=== PATIENT | male | born 1955 | race Caucasian/White ===

== ENCOUNTER 2023-09-22 09:11 | Inpatient (IN) | payer MEDICARE, SELFPAY ==
[2023-09-22] VITALS (9 sets, daily range): BP systolic 131–155; BP diastolic 52–64; PULSE 60–65; RESP 16–20; TEMP 35.6–36.7; O2SAT 95–99; BMI 36.0
--- NOTE | ~2023-09-22 | CT_ITS ---
EXAMINATION: CT foot LT wo con DATE: 09/23/2023 09:32 INDICATION: Diabetic foot ulcer, possible osteomyelitis TECHNIQUE: Computed tomography (CT) of the left foot was performed without intravenous contrast. The dose-length product (DLP) was 518.26 mGy-cm. Automated exposure control and iterative reconstruction technique were employed. COMPARISON: Foot radiographs from yesterday FINDINGS: There is a plantar soft tissue ulceration of the foot near the second and third metatarsoph alangeal joints. No underlying osteomyelitis is identified. There is chronic appearing deformity of t he phalanges of the fifth toe. There is mild polyarticular osteoarthritis. Posterior and plantar enth esophytes are noted. There is calcified atherosclerosis. IMPRESSION: 1. Plantar soft tissue ulceration of the foot near the second and third metatarsophalangeal joints wi thout evidence of underlying osteomyelitis. Reviewed, dictated and finalized at location F. K OFF BEARER IMPRESSION: 1. Plantar soft tissue ulceration of the foot near the second and third metatar sophalangeal joints without evidence of underlying osteomyelitis.
--- NOTE | ~2023-09-22 | XR_ITS ---
XR foot LT min 3V 09/22/2023 10:30 Indication: Diabetic foot ulcer Procedure: 4 views left foot Comparison: No prior studies for comparison. Findings: There are erosive changes of the fifth toe involving the proximal and distal phalanges. Ost eomyelitis cannot be excluded. There is arterial calcification. There are small degenerative calcanea l enthesophytes. 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 Impression: 1: Abnormal appearance with erosive changes involving the fifth toe at the interphalangeal joint, edilma picious for osteomyelitis. Consider correlation with MRI. Reviewed, dictated and finalized at location B. OR IT ASSISTANT Impression: 1: Abnormal appearance with erosive changes involving the fifth toe at the inte rphalangeal joint, suspicious for osteomyelitis. Consider correlation with MRI.
--- NOTE | 2023-09-22 10:01 | ECG_ITS ---
Measurements Intervals [place] Rate: 61 P: 199 SC: 225 QRS: -68 QRSD: 189 T: 109 QT: 502 QTc: 506 Interpretive Statements ELECTRONIC ATRIAL PACEMAKER ELECTRONIC VENTRICULAR PACEMAKER ABNORMAL RHYTHM ECG NO PREVIOUS ECG AVAILABLE FOR COMPARISON Electronically Signed On 09-22-2023 10:48:22 [employer]NAGER GAME by Ascencion Giron M.D.
--- NOTE | 2023-09-22 10:10 | ED.GENADULT ---
HPI - General Adult General Chief complaint: Wound/Laceration Stated complaint: foot infection Time Seen by Provider: 09/22/23 09:41 History of Present Illness HPI narrative: 68-year-old male present to the emergency department for evaluation of a worsening diabetic foot ulcer. Patient has history of high cholesterol, hypertension, type 2 diabetes. Patient does have prior history of foot ulcers. Patient has been having follow-up with Podiatry and they recommended he present to the ED for evaluation. patient states that the current also has been worsening over the course of the last 3 weeks. Patients infant lead teacher is Mikael Shrestha Related Data Home Medications Medication Instructions Recorded Confirmed empagliflozin 25 mg tablet 25 mg PO DAILY 09/22/23 09/22/23 (Jardiance) escitalopram oxalate 10 mg tablet 10 mg PO DAILY 09/22/23 09/22/23 fenofibrate 160 mg tablet 160 mg PO DAILY 09/22/23 09/22/23 fluticasone 500 mcg-salmeterol 50 1 inh inhalation BID 09/22/23 09/22/23 mcg/dose blistr powdr for inhalation (Advair Diskus) furosemide 40 mg tablet 40 mg PO DAILY 09/22/23 09/22/23 glimepiride 2 mg tablet 4 mg PO DAILY 09/22/23 09/22/23 insulin aspart U-100 100 unit/mL 20 unit subcut TIDWM 09/22/23 09/22/23 subcutaneous solution (Novolog U-100 Insulin aspart) insulin glargine 100 unit/mL (3 105 unit subcut HS 09/22/23 09/22/23 mL) subcutaneous pen (Basaglar KwikPen U-100 Insulin) metformin 1,000 mg tablet 1,000 mg PO BIDWM 09/22/23 09/22/23 metoprolol tartrate 100 mg tablet 100 mg PO BID 09/22/23 09/22/23 potassium chloride 10 mEq 10 meq PO BIDWM 09/22/23 09/22/23 tablet,extended release rivaroxaban 20 mg tablet (Xarelto) 20 mg PO DAILY 09/22/23 09/22/23 rosuvastatin 20 mg tablet 20 mg PO HS 09/22/23 09/22/23 sulfamethoxazole 800 1 tablet PO Q12H 09/22/23 09/22/23 mg-trimethoprim 160 mg tablet Allergies Allergy/AdvReac Type Severity Reaction Status Date / Time No Known Allergies Allergy Verified 09/22/23 09:25 Review of Systems Review of Systems: All systems reviewed & are unremarkable except as noted in HPI and below PMFSH Social History Social History Smoking packs per day: 2 Smoking cigarettes per day: 40.0 Years smoked: 60 Smoking pack-years: 120.00 Smoking status: Current every day smoker Tobacco type: cigarettes Alcohol intake: never Substance use: never Lack of Transportation: No Lack of Food: Sometimes True Current Housing: I Have Housing Concerned About Future Housing: No Difficulty Paying Gas/Electric Bills: No Difficulty Paying for Meds: YES Currently Unemployed: No Education: High School Diploma/GED Difficulty w/ Childcare or Family Care: No Spiritual care concerns: No Exam Narrative: APPEARANCE: Well appearing, no pain, no distress, well-nourished. HEAD: normocephalic, atraumatic. EYES: PERRLA/EOMI, conjunctivae clear. NOSE: Normal no drainage EARS:TMS clear with good light reflex. THROAT: Pharynx clear, no exudate. NECK: Supple. No adenopathy, no masses. RESPIRATORY: Airway patent, respirations nonlabored. Clear to auscultation bilaterally, no rales, rhonchi, wheezing. CARDIOVASCULAR: Regular rate and rhythm without murmurs rubs or gallops. ABDOMINAL: Soft, nontender, nondistended, normal bowel sounds MUSCULOSKELETAL: Moves all extremities. Strength/ROM intact, No edema, No calf tenderness. NEURO: Alert. Cranial nerves II through XII intact. Grossly intact SKIN: diabetic ulcer to the plantar surface of the left foot Course Course Emergency Course: 68-year-old male presenting to the ED for evaluation of a worsening diabetic foot ulcer. X-ray was concerning for osteomyelitis. Patient has a leukocytosis of 16.9. Patient was started on antibiotics in the ED and blood cultures are pending. Orthopedics was consulted. Patient's infant lead teacher was consulted but he does not have credentials at this hospital. Vital Signs Vital
--- NOTE | 2023-09-22 10:30 | PC.NURSE ---
BLE william, purplish in color. Dry scaly skin noted to BLE. pulses are palpated
[2023-09-22 10:39] LABS: Basophils Absolute Auto 0.1 K/mm3 (0.0-0.1); Basophils Percent Auto 0.5 % (0.2-1.2); Eosinophils Absolute Auto 0.2 K/mm3 (0-0.3); Eosinophils Percent Auto 1.2 % (0-4.4); Hematocrit 34.8 % (42.0-52.0); Immature Granulocyte Absolute 0.26 K/mm3 (0.00-0.031); Immature Granulocyte Percent A 1.5 % (0-0.5); Lymphocytes Absolute Auto 1.59 K/mm3 (0.9-3.2); Lymphocytes Percent Auto 9.4 % (18.3-44.2); Mean Corpuscular HGB Conc 31.6 g/dl (32-36); Mean Corpuscular Hemoglobin 27.2 pg (26-34); Mean Corpuscular Volume 85.9 fl (80-100); Mean Platelet Volume 9.7 fl (7.4-10.4); Monocytes Percent Auto 5.9 % (2.6-8.5); Neutrophils Absolute Auto 13.8 K/mm3 (1.3-6.7); Neutrophils Percent Auto 81.5 % (45.5-73.1); Platelet Count Result 504 k/mm3 (150-375); Red Blood Count 4.05 M/mm3 (4.6-6.20); Red Cell Distribution Width 14.3 % (11.5-14.5); White Blood Count 16.9 K/mm3 (4.5-10.0)
[2023-09-22 10:51] LABS: Alanine Aminotransferase 117 U/L (6-50); Albumin Level 3.7 g/dL (3.5-5.1); Alkaline Phosphatase 92 U/L (38-126); Anion Gap 13 mmol/L (8-16); Aspartate Amino Transferase 80 U/L (17-59); Bilirubin,Total 0.5 mg/dL (0.2-1.3); Blood Urea Nitrogen 37 mg/dL (9-20); CRP 7.2 mg/dL (<1.0); Calcium 8.8 mg/dL (8.4-10.2); Carbon Dioxide 19 mmol/L (22-30); Chloride 102 mmol/L (98-107); Estimated CRCL calculation 57 ml/min; Estimated Glomerular Filt Rate 46; Glucose 291 mg/dL (65-110); Potassium 4.4 mmol/L (3.4-5.0); Sodium 134 mmol/L (137-145)
[2023-09-22] MEDS: metroNIDAZOLE 500 MG/ISO 100ML 500 MG/100 ML BAG 100 MG IVPB ×3 (10:51→21:41)
[2023-09-22] MEDS: CEFEPIME 2 GM/NS 50 ML 2 GM/50 ML BAG IVPB ×2 (10:53→20:40)
[2023-09-22] MEDS: HYDROmorphone HCL INJ (*CRX) 1 MG/ML SYR 0.5 MG IV PUSH (10:57)
[2023-09-22 11:14] LABS: Erythrocyte Sedimentation Rate 118 mm/hr (0-20)
[2023-09-22] MEDS: VANCOMYCIN 1,250 MG/NS 250 ML 1,250 MG/250 ML BAG 166.67 MG IVPB ×2 (13:17→14:49)
--- NOTE | 2023-09-22 14:55 | ADMGEN ---
This patient, Charly Presley, was admitted to Virtual Bed 3rd Floor-1. Patient/family oriented to hospital policies and general routines including ID bracelet, bed and alarms, visiting hours, pain management, procedures, bathroom and other care routines, personal items, smoking policy, room service/diet, and visiting hours. Information on how to activate the Rapid Response Team has been discussed. Patient/Family are encouraged to report perceived risks to care and to ask questions if they do not understand what they are told or what they should do.
[2023-09-22] MEDS: NICOTINE (*PBKC) 21 MG PATCH 1 PATCH TRANSDERM (15:57)
[2023-09-22 16:32] LABS: Glucose Point of Care 225 mg/dl (65-105)
--- NOTE | 2023-09-22 20:25 | PM.IMHP ---
H&P: HPI History of Present Illness Date/Time: 09/22/23 20:25 Chief Complaint: Left foot ulcer Narrative: This is a 68-year-old male with past medical history significant for insulin-dependent diabetes mellitus, obesity, obstructive sleep apnea on CPAP at nighttime. Patient presents to the emergency room due to left foot ulcer with malodorous drainage. Patient denies any generalized malaise, chills, rigors, nausea, vomiting, diarrhea his appetite has been good. Patient has been admitted for further evaluation management and treatment. XR foot LT min 3V 09/22/2023 10:30 Indication: Diabetic foot ulcer Procedure: 4 views left foot Comparison: No prior studies for comparison. Findings: There are erosive changes of the fifth toe involving the proximal and distal phalanges. Osteomyelitis cannot be excluded. There is arterial calcification. There are small degenerative calcaneal enthesophytes. 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 Impression: 1: Abnormal appearance with erosive changes involving the fifth toe at the interphalangeal joint, suspicious for osteomyelitis. Consider correlation with MRI. Review of Systems Review of Systems: Left foot ulcer malodorous discharge Constitutional: Constitutional: Denies chills, Denies fatigue, Denies fever(s), Denies malaise and Denies night sweats Eyes: Eyes: Denies change in vision ENT: Denies dysphagia and Denies odynophagia Cardiovascular: Cardiovascular: Denies chest pain, Denies radiating jaw, neck or arm pain and Denies palpitations Respiratory: Respiratory: Denies cough and Denies dyspnea Gastrointestinal: Gastrointestinal: Denies abdominal pain, Denies dyspepsia, Denies heartburn, Denies diarrhea, Denies nausea and Denies vomiting Genitourinary: Genitourinary: Denies dysuria Musculoskeletal: Musculoskeletal: Reports other (Left foot ulcer) Integumentary/Breasts: Skin/Breast: Reports skin ulcer Neurologic: Denies focal weakness and Denies Sensory deficit (Neuro) Psychiatric: Psychiatric: Reports no additional psychiatric complaints and Reports as per HPI Endocrine: Endocrine: Denies cold intolerance, Denies fatigue, Denies flushing, Denies heat intolerance, Denies polyphagia, Denies polydipsia and Denies palpitations Hematologic/Lymphatic: Hematologic/Lymphatic: Reports no additional hematologic/lymphatic complaints and Reports as per HPI Allergic/Immunologic: Allergic/Immunologic: Reports no additional allergic/immunologic complaints and Reports as per [facility] Past Medical History Medical History Atrial fibrillation CAD (coronary artery disease) COPD (chronic obstructive pulmonary disease) Pacemaker Pulmonary emboli Tobacco abuse Surgical History Surgical History Hx of CABG Social History Social History Smoking packs per day: 2 Smoking cigarettes per day: 40.0 Years smoked: 60 Smoking pack-years: 120.00 Smoking status: Current every day smoker Tobacco type: cigarettes Alcohol intake: never Substance use: never Lack of Transportation: No Lack of Food: Sometimes True Current Housing: I Have Housing Concerned About Future Housing: No Difficulty Paying Gas/Electric Bills: No Difficulty Paying for Meds: YES Currently Unemployed: No Education: High School Diploma/GED Difficulty w/ Childcare or Family Care: No Spiritual care concerns: No Meds Home Medications and Allergies Home Medications Medication Instructions Recorded Confirmed Type empagliflozin 25 mg tablet 25 mg PO DAILY 09/22/23 09/22/23 History (Jardiance) escitalopram oxalate 10 mg tablet 10 mg PO DAILY 09/22/23 09/22/23 History fenofibrate 160 mg tablet 160 mg PO DAILY 09/22/23 09/22/23 History fluticasone 500 mcg-salmeterol 50 1 inh inhalation BID
[2023-09-22 22:35] LABS: Glucose Point of Care 343 mg/dl (65-105)
[2023-09-22] MEDS: INSULIN ASPART (*BKC) 100 UNITS/ML SUB-Q (22:53)
[2023-09-23 00:05] VITALS: BP 147/61; PULSE 65; RESP 22; TEMP 36.3; O2SAT 97
[2023-09-23] MEDS: metroNIDAZOLE 500 MG/ISO 100ML 500 MG/100 ML BAG 100 MG IVPB ×3 (05:31→20:12)
[2023-09-23 05:45] VITALS: BP 152/64; PULSE 74; RESP 20; TEMP 35.8; O2SAT 99
--- NOTE | 2023-09-23 07:10 | PM.CNOR ---
Assessment and Plan Assessment and plan (1) Diabetic foot ulcer: Qualifiers: Diabetic foot ulcer location: toe Diabetes mellitus type: type 2 Laterality: left Non-pressure ulcer stage: with necrosis of bone Qualified Code(s): E11.621 - Type 2 diabetes mellitus with foot ulcer; L97.524 - Non-pressure chronic ulcer of other part of left foot with necrosis of bone Code(s): E11.621 - Type 2 diabetes mellitus with foot ulcer; L97.509 - Non-pressure chronic ulcer of other part of unspecified foot with unspecified severity Status: Acute Assessment and Plan: Left diabetic foot ulcer for the past 3 weeks. Worse yesterday. X-ray read as possible osteo of the 5th toe however the ulcer is under the 2nd and 3rd toe metatarsophalangeal joint. Boggy appearance to the soft tissue with purulent drainage. Concern for deep abscess or osteo. Recommend CT scan of the left foot. Start dressing changes with Betadine. Started on IV antibiotics. Unable to palpate pulses. Bilateral lower extremity chronic venous stasis. May have vascular etiology as well. NABILA and TBIs ordered. Discussed operative and non operative treatment with the patient. We will review further testing and discuss with patient. May require debridement versus amputation. Patient questions answered. Condition complicated by uncontrolled diabetes, tobacco use with history of 2 packs per day and current use. Previous vascular conditions with open heart surgery and pacemaker. History of Present Illness HPI Consult date: 09/23/23 Requesting physician: Oswaldo Alvarado MD Chief complaint: Osteomyelitis Narrative: 68-year-old male uncontrolled diabetes, smokes 2 packs a day. Left diabetic foot ulcer for the past 3 weeks. Worse yesterday and recommended come to the emergency room. Admitted for further care had previous callus on the lateral aspect of the 5th toe treated conservatively. Review of Systems Constitutional: Constitutional: Denies fever(s) Eyes: Eyes: Denies blurry vision ENT: Reports Normal hearing present Cardiovascular: Cardiovascular: Denies chest pain and Denies dyspnea Respiratory: Respiratory: Denies dyspnea and Denies wheezing Gastrointestinal: Gastrointestinal: Denies abdominal pain Genitourinary: Genitourinary: Denies urinary urgency Musculoskeletal: Musculoskeletal: Reports as per HPI and Denies numbness Integumentary/Breasts: Skin/Breast: Denies changing lesions and Denies sores Neurologic: Reports Normal hearing present, Denies behavioral changes, Denies confusion, Denies numbness and Denies convulsions Psychiatric: Psychiatric: Denies behavioral changes, Denies confusion and Denies hallucinations Endocrine: Endocrine: Denies heat intolerance Hematologic/Lymphatic: Hematologic/Lymphatic: Denies easy bleeding Allergic/Immunologic: Allergic/Immunologic: Denies wheezing [facility] Social History Social History Smoking packs per day: 2 Smoking cigarettes per day: 40.0 Years smoked: 60 Smoking pack-years: 120.00 Smoking status: Current every day smoker Tobacco type: cigarettes Alcohol intake: never Substance use: never Lack of Transportation: No Lack of Food: Sometimes True Current Housing: I Have Housing Concerned About Future Housing: No Difficulty Paying Gas/Electric Bills: No Difficulty Paying for Meds: YES Currently Unemployed: No Education: High School Diploma/GED Difficulty w/ Childcare or Family Care: No Spiritual care concerns: No Meds Home Medications and Allergies Home Medications Medication Instructions Recorded Confirmed Type empagliflozin 25 mg tablet 25 mg PO DAILY 09/22/23 09/22/23 History (Jardiance) escitalopram oxalate 10 mg tablet 10 mg PO DAILY 09/22/23 09/22/23 History fenofibrate 160 mg tablet 160 mg PO DAILY 09/22/23 09/22/23 History fluticasone 500 mcg-salmeterol 50 1 inh inhalation BID
[2023-09-23 07:48] LABS: Estimated CRCL calculation 64 ml/min; Estimated Glomerular Filt Rate 55
[2023-09-23 07:50] LABS: Basophils Absolute Auto 0.1 K/mm3 (0.0-0.1); Basophils Percent Auto 0.7 % (0.2-1.2); Eosinophils Absolute Auto 0.2 K/mm3 (0-0.3); Eosinophils Percent Auto 1.4 % (0-4.4); Hematocrit 36.3 % (42.0-52.0); Hemoglobin 11.2 g/dL (14.0-18.0); Immature Granulocyte Absolute 0.21 K/mm3 (0.00-0.031); Immature Granulocyte Percent A 1.5 % (0-0.5); Lymphocytes Absolute Auto 1.47 K/mm3 (0.9-3.2); Lymphocytes Percent Auto 10.7 % (18.3-44.2); Mean Corpuscular HGB Conc 30.9 g/dl (32-36); Mean Corpuscular Hemoglobin 27.1 pg (26-34); Mean Corpuscular Volume 87.7 fl (80-100); Mean Platelet Volume 9.7 fl (7.4-10.4); Monocytes Percent Auto 7.2 % (2.6-8.5); Neutrophils Absolute Auto 10.8 K/mm3 (1.3-6.7); Neutrophils Percent Auto 78.5 % (45.5-73.1); Platelet Count Result 499 k/mm3 (150-375); Red Blood Count 4.14 M/mm3 (4.6-6.20); Red Cell Distribution Width 14.4 % (11.5-14.5); White Blood Count 13.7 K/mm3 (4.5-10.0)
[2023-09-23 07:51] LABS: Glucose Point of Care 297 mg/dl (65-105)
[2023-09-23] MEDS: INSULIN ASPART (*BKC) 100 UNITS/ML 20 UNITS SUB-Q ×3 (08:18→16:37)
[2023-09-23] MEDS: FENOFIBRATE 160 MG TABLET PO (08:19)
[2023-09-23] MEDS: METOPROLOL TARTRATE 50 MG TAB 100 MG PO ×2 (08:19→20:14)
[2023-09-23] MEDS: ESCITALOPRAM OXALATE 10 MG TABLET PO (08:19)
[2023-09-23] MEDS: CEFEPIME 2 GM/NS 50 ML 2 GM/50 ML BAG IVPB ×2 (08:19→20:10)
[2023-09-23] MEDS: NICOTINE (*PBKC) 21 MG PATCH 1 PATCH TRANSDERM (08:19)
[2023-09-23 08:41] LABS: Anion Gap 11 mmol/L (8-16); Blood Urea Nitrogen 33 mg/dL (9-20); Calcium 8.5 mg/dL (8.4-10.2); Carbon Dioxide 18 mmol/L (22-30); Chloride 103 mmol/L (98-107); Estimated CRCL calculation 64 ml/min; Estimated Glomerular Filt Rate 55; Glucose 295 mg/dL (65-110); Potassium 4.7 mmol/L (3.4-5.0); Sodium 132 mmol/L (137-145)
[2023-09-23 11:53] LABS: Glucose Point of Care 302 mg/dl (65-105)
[2023-09-23] MEDS: VANCOMYCIN 1,500 MG/NS 500 ML 1,500 MG/500 ML BAG 250 MG IVPB (12:40)
[2023-09-23] MEDS: FLUTICASONE/SALMETEROL 230-21 MCG INHALER 1 PUFF 2 PUFF INHALATION ×2 (12:46→20:35)
[2023-09-23 12:49] VITALS: O2SAT 93
[2023-09-23 14:00] VITALS: BP 123/57; PULSE 59; RESP 16; TEMP 36; O2SAT 100
[2023-09-23] MEDS: HYDROmorphone HCL INJ (*CRX) 1 MG/ML SYR 0.5 MG IV PUSH ×2 (14:32→15:34)
--- NOTE | 2023-09-23 14:44 | PM.IMPN ---
Progress Note: A&P Assessment and Plan (1) Osteomyelitis: Code(s): M86.9 - Osteomyelitis, unspecified Status: Acute Assessment and Plan: XR showed possible osteomyelitis and recommended a MRI or CT. CT ruled out osteomyelitis. Orthopedic surgery consult MRI could not be done due to pacemaker. IV antibiotics started Await cultures (2) Diabetic foot ulcer: Qualifiers: Diabetes mellitus type: type 2 Diabetic foot ulcer location: toe Laterality: left Non-pressure ulcer stage: with necrosis of bone Qualified Code(s): E11.621 - Type 2 diabetes mellitus with foot ulcer; L97.524 - Non-pressure chronic ulcer of other part of left foot with necrosis of bone Code(s): E11.621 - Type 2 diabetes mellitus with foot ulcer; L97.509 - Non-pressure chronic ulcer of other part of unspecified foot with unspecified severity Status: Acute Assessment and Plan: Wound care consulted. See above. (3) Obesity (BMI 30-39.9): Code(s): E66.9 - Obesity, unspecified Status: Acute Assessment and Plan: Lifestyle and diet modifications (4) KIRILL on CPAP: Code(s): G47.33 - Obstructive sleep apnea (adult) (pediatric) Status: Acute Assessment and Plan: Continue use of CPAP (5) Diabetes: Code(s): E11.9 - Type 2 diabetes mellitus without complications Status: Acute Assessment and Plan: Initiate hypoglycemia protocol. Continue home insulin regimen ACHS accu checks. High dose sliding scale. Subjective Date/time seen: 09/23/23 14:44 Interval history: Patient having some foot pain. He is aware that he may have to have an amputation. He said that his pain started about 3 weeks ago and he has been seeing a plaster molder and he was told to be seen in the ED for his phone. He states he takes his medication as prescribed and does not miss his doses. He does not tract his blood sugar. Exam Narrative: GENERAL: Comfortable, no acute distress HENMT: moist mucous membranes EYES: EOM intact b/l NECK: no lymphadenopathy RESPIRATORY: clear to auscultation CARDIO: RRR GI: soft, nontender, bowel sounds present SKIN: no rashes EXTREMITIES: stasis dermatitis b/l, right foot wound bandaged. Objective Data Vital Signs Vital Signs: Vital Signs - 24 hr 09/22/23 15:49 09/22/23 22:02 09/23/23 00:05 Temperature 97.4 F L Pulse Rate 60 65 Respiratory Rate 18 22 H Blood Pressure 147/61 H Pulse Oximetry 97 97 Oxygen Delivery Room Air CPAP 09/22/23 20:35 09/23/23 05:45 09/23/23 08:00 Temperature 96.5 F L Pulse Rate 74 Respiratory Rate 20 Blood Pressure 152/64 H Pulse Oximetry 99 Oxygen Delivery Room Air Room Air 09/23/23 12:49 09/23/23 14:00 Temperature 96.8 F L Pulse Rate 59 L Respiratory Rate 16 Blood Pressure 123/57 L Pulse Oximetry 93 100 Oxygen Delivery Room Air Intake/Output Intake/Output: Intake & Output 09/20/23 09/21/23 09/22/23 09/23/23 23:59 23:59 23:59 23:59 Intake Total 1344 1352 Balance 1344 1352 Meds/Results Medications: Active Medications Generic Name Dose Route Start Last Admin Trade Name Freq PRN Reason Stop Dose Admin Dextrose 12.5 gm 09/22/23 22:42 Dextrose 50% 25 Gm/50 Ml Syringe IV PUSH PRN PRN Hypoglycemia Protocol Escitalopram Oxalate 10 mg 09/23/23 09:00 09/23/23 08:19 Escitalopram Oxalate 10 Mg Tablet PO 10 mg DAILY DANIEL Administration Fenofibrate 160 mg 09/23/23 09:00 09/23/23 08:19 Fenofibrate 160 Mg Tablet PO 160 mg DAILY DANIEL Administration Glucagon 1 mg 09/22/23 22:42 Glucagon For Inj 1 Mg Vial IM PRN PRN Hypoglycemia Protocol Glucose 15 gm 09/22/23 22:42 Glucose Oral Gel 15 Gm Of Glucse In 37.5 Gm Tube PO PRN PRN Hypoglycemia Protocol Hydromorphone HCl 0.5 mg 09/22/23 11:25 09/23/23 14:32 Hydromorphon
[2023-09-23 16:35] LABS: Glucose Point of Care 190 mg/dl (65-105)
[2023-09-23 20:00] VITALS: PULSE 59; RESP 16; O2SAT 100
[2023-09-23] MEDS: ROSUVASTATIN 10 MG TABLET 20 MG PO (20:14)
[2023-09-23 20:40] VITALS: BP 152/62; PULSE 60; RESP 18; TEMP 35.8; O2SAT 99
[2023-09-23 21:04] LABS: Glucose Point of Care 207 mg/dl (65-105)
[2023-09-23] MEDS: INSULIN ASPART (*BKC) 100 UNITS/ML SUB-Q (21:25)
[2023-09-23] MEDS: INSULIN GLARGINE (*BKC) 100 UNITS/ML 105 UNITS SUB-Q (21:25)
[2023-09-23] MEDS: HYDROmorphone HCL INJ (*CRX) 1 MG/ML SYR IV PUSH (21:59)
--- NOTE | 2023-09-23 23:58 | PM.IMHP ---
H&P: HPI History of Present Illness Date/Time: 09/23/23 23:58 Chief Complaint: Left foot ulcer Narrative: 68 yo dm II, left foot ulcer with purulent drainage PMFSH Social History Social History Smoking packs per day: 2 Smoking cigarettes per day: 40.0 Years smoked: 60 Smoking pack-years: 120.00 Smoking status: Current every day smoker Tobacco type: cigarettes Alcohol intake: never Substance use: never Lack of Transportation: No Lack of Food: Sometimes True Current Housing: I Have Housing Concerned About Future Housing: No Difficulty Paying Gas/Electric Bills: No Difficulty Paying for Meds: YES Currently Unemployed: No Education: High School Diploma/GED Difficulty w/ Childcare or Family Care: No Spiritual care concerns: No Meds Home Medications and Allergies Home Medications Medication Instructions Recorded Confirmed Type empagliflozin 25 mg tablet 25 mg PO DAILY 09/22/23 09/22/23 History (Jardiance) escitalopram oxalate 10 mg tablet 10 mg PO DAILY 09/22/23 09/22/23 History fenofibrate 160 mg tablet 160 mg PO DAILY 09/22/23 09/22/23 History fluticasone 500 mcg-salmeterol 50 1 inh inhalation BID 09/22/23 09/22/23 History mcg/dose blistr powdr for inhalation (Advair Diskus) furosemide 40 mg tablet 40 mg PO DAILY 09/22/23 09/22/23 History glimepiride 2 mg tablet 4 mg PO DAILY 09/22/23 09/22/23 History insulin aspart U-100 100 unit/mL 20 unit subcut TIDWM 09/22/23 09/22/23 History subcutaneous solution (Novolog U-100 Insulin aspart) insulin glargine 100 unit/mL (3 105 unit subcut HS 09/22/23 09/22/23 History mL) subcutaneous pen (Basaglar KwikPen U-100 Insulin) metformin 1,000 mg tablet 1,000 mg PO BIDWM 09/22/23 09/22/23 History metoprolol tartrate 100 mg tablet 100 mg PO BID 09/22/23 09/22/23 History potassium chloride 10 mEq 10 meq PO BIDWM 09/22/23 09/22/23 History tablet,extended release rivaroxaban 20 mg tablet (Xarelto) 20 mg PO DAILY 09/22/23 09/22/23 History rosuvastatin 20 mg tablet 20 mg PO HS 09/22/23 09/22/23 History sulfamethoxazole 800 1 tablet PO Q12H 09/22/23 09/22/23 History mg-trimethoprim 160 mg tablet Allergies Allergy/AdvReac Type Severity Reaction Status Date / Time No Known Allergies Allergy Verified 09/22/23 09:25 Vital Signs Vital Signs - 24 hr 09/23/23 00:05 09/23/23 05:45 09/23/23 08:00 Temperature 97.4 F L 96.5 F L Pulse Rate 65 74 Respiratory Rate 22 H 20 Blood Pressure 147/61 H 152/64 H Pulse Oximetry 97 99 Oxygen Delivery Room Air 09/23/23 12:49 09/23/23 14:00 09/23/23 20:00 Temperature 96.8 F L Pulse Rate 59 L 59 L Respiratory Rate 16 16 Blood Pressure 123/57 L Pulse Oximetry 93 100 100 Oxygen Delivery Room Air Room Air 09/23/23 20:40 Temperature 96.4 F L Pulse Rate 60 Respiratory Rate 18 Blood Pressure 152/62 H Pulse Oximetry 99 Oxygen Delivery Exam Const: General: healthy appearing; No in distress or confusion Orientation/consciousness: oriented to person, oriented to place, oriented to time and No confusion HENMT: Head: normal to inspection, normocephalic and atraumatic Eyes: Conjunctivae: conjunctivae normal Sclera: sclerae normal Neck: Neck: supple and nontender Resp: Effort & Inspection: normal respiratory effort and no audible wheezes Cardio: Rhythm: regular rhythm Skin: General skin exam: no rashes or lesions noted Neuro: General: oriented to person, oriented to place, oriented to time and No confusion Extrem: Right upper extremity: normal to inspection Left upper extremity: normal to inspection Right lower extremity: ankle Details: normal to inspection, abnormal ROM Details: with range as follows (ankle dorsiflexion -10 degrees, plantar flexion 40?, inversion 15?, eversion 15?) and other ( good stability all directions); no tenderness, no swelling and no ecchymosis and foot Details: abn
[2023-09-24] VITALS (15 sets, daily range): BP systolic 112–151; BP diastolic 53–72; PULSE 58–64; RESP 14–23; TEMP 35.7–36.7; O2SAT 95–100
[2023-09-24] MEDS: metroNIDAZOLE 500 MG/ISO 100ML 500 MG/100 ML BAG 100 MG IVPB ×3 (05:42→21:46)
--- NOTE | 2023-09-24 06:59 | WPDHPUPDATE1 ---
History and Physical Update Update Date/Time: 09/24/23 06:59 History and Physical has been reviewed, including an updated exam of the patient. There are NO changes in the patient's condition. Risks, benefits, and alternatives have been discussed and questions answered. Patient agrees to proceed with procedure.
[2023-09-24 07:03] LABS: Basophils Absolute Auto 0.1 K/mm3 (0.0-0.1); Basophils Percent Auto 0.6 % (0.2-1.2); Eosinophils Absolute Auto 0.2 K/mm3 (0-0.3); Eosinophils Percent Auto 1.7 % (0-4.4); Hematocrit 36.2 % (42.0-52.0); Hemoglobin 11.3 g/dL (14.0-18.0); Immature Granulocyte Absolute 0.17 K/mm3 (0.00-0.031); Immature Granulocyte Percent A 1.2 % (0-0.5); Lymphocytes Absolute Auto 1.82 K/mm3 (0.9-3.2); Lymphocytes Percent Auto 12.7 % (18.3-44.2); Mean Corpuscular HGB Conc 31.2 g/dl (32-36); Mean Corpuscular Hemoglobin 27.2 pg (26-34); Mean Corpuscular Volume 87.2 fl (80-100); Mean Platelet Volume 9.4 fl (7.4-10.4); Monocytes Absolute Auto 1.1 K/mm3 (0.1-0.6); Monocytes Percent Auto 7.7 % (2.6-8.5); Neutrophils Absolute Auto 10.9 K/mm3 (1.3-6.7); Neutrophils Percent Auto 76.1 % (45.5-73.1); Platelet Count Result 506 k/mm3 (150-375); Red Blood Count 4.15 M/mm3 (4.6-6.20); Red Cell Distribution Width 14.3 % (11.5-14.5); White Blood Count 14.3 K/mm3 (4.5-10.0)
[2023-09-24 07:13] LABS: Alanine Aminotransferase 98 U/L (6-50); Albumin Level 3.7 g/dL (3.5-5.1); Alkaline Phosphatase 87 U/L (38-126); Anion Gap 9 mmol/L (8-16); Aspartate Amino Transferase 59 U/L (17-59); Bilirubin,Total 0.5 mg/dL (0.2-1.3); Blood Urea Nitrogen 24 mg/dL (9-20); Calcium 8.5 mg/dL (8.4-10.2); Carbon Dioxide 20 mmol/L (22-30); Chloride 104 mmol/L (98-107); Estimated CRCL calculation 75 ml/min; Estimated Glomerular Filt Rate > 60; Glucose 170 mg/dL (65-110); Potassium 4.8 mmol/L (3.4-5.0); Sodium 133 mmol/L (137-145)
[2023-09-24 07:59] LABS: Glucose Point of Care 151 mg/dl (65-105)
--- NOTE | 2023-09-24 07:59 | WPDANESEPP ---
Anes - Eval Pre Procedure Procedure: Operation Date: 09/24/23 08:00 Proposed Procedures p I&D Debride Lower Extremity Foot(Left) - Prasanth Pizarro MD Date/Time: 09/24/23 07:59 Surgeon: Juarez Preop Diagnosis: Left foot ulcer Pre Op Diagnosis: Osteomyelitis Patient Data Age: 68 Gender: M Height: 1.85 m Weight: 119.4 kg Last Vital Signs Temp 96.2 F L 09/24/23 05:35 Pulse 60 09/24/23 05:35 Resp 20 09/24/23 05:35 BP 149/70 H 09/24/23 05:35 Pulse Ox 100 09/24/23 05:35 O2 Del Method Room Air 09/23/23 20:00 Allergies Allergy/AdvReac Type Severity Reaction Status Date / Time No Known Allergies Allergy Verified 09/22/23 09:25 Home Medications Medication Instructions Recorded Confirmed Type empagliflozin 25 mg tablet 25 mg PO DAILY 09/22/23 09/22/23 History (Jardiance) escitalopram oxalate 10 mg tablet 10 mg PO DAILY 09/22/23 09/22/23 History fenofibrate 160 mg tablet 160 mg PO DAILY 09/22/23 09/22/23 History fluticasone 500 mcg-salmeterol 50 1 inh inhalation BID 09/22/23 09/22/23 History mcg/dose blistr powdr for inhalation (Advair Diskus) furosemide 40 mg tablet 40 mg PO DAILY 09/22/23 09/22/23 History glimepiride 2 mg tablet 4 mg PO DAILY 09/22/23 09/22/23 History insulin aspart U-100 100 unit/mL 20 unit subcut TIDWM 09/22/23 09/22/23 History subcutaneous solution (Novolog U-100 Insulin aspart) insulin glargine 100 unit/mL (3 105 unit subcut HS 09/22/23 09/22/23 History mL) subcutaneous pen (Basaglar KwikPen U-100 Insulin) metformin 1,000 mg tablet 1,000 mg PO BIDWM 09/22/23 09/22/23 History metoprolol tartrate 100 mg tablet 100 mg PO BID 09/22/23 09/22/23 History potassium chloride 10 mEq 10 meq PO BIDWM 09/22/23 09/22/23 History tablet,extended release rivaroxaban 20 mg tablet (Xarelto) 20 mg PO DAILY 09/22/23 09/22/23 History rosuvastatin 20 mg tablet 20 mg PO HS 09/22/23 09/22/23 History sulfamethoxazole 800 1 tablet PO Q12H 09/22/23 09/22/23 History mg-trimethoprim 160 mg tablet Laboratory Tests 09/23/23 09/23/23 09/23/23 07:08 07:10 11:32 WBC RBC Hgb Hct MCV MCH MCHC RDW Plt Count MPV Immature Gran % (Auto) Neut % (Auto) Lymph % (Auto) [place] % (Auto) Eos % (Auto) Baso % (Auto) Lymph # (Auto) [place] # (Auto) Eos # (Auto) Baso # (Auto) Abs Immat Gran (auto) Absolute Neuts (auto) Absolute Nucleated RBC Nucleated RBC % Sodium 132 L mmol/L (137-145) Potassium 4.7 mmol/L (3.4-5.0) Chloride 103 mmol/L (98-107) Carbon Dioxide 18 L mmol/L (22-30) Anion Gap 11 mmol/L (8-16) BUN 33 H mg/dL (9-20) Creatinine 1.30 mg/dL (0.7-1.3) Estim Creat Clear Calc 64 ml/min Estimated GFR 55 L (59 - ) Glucose 295 H mg/dL (65-110) POC Capillary Glucose 302 H mg/dl (65-105) Hemoglobin A1c 10.0 H % (<5.7) Calcium 8.5 mg/dL (8.4-10.2) Total Bilirubin AST ALT Alkaline Phosphatase Total Protein Albumin 09/23/23 09/23/23 09/24/23 16:28 20:43 06:24 WBC 14.3 H K/mm3 (4.5-10.0) RBC 4.15 L M/mm3 (4.6-6.20) Hgb 11.3 L g/dL (14.0-18.0) Hct 36.2 L % (42.0-52.0) MCV 87.2 fl (80-100) MCH 27.2 pg (26-34) MCHC 31.2 L g/dl (32-36) RDW 14.3 % (11.5-14.5) Plt Count 506 H k/mm3 (150-375) MPV 9.4 fl (7.4-10.4) Immature Gran % (Auto) 1.2 H % (0-0.5) Neut % (Auto) 76.1 H % (45.5-73.1) Lymph % (Auto) 12.7 L %
--- NOTE | 2023-09-24 08:16 | P.PNAN_ITS ---
Anes - Eval Final PreProcedure Day of Procedure 09/24/23 08:16 Patient weight: obese Heart: regular rate and rhythm Lungs: clear to auscultation Airway: Mallampati scale class II and special considerations poor dentition Neurological: alert and oriented Last oral intake: >/= 8 hours ASA classification: III Emergent: no Anesthetic plan: proceed Anesthesia type and monitoring: general LMA and standard monitoring Results Review: All pre-operative results and documents have been reviewed as part of the pre- operative evaluation. Informed Consent: The patient's anesthetic plan and its attendant risks and benefits were discussed with the patient/family/POA. Questions were solicited and answers provided to the satisfaction of the patient/family/POA.
[2023-09-24] MEDS: METOPROLOL TARTRATE 50 MG TAB 100 MG PO ×2 (08:30→20:39)
[2023-09-24] MEDS: CEFEPIME 2 GM/NS 50 ML 2 GM/50 ML BAG IVPB ×2 (08:35→20:38)
[2023-09-24] MEDS: ceFAZolin SODIUM 1 GM VIAL (08:52)
[2023-09-24] MEDS: LACTATED RINGERS 1,000 ML 30 ML IV CONT (08:59)
--- NOTE | 2023-09-24 09:09 | P.OP_ITS ---
Procedure Note - Detailed Date of Procedure 09/24/23 Pre-op Diagnosis Osteomyelitis Post-op Diagnosis Same Procedure Performed excisional debridement of left foot ulcer down to muscle layer, 5 x 3 cm Surgeon Prasanth Pizarro MD [employer] 1[employer] volunteer services assistant Anesthesia General Indications 68-year-old with diabetes and neuropathy who was admitted with left foot ulcer with infection. Worsening with oral antibiotic treatment. Presents for operative debridement. Findings Left plantar forefoot ulcer beneath the 2nd and 3rd toes 5 x 3 cm with 2 cm depth. Did not extend to bone or joint. Decreased bleeding noted. Description of Procedure Patient identified in the preoperative holding. Informed consent given. Operative extremity marked. Patient received intravenous antibiotics. Patient brought to the operating room where underwent general anesthetic by anesthesia team. Positioned supine on operating room table. Time-out performed confirming the patient, site of the surgery and the plan. Left foot prepped draped usual sterile surgical fashion using a Betadine prep solution. Esmarch bandage used to exsanguinate the foot and wrapped at the ankle as a tourniquet. 15 blade k nife used to debride the left foot. Skin, subcutaneous tissue, muscle sharply debrided and passed off with the knife and rongeur. All devitalized tissue excised and removed. No exposed bone or joint or tendon material noted. Tourniquet released and mild bleeding noted around the periphery of the wound. Wound measured at 5 x 3 cm with 2 cm depth. Wound irrigated with saline with vancomycin antibiotic. Wound packed with Betadine gauze. Sterile dressing applied. The patient was then woken from anesthesia, extubated and taken to the recovery room in stable condition. All sponge, needle, i nstrument counts were correct at the end of the case. Estimated Blood Loss 5 Tourniquet Time 20 Drains No Packing Yes ( Betadine-soaked gauze) Pathology None sent Complications None Condition Stable Disposition PACU [facility] Billing Surgery - Charge Forward: Surgery Billing ([id number])
[2023-09-24 09:18] LABS: Glucose Point of Care 177 mg/dl (65-105)
[2023-09-24] MEDS: fentaNYL CITRATE INJ (*CRX) 100 MCG/2 ML VIAL 25 MCG IV PUSH (09:58)
[2023-09-24] MEDS: FLUTICASONE/SALMETEROL 230-21 MCG INHALER 1 PUFF 2 PUFF INHALATION ×2 (10:35→19:37)
[2023-09-24] MEDS: ESCITALOPRAM OXALATE 10 MG TABLET PO (11:13)
[2023-09-24] MEDS: FENOFIBRATE 160 MG TABLET PO (11:13)
[2023-09-24] MEDS: POTASSIUM CHLORIDE 10 MEQ ER TABLET PO ×2 (11:15→16:31)
[2023-09-24] MEDS: HYDROcodone/acetaminophen (*CRX) 5-325 MG TABLET 1 TAB PO ×3 (11:15→21:46)
[2023-09-24 11:18] LABS: Glucose Point of Care 156 mg/dl (65-105)
[2023-09-24] MEDS: FUROSEMIDE 40 MG TABLET PO (12:53)
[2023-09-24 12:54] LABS: Vancomycin Trough 8.3 ug/mL (10.0-20.0)
--- NOTE | 2023-09-24 14:13 | PM.IMPN ---
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 CT ruled out osteomyelitis. Orthopedic surgery consult MRI could not be done due to pacemaker. IV antibiotics started Wound culture with gram-positive cocci Blood culture no growth to date (2) Obesity (BMI 30-39.9): Code(s): E66.9 - Obesity, unspecified Status: Acute Assessment and Plan: Lifestyle and diet modifications (3) KIRILL on CPAP: Code(s): G47.33 - Obstructive sleep apnea (adult) (pediatric) Status: Acute Assessment and Plan: Continue use of CPAP (4) Diabetes: Code(s): E11.9 - Type 2 diabetes mellitus without complications Status: Acute Assessment and Plan: Initiate hypoglycemia protocol. Continue home insulin regimen ACHS accu checks. High dose sliding scale. Subjective Date/time seen: 09/24/23 14:13 Interval history: Patient postop day 0 from right diabetic wound debridement. Patient has some pain postoperatively but overall is managing well. PT and OT ordered for the patient. Exam Narrative: GENERAL: Comfortable, no acute distress HENMT: moist mucous membranes EYES: EOM intact b/l NECK: no lymphadenopathy RESPIRATORY: small amount of scattered wheezes CARDIO: RRR GI: soft, nontender, bowel sounds present SKIN: no rashes EXTREMITIES: stasis dermatitis b/l, right foot wound bandaged. Objective Data Vital Signs Vital Signs: Vital Signs - 24 hr 09/23/23 20:00 09/23/23 20:40 09/24/23 05:35 Temperature 96.4 F L 96.2 F L Pulse Rate 59 L 60 60 Respiratory Rate 16 18 20 Blood Pressure 152/62 H 149/70 H Pulse Oximetry 100 99 100 Oxygen Delivery Room Air Oxygen Flow Rate 09/24/23 08:59 09/24/23 09:15 09/24/23 09:30 Temperature 98.0 F Pulse Rate 60 60 60 Respiratory Rate 23 H 16 18 Blood Pressure 112/53 L 121/59 L 138/61 Pulse Oximetry 99 100 96 Oxygen Delivery Simple Face Mask Simple Face Mask Room Air Oxygen Flow Rate 8 8 09/24/23 09:45 09/24/23 10:00 09/24/23 10:35 Temperature Pulse Rate 60 60 Respiratory Rate 14 18 Blood Pressure 149/61 H 146/62 H Pulse Oximetry 96 95 95 Oxygen Delivery Room Air Room Air Room Air Oxygen Flow Rate 09/24/23 10:12 09/24/23 10:27 09/24/23 10:57 Temperature 96.4 F L 96.8 F L 97.0 F L Pulse Rate 64 58 L 59 L Respiratory Rate 20 20 20 Blood Pressure 149/65 H 146/71 H 146/72 H Pulse Oximetry 97 98 100 Oxygen Delivery Oxygen Flow Rate 09/24/23 11:57 09/24/23 13:05 09/24/23 13:09 Temperature 97.3 F L Pulse Rate 59 L Respiratory Rate 20 Blood Pressure 133/64 Pulse Oximetry 100 Oxygen Delivery Room Air Room Air Oxygen Flow Rate Intake/Output Intake/Output: Intake & Output 09/21/23 09/22/23 09/23/23 09/24/23 23:59 23:59 23:59 23:59 Intake Total 1344 2324 1180 Balance 1344 2324 1180 Meds/Results Medications: Active Medications Generic Name Dose Route Start Last Admin Trade Name Freq PRN Reason Stop Dose Admin Acetaminophen 650 mg 09/23/23 15:28 Acetaminophen 325 Mg Tablet PO Q6H PRN Mild Pain (1-3) or Fever Hydrocodone Bitart/Acetaminophen 1 tab 09/23/23 15:28 09/24/23 11:15 Hydrocodone/Acetaminophen (*Crx) 5-325 Mg Tablet PO 1 tab Q6H PRN Administration Pain Rated 4-6 Dextrose 12.5 gm
[2023-09-24] MEDS: VANCOMYCIN 1,500 MG/NS 500 ML 1,500 MG/500 ML BAG 250 MG IVPB (14:18)
[2023-09-24] MEDS: INSULIN ASPART (*BKC) 100 UNITS/ML 20 UNITS SUB-Q (16:28)
[2023-09-24] MEDS: SENNA/DOCUSATE SODIUM TABLET 2 TAB PO (16:30)
[2023-09-24 16:35] LABS: Glucose Point of Care 296 mg/dl (65-105)
[2023-09-24 20:21] LABS: Glucose Point of Care 135 mg/dl (65-105)
[2023-09-24] MEDS: ROSUVASTATIN 10 MG TABLET 20 MG PO (20:39)
[2023-09-24] MEDS: INSULIN GLARGINE (*BKC) 100 UNITS/ML 105 UNITS SUB-Q (20:43)
[2023-09-25] VITALS (13 sets, daily range): BP systolic 123–183; BP diastolic 42–78; PULSE 59–72; RESP 16–20; TEMP 35.7–36.3; O2SAT 96–100
[2023-09-25] MEDS: GLUCOSE ORAL GEL 15 GM OF GLUCSE IN 37.5 GM TUBE PO (00:43)
[2023-09-25] MEDS: VANCOMYCIN 1,500 MG/NS 500 ML 1,500 MG/500 ML BAG 250 MG IVPB ×2 (01:06→13:45)
[2023-09-25 01:34] LABS: Glucose Point of Care 53 mg/dl (65-105)
[2023-09-25 01:34] LABS: Glucose Point of Care 130 mg/dl (65-105)
[2023-09-25 01:34] LABS: Glucose Point of Care 65 mg/dl (65-105)
[2023-09-25 01:34] LABS: Glucose Point of Care 85 mg/dl (65-105)
[2023-09-25 04:31] LABS: Glucose Point of Care 209 mg/dl (65-105)
[2023-09-25 05:02] LABS: Glucose Point of Care 158 mg/dl (65-105)
[2023-09-25] MEDS: metroNIDAZOLE 500 MG/ISO 100ML 500 MG/100 ML BAG 100 MG IVPB ×2 (05:20→12:33)
[2023-09-25 06:54] LABS: Basophils Absolute Auto 0.1 K/mm3 (0.0-0.1); Basophils Percent Auto 0.5 % (0.2-1.2); Eosinophils Absolute Auto 0.1 K/mm3 (0-0.3); Eosinophils Percent Auto 0.9 % (0-4.4); Hematocrit 37.4 % (42.0-52.0); Hemoglobin 11.5 g/dL (14.0-18.0); Immature Granulocyte Absolute 0.12 K/mm3 (0.00-0.031); Immature Granulocyte Percent A 0.8 % (0-0.5); Lymphocytes Absolute Auto 1.38 K/mm3 (0.9-3.2); Lymphocytes Percent Auto 9.7 % (18.3-44.2); Mean Corpuscular HGB Conc 30.7 g/dl (32-36); Mean Corpuscular Hemoglobin 26.9 pg (26-34); Mean Corpuscular Volume 87.6 fl (80-100); Mean Platelet Volume 9.3 fl (7.4-10.4); Monocytes Absolute Auto 0.9 K/mm3 (0.1-0.6); Monocytes Percent Auto 6.3 % (2.6-8.5); Neutrophils Absolute Auto 11.7 K/mm3 (1.3-6.7); Neutrophils Percent Auto 81.8 % (45.5-73.1); Platelet Count Result 515 k/mm3 (150-375); Red Blood Count 4.27 M/mm3 (4.6-6.20); Red Cell Distribution Width 14.4 % (11.5-14.5); White Blood Count 14.2 K/mm3 (4.5-10.0)
[2023-09-25 07:04] LABS: Anion Gap 5 mmol/L (8-16); Blood Urea Nitrogen 20 mg/dL (9-20); Calcium 8.5 mg/dL (8.4-10.2); Carbon Dioxide 26 mmol/L (22-30); Chloride 105 mmol/L (98-107); Estimated CRCL calculation 75 ml/min; Estimated Glomerular Filt Rate > 60; Glucose 149 mg/dL (65-110); Potassium 4.7 mmol/L (3.4-5.0); Sodium 136 mmol/L (137-145)
[2023-09-25 07:59] LABS: Glucose Point of Care 144 mg/dl (65-105)
--- NOTE | 2023-09-25 09:00 | PCOTNOTE ---
Patient has wound care and MD present at arrival to see Patient. RN had just gave Patient IV pain medication and Patient unable to get out of bed due to safety at this point. Per MD, Patient needs a Cam Boot ordered prior to seeing him. Therapist will be back at a later time when more able.
[2023-09-25] MEDS: FLUTICASONE/SALMETEROL 230-21 MCG INHALER 1 PUFF 2 PUFF INHALATION ×2 (09:02→21:01)
[2023-09-25] MEDS: HYDROmorphone HCL INJ (*CRX) 1 MG/ML SYR IV PUSH (09:09)
[2023-09-25] MEDS: CEFEPIME 2 GM/NS 50 ML 2 GM/50 ML BAG IVPB (09:12)
[2023-09-25] MEDS: polyethylene glycoL 3350 17 GM POWD.PACK PO (09:16)
[2023-09-25] MEDS: POTASSIUM CHLORIDE 10 MEQ ER TABLET PO ×2 (09:16→17:06)
[2023-09-25] MEDS: METOPROLOL TARTRATE 50 MG TAB 100 MG PO ×2 (09:16→20:24)
[2023-09-25] MEDS: ESCITALOPRAM OXALATE 10 MG TABLET PO (09:16)
[2023-09-25] MEDS: FUROSEMIDE 40 MG TABLET PO (09:16)
[2023-09-25] MEDS: FENOFIBRATE 160 MG TABLET PO (09:16)
[2023-09-25] MEDS: SENNA/DOCUSATE SODIUM TABLET 2 TAB PO (09:16)
[2023-09-25 11:53] LABS: Glucose Point of Care 215 mg/dl (65-105)
[2023-09-25] MEDS: INSULIN ASPART (*BKC) 100 UNITS/ML 20 UNITS SUB-Q (12:33)
[2023-09-25] MEDS: HYDROcodone/acetaminophen (*CRX) 5-325 MG TABLET 1 TAB PO (12:34)
--- NOTE | 2023-09-25 13:30 | PM.PNORT ---
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 Dressing change with wound nurse. Plan for silver gel and daily gauze dressing changes. Operative treatment and findings reviewed with the patient. Fracture boot for protected weight-bearing to keep weight off of forefoot. PT/OT. IV antibiotics. Culture showing Staph aureus. Sensitivities pending. Uncontrolled diabetes. Recommend follow-up with primary physician. Vascular disease. Follow-up with heart/vascular Dr.. Subjective Subjective Date/Time Seen: 09/25/23 13:30 Post Op day: 1 Principal diagnosis: Left foot ulcer Interval history: patient awake and alert. In bed. Some pain left foot. Tolerating diet. Exam Const: General: healthy appearing; No in distress or confusion Orientation/consciousness: patient oriented x3 and No confusion HENMT: Head: normal to inspection, normocephalic and atraumatic Eyes: Conjunctivae: conjunctivae normal Sclera: sclerae normal Resp: Effort & Inspection: normal respiratory effort and no audible wheezes Neuro: General: patient oriented x3 and No confusion Extrem: Other: Left foot dressing removed with wound care nurse. Plantar ulcer clean and dry. No active drainage. Minimal bleeding. Toes 2nd toe dusky from the base the toe extending to the tip. 3rd toe less dusky. Other toes have good capillary refill. Negative Homans sign. Objective Data Vital Signs Vital Signs: Vital Signs - 24 hr 09/24/23 15:57 09/24/23 19:38 09/24/23 20:39 Temperature 97.1 F L Pulse Rate 60 61 Respiratory Rate 20 16 Blood Pressure 151/70 H Pulse Oximetry 99 Oxygen Delivery 09/24/23 20:00 09/24/23 20:35 09/25/23 00:34 Temperature 96.7 F L 96.6 F L Pulse Rate 61 60 Respiratory Rate 18 20 Blood Pressure 144/67 H 183/78 H Pulse Oximetry 100 96 Oxygen Delivery Room Air 09/25/23 00:53 09/25/23 01:08 09/25/23 01:33 Temperature Pulse Rate Respiratory Rate Blood Pressure 164/68 H 123/48 L 130/64 Pulse Oximetry Oxygen Delivery 09/25/23 03:57 09/25/23 08:00 09/25/23 09:05 Temperature 96.6 F L 96.2 F L Pulse Rate 59 L 66 Respiratory Rate 18 20 Blood Pressure 130/52 L 137/69 Pulse Oximetry 100 100 98 Oxygen Delivery Room Air 09/25/23 09:16 09/25/23 12:00 Temperature 96.7 F L Pulse Rate 72 59 L Respiratory Rate 20 Blood Pressure 150/71 H Pulse Oximetry 100 Oxygen Delivery Intake/Output Intake/Output: Intake & Output 09/22/23 09/23/23 09/24/23 09/25/23 23:59 23:59 23:59 23:59 Intake Total 1344 2324 2170 2670 Output Total 200 1075 Balance 1344 2324 1970 1595 Meds/Results Medications: Active Medications Generic Name Dose Route Start Last Admin Trade Name Freq PRN Reason Stop Dose Admin Acetaminophen 650 mg 09/23/23 15:28 Acetaminophen 325 Mg Tablet PO Q6H PRN Mild Pain (1-3) or Fever Hydrocodone Bitart/Acetaminophen 1 tab 09/23/23 15:28 09/25/23 12:34 Hydrocodone/Acetaminophen (*Crx) 5-325 Mg Tablet PO 1 tab Q6H PRN Administration Pain Rated 4-6 Dextrose 12.5 gm 09/22/23 22:42 Dextrose 50% 25 Gm/50 Ml Syringe IV PUSH PRN PRN Hypoglycemia Protocol Escitalopram Oxalate 10 mg 09/23/23 09:00 09/25/23 09:16 Escitalopram Oxalate 10 Mg Tablet PO 10 mg DAILY DANIEL Administration Fenofibrate 160 mg
--- NOTE | 2023-09-25 13:35 | PCOTNOTE ---
Attempted to see this session. Patient had recently just finished up with PT and states his pain is on the rise, he is feeling very overwhelmed with the additional attention of everyone. RN states, has been anxious all day. Patient refused to perform any activity at this time.
--- NOTE | 2023-09-25 13:57 | PM.IMPN ---
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 CT ruled out osteomyelitis. Orthopedic surgery consult MRI could not be done due to pacemaker. IV antibiotics started Wound culture positive for Staph aureus Blood culture no growth to date (2) Obesity (BMI 30-39.9): Code(s): E66.9 - Obesity, unspecified Status: Acute Assessment and Plan: Lifestyle and diet modifications (3) KIRILL on CPAP: Code(s): G47.33 - Obstructive sleep apnea (adult) (pediatric) Status: Acute Assessment and Plan: Continue use of CPAP (4) Diabetes: Code(s): E11.9 - Type 2 diabetes mellitus without complications Status: Acute Assessment and Plan: Initiate hypoglycemia protocol. Continue home insulin regimen ACHS accu checks. High dose sliding scale. Subjective Date/time seen: 09/25/23 13:57 Interval history: Patient doing well today. Patient is open to possible rehab to aid in his wound care treatment as well as possible IV antibiotics. Wound culture positive for Staph aureus. Patient postop day 1 diabetic foot ulcer debridement. Patient's foot is wrapped at the time of my visit. PT and OT working with patient today. Discussed with care coordination due to patient's insurance not sure if patient will be able to get into rehab facility but may be able to set up home health. Exam Narrative: GENERAL: Comfortable, no acute distress HENMT: moist mucous membranes EYES: EOM intact b/l NECK: no lymphadenopathy RESPIRATORY: small amount of scattered wheezes CARDIO: RRR GI: soft, nontender, bowel sounds present SKIN: no rashes EXTREMITIES: stasis dermatitis b/l, right foot wound bandaged. Objective Data Vital Signs Vital Signs: Vital Signs - 24 hr 09/24/23 15:57 09/24/23 19:38 09/24/23 20:39 Temperature 97.1 F L Pulse Rate 60 61 Respiratory Rate 20 16 Blood Pressure 151/70 H Pulse Oximetry 99 Oxygen Delivery 09/24/23 20:00 09/24/23 20:35 09/25/23 00:34 Temperature 96.7 F L 96.6 F L Pulse Rate 61 60 Respiratory Rate 18 20 Blood Pressure 144/67 H 183/78 H Pulse Oximetry 100 96 Oxygen Delivery Room Air 09/25/23 00:53 09/25/23 01:08 09/25/23 01:33 Temperature Pulse Rate Respiratory Rate Blood Pressure 164/68 H 123/48 L 130/64 Pulse Oximetry Oxygen Delivery 09/25/23 03:57 09/25/23 08:00 09/25/23 09:05 Temperature 96.6 F L 96.2 F L Pulse Rate 59 L 66 Respiratory Rate 18 20 Blood Pressure 130/52 L 137/69 Pulse Oximetry 100 100 98 Oxygen Delivery Room Air 09/25/23 09:16 09/25/23 12:00 Temperature 96.7 F L Pulse Rate 72 59 L Respiratory Rate 20 Blood Pressure 150/71 H Pulse Oximetry 100 Oxygen Delivery Intake/Output Intake/Output: Intake & Output 09/22/23 09/23/23 09/24/23 09/25/23 23:59 23:59 23:59 23:59 Intake Total 1344 2324 2170 2770 Output Total 200 1075 Balance 1344 2324 1970 1695 Meds/Results Medications: Active Medications Generic Name Dose Route Start Last Admin Trade Name Freq PRN Reason Stop Dose Admin Acetaminophen 650 mg 09/23/23 15:28 Acetaminophen 325 Mg Tablet PO Q6H PRN Mild Pain (1-3) or Fever Hydrocodone Bitart/Acetaminophen 1 tab 09/23/23 15:28 09/25/23 12:34 Hydrocodone/Acetaminophen (*Crx) 5-325
--- NOTE | 2023-09-25 15:49 | WPDANESPN ---
Anes - Prog Note Post-Op Date/Time: 09/25/23 15:49 Cardiovascular status: normal Respiratory status: normal Airway patency: baseline Mental status: baseline Post-Op hydration status: normal Vital Signs: Last Vital Signs Temp 35.7 C L 09/25/23 14:00 Pulse 60 09/25/23 14:00 Resp 20 09/25/23 14:00 BP 135/52 L 09/25/23 14:00 Pulse Ox 100 09/25/23 14:00 O2 Del Method Room Air 09/25/23 09:05 O2 Flow Rate 8 09/24/23 09:15 Pain Score (VAS): 11/25 I/O: Intake & Output 09/24/23 09/25/23 09/25/23 23:59 07:59 15:59 Intake Total 890 1908 862 Output Total 200 1075 Balance 690 833 862 Laboratory Tests 09/25/23 06:34 09/25/23 06:34 09/24/23 09/24/23 09/25/23 16:23 20:03 00:37 WBC RBC Hgb Hct MCV MCH MCHC RDW Plt Count MPV Immature Gran % (Auto) Neut % (Auto) Lymph % (Auto) [place] % (Auto) Eos % (Auto) Baso % (Auto) Lymph # (Auto) [place] # (Auto) Eos # (Auto) Baso # (Auto) Abs Immat Gran (auto) Absolute Neuts (auto) Absolute Nucleated RBC Nucleated RBC % Sodium Potassium Chloride Carbon Dioxide Anion Gap BUN Creatinine Estim Creat Clear Calc Estimated GFR Glucose POC Capillary Glucose 296 H 135 H 53 L* Calcium 09/25/23 09/25/23 09/25/23 00:54 01:10 01:28 WBC RBC Hgb Hct MCV MCH MCHC RDW Plt Count MPV Immature Gran % (Auto) Neut % (Auto) Lymph % (Auto) [place] % (Auto) Eos % (Auto) Baso % (Auto) Lymph # (Auto) [place] # (Auto) Eos # (Auto) Baso # (Auto) Abs Immat Gran (auto) Absolute Neuts (auto) Absolute Nucleated RBC Nucleated RBC % Sodium Potassium Chloride Carbon Dioxide Anion Gap BUN Creatinine Estim Creat Clear Calc Estimated GFR Glucose POC Capillary Glucose 65 85 130 H Calcium 12/11/23 12/11/23 12/11/23 02:24 04:58 06:34 WBC 14.2 H RBC 4.27 L Hgb 11.5 L Hct 37.4 L MCV 87.6 MCH 26.9 MCHC 30.7 L RDW 14.4 Plt Count 515 H MPV 9.3 Immature Gran % (Auto) 0.8 H Neut % (Auto) 81.8 H Lymph % (Auto) 9.7 L [place] % (Auto) 6.3 Eos % (Auto) 0.9 Baso % (Auto) 0.5 Lymph # (Auto) 1.38 [place] # (Auto) 0.9 H Eos # (Auto) 0.1 Baso # (Auto) 0.1 Abs Immat Gran (auto) 0.12 H Absolute Neuts (auto) 11.7 H Absolute Nucleated RBC 0.0 Nucleated RBC % 0.0 Sodium 136 L Potassium 4.7 Chloride 105 Carbon Dioxide 26 Anion Gap 5 L BUN 20 Creatinine 1.10 Estim Creat Clear Calc 75 Estimated GFR > 60 Glucose 149 H POC Capillary Glucose 209 H 158 H Calcium 8.5 09/25/23 09/25/23 07:44 11:29 WBC RBC Hgb Hct MCV MCH MCHC RDW Plt Count MPV Immature Gran % (Auto) Neut % (Auto) Lymph % (Auto) [place] % (Auto) Eos % (Auto) Baso % (Auto) Lymph # (Auto) [place] # (Auto) Eos # (Auto) Baso # (Auto) Abs Immat Gran (auto) Absolute Neuts (auto) Absolute Nucleated RBC Nucleated RBC % Sodium Potassium Chloride Carbon Dioxide Anion Gap BUN Creatinine Estim Creat Clear Calc Estimated GFR Glucose POC Capillary Glucose 144 H 215 H Calcium Microbiology 09/23/23 08:03 Foot Left Wound Culture - Preliminary Staphylococcus aureus Post-procedural complaints: none Patient Feedback: Patient satisfied with anesthetic care.
[2023-09-25 16:55] LABS: Glucose Point of Care 196 mg/dl (65-105)
[2023-09-25] MEDS: INSULIN ASPART (*BKC) 100 UNITS/ML 10 UNITS SUB-Q (17:06)
[2023-09-25] MEDS: RIVAROXABAN 20 MG TABLET PO (17:06)
[2023-09-25] MEDS: AMOXICILLIN/CLAVULANATE K 875-125 MG TAB 1 TABLET PO (20:24)
[2023-09-25] MEDS: ROSUVASTATIN 10 MG TABLET 20 MG PO (20:24)
[2023-09-25 20:43] LABS: Glucose Point of Care 207 mg/dl (65-105)
[2023-09-26 01:33] LABS: Vancomycin Trough 15.3 ug/mL (10.0-20.0)
[2023-09-26] MEDS: VANCOMYCIN 1,500 MG/NS 500 ML 1,500 MG/500 ML BAG 250 MG IVPB (02:02)
[2023-09-26] MEDS: HYDROcodone/acetaminophen (*CRX) 5-325 MG TABLET 1 TAB PO ×2 (02:33→10:15)
[2023-09-26 05:30] VITALS: BP 150/60; PULSE 61; RESP 20; TEMP 35.8; O2SAT 97
[2023-09-26 07:40] LABS: Glucose Point of Care 234 mg/dl (65-105)
[2023-09-26] MEDS: FLUTICASONE/SALMETEROL 230-21 MCG INHALER 1 PUFF 2 PUFF INHALATION (08:11)
[2023-09-26 08:13] VITALS: O2SAT 96
[2023-09-26 08:58] LABS: Hematocrit 37.4 % (42.0-52.0); Hemoglobin 11.5 g/dL (14.0-18.0); Mean Corpuscular HGB Conc 30.7 g/dl (32-36); Mean Corpuscular Hemoglobin 26.7 pg (26-34); Mean Platelet Volume 9.1 fl (7.4-10.4); Platelet Count Result 498 k/mm3 (150-375); Red Cell Distribution Width 14.4 % (11.5-14.5); White Blood Count 13.3 K/mm3 (4.5-10.0)
[2023-09-26 09:12] LABS: Anion Gap 5 mmol/L (8-16); Blood Urea Nitrogen 17 mg/dL (9-20); Calcium 8.3 mg/dL (8.4-10.2); Carbon Dioxide 26 mmol/L (22-30); Chloride 103 mmol/L (98-107); Estimated CRCL calculation 82 ml/min; Estimated Glomerular Filt Rate > 60; Glucose 288 mg/dL (65-110); Potassium 4.7 mmol/L (3.4-5.0); Sodium 134 mmol/L (137-145)
[2023-09-26 10:14] VITALS: PULSE 64
[2023-09-26] MEDS: METOPROLOL TARTRATE 50 MG TAB 100 MG PO (10:14)
[2023-09-26] MEDS: AMOXICILLIN/CLAVULANATE K 875-125 MG TAB 1 TABLET PO (10:14)
[2023-09-26] MEDS: FENOFIBRATE 160 MG TABLET PO (10:15)
[2023-09-26] MEDS: ESCITALOPRAM OXALATE 10 MG TABLET PO (10:15)
[2023-09-26] MEDS: FUROSEMIDE 40 MG TABLET PO (10:15)
[2023-09-26] MEDS: INSULIN ASPART (*BKC) 100 UNITS/ML SUB-Q ×2 (10:16→12:35)
[2023-09-26] MEDS: INSULIN ASPART (*BKC) 100 UNITS/ML 10 UNITS SUB-Q ×2 (10:16→12:35)
[2023-09-26 11:10] LABS: Glucose Point of Care 351 mg/dl (65-105)
--- NOTE | 2023-09-26 11:42 | PCPTNOTE ---
Patient refused PT stating he is having pain in L foot and rates pain as 5 out of 10.
[2023-09-26] MEDS: DOXYCYCLINE HYCLATE 100 MG TABLET PO (12:41)
[2023-09-26 14:00] VITALS: BP 127/50; PULSE 60; RESP 16; TEMP 35.9; O2SAT 99
--- NOTE | 2023-09-26 15:17 | PM.DS ---
DS: Admitting Diagnosis Discharge Date 09/26/23 Admitting Diagnosis Diabetic foot wound DS: Discharge Diagnosis Discharge Diagnosis (1) Diabetic foot ulcer: Qualifiers: Diabetes mellitus type: type 2 Diabetic foot ulcer location: toe Laterality: left Non-pressure ulcer stage: with necrosis of bone Qualified Code(s): E11.621 - Type 2 diabetes mellitus with foot ulcer; L97.524 - Non-pressure chronic ulcer of other part of left foot with necrosis of bone Code(s): E11.621 - Type 2 diabetes mellitus with foot ulcer; L97.509 - Non-pressure chronic ulcer of other part of unspecified foot with unspecified severity Status: Acute (2) Obesity (BMI 30-39.9): Code(s): E66.9 - Obesity, unspecified Status: Acute (3) KIRILL on CPAP: Code(s): G47.33 - Obstructive sleep apnea (adult) (pediatric) Status: Acute (4) Diabetes: Code(s): E11.9 - Type 2 diabetes mellitus without complications Status: Acute DS: Summary Hospital Course Hospital Course: This is a 68-year-old male with past medical history of insulin-dependent diabetes, obesity, KIRILL on CPAP, tobacco dependence 2 packs per day for 60 years, PVD that presents to the ED on 09/22/2023 due to malodorous drainage from a left foot. Left foot x-ray revealed abnormal appearance of erosive changes involving the 5th toe at interphalangeal joint suspicious for osteomyelitis. Orthopedics consulted. CT of the left foot performed due to patient unable to get MRI due to pacemaker. CT negative for osteomyelitis. Patient was started on IV antibiotics of vancomycin, cefepime and Flagyl. Orthopedics operate on the patient on 09/24/2023 and patient underwent debridement of the left foot. Wound culture performed and came back positive for MRSA. Patient was transitioned to p.o. Augmentin and doxycycline. Home health was set up for the patient and he will follow with Orthopedics in the wound clinic. His labs and vital signs are stable and he is medically clear for discharge at this time. Time Spent with Patient Time attestation: Total time spent providing and/or coordinating discharge services: Exam Narrative: GENERAL: Comfortable, no acute distress HENMT: moist mucous membranes EYES: EOM intact b/l NECK: no lymphadenopathy RESPIRATORY: small amount of scattered wheezes CARDIO: RRR GI: soft, nontender, bowel sounds present SKIN: no rashes EXTREMITIES: stasis dermatitis b/l, right foot wound bandaged. DS: Data Data Completed and Pending Labs on day of discharge: Labs from last 24 hours 09/26/23 09/26/23 09/26/23 11:06 08:48 07:37 WBC 13.3 H RBC 4.30 L Hgb 11.5 L Hct 37.4 L MCV 87.0 MCH 26.7 MCHC 30.7 L RDW 14.4 Plt Count 498 H MPV 9.1 Sodium 134 L Potassium 4.7 Chloride 103 Carbon Dioxide 26 Anion Gap 5 L BUN 17 Creatinine 1.00 Estim Creat Clear Calc 82 Estimated GFR > 60 Glucose 288 H POC Capillary Glucose 351 H 234 H Calcium 8.3 L Vancomycin Trough 09/26/23 09/25/23 09/25/23 00:31 19:59 16:30 WBC RBC Hgb Hct MCV MCH MCHC RDW Plt Count MPV Sodium Potassium Chloride Carbon Dioxide Anion Gap BUN Creatinine Estim Creat Clear Calc Estimated GFR Glucose POC Capillary Glucose 207 H 196 H Calcium Vancomycin Trough 15.3 Preliminary micro results at discharge 09/22/23 10:31 Blood Culture - Preliminary Blood 09/22/23 10:31 Blood Culture - Preliminary Blood Discharge Plan Discharge Attending physician on discharge: Wicho Khanna Consulting providers: Prasanth Pizarro Discharging Clinician: Renetta Penn Patient Disposition: Home Health Service Activity: other - see discharge instructions Diet: diabetic Wound Care Instructions: follow printed instructions Discharge Instructions: Antibiotics: Augmentin twice daily
[2023-09-26 16:39] LABS: Glucose Point of Care 189 mg/dl (65-105)
== END 2023-09-26 17:15 | disposition home health service (06) | DRG 623 ==
LOC: ANHED 10:01 → ANH3MEDSUR 11:43
PROVIDERS: Orthopaedic Surgery; Admitting Provider Internal Medicine; Emergency Provider Emergency Medicine; PCP Internal Medicine Cardiovascular Disease; Visit Provider Internal Medicine Critical Care Medicine
DX: E11.621 Type 2 diabetes mellitus with foot ulcer (principal); I48.20 Chronic atrial fibrillation, unspecified; L97.525 Non-pressure chronic ulcer of other part of left foot with muscle involvement without evidence of necrosis; I10 Essential (primary) hypertension; I25.10 Atherosclerotic heart disease of native coronary artery without angina pectoris; I87.8 Other specified disorders of veins; E78.00 Pure hypercholesterolemia, unspecified; E66.9 Obesity, unspecified; J44.9 Chronic obstructive pulmonary disease, unspecified; B95.62 Methicillin resistant Staphylococcus aureus infection as the cause of diseases classified elsewhere; F17.210 Nicotine dependence, cigarettes, uncomplicated; G47.33 Obstructive sleep apnea (adult) (pediatric); Z79.4 Long term (current) use of insulin; Z79.84 Long term (current) use of oral hypoglycemic drugs; Z95.0 Presence of cardiac pacemaker; Z86.711 Personal history of pulmonary embolism; Z95.1 Presence of aortocoronary bypass graft; Z79.01 Long term (current) use of anticoagulants
CPT/HCPCS: 36415; 73630; 73700; 80048; 80053; 80202; 82565; 82948; 83036; 85025; 85027; 85652; 86140; 87040; 87070; 87147; 87181; 87186; 87205; 93005; 94002; 94640; 96365; 96366; 96367; 96375; 97116; 97161; 97165; 97530; 97535; 99285; A9270; G0378; J0690; J0692; J1170; J1815; J1836; J2250; J2405; J2704; J3010; J3370; J7120; L2116

== ENCOUNTER 2023-11-08 22:38 | Inpatient (IN) | payer MEDICARE, SELFPAY ==
[2023-11-08] VITALS (8 sets, daily range): BP systolic 148–155; BP diastolic 49–58; PULSE 76–82; RESP 17–20; TEMP 36.7; O2SAT 96
--- NOTE | ~2023-11-08 | XR_ITS ---
EXAMINATION: XR chest PICC line Exam Date/Time: 11/14/2023 14:45 CONVERSION MAN HISTORY: picc line placement Comparison: None. RESULT: Lines, tubes, and devices: Left chest pacer with intact leads. Intact median sternotomy wires. Right upper extremity PICC terminating in the distal SVC. Lungs and pleura: Streaky and subsegmental left basilar opacities. Left costophrenic angle blunting. Cardiomediastinal silhouette: Stable. Other: No acute osseous or upper abdominal finding. IMPRESSION: Right upper extremity PICC, in good position. Subsegmental left basilar atelectasis or pneumonia. Sma ll left pleural effusion. Reviewed, dictated and finalized at location K. ERSION MAN IMPRESSION: Right upper extremity PICC, in good position. Subsegmental left basilar atelect asis or pneumonia. Small left pleural effusion.
--- NOTE | ~2023-11-08 | CT_ITS ---
CT scan of the left foot CLINICAL HISTORY: Ulcer TECHNIQUE: Following intravenous administration of 100 cc of Omnipaque 350 contrast material, axial i maging was performed. Sagittal and coronal reformatted images were obstructed. Dose reduction techniq ue was used on this scan by utilizing automated exposure control and iterative reconstruction techniq ue. The dose-length product (DLP) was 507.82 mGy-cm. COMPARISON: 09/23/2023 Findings: There is destructive change involving the proximal portions of the second and third proxima l phalanges. There is also additional focal destructive/erosive change involving the second, third, a nd fourth metatarsal heads. These findings are all consistent with osteomyelitis. There is additional apparent subacute fracture versus osteitis at the distal aspect of the second proximal phalanx, with dorsal subluxation of the second proximal phalangeal head of the second PIP joint. There are several tiny bubbles of soft tissue gas at the region of the proximal aspect of the third proximal phalanx. Remaining osseous structures and joint spaces otherwise appear intact, aside from mild degenerative c hange at the tarsometatarsal joints. There is diffuse subcutaneous soft tissue thickening and edema, possible ulcer at the plantar aspect of the forefoot at the second interspace region. There is an zion arent small fluid collection in the plantar aspect of the midfoot, measuring 2.6 cm in length (series 201 image 63, series 200 image 120 for example). IMPRESSION: Destructive/erosive change compatible with osteomyelitis, involving the second through fourth metatar evie heads, and the second and third proximal phalanges. Please see details above. Additional fracture versus osteolysis of the distal aspect of the second proximal phalanx with dorsal subluxation at the second DIP joint. Extensive soft tissue edema/thickening with 2.6 cm fluid collection at the plantar aspect of the midf oot. Small abscess is a consideration. Reviewed, dictated and finalized at location M. [employer] IMPRESSION: Destructive/erosive change compatible with osteomyelitis, involving the second through fourth metatarsal heads, and the second and third proximal phalanges. P lease see details above. Additional fracture versus osteolysis of the distal aspect of the second proxim al phalanx with dorsal subluxation at the second DIP joint. Extensive soft tissue edema/thickening with 2.6 cm fluid collection at the plan tar aspect of the midfoot. Small abscess is a consideration.
--- NOTE | ~2023-11-08 | XR_ITS ---
Left foot Technique: AP, oblique, and lateral views were obtained. Clinical History: Wound COMPARISON: 09/22/2023 Findings: There is destructive change and/or fracturing of the proximal portions of the second and th ird proximal phalanges. There are stable chronic osseous changes involving the fifth digit as compare d to prior exam. There is mild diffuse soft tissue swelling of the forefoot. Impression: Probable destructive change at the proximal aspect of the second and third proximal phalanges, suspic ious for osteomyelitis. There is associated possible pathologic fracture of the proximal aspect of th e third proximal phalanx. Reviewed, dictated and finalized at location . [employer] Impression: Probable destructive change at the proximal aspect of the second and third prox imal phalanges, suspicious for osteomyelitis. There is associated possible path ologic fracture of the proximal aspect of the third proximal phalanx.
[2023-11-09] VITALS (31 sets, daily range): BP systolic 116–158; BP diastolic 45–92; PULSE 81–101; RESP 14–20; TEMP 36.3–37.4; O2SAT 91–100
[2023-11-09] MEDS: SODIUM CHLORIDE 0.9% IV 1,000 ML 999 ML IV CONT (00:52)
[2023-11-09] MEDS: MORPHINE SULFATE (*CRX) 4 MG/ML INJ IV PUSH (00:53)
[2023-11-09] MEDS: CEFEPIME 2 GM/NS 50 ML 2 GM/50 ML BAG IVPB ×2 (00:53→12:43)
[2023-11-09 01:09] LABS: Basophils Absolute Auto 0.1 K/mm3 (0.0-0.1); Basophils Percent Auto 0.5 % (0.2-1.2); Eosinophils Absolute Auto 0.1 K/mm3 (0-0.3); Eosinophils Percent Auto 0.3 % (0-4.4); Hematocrit 30.7 % (42.0-52.0); Hemoglobin 9.4 g/dL (14.0-18.0); Immature Granulocyte Absolute 0.14 K/mm3 (0.00-0.031); Immature Granulocyte Percent A 0.8 % (0-0.5); Lymphocytes Absolute Auto 1.25 K/mm3 (0.9-3.2); Lymphocytes Percent Auto 6.9 % (18.3-44.2); Mean Corpuscular HGB Conc 30.6 g/dl (32-36); Mean Corpuscular Hemoglobin 25.7 pg (26-34); Mean Corpuscular Volume 83.9 fl (80-100); Mean Platelet Volume 9.9 fl (7.4-10.4); Monocytes Absolute Auto 1.5 K/mm3 (0.1-0.6); Neutrophils Absolute Auto 15.1 K/mm3 (1.3-6.7); Neutrophils Percent Auto 83.5 % (45.5-73.1); Platelet Count Result 500 k/mm3 (150-375); Red Blood Count 3.66 M/mm3 (4.6-6.20); Red Cell Distribution Width 15.2 % (11.5-14.5); White Blood Count 18.1 K/mm3 (4.5-10.0)
[2023-11-09 01:20] LABS: Alanine Aminotransferase 127 U/L (6-50); Albumin Level 3.3 g/dL (3.5-5.1); Alkaline Phosphatase 113 U/L (38-126); Anion Gap 7 mmol/L (8-16); Aspartate Amino Transferase 107 U/L (17-59); Bilirubin,Total 0.5 mg/dL (0.2-1.3); Blood Urea Nitrogen 30 mg/dL (9-20); Calcium 8.9 mg/dL (8.4-10.2); Carbon Dioxide 27 mmol/L (22-30); Chloride 97 mmol/L (98-107); Estimated CRCL calculation 70 ml/min; Estimated Glomerular Filt Rate 60; Glucose 158 mg/dL (65-110); Potassium 4.5 mmol/L (3.4-5.0); Sodium 131 mmol/L (137-145)
[2023-11-09 01:30] LABS: INR 1.2; Prothrombin Time 15.5 Seconds (11.1-14.7)
[2023-11-09 01:31] LABS: Partial Thromboplastin Time 39.2 SECONDS (22.3-36.8)
[2023-11-09] MEDS: metroNIDAZOLE 500 MG/ISO 100ML 500 MG/100 ML BAG 100 MG IVPB ×3 (01:33→16:12)
[2023-11-09 01:36] LABS: CRP 21.4 mg/dL (<1.0)
[2023-11-09 01:38] LABS: Procalcitonin 0.2 ng/mL
[2023-11-09 02:11] LABS: Erythrocyte Sedimentation Rate > 140 mm/hr (0-20)
[2023-11-09] MEDS: HYDROmorphone HCL INJ (*CRX) 1 MG/ML SYR IV PUSH (02:37)
[2023-11-09] MEDS: VANCOMYCIN 1,250 MG/NS 250 ML 1,250 MG/250 ML BAG 166.67 MG IVPB ×2 (02:39→04:11)
[2023-11-09 02:51] LABS: Appearance Urine Clear (Clear); Bacteria Urine None Seen /hpf; Bilirubin Urine Negative (Negative); Blood Urine Trace (Negative); Color Urine Yellow (Yellow); Glucose Urine UA 3+ mg/dL (Negative); Ketones Urine Negative (Negative); Leukocyte Esterase Ur Negative LEU/UL (Negative); Nitrate Urine Negative (Negative); Non Pathogenic Casts 0-2; Protein Urine 1+ mg/dL (Negative); RBC Urine 0-2 /hpf (0-2); Specific Grav Ur 1.032 (1.001-1.035); Squamous Epithelial Cell Urine None seen /hpf (Few); WBC Urine 0-5 /hpf
[2023-11-09 03:11] LABS: Add Urine Microscopic? YES
--- NOTE | 2023-11-09 03:16 | PM.IMHP ---
H&P: HPI History of Present Illness Date/Time: 11/09/23 03:16 Chief Complaint: Left foot pain Narrative: A 68-year-old male with history of diabetes mellitus and peripheral vascular disease who presents to the ED for evaluation of left foot pain and worsening left foot wound. She sees wound care, stated wound had been debrided in this hospital and he does dressing as recommended however wound is not getting better. He also stated that he recently had left lower extremity vascular stents. Complaints of about 7 to 8/10 pain on the left foot, worse with movement, associated redness and foul-smelling discharge. She was evaluated in the ER and found to have osteomyelitis involving left 2nd toe, also found to have elevated inflammatory markers as well as white count of 18,000. He was started on vancomycin cefepime and Flagyl and I was consulted for admission of this patient to medical floor for further management. During my consultation, still complains of pain despite getting dilaudid, he wants more pain control. Denied fever, chills, or pain in any other part of hte body Review of Systems Review of Systems: All systems reviewed & are unremarkable except as noted in HPI and below PMFSH Past Medical History Medical History Atrial fibrillation CAD (coronary artery disease) COPD (chronic obstructive pulmonary disease) Pacemaker Pulmonary emboli Tobacco abuse Surgical History Surgical History Hx of CABG Social History Social History Smoking packs per day: 2 Smoking cigarettes per day: 40.0 Years smoked: 60 Smoking pack-years: 120.00 Smoking status: Current every day smoker Tobacco type: cigarettes Alcohol intake: never Substance use: never Do You Feel Safe in your Home?: Yes Lack of Transportation: No Lack of Food: Sometimes True Current Housing: I Have Housing Concerned About Future Housing: No Difficulty Paying Gas/Electric Bills: No Difficulty Paying for Meds: YES Currently Unemployed: No Education: High School Diploma/GED Difficulty w/ Childcare or Family Care: No Spiritual care concerns: No Meds Home Medications and Allergies Home Medications Medication Instructions Recorded Confirmed Type empagliflozin 25 mg tablet 25 mg PO DAILY 09/22/23 10/03/23 History (Jardiance) escitalopram oxalate 10 mg tablet 10 mg PO DAILY 09/22/23 10/03/23 History fenofibrate 160 mg tablet 160 mg PO DAILY 09/22/23 10/03/23 History fluticasone 500 mcg-salmeterol 50 1 inh inhalation BID 09/22/23 10/03/23 History mcg/dose blistr powdr for inhalation (Advair Diskus) furosemide 40 mg tablet 40 mg PO DAILY 09/22/23 10/03/23 History glimepiride 2 mg tablet 4 mg PO DAILY 09/22/23 10/03/23 History insulin aspart U-100 100 unit/mL 20 unit subcut TIDWM 09/22/23 10/03/23 History subcutaneous solution (Novolog U-100 Insulin aspart) insulin glargine 100 unit/mL (3 105 unit subcut HS 09/22/23 10/03/23 History mL) subcutaneous pen (Basaglar KwikPen U-100 Insulin) metformin 1,000 mg tablet 1,000 mg PO BIDWM 09/22/23 10/03/23 History metoprolol tartrate 100 mg tablet 100 mg PO BID 09/22/23 10/03/23 History potassium chloride 10 mEq 10 meq PO BIDWM 09/22/23 10/03/23 History tablet,extended release rivaroxaban 20 mg tablet (Xarelto) 20 mg PO DAILY 09/22/23 10/03/23 History rosuvastatin 20 mg tablet 20 mg PO HS 09/22/23 10/03/23 History Allergies Allergy/AdvReac Type Severity Reaction Status Date / Time No Known Allergies Allergy Verified 10/03/23 13:07 Vital Signs Vital Signs - 24 hr 11/08/23 22:39 11/08/23 22:45 11/08/23 22:46 Temperature 98.1 F Pulse Rate 81 81 82 Respiratory Rate 20 18 Blood Pressure 153/56 H 155/58 H Pulse Oximetry 96 Oxygen Delivery Room Air 11/08/23 2
--- NOTE | 2023-11-09 03:17 | ED.GENADULT ---
HPI - General Adult General Chief complaint: Extremity Problem,Nontraumatic Stated complaint: LEFT FOOT PAIN FROM WOUND Time Seen by Provider: 11/09/23 00:24 History of Present Illness HPI narrative: patient is 68-year-old gentleman who presents emergency department with chief complaint of left foot wound. Patient reports that he has history of a wound to the left foot that is been debrided by Orthopedics at our facility the patient also reports that he has history of vascular disease and has had a stenting done as an outpatient. The patient reports that he has been seen in the Wound Care Clinic and reports that he has been doing dressing changes but does notice that he has had increasing pain in his left foot and has noticed that the foot has become red and there has been no malodorous drainage from the wound. Related Data Home Medications Medication Instructions Recorded Confirmed empagliflozin 25 mg tablet 25 mg PO DAILY 09/22/23 10/03/23 (Jardiance) escitalopram oxalate 10 mg tablet 10 mg PO DAILY 09/22/23 10/03/23 fenofibrate 160 mg tablet 160 mg PO DAILY 09/22/23 10/03/23 fluticasone 500 mcg-salmeterol 50 1 inh inhalation BID 09/22/23 10/03/23 mcg/dose blistr powdr for inhalation (Advair Diskus) furosemide 40 mg tablet 40 mg PO DAILY 09/22/23 10/03/23 glimepiride 2 mg tablet 4 mg PO DAILY 09/22/23 10/03/23 insulin aspart U-100 100 unit/mL 20 unit subcut TIDWM 09/22/23 10/03/23 subcutaneous solution (Novolog U-100 Insulin aspart) insulin glargine 100 unit/mL (3 105 unit subcut HS 09/22/23 10/03/23 mL) subcutaneous pen (Basaglar KwikPen U-100 Insulin) metformin 1,000 mg tablet 1,000 mg PO BIDWM 09/22/23 10/03/23 metoprolol tartrate 100 mg tablet 100 mg PO BID 09/22/23 10/03/23 potassium chloride 10 mEq 10 meq PO BIDWM 09/22/23 10/03/23 tablet,extended release rivaroxaban 20 mg tablet (Xarelto) 20 mg PO DAILY 09/22/23 10/03/23 rosuvastatin 20 mg tablet 20 mg PO HS 09/22/23 10/03/23 Allergies Allergy/AdvReac Type Severity Reaction Status Date / Time No Known Allergies Allergy Verified 10/03/23 13:07 Review of Systems Review of Systems: A 10 system review of systems was completed on the patient and is negative except for what is stated in the HPI. Nursing and ancillary documentation was reviewed. [facility] Past Medical History Medical History Atrial fibrillation CAD (coronary artery disease) COPD (chronic obstructive pulmonary disease) Pacemaker Pulmonary emboli Tobacco abuse Surgical History Surgical History Hx of CABG Social History Social History Smoking packs per day: 2 Smoking cigarettes per day: 40.0 Years smoked: 60 Smoking pack-years: 120.00 Smoking status: Current every day smoker Tobacco type: cigarettes Alcohol intake: never Substance use: never Do You Feel Safe in your Home?: Yes Lack of Transportation: No Lack of Food: Sometimes True Current Housing: I Have Housing Concerned About Future Housing: No Difficulty Paying Gas/Electric Bills: No Difficulty Paying for Meds: YES Currently Unemployed: No Education: High School Diploma/GED Difficulty w/ Childcare or Family Care: No Spiritual care concerns: No Exam Narrative: GENERAL: Well-appearing, well-nourished, and in no acute distress. HEAD: Normocephalic, atraumatic. EYES: PERRLA and EOMI. ENT: Nares clear, no rhinorrhea or epistaxis. Mucous membranes moist. NECK: Supple. CHEST: Clear to auscultation. No respiratory distress. HEART: Regular rate and rhythm. No murmur heard. Normal peripheral pulses. ABDOMEN: Soft, nontender, nondistended, normal active bowel sounds. EXTREMITIES: Normal range of motion. No edema. there is a large ulceration from the the 2nd to 4th metatarsal area with m
[2023-11-09 04:29] LABS: Lactic Acid Reflex 0.8 mmol/L (0.7-2.0)
--- NOTE | 2023-11-09 04:47 | ADMGEN ---
This patient, Charly Presley Jr., was admitted to [facility] Surg Room 326-01. Patient/family oriented to hospital policies and general routines including ID bracelet, bed and alarms, visiting hours, pain management, procedures, bathroom and other care routines, personal items, smoking policy, room service/diet, and visiting hours. Information on how to activate the Rapid Response Team has been discussed. Patient/Family are encouraged to report perceived risks to care and to ask questions if they do not understand what they are told or what they should do.
[2023-11-09] MEDS: MORPHINE SULFATE (*CRX) 2 MG/ML INJ IV PUSH ×3 (04:55→22:56)
[2023-11-09 06:30] LABS: Basophils Absolute Auto 0.1 K/mm3 (0.0-0.1); Basophils Percent Auto 0.5 % (0.2-1.2); Eosinophils Absolute Auto 0.1 K/mm3 (0-0.3); Eosinophils Percent Auto 0.9 % (0-4.4); Hematocrit 29.3 % (42.0-52.0); Hemoglobin 9.2 g/dL (14.0-18.0); Immature Granulocyte Absolute 0.14 K/mm3 (0.00-0.031); Immature Granulocyte Percent A 0.9 % (0-0.5); Lymphocytes Absolute Auto 1.31 K/mm3 (0.9-3.2); Lymphocytes Percent Auto 8.8 % (18.3-44.2); Mean Corpuscular HGB Conc 31.4 g/dl (32-36); Mean Corpuscular Hemoglobin 25.7 pg (26-34); Mean Corpuscular Volume 81.8 fl (80-100); Mean Platelet Volume 9.2 fl (7.4-10.4); Monocytes Absolute Auto 1.5 K/mm3 (0.1-0.6); Neutrophils Absolute Auto 11.8 K/mm3 (1.3-6.7); Neutrophils Percent Auto 78.9 % (45.5-73.1); Platelet Count Result 432 k/mm3 (150-375); Red Blood Count 3.58 M/mm3 (4.6-6.20); Red Cell Distribution Width 15.2 % (11.5-14.5)
[2023-11-09 06:39] LABS: Anion Gap 9 mmol/L (8-16); Blood Urea Nitrogen 24 mg/dL (9-20); Calcium 8.3 mg/dL (8.4-10.2); Carbon Dioxide 23 mmol/L (22-30); Chloride 100 mmol/L (98-107); Estimated CRCL calculation 83 ml/min; Estimated Glomerular Filt Rate > 60; Glucose 68 mg/dL (65-110); Sodium 132 mmol/L (137-145)
[2023-11-09 06:51] LABS: Glucose Point of Care 64 mg/dl (65-105)
[2023-11-09] MEDS: DEXTROSE 50% 25 GM/50 ML SYRINGE IV PUSH (07:04)
[2023-11-09] MEDS: HYDROmorphone HCL INJ (*CRX) 1 MG/ML SYR 0.5 MG IV PUSH (07:45)
[2023-11-09 07:50] LABS: Glucose Point of Care 103 mg/dl (65-105)
--- NOTE | 2023-11-09 10:35 | PM.CNOR ---
Assessment and Plan Assessment and plan (1) Chronic ulcer of left foot with necrosis of muscle: Code(s): L97.523 - Non-pressure chronic ulcer of other part of left foot with necrosis of muscle <PRASANTH Love - Last Filed: 11/09/23 13:22> Status: Acute <PRASANTH Love - Last Filed: 11/09/23 13:22> Assessment and Plan: History, exam and radiographs reviewed with the patient. CT scan reviewed. Discussed poor likelihood of healing with antibiotics and wound care alone. Condition, nature, etiology and course of natural history discussed. Conservative and operative treatment options reviewed as well as the risks and benefits of both. Recommended left foot debridement with 2nd ray amputation versus possible left TMA by Dr. Pizarro. Risks of surgery including but not limited to neurovascular damage, wound complications, blood clot, pulmonary embolus, stroke, myocardial infarction, anesthetic risks up to and including were reviewed. Continued pain and possible dysfunction were explained. No guarantees were offered. The patient understands and wishes to proceed. Plan: Left Foot Debridement with 2nd Ray Amputation vs. Left TMA. NPO. Pain control. Bed rest. Obtain consent. <PRASANTH Love - Last Filed: 11/09/23 13:22> (2) Osteomyelitis of second toe of left foot: Code(s): M86.9 - Osteomyelitis, unspecified <PRASANTH Love - Last Filed: 11/09/23 13:22> Status: Acute <PRASANTH Love - Last Filed: 11/09/23 13:22> Assessment and Plan: Updated history, physical exam and radiographs reviewed with the patient. Interval changes reviewed. Last seen in wound clinic 3 weeks ago. In the interim had a stent placed for peripheral arterial disease left leg. Return to the emergency room last night with increasing pain, swelling left foot. CT scan shows osteomyelitis of the metatarsal heads. Discussed the condition, nature, etiology and course of natural history with the patient. Treatment options including surgical and nonoperative treatment were reviewed. Risks and benefits of each as well as alternatives reviewed. The patient's questions were answered. Osteomyelitis left foot with worsening of the diabetic foot ulcer and nonhealing. No appreciable improvement in arterial blood flow despite stent placement. Recommend 2nd toe amputation to remove necrotic tissue and further debridement. Discussed possible need for transmetatarsal amputation. Discussed potential for nonhealing, worsening of the need for a leg amputation. Patient questions answered. He would like to proceed. Discussed nonoperative and operative treatment options with the patient. Risks and benefits of each as well as alternatives were reviewed. All of the patient's questions were answered. The risks of surgery reviewed including but not limited to: Neurovascular damage, wound complication, infection, blood clot, pulmonary embolus, stroke, myocardial infarction, and anesthetic risks up to and including . Continued pain and possible dysfunction were explained. Specific risks of the procedure including later recurrence of deformity. No guarantees were offered. If hardware used, discussed risk of failure/ breakage and possible need for removal. If complications occur, the patient understands the need for further treatment, possible further surgery. Patient verbalizes understanding and wishes to proceed. PLAN: Left foot debridement with 2nd ray amputation, possible transmetatarsal amputation. <Prasanth Pizarro MD - Last Filed: 11/09/23 13:25> (3) Cellulitis of foot, left: Code(s): L03.116 - Cellulitis of left lower limb <PRASANTH Love - Last Filed: 11/09/23 13:22> Status: Acute <PRASANTH Love - Last Filed: 11/09/23 13:22> (4) Diabetic foot ulcer: Qualifiers: Diabetes mellitus type: type 2 Diabetic foot ulcer location: toe Lateral
[2023-11-09 11:04] LABS: Hemoglobin A1C 9.5 % (<5.7)
[2023-11-09 12:00] LABS: Glucose Point of Care 78 mg/dl (65-105)
--- NOTE | 2023-11-09 12:10 | PC.NURSE ---
To OR via bed.
--- NOTE | 2023-11-09 12:56 | WPDANESEPPF ---
Anes - Initial Pre Proc Eval Procedure: Operation Date: 11/09/23 13:30 Proposed Procedures p Left Diabetic Foot Ulcer Debridement with Second Ray Amputation, Possible Transmetatarsal Amputation(Left) - Prasanth Pizarro MD Date/Time: 11/09/23 12:56 Surgeon: GEETHA Jeffrey Pre Op Diagnosis: Diabetic Foot Ulcer Left Foot, Left Foot Celluliti Patient Data Age: 68 Gender: M Height: 1.85 m Weight: 122 kg Last Vital Signs Temp 37.4 C 11/09/23 12:36 Pulse 85 11/09/23 12:36 Resp 16 11/09/23 12:36 BP 131/50 L 11/09/23 12:36 Pulse Ox 96 11/09/23 12:36 O2 Del Method Room Air 11/09/23 12:36 Allergies Allergy/AdvReac Type Severity Reaction Status Date / Time No Known Allergies Allergy Verified 10/03/23 13:07 Home Medications Medication Instructions Recorded Confirmed Type empagliflozin 25 mg tablet 25 mg PO DAILY 09/22/23 11/09/23 History (Jardiance) escitalopram oxalate 10 mg tablet 10 mg PO DAILY 09/22/23 11/09/23 History fenofibrate 160 mg tablet 160 mg PO DAILY 09/22/23 11/09/23 History fluticasone 500 mcg-salmeterol 50 1 inh inhalation BID 09/22/23 11/09/23 History mcg/dose blistr powdr for inhalation (Advair Diskus) furosemide 40 mg tablet 40 mg PO DAILY 09/22/23 11/09/23 History glimepiride 2 mg tablet 4 mg PO DAILY 09/22/23 11/09/23 History insulin aspart U-100 100 unit/mL 20 unit subcut TIDWM 09/22/23 11/09/23 History subcutaneous solution (Novolog U-100 Insulin aspart) insulin glargine 100 unit/mL (3 105 unit subcut HS 09/22/23 11/09/23 History mL) subcutaneous pen (Basaglar KwikPen U-100 Insulin) metformin 1,000 mg tablet 1,000 mg PO BIDWM 09/22/23 11/09/23 History metoprolol tartrate 100 mg tablet 100 mg PO BID 09/22/23 11/09/23 History potassium chloride 10 mEq 10 meq PO BIDWM 09/22/23 11/09/23 History tablet,extended release rivaroxaban 20 mg tablet (Xarelto) 20 mg PO DAILY 09/22/23 11/09/23 History rosuvastatin 20 mg tablet 20 mg PO HS 09/22/23 11/09/23 History Laboratory Tests 11/09/23 11/09/23 11/09/23 01:01 02:25 06:16 WBC 18.1 H K/mm3 (4.5-10.0) RBC 3.66 L M/mm3 (4.6-6.20) Hgb 9.4 L g/dL (14.0-18.0) Hct 30.7 L % (42.0-52.0) MCV 83.9 fl (80-100) MCH 25.7 L pg (26-34) MCHC 30.6 L g/dl (32-36) RDW 15.2 H % (11.5-14.5) Plt Count 500 H k/mm3 (150-375) MPV 9.9 fl (7.4-10.4) Immature Gran % (Auto) 0.8 H % (0-0.5) Neut % (Auto) 83.5 H % (45.5-73.1) Lymph % (Auto) 6.9 L % (18.3-44.2) Leake % (Auto) 8.0 % (2.6-8.5) Eos % (Auto) 0.3 % (0-4.4) Baso % (Auto) 0.5 % (0.2-1.2) Lymph # (Auto) 1.25 K/mm3 (0.9-3.2) Leake # (Auto) 1.5 H K/mm3 (0.1-0.6) Eos # (Auto) 0.1 K/mm3 (0-0.3) Baso # (Auto) 0.1 K/mm3 (0.0-0.1) Abs Immat Gran (auto) 0.14 H K/mm3 (0.00-0.031) Absolute Neuts (auto) 15.1 H K/mm3 (1.3-6.7) Absolute Nucleated RBC 0.0 K/mm3 (0.0-0.012) Nucleated RBC % 0.0 % (0.0-0.2) ESR > 140 H mm/hr (0-20) PT 15.5 H Seconds (11.1-14.7) INR 1.2 APTT 39.2 H SECONDS (22.3-36.8) Sodium 131 L mmol/L (137-145) Potassium 4.5 mmol/L (3.4-5.0) Chloride 97 L mmol/L (98-107) Carbon Dioxide 27 mmol/L (22-30) Anion Gap 7 L mmol/L (8-16) BUN 30 H D mg/dL (9-20) Creatinine 1.20 mg/dL (0.7-1.3) Estim Creat Clear Calc 70 ml/min Estimated GFR 60 (59 - ) Glucose 158 H mg/dL (65-110) POC Capillary Glucose Hemoglobin A1c 9.5 H % (<5.7) Lactic Acid 0.8 mmol/L (0.7-2.0) Calcium 8.9 mg/dL (8.4-10.2) Magnesium 2.0 mg/dL (1.6-2.3) Total Bilirubin 0.5 mg/dL
[2023-11-09 13:05] LABS: Glucose Point of Care 81 mg/dl (65-105)
--- NOTE | 2023-11-09 13:17 | WPDHPUPDATE1 ---
History and Physical Update Update Date/Time: 11/09/23 13:17 History and Physical has been reviewed, including an updated exam of the patient. There are NO changes in the patient's condition. Risks, benefits, and alternatives have been discussed and questions answered. Patient agrees to proceed with procedure.
[2023-11-09] MEDS: VANCOMYCIN 1,500 MG/NS 500 ML 1,500 MG/500 ML BAG 250 MG IVPB (13:38)
[2023-11-09] MEDS: BUPivacaine HCL 0.5% 10 ML AMP 20 ML INFILTRATE (14:12)
--- NOTE | 2023-11-09 14:17 | SUR.OPER ---
Cultures sent with ALECIA Cope and received in microbiology by Oleg.
[2023-11-09] MEDS: VANCOMYCIN HCL 1,000 MG VIAL 1000 MG XX (14:18)
[2023-11-09 15:11] LABS: Glucose Point of Care 91 mg/dl (65-105)
[2023-11-09] MEDS: fentaNYL CITRATE INJ (*CRX) 100 MCG/2 ML VIAL 25 MCG IV PUSH ×4 (15:16→15:43)
--- NOTE | 2023-11-09 15:19 | P.PNIM_ITS ---
Progress Note: A&P Assessment and Plan (1) Cellulitis of foot, left: Code(s): L03.116 - Cellulitis of left lower limb Status: Acute Assessment and Plan: * Secondary to combination of PVD and DM, not well controlled * Continue Vancomycin, Cefepime and Flagyl * Orthopedic consult placed and they are co-managing * Monitor labs and VS. * Not currently meeting Sepsis criteria. * BC x2 are pending, but pt has hx of MRSA historically. (2) Osteomyelitis of second toe of left foot: Code(s): M86.9 - Osteomyelitis, unspecified Status: Acute Assessment and Plan: * See plan for #1. * OR this afternoon with Dr. Pizarro. * Wound cultures pending. (3) Chronic ulcer of left foot with necrosis of muscle: Code(s): L97.523 - Non-pressure chronic ulcer of other part of left foot with necrosis of muscle Status: Chronic Assessment and Plan: * See #1 and #2 (4) Diabetes: Qualifiers: Diabetes mellitus type: type 2 Diabetes mellitus terminal clerk insulin use: with terminal clerk use Diabetes mellitus complication status: with circulatory complication Diabetes mellitus complication detail: with peripheral angiopathy with gangrene Qualified Code(s): E11.52 - Type 2 diabetes mellitus with diabetic peripheral angiopathy with gangrene; Z79.4 - USP (current) use of insulin Code(s): E11.9 - Type 2 diabetes mellitus without complications Status: Chronic Assessment and Plan: * With terminal clerk use of insulin * With vascular complications resulting in Gangrene and chronic infection of Osteomyelitis of Left toe/foot * Tight glucose control will be needed post surgery to ensure recovery. * Hgb A1C 9.5 * Change mealtime insulin of 20 units to SSI high dose, adjust as necessary * Hold oral hypoglycemics * Continue Long acting insulin at 105 units/HS. * Consider adding back mealtime insulin once pt is eating again. * Post OR, change regimen from Q6 Glucose testing for NPO to AC and HS * Continue hypoglycemic protocol. * Diabetic/Heart Healthy diet when able to eat. (5) Dyslipidemia: Code(s): E78.5 - Hyperlipidemia, unspecified Status: Chronic Assessment and Plan: * Continue Statin therapy of Rosuvastatin 20 mg po HS * Continue Fenofibrate 160 mg daily. * Continue heart healthy diet post OR. (6) Hypertension: Qualifiers: Hypertension type: unspecified Qualified Code(s): I10 - Essential (primary) hypertension Code(s): I10 - Essential (primary) hypertension Status: Chronic Assessment and Plan: * Continue home medications of Metoprolol 100 mg BID, and Lasix 40 mg daily. * Continue to monitor VS. (7) Peripheral vascular disease: Code(s): I73.9 - Peripheral vascular disease, unspecified Status: Chronic Assessment and Plan: * Continue Xarelto. * With current complication of gangrene of left toe. Time Spent With Patient Time with patient: 15 - 25 minutes Subjective Date/time seen: 11/09/23 1000 Interval history: This pt was examined at the bedside today in interval assessment after being admitted to the hospital for Osteomyelitis of the left second toe with surrounding cellulitis. Orthopedics has been following and managing him and has opted to take him to the OR today for definitive treatment. He has been receiving Vancomycin, Flagyl and Cefepime for abx coverage and his pain has been treated thus far. Dr. Pizarro to perform TMA vs. ray amputation today. Pt is on Xarelto, and Orthopedics was made aware that it had not yet been held. The pt has no new complai
--- NOTE | 2023-11-09 15:19 | PM.IMPN ---
Progress Note: A&P Assessment and Plan (1) Cellulitis of foot, left: Code(s): L03.116 - Cellulitis of left lower limb Status: Acute Assessment and Plan: Secondary to combination of PVD and DM, not well controlled Continue Vancomycin, Cefepime and Flagyl Orthopedic consult placed and they are co-managing Monitor labs and VS. Not currently meeting Sepsis criteria. BC x2 are pending, but pt has hx of MRSA historically. (2) Osteomyelitis of second toe of left foot: Code(s): M86.9 - Osteomyelitis, unspecified Status: Acute Assessment and Plan: See plan for #1. OR this afternoon with Dr. Pizarro. Wound cultures pending. (3) Chronic ulcer of left foot with necrosis of muscle: Code(s): L97.523 - Non-pressure chronic ulcer of other part of left foot with necrosis of muscle Status: Chronic Assessment and Plan: See #1 and #2 (4) Diabetes: Qualifiers: Diabetes mellitus type: type 2 Diabetes mellitus mcfp insulin use: with president and chief executive officer use Diabetes mellitus complication status: with circulatory complication Diabetes mellitus complication detail: with peripheral angiopathy with gangrene Qualified Code(s): E11.52 - Type 2 diabetes mellitus with diabetic peripheral angiopathy with gangrene; Z79.4 - assisted (current) use of insulin Code(s): E11.9 - Type 2 diabetes mellitus without complications Status: Chronic Assessment and Plan: With president and chief executive officer use of insulin With vascular complications resulting in Gangrene and chronic infection of Osteomyelitis of Left toe/foot Tight glucose control will be needed post surgery to ensure recovery. Hgb A1C 9.5 Change mealtime insulin of 20 units to SSI high dose, adjust as necessary Hold oral hypoglycemics Continue Long acting insulin at 105 units/HS. Consider adding back mealtime insulin once pt is eating again. Post OR, change regimen from Q6 Glucose testing for NPO to AC and HS Continue hypoglycemic protocol. Diabetic/Heart Healthy diet when able to eat. (5) Dyslipidemia: Code(s): E78.5 - Hyperlipidemia, unspecified Status: Chronic Assessment and Plan: Continue Statin therapy of Rosuvastatin 20 mg po HS Continue Fenofibrate 160 mg daily. Continue heart healthy diet post OR. (6) Hypertension: Qualifiers: Hypertension type: unspecified Qualified Code(s): I10 - Essential (primary) hypertension Code(s): I10 - Essential (primary) hypertension Status: Chronic Assessment and Plan: Continue home medications of Metoprolol 100 mg BID, and Lasix 40 mg daily. Continue to monitor VS. (7) Peripheral vascular disease: Code(s): I73.9 - Peripheral vascular disease, unspecified Status: Chronic Assessment and Plan: Continue Xarelto. With current complication of gangrene of left toe. Time Spent With Patient Time with patient: 15 - 25 minutes Subjective Date/time seen: 11/09/23 1000 Interval history: This pt was examined at the bedside today in interval assessment after being admitted to the hospital for Osteomyelitis of the left second toe with surrounding cellulitis. Orthopedics has been following and managing him and has opted to take him to the OR today for definitive treatment. He has been receiving Vancomycin, Flagyl and Cefepime for abx coverage and his pain has been treated thus far. Dr. Pizarro to perform TMA vs. ray amputation today. Pt is on Xarelto, and Orthopedics was made aware that it had not yet been held. The pt has no new complaints today and he has no new symptoms. He had just received a dose of Dilaudid at the time of my assessment and appeared to be comfortable. Review of Systems Review of Systems: All systems reviewed & are unremarkable except as noted in HPI and below Exam Narrative: General: Alert and oriented x4, appears comfortable at this time lying supine in bed. HEENT: Normocephalic at
--- NOTE | 2023-11-09 15:29 | P.OP_ITS ---
Procedure Note - Detailed Date of Procedure 11/09/23 Pre-op Diagnosis Diabetic Foot Ulcer Left Foot, Left Foot Celluliti Post-op Diagnosis Same Procedure Performed Left transmetatarsal amputation Surgeon Prasanth Pizarro MD Freight Flow Sales Leader 1st management assistant Anesthesia General Indications 68-year-old gentleman with peripheral neuropathy and arterial disease, diabetes. Chronic diabetic foot ulcer left plantar forefoot. Now with infection and osteomyelitis. Presents for operative treatment. Findings Osteomyelitis of the 2nd, 3rd, 4th metatarsal heads. Septic arthritis 2nd metatarsophalangeal joint. Septic tenosynovitis of the plantar flexor tendons extending into the midfoot. Description of Procedure Patient identified in the preoperative holding. Informed consent given. Operative extremity marked. Patient received intravenous antibiotics And transexemix acid. Patient brought to the operating room where underwent general anesthetic by anesthesia team. Positioned supine on operating room table. Time-out performed confirming the patient, site of the surgery and the plan. left foot prepped and draped in usual sterile surgical fashion using Betadine prep solution. There was an ulcer in the middle of the plantar forefoot which revealed full-thickness necrosis with exposed bone of the proximal phalanx of the 2nd and 3rd toes. No ability to heal the wound and no soft tissue coverage of the bone, amputation of the toes indicated. foot and ankle exsanguinated and calf tourniquet inflated to 250 mmHg. Fifteen blade knife used to make fishmouth shaped incision at the base of the hallux extending across the base of the toes to the lateral aspect in the lateral 5th metatarsal.. Hemostasis controlled with electrocautery. On the dorsum dissection was carried down to the metatarsal level and retractors were placed. Each metatarsal was successively transected with sagittal saw starting with the 1st and proceeding to the 5th metatarsal. The metatarsal heads joint and toes were then brought out of the wound and sharply dissected from the plantar skin. Into the skin was then shaped with a 15 blade knife. Involvement of the plantar 2nd 3rd and 4th flexor tendons with purulent drainage tracking and the midfoot was noted. This was fully opened. The tendons were all sharply excised. The purulent material was cultured. No other abscess or pockets of infection were encountered. Thorough irrigation done. Tourniquet released and any bleeding points were coagulated. Vancomycin powder placed into the wound. Wound closed with 2 0 Vicryl interrupted suture for the deep tissue And 2 0 Prolene interrupted sutures for the skin. Sterile dressings applied. Patient awoke from anesthesia, extubated and taken to the recovery room in stable condition. All sponge needle and instrument counts correct at the end the case. Estimated Blood Loss 30 Tourniquet Time Total Tourniquet Time: 40 Urine Output 340 Drains No Packing No Pathology Yes ( deep abscess culture from the left forefoot) Complications None Condition Stable Disposition PACU [facility] Billing Surgery - Charge Forward: Surgery Billing ([id number])
[2023-11-09] MEDS: LACTATED RINGERS 1,000 ML 30 ML IV CONT (15:50)
[2023-11-09] MEDS: SODIUM CHLORIDE 0.9% IV 1,000 ML 75 ML IV CONT (16:14)
[2023-11-09] MEDS: MORPHINE SULFATE (*CRX) 4 MG/ML INJ 3 MG IV PUSH (16:20)
[2023-11-09 16:35] LABS: Glucose Point of Care 114 mg/dl (65-105)
[2023-11-09] MEDS: HYDROcodone/acetaminophen (*CRX) 5-325 MG TABLET 1 TAB PO ×2 (17:38→21:33)
[2023-11-09] MEDS: FLUTICASONE/SALMETEROL 230-21 MCG INHALER 1 PUFF 2 PUFF INHALATION (19:57)
[2023-11-09] MEDS: ROSUVASTATIN 10 MG TABLET 20 MG PO (21:31)
[2023-11-09] MEDS: METOPROLOL TARTRATE 50 MG TAB 100 MG PO (21:32)
[2023-11-09] MEDS: POTASSIUM CHLORIDE 10 MEQ ER TABLET PO (21:32)
[2023-11-09 21:58] LABS: Glucose Point of Care 254 mg/dl (65-105)
[2023-11-09] MEDS: INSULIN GLARGINE (*BKC) 100 UNITS/ML 52 UNITS SUB-Q (22:56)
[2023-11-10] VITALS (8 sets, daily range): BP systolic 116–148; BP diastolic 46–55; PULSE 59–82; RESP 16–17; TEMP 36.4–36.8; O2SAT 85–97
[2023-11-10] MEDS: CEFEPIME 2 GM/NS 50 ML 2 GM/50 ML BAG IVPB ×3 (01:05→23:59)
[2023-11-10] MEDS: metroNIDAZOLE 500 MG/ISO 100ML 500 MG/100 ML BAG 100 MG IVPB ×3 (02:30→16:46)
[2023-11-10] MEDS: HYDROmorphone HCL INJ (*CRX) 1 MG/ML SYR 0.5 MG IV PUSH ×5 (02:36→22:02)
[2023-11-10] MEDS: HYDROcodone/acetaminophen (*CRX) 5-325 MG TABLET 1 TAB PO ×2 (02:36→12:14)
[2023-11-10] MEDS: VANCOMYCIN 1,500 MG/NS 500 ML 1,500 MG/500 ML BAG 250 MG IVPB ×2 (02:55→14:25)
[2023-11-10 06:16] LABS: Basophils Absolute Auto 0.1 K/mm3 (0.0-0.1); Basophils Percent Auto 0.4 % (0.2-1.2); Eosinophils Absolute Auto 0.1 K/mm3 (0-0.3); Eosinophils Percent Auto 0.3 % (0-4.4); Hematocrit 26.5 % (42.0-52.0); Hemoglobin 8.2 g/dL (14.0-18.0); Immature Granulocyte Absolute 0.26 K/mm3 (0.00-0.031); Immature Granulocyte Percent A 1.4 % (0-0.5); Lymphocytes Absolute Auto 1.07 K/mm3 (0.9-3.2); Lymphocytes Percent Auto 5.9 % (18.3-44.2); Mean Corpuscular HGB Conc 30.9 g/dl (32-36); Mean Corpuscular Hemoglobin 25.9 pg (26-34); Mean Corpuscular Volume 83.9 fl (80-100); Mean Platelet Volume 9.1 fl (7.4-10.4); Monocytes Absolute Auto 1.9 K/mm3 (0.1-0.6); Monocytes Percent Auto 10.4 % (2.6-8.5); Neutrophils Absolute Auto 14.9 K/mm3 (1.3-6.7); Neutrophils Percent Auto 81.6 % (45.5-73.1); Platelet Count Result 409 k/mm3 (150-375); Red Blood Count 3.16 M/mm3 (4.6-6.20); Red Cell Distribution Width 15.2 % (11.5-14.5); White Blood Count 18.3 K/mm3 (4.5-10.0)
[2023-11-10 06:37] LABS: Anion Gap 7 mmol/L (8-16); Blood Urea Nitrogen 18 mg/dL (9-20); Carbon Dioxide 23 mmol/L (22-30); Chloride 105 mmol/L (98-107); Estimated CRCL calculation 76 ml/min; Estimated Glomerular Filt Rate > 60; Glucose 167 mg/dL (65-110); Potassium 4.2 mmol/L (3.4-5.0); Sodium 135 mmol/L (137-145)
[2023-11-10 07:43] LABS: Glucose Point of Care 139 mg/dl (65-105)
[2023-11-10] MEDS: FUROSEMIDE 40 MG TABLET PO (08:34)
[2023-11-10] MEDS: EMPAGLIFLOZIN 25 MG TABLET PO (08:35)
[2023-11-10] MEDS: METOPROLOL TARTRATE 50 MG TAB 100 MG PO ×2 (08:35→21:54)
[2023-11-10] MEDS: ESCITALOPRAM OXALATE 10 MG TABLET PO (08:35)
[2023-11-10] MEDS: POTASSIUM CHLORIDE 10 MEQ ER TABLET PO ×2 (08:36→16:45)
[2023-11-10] MEDS: FENOFIBRATE 160 MG TABLET PO (08:42)
[2023-11-10] MEDS: FLUTICASONE/SALMETEROL 230-21 MCG INHALER 1 PUFF 2 PUFF INHALATION ×2 (08:49→20:10)
--- NOTE | 2023-11-10 09:01 | PM.PNORT ---
Progress Note: A&P Assessment and Plan (1) Chronic ulcer of left foot with necrosis of muscle: Code(s): L97.523 - Non-pressure chronic ulcer of other part of left foot with necrosis of muscle Status: Chronic Assessment and Plan: POD #1: Left TMA NWB LLE. Fracture boot ordered. Elevate LLE on pillows. Ice as needed. Pain control. IV antibiotics. Blood and wound cultures pending. Keep splint c/d/i. Dispo: Patient requests SNF at discharge. Will likely require intermediate manager IV antibiotics. (2) Osteomyelitis of second toe of left foot: Code(s): M86.9 - Osteomyelitis, unspecified Status: Acute (3) Peripheral vascular disease: Code(s): I73.9 - Peripheral vascular disease, unspecified Status: Chronic (4) Hypertension: Qualifiers: Hypertension type: unspecified Qualified Code(s): I10 - Essential (primary) hypertension Code(s): I10 - Essential (primary) hypertension Status: Chronic (5) Dyslipidemia: Code(s): E78.5 - Hyperlipidemia, unspecified Status: Chronic (6) Cellulitis of foot, left: Code(s): L03.116 - Cellulitis of left lower limb Status: Acute (7) Diabetes: Qualifiers: Diabetes mellitus type: type 2 Diabetes mellitus intermediate manager insulin use: with detention use Diabetes mellitus complication status: with circulatory complication Diabetes mellitus complication detail: with peripheral angiopathy with gangrene Qualified Code(s): E11.52 - Type 2 diabetes mellitus with diabetic peripheral angiopathy with gangrene; Z79.4 - ocean transportation intermediary (current) use of insulin Code(s): E11.9 - Type 2 diabetes mellitus without complications Status: Chronic Time Spent With Patient Time: Reviewed history, exam, radiographs and current labs with attending MD and covering surgeon, Dr. Harrison, who agrees with current plan as indicated above. No further recommendations from Dr. Harrison at this time. Subjective Subjective Date/Time Seen: 11/10/23 09:01 Post Op day: 1 Interval history: POD#1: Left transmetatarsal amputation Patient doing well overall. Mild pain LLE. Pain medication helping to alleviate pain. No new concerns. Review of Systems Review of Systems: All systems reviewed & are unremarkable except as noted in HPI and below Exam Const: General: comfortable and no acute distress Resp: Effort & Inspection: normal respiratory effort Cardio: Rate: regular rate Rhythm: regular rhythm GI: GI Palp: Yes Soft to palpation and No Tenderness to palpation present (GI) Skin: Other: Dressing left foot c/d/i. Knee soft. No effusion. No pain. Unable to fully assess incision due to splint in place. Extrem: Left lower extremity: knee Details: normal to inspection and normal ROM; no tenderness and no swelling and lower leg (Splint intact LLE ) Objective Data Vital Signs Vital Signs: Vital Signs - 24 hr 11/09/23 10:33 11/09/23 09:30 11/09/23 12:36 Temperature 37.4 C Pulse Rate 85 Respiratory Rate 16 Blood Pressure 131/50 L Pulse Oximetry 95 96 Oxygen Delivery Room Air Room Air Room Air Oxygen Flow Rate Fraction of Inspired Oxygen 11/09/23 14:58 11/09/23 15:20 11/09/23 15:35 Temperature 36.9 C Pulse Rate 81 84 84 Respiratory Rate 20 20 20 Blood Pressure 130/69 147/63 H 154/64 H Pulse Oximetry 97 97 94 Oxygen Delivery Simple Face Mask Simple Face Mask Nasal Cannula Oxygen Flow Rate 6 6 3 Fraction of Inspired Oxygen 11/09/23 15:50 11/09/23 16:06 11/09/23 17:36 Temperature 36.4 C L 36.3 C L Pulse Rate 86 86 87 Respiratory Rate 20 20 20 Blood Pressure 150/60 H 158/59 H 153/56 H Pulse Oximetry 96 98 100 Oxygen Delivery Nasal Cannula Oxygen Flow Rate 3 Fraction of Inspired Oxygen 11/09/23 20:00 11/09/23 20:00 11/09/23 21:59 Temperature 36.6 C Pulse Rate 90 90 81 Respiratory Rate 20 20 20 Blood Pressure 116/45 L Pulse Oximetry 91 100 Oxygen Delive
--- NOTE | 2023-11-10 10:41 | PCPTNOTE ---
Attempted PT evaluation, pt adamantly refused stating I am tired. I want to sleep! Pt proceeded to refuse despite encouragement to participate. RN aware.
--- NOTE | 2023-11-10 10:47 | P.PNIM_ITS ---
Progress Note: A&P Assessment and Plan (1) Cellulitis of foot, left: Code(s): L03.116 - Cellulitis of left lower limb Status: Acute Assessment and Plan: * Secondary to combination of PVD and DM, not well controlled * Continue Vancomycin, Cefepime and Flagyl * Orthopedic consult placed and they are co-managing * Monitor labs and VS. * Not currently meeting Sepsis criteria. * BC x2 are pending, but pt has hx of MRSA historically. * 11/10/23: Orthopedics co-managing. Recommending continuation of the abx of Vanc, Cefepime and Flagyl pending BCx and Wound cx. Dressing change orders per Ortho. (2) Osteomyelitis of second toe of left foot: Code(s): M86.9 - Osteomyelitis, unspecified Status: Acute Assessment and Plan: * See plan for #1. * OR this afternoon with Dr. Pizarro. * Wound cultures pending. * 11/10/23: Continue IV abx pending Blood Cxs and Wound Cx. S/P Left TMA yesterday. Continue pain meds as ordered. Orthopedics to determine restart date of Xarelto and also of dressing changes. PT eval ordered for today. (3) Chronic ulcer of left foot with necrosis of muscle: Code(s): L97.523 - Non-pressure chronic ulcer of other part of left foot with necrosis of muscle Status: Chronic Assessment and Plan: * See #1 and #2 (4) Diabetes: Qualifiers: Diabetes mellitus type: type 2 Diabetes mellitus assistant head cashier insulin use: with assistant head cashier use Diabetes mellitus complication status: with circulatory complication Diabetes mellitus complication detail: with peripheral angiopathy with gangrene Qualified Code(s): E11.52 - Type 2 diabetes mellitus with diabetic peripheral angiopathy with gangrene; Z79.4 - ward nurse (current) use of insulin Code(s): E11.9 - Type 2 diabetes mellitus without complications Status: Chronic Assessment and Plan: * With assistant head cashier use of insulin * With vascular complications resulting in Gangrene and chronic infection of Osteomyelitis of Left toe/foot * Tight glucose control will be needed post surgery to ensure recovery. * Hgb A1C 9.5 * Change mealtime insulin of 20 units to SSI high dose, adjust as necessary * Hold oral hypoglycemics * Continue Long acting insulin at 105 units/HS. * Consider adding back mealtime insulin once pt is eating again. * Post OR, change regimen from Q6 Glucose testing for NPO to AC and HS * Continue hypoglycemic protocol. * Diabetic/Heart Healthy diet when able to eat. * 11/10/23: Continue Diabetic/Heart healthy diet as ordered. Continue Lantus 105 units HS, Continue High dose correction with meals, and based on elevated fasting glucose this AM of 167, add moderate dose corrective at HS. Suspect that pt's insulin dosages will need to be adjusted as the pain and inflammation from infection and surgery are under better control. Continue Hypoglycemic protocol and also glucose checks AC and HS and prn. (5) Dyslipidemia: Code(s): E78.5 - Hyperlipidemia, unspecified Status: Chronic Assessment and Plan: * Continue Statin therapy of Rosuvastatin 20 mg po HS * Continue Fenofibrate 160 mg daily. * Continue heart healthy diet post OR. (6) Hypertension: Qualifiers: Hypertension type: unspecified Qualified Code(s): I10 - Essential (primary) hypertension Code(s): I10 - Essential (primary) hypertension Status: Chronic Assessment and Plan: * Continue home medications of Metoprolol 100 mg BID, and Lasix 40 mg daily. * Continue to monitor VS. * 11/10/23: Continue BP meds and continue to monitor BP. Currently stable. (7) Peripheral vascular disease:
--- NOTE | 2023-11-10 10:47 | PM.IMPN ---
Progress Note: A&P Assessment and Plan (1) Cellulitis of foot, left: Code(s): L03.116 - Cellulitis of left lower limb Status: Acute Assessment and Plan: Secondary to combination of PVD and DM, not well controlled Continue Vancomycin, Cefepime and Flagyl Orthopedic consult placed and they are co-managing Monitor labs and VS. Not currently meeting Sepsis criteria. BC x2 are pending, but pt has hx of MRSA historically. 11/10/23: Orthopedics co-managing. Recommending continuation of the abx of Vanc, Cefepime and Flagyl pending BCx and Wound cx. Dressing change orders per Ortho. (2) Osteomyelitis of second toe of left foot: Code(s): M86.9 - Osteomyelitis, unspecified Status: Acute Assessment and Plan: See plan for #1. OR this afternoon with Dr. Pizarro. Wound cultures pending. 11/10/23: Continue IV abx pending Blood Cxs and Wound Cx. S/P Left TMA yesterday. Continue pain meds as ordered. Orthopedics to determine restart date of Xarelto and also of dressing changes. PT eval ordered for today. (3) Chronic ulcer of left foot with necrosis of muscle: Code(s): L97.523 - Non-pressure chronic ulcer of other part of left foot with necrosis of muscle Status: Chronic Assessment and Plan: See #1 and #2 (4) Diabetes: Qualifiers: Diabetes mellitus type: type 2 Diabetes mellitus terminal gauger insulin use: with terminal gauger use Diabetes mellitus complication status: with circulatory complication Diabetes mellitus complication detail: with peripheral angiopathy with gangrene Qualified Code(s): E11.52 - Type 2 diabetes mellitus with diabetic peripheral angiopathy with gangrene; Z79.4 - penitentiary (current) use of insulin Code(s): E11.9 - Type 2 diabetes mellitus without complications Status: Chronic Assessment and Plan: With terminal gauger use of insulin With vascular complications resulting in Gangrene and chronic infection of Osteomyelitis of Left toe/foot Tight glucose control will be needed post surgery to ensure recovery. Hgb A1C 9.5 Change mealtime insulin of 20 units to SSI high dose, adjust as necessary Hold oral hypoglycemics Continue Long acting insulin at 105 units/HS. Consider adding back mealtime insulin once pt is eating again. Post OR, change regimen from Q6 Glucose testing for NPO to AC and HS Continue hypoglycemic protocol. Diabetic/Heart Healthy diet when able to eat. 11/10/23: Continue Diabetic/Heart healthy diet as ordered. Continue Lantus 105 units HS, Continue High dose correction with meals, and based on elevated fasting glucose this AM of 167, add moderate dose corrective at HS. Suspect that pt's insulin dosages will need to be adjusted as the pain and inflammation from infection and surgery are under better control. Continue Hypoglycemic protocol and also glucose checks AC and HS and prn. (5) Dyslipidemia: Code(s): E78.5 - Hyperlipidemia, unspecified Status: Chronic Assessment and Plan: Continue Statin therapy of Rosuvastatin 20 mg po HS Continue Fenofibrate 160 mg daily. Continue heart healthy diet post OR. (6) Hypertension: Qualifiers: Hypertension type: unspecified Qualified Code(s): I10 - Essential (primary) hypertension Code(s): I10 - Essential (primary) hypertension Status: Chronic Assessment and Plan: Continue home medications of Metoprolol 100 mg BID, and Lasix 40 mg daily. Continue to monitor VS. 11/10/23: Continue BP meds and continue to monitor BP. Currently stable. (7) Peripheral vascular disease: Code(s): I73.9 - Peripheral vascular disease, unspecified Status: Chronic Assessment and Plan: Continue Xarelto. With current complication of gangrene of left toe. 11/10/23: Appreciate Orthopedics decision on when to restart Xarelto after surgery. I spoke w/MICHAEL Bolden who will call and verify with Orthopedics. Time Spent With Patient Time with patient
[2023-11-10 11:40] LABS: Glucose Point of Care 201 mg/dl (65-105)
[2023-11-10] MEDS: INSULIN ASPART (*BKC) 100 UNITS/ML SUB-Q ×2 (12:17→21:55)
[2023-11-10 13:45] LABS: Vancomycin Trough 15.5 ug/mL (10.0-20.0)
[2023-11-10 16:21] LABS: Glucose Point of Care 184 mg/dl (65-105)
[2023-11-10] MEDS: RIVAROXABAN 20 MG TABLET PO (16:45)
[2023-11-10 21:31] LABS: Glucose Point of Care 206 mg/dl (65-105)
[2023-11-10] MEDS: ROSUVASTATIN 10 MG TABLET 20 MG PO (21:53)
[2023-11-11] VITALS (11 sets, daily range): BP systolic 130–152; BP diastolic 46–78; PULSE 60–78; RESP 18–20; TEMP 36.4–36.9; O2SAT 92–97
[2023-11-11] MEDS: metroNIDAZOLE 500 MG/ISO 100ML 500 MG/100 ML BAG 100 MG IVPB ×3 (00:46→17:05)
[2023-11-11] MEDS: VANCOMYCIN 1,500 MG/NS 500 ML 1,500 MG/500 ML BAG 250 MG IVPB ×2 (02:16→13:11)
[2023-11-11] MEDS: HYDROmorphone HCL INJ (*CRX) 1 MG/ML SYR 0.5 MG IV PUSH ×2 (02:22→06:27)
[2023-11-11 06:20] LABS: Hematocrit 26.9 % (42.0-52.0); Mean Corpuscular HGB Conc 29.7 g/dl (32-36); Mean Corpuscular Hemoglobin 25.2 pg (26-34); Mean Corpuscular Volume 84.6 fl (80-100); Mean Platelet Volume 9.7 fl (7.4-10.4); Platelet Count Result 432 k/mm3 (150-375); Red Blood Count 3.18 M/mm3 (4.6-6.20); Red Cell Distribution Width 15.6 % (11.5-14.5); White Blood Count 18.9 K/mm3 (4.5-10.0)
[2023-11-11 06:33] LABS: Alanine Aminotransferase 105 U/L (6-50); Albumin Level 2.9 g/dL (3.5-5.1); Alkaline Phosphatase 161 U/L (38-126); Anion Gap 11 mmol/L (8-16); Aspartate Amino Transferase 78 U/L (17-59); Bilirubin,Total 0.6 mg/dL (0.2-1.3); Blood Urea Nitrogen 21 mg/dL (9-20); Calcium 7.8 mg/dL (8.4-10.2); Carbon Dioxide 19 mmol/L (22-30); Chloride 102 mmol/L (98-107); Estimated CRCL calculation 76 ml/min; Estimated Glomerular Filt Rate > 60; Glucose 131 mg/dL (65-110); Potassium 4.2 mmol/L (3.4-5.0); Sodium 132 mmol/L (137-145)
[2023-11-11 07:50] LABS: Glucose Point of Care 158 mg/dl (65-105)
[2023-11-11] MEDS: MORPHINE SULFATE (*CRX) 2 MG/ML INJ IV PUSH ×2 (08:09→16:57)
[2023-11-11] MEDS: FENOFIBRATE 160 MG TABLET PO (08:31)
[2023-11-11] MEDS: METOPROLOL TARTRATE 50 MG TAB 100 MG PO ×2 (08:31→20:18)
[2023-11-11] MEDS: EMPAGLIFLOZIN 25 MG TABLET PO (08:32)
[2023-11-11] MEDS: ESCITALOPRAM OXALATE 10 MG TABLET PO (08:32)
[2023-11-11] MEDS: POTASSIUM CHLORIDE 10 MEQ ER TABLET PO ×2 (08:32→17:05)
[2023-11-11] MEDS: FUROSEMIDE 40 MG TABLET PO (08:32)
[2023-11-11] MEDS: SENNA/DOCUSATE SODIUM TABLET 2 TAB PO (08:32)
[2023-11-11] MEDS: ACETAMINOPHEN 325 MG TABLET 650 MG PO (08:32)
[2023-11-11] MEDS: FLUTICASONE/SALMETEROL 230-21 MCG INHALER 1 PUFF 2 PUFF INHALATION ×2 (08:48→20:39)
--- NOTE | 2023-11-11 08:51 | PM.PNORT ---
Progress Note: A&P Assessment and Plan (1) Chronic ulcer of left foot with necrosis of muscle: Code(s): L97.523 - Non-pressure chronic ulcer of other part of left foot with necrosis of muscle Status: Chronic Assessment and Plan: POD #2: Left TMA NWB LLE. Fracture boot ordered. Elevate LLE on pillows. Ice as needed. At this time splint and sterile dressing in place. Will leave in place until dressing change on Monday. Pain control. IV antibiotics. Blood and wound cultures pending. Wound culture shows Gram-positive cocci. History of previous MRSA. Keep splint c/d/i. Dispo: Patient requests SNF at discharge. Will likely require skilled nursing IV antibiotics. (2) Osteomyelitis of second toe of left foot: Code(s): M86.9 - Osteomyelitis, unspecified Status: Acute (3) Peripheral vascular disease: Code(s): I73.9 - Peripheral vascular disease, unspecified Status: Chronic (4) Hypertension: Qualifiers: Hypertension type: unspecified Qualified Code(s): I10 - Essential (primary) hypertension Code(s): I10 - Essential (primary) hypertension Status: Chronic (5) Dyslipidemia: Code(s): E78.5 - Hyperlipidemia, unspecified Status: Chronic (6) Cellulitis of foot, left: Code(s): L03.116 - Cellulitis of left lower limb Status: Acute (7) Diabetes: Qualifiers: Diabetes mellitus type: type 2 Diabetes mellitus skilled nursing insulin use: with women's ministry director use Diabetes mellitus complication status: with circulatory complication Diabetes mellitus complication detail: with peripheral angiopathy with gangrene Qualified Code(s): E11.52 - Type 2 diabetes mellitus with diabetic peripheral angiopathy with gangrene; Z79.4 - casing machine operator (current) use of insulin Code(s): E11.9 - Type 2 diabetes mellitus without complications Status: Chronic Subjective Subjective Date/Time Seen: 11/11/23 08:51 Post Op day: 2 Principal diagnosis: left foot osteomyelitis/diabetic foot ulcer Interval history: patient awake and alert. Complains of some pain left foot. No other problems overnight. Exam Const: General: comfortable and no acute distress Resp: Effort & Inspection: normal respiratory effort Cardio: Rate: regular rate Rhythm: regular rhythm GI: GI Palp: Yes Soft to palpation and No Tenderness to palpation present (GI) Skin: Other: Dressing left foot c/d/i. Knee soft. No effusion. No pain. Unable to fully assess incision due to splint in place. Extrem: Left lower extremity: knee Details: normal to inspection and normal ROM; no tenderness and no swelling and lower leg (Splint intact LLE ) Objective Data Vital Signs Vital Signs: Vital Signs - 24 hr 11/10/23 12:00 11/10/23 16:00 11/10/23 20:17 Temperature 97.8 F 97.6 F Pulse Rate 59 L 60 71 Respiratory Rate 16 17 Blood Pressure 116/46 L 123/53 L Pulse Oximetry 94 90 85 L Oxygen Delivery Room Air 11/10/23 21:41 11/10/23 21:54 11/11/23 00:00 Temperature 97.6 F 98.4 F Pulse Rate 65 72 62 Respiratory Rate 16 20 Blood Pressure 138/55 L 133/46 L Pulse Oximetry 97 97 Oxygen Delivery 11/11/23 06:04 11/11/23 08:31 Temperature 97.6 F Pulse Rate 60 62 Respiratory Rate 18 Blood Pressure 134/56 L Pulse Oximetry 95 Oxygen Delivery Intake/Output Intake/Output: Intake & Output 11/08/23 11/09/23 11/10/23 11/11/23 23:59 23:59 23:59 23:59 Intake Total 2630 3444 100 Output Total 1730 4475 800 Balance 900 -2191 700 Meds/Results Medications: Active Medications Generic Name Dose Route Start Last Admin Trade Name Freq PRN Reason Stop Dose Admin Acetaminophen 650 mg 11/09/23 03:23 11/11/23 08:32 Acetaminophen 325 Mg Tablet PO 650 mg Q4H PRN Administration Mild Pain (1-3) or Fever Hydrocodone Bitart/Acetaminophen 1 tab 11/09/23 03:28 11/10/23 12:14 Hydrocodone/Acetaminophen (*Crx) 5-325 Mg Tablet PO 1 tab
--- NOTE | 2023-11-11 09:11 | PCPTNOTE ---
901, patient refuses to get up, hospitalist in room, heard, and understands patient refuses.
[2023-11-11] MEDS: CEFEPIME 2 GM/NS 50 ML 2 GM/50 ML BAG IVPB (11:33)
[2023-11-11] MEDS: HYDROcodone/acetaminophen (*CRX) 5-325 MG TABLET 1 TAB PO ×2 (11:34→18:44)
[2023-11-11 11:52] LABS: Glucose Point of Care 168 mg/dl (65-105)
--- NOTE | 2023-11-11 13:56 | P.PNIM_ITS ---
Progress Note: A&P Assessment and Plan (1) Cellulitis of foot, left: Code(s): L03.116 - Cellulitis of left lower limb Status: Acute Assessment and Plan: * Secondary to combination of PVD and DM, not well controlled * Continue Vancomycin, Cefepime and Flagyl * Orthopedic consult placed and they are co-managing * Monitor labs and VS. * Not currently meeting Sepsis criteria. * BC x2 are pending, but pt has hx of MRSA historically. * 11/10/23: Orthopedics co-managing. Recommending continuation of the abx of Vanc, Cefepime and Flagyl pending BCx and Wound cx. Dressing change orders per Ortho. * 11/11/23: POD # [address] Pizarro * Orthopedics to keep dressing in place until Monday. NWB LLE, elevate LLE. Continue IV abx. Blood culture and wound cultures pending. Wound cultures show gram positive cocci. Patient has hx of MRSA. (2) Osteomyelitis of second toe of left foot: Code(s): M86.9 - Osteomyelitis, unspecified Status: Acute Assessment and Plan: * See plan for #1. * OR this afternoon with Dr. Pizarro. * Wound cultures pending. * 11/10/23: Continue IV abx pending Blood Cxs and Wound Cx. S/P Left TMA yesterday. Continue pain meds as ordered. Orthopedics to determine restart date of Xarelto and also of dressing changes. PT eval ordered for today. * 11/11/23: POD # [address] Pizarro * Orthopedics to keep dressing in place until Monday. NWB LLE, elevate LLE. Continue IV abx. Blood culture and wound cultures pending. Wound cultures show gram positive cocci. Patient has hx of MRSA * Patient refused PT (3) Chronic ulcer of left foot with necrosis of muscle: Code(s): L97.523 - Non-pressure chronic ulcer of other part of left foot with necrosis of muscle Status: Chronic Assessment and Plan: * See #1 and #2 (4) Diabetes: Qualifiers: Diabetes mellitus type: type 2 Diabetes mellitus skilled nursing insulin use: with skilled nursing use Diabetes mellitus complication status: with circulatory complication Diabetes mellitus complication detail: with peripheral angiopathy with gangrene Qualified Code(s): E11.52 - Type 2 diabetes mellitus with diabetic peripheral angiopathy with gangrene; Z79.4 - exterminator termite (current) use of insulin Code(s): E11.9 - Type 2 diabetes mellitus without complications Status: Chronic Assessment and Plan: * With skilled nursing use of insulin * With vascular complications resulting in Gangrene and chronic infection of Osteomyelitis of Left toe/foot * Tight glucose control will be needed post surgery to ensure recovery. * Hgb A1C 9.5 * Change mealtime insulin of 20 units to SSI high dose, adjust as necessary * Hold oral hypoglycemics * Continue Long acting insulin at 105 units/HS. * Consider adding back mealtime insulin once pt is eating again. * Post OR, change regimen from Q6 Glucose testing for NPO to AC and HS * Continue hypoglycemic protocol. * Diabetic/Heart Healthy diet when able to eat. * 11/10/23: Continue Diabetic/Heart healthy diet as ordered. Continue Lantus 105 units HS, Continue High dose correction with meals, and based on elevated fas ting glucose this AM of 167, add moderate dose corrective at HS. Suspect that pt's insulin dosages will need to be adjusted as the pain and inflammation from infection and surgery are under better control. Continue Hypoglycemic protocol and also glucose checks AC and HS and prn. * 11/08/23: Continue diabetic diet/ Heart Healthy diet as ordered * Continue current glucose control regimen. Blood glucose remains elevated fasting glucose this AM of 131. Continue Hypoglycemic protocol and also glucose checks AC and HS and prn.
--- NOTE | 2023-11-11 13:56 | PM.IMPN ---
Progress Note: A&P Assessment and Plan (1) Cellulitis of foot, left: Code(s): L03.116 - Cellulitis of left lower limb Status: Acute Assessment and Plan: Secondary to combination of PVD and DM, not well controlled Continue Vancomycin, Cefepime and Flagyl Orthopedic consult placed and they are co-managing Monitor labs and VS. Not currently meeting Sepsis criteria. BC x2 are pending, but pt has hx of MRSA historically. 11/10/23: Orthopedics co-managing. Recommending continuation of the abx of Vanc, Cefepime and Flagyl pending BCx and Wound cx. Dressing change orders per Ortho. 11/11/23: POD # [address] Pizarro Orthopedics to keep dressing in place until Monday. NWB LLE, elevate LLE. Continue IV abx. Blood culture and wound cultures pending. Wound cultures show gram positive cocci. Patient has hx of MRSA. (2) Osteomyelitis of second toe of left foot: Code(s): M86.9 - Osteomyelitis, unspecified Status: Acute Assessment and Plan: See plan for #1. OR this afternoon with Dr. Pizarro. Wound cultures pending. 11/10/23: Continue IV abx pending Blood Cxs and Wound Cx. S/P Left TMA yesterday. Continue pain meds as ordered. Orthopedics to determine restart date of Xarelto and also of dressing changes. PT eval ordered for today. 11/11/23: POD # [address] Pizarro Orthopedics to keep dressing in place until Monday. NWB LLE, elevate LLE. Continue IV abx. Blood culture and wound cultures pending. Wound cultures show gram positive cocci. Patient has hx of MRSA Patient refused PT (3) Chronic ulcer of left foot with necrosis of muscle: Code(s): L97.523 - Non-pressure chronic ulcer of other part of left foot with necrosis of muscle Status: Chronic Assessment and Plan: See #1 and #2 (4) Diabetes: Qualifiers: Diabetes mellitus type: type 2 Diabetes mellitus jail insulin use: with jail use Diabetes mellitus complication status: with circulatory complication Diabetes mellitus complication detail: with peripheral angiopathy with gangrene Qualified Code(s): E11.52 - Type 2 diabetes mellitus with diabetic peripheral angiopathy with gangrene; Z79.4 - [facility] (current) use of insulin Code(s): E11.9 - Type 2 diabetes mellitus without complications Status: Chronic Assessment and Plan: With jail use of insulin With vascular complications resulting in Gangrene and chronic infection of Osteomyelitis of Left toe/foot Tight glucose control will be needed post surgery to ensure recovery. Hgb A1C 9.5 Change mealtime insulin of 20 units to SSI high dose, adjust as necessary Hold oral hypoglycemics Continue Long acting insulin at 105 units/HS. Consider adding back mealtime insulin once pt is eating again. Post OR, change regimen from Q6 Glucose testing for NPO to AC and HS Continue hypoglycemic protocol. Diabetic/Heart Healthy diet when able to eat. 11/10/23: Continue Diabetic/Heart healthy diet as ordered. Continue Lantus 105 units HS, Continue High dose correction with meals, and based on elevated fasting glucose this AM of 167, add moderate dose corrective at HS. Suspect that pt's insulin dosages will need to be adjusted as the pain and inflammation from infection and surgery are under better control. Continue Hypoglycemic protocol and also glucose checks AC and HS and prn. 11/08/23: Continue diabetic diet/ Heart Healthy diet as ordered Continue current glucose control regimen. Blood glucose remains elevated fasting glucose this AM of 131. Continue Hypoglycemic protocol and also glucose checks AC and HS and prn. (5) Dyslipidemia: Code(s): E78.5 - Hyperlipidemia, unspecified Status: Chronic Assessment and Plan: Continue Statin therapy of Rosuvastatin 20 mg po HS Continue Fenofibrate 160 mg daily. Continue heart healthy diet post OR. (6) Hypertension: Qualifiers: Hypertension type: unspecified Qualified Code(s):
[2023-11-11] MEDS: RIVAROXABAN 20 MG TABLET PO (17:05)
[2023-11-11 18:00] LABS: Glucose Point of Care 154 mg/dl (65-105)
[2023-11-11] MEDS: ROSUVASTATIN 10 MG TABLET 20 MG PO (20:19)
[2023-11-11 21:36] LABS: Glucose Point of Care 183 mg/dl (65-105)
[2023-11-11] MEDS: MORPHINE SULFATE (*CRX) 4 MG/ML INJ 3 MG IV PUSH (21:56)
[2023-11-12] VITALS (8 sets, daily range): BP systolic 131–148; BP diastolic 48–64; PULSE 60–68; RESP 16–20; TEMP 36.2–36.8; O2SAT 90–96
[2023-11-12] MEDS: CEFEPIME 2 GM/NS 50 ML 2 GM/50 ML BAG IVPB ×3 (00:28→23:54)
[2023-11-12] MEDS: metroNIDAZOLE 500 MG/ISO 100ML 500 MG/100 ML BAG 100 MG IVPB ×3 (00:59→17:28)
[2023-11-12] MEDS: HYDROcodone/acetaminophen (*CRX) 5-325 MG TABLET 1 TAB PO ×4 (01:20→20:12)
[2023-11-12] MEDS: VANCOMYCIN 1,500 MG/NS 500 ML 1,500 MG/500 ML BAG 250 MG IVPB ×2 (02:02→15:28)
[2023-11-12 06:59] LABS: Hematocrit 28.8 % (42.0-52.0); Hemoglobin 8.8 g/dL (14.0-18.0); Mean Corpuscular HGB Conc 30.6 g/dl (32-36); Mean Corpuscular Hemoglobin 25.5 pg (26-34); Mean Corpuscular Volume 83.5 fl (80-100); Mean Platelet Volume 9.6 fl (7.4-10.4); Platelet Count Result 477 k/mm3 (150-375); Red Blood Count 3.45 M/mm3 (4.6-6.20); Red Cell Distribution Width 15.6 % (11.5-14.5); White Blood Count 16.9 K/mm3 (4.5-10.0)
[2023-11-12 07:07] LABS: Alanine Aminotransferase 84 U/L (6-50); Albumin Level 3.1 g/dL (3.5-5.1); Alkaline Phosphatase 161 U/L (38-126); Anion Gap 13 mmol/L (8-16); Aspartate Amino Transferase 56 U/L (17-59); Bilirubin,Total 0.5 mg/dL (0.2-1.3); Blood Urea Nitrogen 23 mg/dL (9-20); Calcium 7.9 mg/dL (8.4-10.2); Carbon Dioxide 19 mmol/L (22-30); Chloride 101 mmol/L (98-107); Estimated CRCL calculation 83 ml/min; Estimated Glomerular Filt Rate > 60; Glucose 149 mg/dL (65-110); Potassium 4.4 mmol/L (3.4-5.0); Sodium 133 mmol/L (137-145)
--- NOTE | 2023-11-12 07:37 | PM.PNORT ---
Progress Note: A&P Assessment and Plan (1) Chronic ulcer of left foot with necrosis of muscle: Code(s): L97.523 - Non-pressure chronic ulcer of other part of left foot with necrosis of muscle Status: Chronic Assessment and Plan: POD #3: Left TMA NWB LLE. Fracture boot ordered. Elevate LLE on pillows. Ice as needed. At this time splint and sterile dressing in place. Will leave in place until dressing change tomorrow. Pain control. IV antibiotics. Blood and wound cultures pending. Wound culture shows Gram-positive cocci. History of previous MRSA. Keep splint c/d/i. Dispo: Patient requests SNF at discharge. Will likely require shelter IV antibiotics. (2) Osteomyelitis of second toe of left foot: Code(s): M86.9 - Osteomyelitis, unspecified Status: Acute (3) Peripheral vascular disease: Code(s): I73.9 - Peripheral vascular disease, unspecified Status: Chronic (4) Hypertension: Qualifiers: Hypertension type: unspecified Qualified Code(s): I10 - Essential (primary) hypertension Code(s): I10 - Essential (primary) hypertension Status: Chronic (5) Dyslipidemia: Code(s): E78.5 - Hyperlipidemia, unspecified Status: Chronic (6) Cellulitis of foot, left: Code(s): L03.116 - Cellulitis of left lower limb Status: Acute (7) Diabetes: Qualifiers: Diabetes mellitus type: type 2 Diabetes mellitus termite treater helper insulin use: with termite treater helper use Diabetes mellitus complication status: with circulatory complication Diabetes mellitus complication detail: with peripheral angiopathy with gangrene Qualified Code(s): E11.52 - Type 2 diabetes mellitus with diabetic peripheral angiopathy with gangrene; Z79.4 - jail (current) use of insulin Code(s): E11.9 - Type 2 diabetes mellitus without complications Status: Chronic Subjective Subjective Date/Time Seen: 11/12/23 07:37 Post Op day: 3 Principal diagnosis: left foot osteomyelitis/diabetic foot ulcer Interval history: Resting comfortably. No new complaints. No problems overnight. Exam Const: General: comfortable and no acute distress Resp: Effort & Inspection: normal respiratory effort Cardio: Rate: regular rate Rhythm: regular rhythm GI: GI Palp: Yes Soft to palpation and No Tenderness to palpation present (GI) Skin: Other: Dressing left foot c/d/i. No drainage visible. Knee soft. No effusion. No pain. splint in place. Extrem: Left lower extremity: knee Details: normal to inspection and normal ROM; no tenderness and no swelling and lower leg (Splint intact LLE ) Objective Data Vital Signs Vital Signs: Vital Signs - 24 hr 11/11/23 08:31 11/11/23 08:51 11/11/23 08:00 Temperature 98.2 F Pulse Rate 62 68 Respiratory Rate 20 Blood Pressure 152/72 H Pulse Oximetry 92 96 Oxygen Delivery Nasal Cannula Oxygen Flow Rate 3 11/11/23 08:25 11/11/23 12:00 11/11/23 16:00 Temperature 98.2 F 98.3 F Pulse Rate 60 64 Respiratory Rate 18 18 Blood Pressure 142/59 H 130/78 Pulse Oximetry 94 95 95 Oxygen Delivery Nasal Cannula Oxygen Flow Rate 3 11/11/23 20:18 11/11/23 20:40 11/11/23 21:40 Temperature 98.2 F Pulse Rate 78 60 Respiratory Rate 20 Blood Pressure 133/63 Pulse Oximetry 95 94 Oxygen Delivery Room Air Oxygen Flow Rate 11/11/23 20:15 11/12/23 00:00 11/12/23 06:32 Temperature 97.1 F L 98.2 F Pulse Rate 60 60 Respiratory Rate 18 20 Blood Pressure 137/60 142/58 H Pulse Oximetry 92 96 Oxygen Delivery Room Air Oxygen Flow Rate Intake/Output Intake/Output: Intake & Output 11/09/23 11/10/23 11/11/23 11/12/23 23:59 23:59 23:59 23:59 Intake Total 2630 0544 2120 650 Output Total 2356 1922 7289 350 Balance 900 -1031 -385 300 Meds/Results Medications: Active Medications Generic Name Dose Route Start Last Admin Trade Name Freq PRN Reason Stop Dose Admin Acetam
[2023-11-12 08:20] LABS: Glucose Point of Care 170 mg/dl (65-105)
[2023-11-12] MEDS: EMPAGLIFLOZIN 25 MG TABLET PO (09:00)
[2023-11-12] MEDS: POTASSIUM CHLORIDE 10 MEQ ER TABLET PO ×2 (09:00→17:28)
[2023-11-12] MEDS: FENOFIBRATE 160 MG TABLET PO (09:00)
[2023-11-12] MEDS: FUROSEMIDE 40 MG TABLET PO (09:00)
[2023-11-12] MEDS: ESCITALOPRAM OXALATE 10 MG TABLET PO (09:00)
[2023-11-12] MEDS: METOPROLOL TARTRATE 50 MG TAB 100 MG PO ×2 (09:02→20:11)
[2023-11-12] MEDS: FLUTICASONE/SALMETEROL 230-21 MCG INHALER 1 PUFF 2 PUFF INHALATION ×2 (10:23→19:23)
--- NOTE | 2023-11-12 10:58 | P.PNIM_ITS ---
Progress Note: A&P Assessment and Plan (1) Cellulitis of foot, left: Code(s): L03.116 - Cellulitis of left lower limb Status: Acute Assessment and Plan: * Secondary to combination of PVD and DM, not well controlled * Continue Vancomycin, Cefepime and Flagyl * Orthopedic consult placed and they are co-managing * Monitor labs and VS. * Not currently meeting Sepsis criteria. * BC x2 are pending, but pt has hx of MRSA historically. * 11/10/23: Orthopedics co-managing. Recommending continuation of the abx of Vanc, Cefepime and Flagyl pending BCx and Wound cx. Dressing change orders per Ortho. * 11/11/23: POD # [address] Pizarro * Orthopedics to keep dressing in place until Monday. NWB LLE, elevate LLE. Continue IV abx. Blood culture and wound cultures pending. Wound cultures show gram positive cocci. Patient has hx of MRSA. * 11/12/23: POD #3 TMA- [place] * LLE elevated, Splint C/D/I- dressing change tomorrow * Pain adequtely contolled at this time. * Blood and wound cultures pending, wound culture with gram positive cocci. Continue IV abx (2) Osteomyelitis of second toe of left foot: Code(s): M86.9 - Osteomyelitis, unspecified Status: Acute Assessment and Plan: * See plan for #1. * OR this afternoon with Dr. Pizarro. * Wound cultures pending. * 11/10/23: Continue IV abx pending Blood Cxs and Wound Cx. S/P Left TMA yesterday. Continue pain meds as ordered. Orthopedics to determine restart date of Xarelto and also of dressing changes. PT eval ordered for today. * 11/11/23: POD # [address] Pizarro * Orthopedics to keep dressing in place until Monday. NWB LLE, elevate LLE. Continue IV abx. Blood culture and wound cultures pending. Wound cultures show gram positive cocci. Patient has hx of MRSA * Patient refused PT * 11/12/23: POD#3 TMA. Pain adequately controlled. Wound cultures pending- gram positive cocci. Hx of MRSA. Patient more agreeable to OOB activity- NWB per Ortho. Xarelto restarted per Ortho 11/10. * Wants rehab at [place], will most likely need terminal make up operator IV abx at [place] (3) Chronic ulcer of left foot with necrosis of muscle: Code(s): L97.523 - Non-pressure chronic ulcer of other part of left foot with necrosis of muscle Status: Chronic Assessment and Plan: * See #1 and #2 (4) Diabetes: Qualifiers: Diabetes mellitus type: type 2 Diabetes mellitus terminal make up operator insulin use: with custodial use Diabetes mellitus complication status: with circulatory complication Diabetes mellitus complication detail: with peripheral angiopathy with gangrene Qualified Code(s): E11.52 - Type 2 diabetes mellitus with diabetic peripheral angiopathy with gangrene; Z79.4 - [facility]PC (current) use of insulin Code(s): E11.9 - Type 2 diabetes mellitus without complications Status: Chronic Assessment and Plan: * With custodial use of insulin * With vascular complications resulting in Gangrene and chronic infection of Osteomyelitis of Left toe/foot * Tight glucose control will be needed post surgery to ensure recovery. * Hgb A1C 9.5 * Change mealtime insulin of 20 units to SSI high dose, adjust as necessary * Hold oral hypoglycemics * Continue Long acting insulin at 105 units/HS. * Consider adding back mealtime insulin once pt is eating again. * Post OR, change regimen from Q6 Glucose testing for NPO to AC and HS * Continue hypoglycemic protocol. * Diabetic/Heart Healthy diet when able to eat. * 11/10/23: Continue Diabetic/Heart healthy diet as ordered. Continue Lantus 105 units HS, Continue High dose correction with meals, and based on elevated fasting glucose this AM of 167, add
--- NOTE | 2023-11-12 10:58 | PM.IMPN ---
Progress Note: A&P Assessment and Plan (1) Cellulitis of foot, left: Code(s): L03.116 - Cellulitis of left lower limb Status: Acute Assessment and Plan: Secondary to combination of PVD and DM, not well controlled Continue Vancomycin, Cefepime and Flagyl Orthopedic consult placed and they are co-managing Monitor labs and VS. Not currently meeting Sepsis criteria. BC x2 are pending, but pt has hx of MRSA historically. 11/10/23: Orthopedics co-managing. Recommending continuation of the abx of Vanc, Cefepime and Flagyl pending BCx and Wound cx. Dressing change orders per Ortho. 11/11/23: POD # [address] Pizarro Orthopedics to keep dressing in place until Monday. NWB LLE, elevate LLE. Continue IV abx. Blood culture and wound cultures pending. Wound cultures show gram positive cocci. Patient has hx of MRSA. 11/12/23: POD #3 TMA- [place] LLE elevated, Splint C/D/I- dressing change tomorrow Pain adequtely contolled at this time. Blood and wound cultures pending, wound culture with gram positive cocci. Continue IV abx (2) Osteomyelitis of second toe of left foot: Code(s): M86.9 - Osteomyelitis, unspecified Status: Acute Assessment and Plan: See plan for #1. OR this afternoon with Dr. Pizarro. Wound cultures pending. 11/10/23: Continue IV abx pending Blood Cxs and Wound Cx. S/P Left TMA yesterday. Continue pain meds as ordered. Orthopedics to determine restart date of Xarelto and also of dressing changes. PT eval ordered for today. 11/11/23: POD # [address] Pizarro Orthopedics to keep dressing in place until Monday. NWB LLE, elevate LLE. Continue IV abx. Blood culture and wound cultures pending. Wound cultures show gram positive cocci. Patient has hx of MRSA Patient refused PT 11/12/23: POD#3 TMA. Pain adequately controlled. Wound cultures pending- gram positive cocci. Hx of MRSA. Patient more agreeable to OOB activity- NWB per Ortho. Xarelto restarted per Ortho 11/10. Wants rehab at [place], will most likely need shelter IV abx at [place] (3) Chronic ulcer of left foot with necrosis of muscle: Code(s): L97.523 - Non-pressure chronic ulcer of other part of left foot with necrosis of muscle Status: Chronic Assessment and Plan: See #1 and #2 (4) Diabetes: Qualifiers: Diabetes mellitus type: type 2 Diabetes mellitus shelter insulin use: with shelter use Diabetes mellitus complication status: with circulatory complication Diabetes mellitus complication detail: with peripheral angiopathy with gangrene Qualified Code(s): E11.52 - Type 2 diabetes mellitus with diabetic peripheral angiopathy with gangrene; Z79.4 - residential (current) use of insulin Code(s): E11.9 - Type 2 diabetes mellitus without complications Status: Chronic Assessment and Plan: With shelter use of insulin With vascular complications resulting in Gangrene and chronic infection of Osteomyelitis of Left toe/foot Tight glucose control will be needed post surgery to ensure recovery. Hgb A1C 9.5 Change mealtime insulin of 20 units to SSI high dose, adjust as necessary Hold oral hypoglycemics Continue Long acting insulin at 105 units/HS. Consider adding back mealtime insulin once pt is eating again. Post OR, change regimen from Q6 Glucose testing for NPO to AC and HS Continue hypoglycemic protocol. Diabetic/Heart Healthy diet when able to eat. 11/10/23: Continue Diabetic/Heart healthy diet as ordered. Continue Lantus 105 units HS, Continue High dose correction with meals, and based on elevated fasting glucose this AM of 167, add moderate dose corrective at HS. Suspect that pt's insulin dosages will need to be adjusted as the pain and inflammation from infection and surgery are under better control. Continue Hypoglycemic protocol and also glucose checks AC and HS and prn. 11/11/23: Continue diabetic diet/ Heart Healthy diet as ordered Continue current glucose control regimen. Blood glu
[2023-11-12 11:30] LABS: Glucose Point of Care 220 mg/dl (65-105)
[2023-11-12] MEDS: INSULIN ASPART (*BKC) 100 UNITS/ML SUB-Q ×2 (11:36→17:30)
[2023-11-12] MEDS: HYDROmorphone HCL INJ (*CRX) 1 MG/ML SYR 0.5 MG IV PUSH ×3 (11:41→23:53)
--- NOTE | 2023-11-12 14:33 | PC.NURSE ---
Patient refusing to get chest CTA to rule out PE and stated I don't have a blood clot. I have had one before and know how it feels. RN explained to patient the importance of ruling out a PE given the oxygen needs he has been requiring. Patient still refuses. Hospitalist aware.
[2023-11-12 16:41] LABS: Glucose Point of Care 251 mg/dl (65-105)
[2023-11-12] MEDS: RIVAROXABAN 20 MG TABLET PO (17:28)
[2023-11-12] MEDS: ROSUVASTATIN 10 MG TABLET 20 MG PO (20:11)
[2023-11-12 20:25] LABS: Glucose Point of Care 205 mg/dl (65-105)
[2023-11-13] VITALS (7 sets, daily range): BP systolic 132–149; BP diastolic 51–62; PULSE 59–62; RESP 17–18; TEMP 35.8–36.3; O2SAT 95–96
[2023-11-13] MEDS: metroNIDAZOLE 500 MG/ISO 100ML 500 MG/100 ML BAG 100 MG IVPB ×3 (01:05→17:16)
[2023-11-13] MEDS: VANCOMYCIN 1,500 MG/NS 500 ML 1,500 MG/500 ML BAG 250 MG IVPB ×2 (02:11→15:21)
[2023-11-13] MEDS: HYDROcodone/acetaminophen (*CRX) 5-325 MG TABLET 1 TAB PO ×3 (04:06→23:57)
[2023-11-13] MEDS: HYDROmorphone HCL INJ (*CRX) 1 MG/ML SYR 0.5 MG IV PUSH ×4 (05:25→20:27)
[2023-11-13 06:29] LABS: Hematocrit 29.6 % (42.0-52.0); Hemoglobin 8.8 g/dL (14.0-18.0); Mean Corpuscular HGB Conc 29.7 g/dl (32-36); Mean Corpuscular Hemoglobin 25.1 pg (26-34); Mean Corpuscular Volume 84.3 fl (80-100); Mean Platelet Volume 9.6 fl (7.4-10.4); Platelet Count Result 494 k/mm3 (150-375); Red Blood Count 3.51 M/mm3 (4.6-6.20); Red Cell Distribution Width 15.8 % (11.5-14.5); White Blood Count 13.1 K/mm3 (4.5-10.0)
[2023-11-13 06:39] LABS: Alanine Aminotransferase 69 U/L (6-50); Albumin Level 2.8 g/dL (3.5-5.1); Alkaline Phosphatase 152 U/L (38-126); Anion Gap 11 mmol/L (8-16); Aspartate Amino Transferase 66 U/L (17-59); Bilirubin,Total 0.5 mg/dL (0.2-1.3); Blood Urea Nitrogen 24 mg/dL (9-20); Calcium 7.6 mg/dL (8.4-10.2); Carbon Dioxide 19 mmol/L (22-30); Chloride 102 mmol/L (98-107); Estimated CRCL calculation 92 ml/min; Estimated Glomerular Filt Rate > 60; Glucose 158 mg/dL (65-110); Potassium 3.9 mmol/L (3.4-5.0); Sodium 132 mmol/L (137-145)
[2023-11-13 07:22] LABS: Glucose Point of Care 165 mg/dl (65-105)
[2023-11-13] MEDS: FLUTICASONE/SALMETEROL 230-21 MCG INHALER 1 PUFF 2 PUFF INHALATION ×2 (08:25→19:43)
[2023-11-13] MEDS: ESCITALOPRAM OXALATE 10 MG TABLET PO (09:02)
[2023-11-13] MEDS: METOPROLOL TARTRATE 50 MG TAB 100 MG PO ×2 (09:02→20:26)
[2023-11-13] MEDS: FENOFIBRATE 160 MG TABLET PO (09:02)
[2023-11-13] MEDS: EMPAGLIFLOZIN 25 MG TABLET PO (09:02)
[2023-11-13] MEDS: FUROSEMIDE 40 MG TABLET PO (09:02)
[2023-11-13] MEDS: POTASSIUM CHLORIDE 10 MEQ ER TABLET PO ×2 (09:02→16:49)
--- NOTE | 2023-11-13 11:17 | P.PNIM_ITS ---
Progress Note: A&P Assessment and Plan (1) Cellulitis of foot, left: Code(s): L03.116 - Cellulitis of left lower limb Status: Acute Assessment and Plan: * Secondary to combination of PVD and DM, not well controlled * Continue Vancomycin, Cefepime and Flagyl * Orthopedic consult placed and they are co-managing * Monitor labs and VS. * Not currently meeting Sepsis criteria. * BC x2 are pending, but pt has hx of MRSA historically. * 11/10/23: Orthopedics co-managing. Recommending continuation of the abx of Vanc, Cefepime and Flagyl pending BCx and Wound cx. Dressing change orders per Ortho. * 11/11/23: POD # [address] Pizarro * Orthopedics to keep dressing in place until Monday. NWB LLE, elevate LLE. Continue IV abx. Blood culture and wound cultures pending. Wound cultures show gram positive cocci. Patient has hx of MRSA. * 11/12/23: POD #3 TMA- [place] * LLE elevated, Splint C/D/I- dressing change tomorrow * Pain adequtely contolled at this time. * Blood and wound cultures pending, wound culture with gram positive cocci. Continue IV abx * 11/13/23 POD #4 TMA- [place] * Ortho to do dressing change today * Blood and wound cultures still pending * Pain controlled * Continue IV abx (2) Osteomyelitis of second toe of left foot: Code(s): M86.9 - Osteomyelitis, unspecified Status: Acute Assessment and Plan: * See plan for #1. * OR this afternoon with Dr. Pizarro. * Wound cultures pending. * 11/10/23: Continue IV abx pending Blood Cxs and Wound Cx. S/P Left TMA ye . Continue pain meds as ordered. Orthopedics to determine restart date of Xarelto and also of dressing changes. PT eval ordered for today. * 11/11/23: POD # [address] Pizarro * Orthopedics to keep dressing in place until Monday. NWB LLE, elevate LLE. Continue IV abx. Blood culture and wound cultures pending. Wound cultures show gram positive cocci. Patient has hx of MRSA * Patient refused PT * 11/12/23: POD#3 TMA. Pain adequately controlled. Wound cultures pending- gram positive cocci. Hx of MRSA. Patient more agreeable to OOB activity- NWB per Ortho. Xarelto restarted per Ortho 11/10. * Wants rehab at [place], will most likely need long-term IV abx at [place] * 11/13/23 POD #4 TMA- [place] * Blood and wound cultures still pending, Pain controlled, Continue IV abx * Ortho to do dressing change today (3) Chronic ulcer of left foot with necrosis of muscle: Code(s): L97.523 - Non-pressure chronic ulcer of other part of left foot with necrosis of muscle Status: Chronic Assessment and Plan: * See #1 and #2 (4) Diabetes: Qualifiers: Diabetes mellitus type: type 2 Diabetes mellitus long-term insulin use: with long-term use Diabetes mellitus complication status: with circulatory complication Diabetes mellitus complication detail: with peripheral angiopathy with gangrene Qualified Code(s): E11.52 - Type 2 diabetes mellitus with diabetic peripheral angiopathy with gangrene; Z79.4 - retirement (current) use of insulin Code(s): E11.9 - Type 2 diabetes mellitus without complications Status: Chronic Assessment and Plan: * With long-term use of insulin * With vascular complications resulting in Gangrene and chronic infection of Osteomyelitis of Left toe/foot * Tight glucose control will be needed post surgery to ensure recovery. * Hgb A1C 9.5 * Change mealtime insulin of 20 units to SSI high dose, adjust as necessary * Hold oral hypoglycemics * Continue Long acting insulin at 105 units/HS. * Consider adding back mealtime insulin once pt is eating again. * Post OR, change regimen from Q6 Glucose testi
--- NOTE | 2023-11-13 11:17 | PM.IMPN ---
Progress Note: A&P Assessment and Plan (1) Cellulitis of foot, left: Code(s): L03.116 - Cellulitis of left lower limb Status: Acute Assessment and Plan: Secondary to combination of PVD and DM, not well controlled Continue Vancomycin, Cefepime and Flagyl Orthopedic consult placed and they are co-managing Monitor labs and VS. Not currently meeting Sepsis criteria. BC x2 are pending, but pt has hx of MRSA historically. 11/10/23: Orthopedics co-managing. Recommending continuation of the abx of Vanc, Cefepime and Flagyl pending BCx and Wound cx. Dressing change orders per Ortho. 11/11/23: POD # [address] Pizarro Orthopedics to keep dressing in place until Monday. NWB LLE, elevate LLE. Continue IV abx. Blood culture and wound cultures pending. Wound cultures show gram positive cocci. Patient has hx of MRSA. 11/12/23: POD #3 TMA- [place] LLE elevated, Splint C/D/I- dressing change tomorrow Pain adequtely contolled at this time. Blood and wound cultures pending, wound culture with gram positive cocci. Continue IV abx 11/13/23 POD #4 TMA- [place] Ortho to do dressing change today Blood and wound cultures still pending Pain controlled Continue IV abx (2) Osteomyelitis of second toe of left foot: Code(s): M86.9 - Osteomyelitis, unspecified Status: Acute Assessment and Plan: See plan for #1. OR this afternoon with Dr. Pizarro. Wound cultures pending. 11/10/23: Continue IV abx pending Blood Cxs and Wound Cx. S/P Left TMA yesterday. Continue pain meds as ordered. Orthopedics to determine restart date of Xarelto and also of dressing changes. PT eval ordered for today. 11/11/23: POD # [address] Pizarro Orthopedics to keep dressing in place until Monday. NWB LLE, elevate LLE. Continue IV abx. Blood culture and wound cultures pending. Wound cultures show gram positive cocci. Patient has hx of MRSA Patient refused PT 11/12/23: POD#3 TMA. Pain adequately controlled. Wound cultures pending- gram positive cocci. Hx of MRSA. Patient more agreeable to OOB activity- NWB per Ortho. Xarelto restarted per Ortho 11/10. Wants rehab at [place], will most likely need intermediate manager IV abx at [place] 11/13/23 POD #4 TMA- [place] Blood and wound cultures still pending, Pain controlled, Continue IV abx Ortho to do dressing change today (3) Chronic ulcer of left foot with necrosis of muscle: Code(s): L97.523 - Non-pressure chronic ulcer of other part of left foot with necrosis of muscle Status: Chronic Assessment and Plan: See #1 and #2 (4) Diabetes: Qualifiers: Diabetes mellitus type: type 2 Diabetes mellitus detention insulin use: with intermediate manager use Diabetes mellitus complication status: with circulatory complication Diabetes mellitus complication detail: with peripheral angiopathy with gangrene Qualified Code(s): E11.52 - Type 2 diabetes mellitus with diabetic peripheral angiopathy with gangrene; Z79.4 - intermediate manager (current) use of insulin Code(s): E11.9 - Type 2 diabetes mellitus without complications Status: Chronic Assessment and Plan: With intermediate manager use of insulin With vascular complications resulting in Gangrene and chronic infection of Osteomyelitis of Left toe/foot Tight glucose control will be needed post surgery to ensure recovery. Hgb A1C 9.5 Change mealtime insulin of 20 units to SSI high dose, adjust as necessary Hold oral hypoglycemics Continue Long acting insulin at 105 units/HS. Consider adding back mealtime insulin once pt is eating again. Post OR, change regimen from Q6 Glucose testing for NPO to AC and HS Continue hypoglycemic protocol. Diabetic/Heart Healthy diet when able to eat. 11/10/23: Continue Diabetic/Heart healthy diet as ordered. Continue Lantus 105 units HS, Continue High dose correction with meals, and based on elevated fasting glucose this AM of 167, add moderate dose corrective at HS. Suspect that pt's insulin dosages will need to be
[2023-11-13 11:20] LABS: Glucose Point of Care 259 mg/dl (65-105)
[2023-11-13] MEDS: INSULIN ASPART (*BKC) 100 UNITS/ML SUB-Q ×2 (11:20→20:29)
[2023-11-13] MEDS: CEFEPIME 2 GM/NS 50 ML 2 GM/50 ML BAG IVPB ×2 (11:55→23:58)
--- NOTE | 2023-11-13 12:02 | PM.PNORT ---
Progress Note: A&P Assessment and Plan (1) Chronic ulcer of left foot with necrosis of muscle: Code(s): L97.523 - Non-pressure chronic ulcer of other part of left foot with necrosis of muscle Status: Chronic Assessment and Plan: POD #4: Left TMA Elevate LLE on pillows. Ice as needed. Dressing changed today. Incision well approximated. Surrounding tissue with uncertain viability at this time. No necrosis but dusky appearance noted. New dressing applied. Adaptic over incision and covered dry. Will continue to monitor. Discussed importance of smoking cessation as well to allow for optimal healing. Begin daily dressing changes. Awaiting fracture boot from [facility] to room for protection. NWB LLE. Pain control. IV antibiotics. Blood cultures pending. Wound culture shows MRSA. Keep splint c/d/i. Dispo: Patient requests SNF at discharge. Will require termite technician IV antibiotics. (2) Osteomyelitis of second toe of left foot: Code(s): M86.9 - Osteomyelitis, unspecified Status: Acute (3) Peripheral vascular disease: Code(s): I73.9 - Peripheral vascular disease, unspecified Status: Chronic (4) Hypertension: Qualifiers: Hypertension type: unspecified Qualified Code(s): I10 - Essential (primary) hypertension Code(s): I10 - Essential (primary) hypertension Status: Chronic (5) Dyslipidemia: Code(s): E78.5 - Hyperlipidemia, unspecified Status: Chronic (6) Cellulitis of foot, left: Code(s): L03.116 - Cellulitis of left lower limb Status: Acute (7) Diabetes: Qualifiers: Diabetes mellitus type: type 2 Diabetes mellitus termite technician insulin use: with fdc use Diabetes mellitus complication status: with circulatory complication Diabetes mellitus complication detail: with peripheral angiopathy with gangrene Qualified Code(s): E11.52 - Type 2 diabetes mellitus with diabetic peripheral angiopathy with gangrene; Z79.4 - parts counterman (current) use of insulin Code(s): E11.9 - Type 2 diabetes mellitus without complications Status: Chronic Subjective Subjective Date/Time Seen: 11/13/23 12:02 Post Op day: 4 Principal diagnosis: left foot osteomyelitis/diabetic foot ulcer Interval history: Resting comfortably. No new complaints. No problems overnight. Review of Systems Review of Systems: All systems reviewed & are unremarkable except as noted in HPI and below Exam Const: General: comfortable and no acute distress Resp: Effort & Inspection: normal respiratory effort Cardio: Rate: regular rate Rhythm: regular rhythm GI: GI Palp: Yes Soft to palpation and No Tenderness to palpation present (GI) Skin: Other: Dressing left foot c/d/i. No drainage visible. Knee soft. No effusion. No pain. splint in place. Extrem: Left lower extremity: knee Details: normal to inspection and normal ROM; no tenderness and no swelling and lower leg (Splint intact LLE ) Other: Dressing removed. Incision well approximated. Bathtub look to surrounding tissue. Viability uncertain at this time. Somewhat dusky appearance. New dressing applied. Objective Data Vital Signs Vital Signs: Vital Signs - 24 hr 11/12/23 14:00 11/12/23 14:32 11/12/23 20:11 Temperature 36.5 C Pulse Rate 60 68 Respiratory Rate 18 Blood Pressure 131/48 L Pulse Oximetry 95 Oxygen Delivery Room Air Fraction of Inspired Oxygen 11/12/23 20:27 11/13/23 05:29 11/13/23 08:25 Temperature 36.4 C L 36.3 C L Pulse Rate 60 60 Respiratory Rate 16 18 Blood Pressure 142/64 H 139/59 L Pulse Oximetry 95 96 95 Oxygen Delivery Room Air Fraction of Inspired Oxygen 21 11/13/23 09:02 11/13/23 09:02 Temperature Pulse Rate 60 Respiratory Rate 18 Blood Pressure Pulse Oximetry 95 Oxygen Delivery Room Air Fraction of Inspired Oxygen Intake/Output Intake/Output: Intake & Output 11/10/23 11/11/23 11/12/23
--- NOTE | 2023-11-13 12:16 | P.PNINF_ITS ---
Pharmacy ID Consult - Stewardship Interventions Type of Interventions: Discharge Recommendation Pharmacy ID Note: Subjective Pharmacy was consulted by Briana Lopez regarding infectious diseases for Charly Presley Jr.. Charly Presley Jr. is a 68 year old M with concerns regarding os teomyelitis of infected toe on left foot s/p amputation.. Background The patient is currently receiving Cefepime/Metronidazole/Vancomycin IV (Day 5). The patient's PMH includes a chronic diabetic foot ulcer now showing potential osteomyelitis. Additionally, patient underwent left transmetatarsal amputation on 11/09/2023. GPC shown on left foot culture from 11/09 and 09/23/2023 has a wound culture from affected foot with MRSA - sensitive to vancomycin, doxycycline, and Sulfamethoxazole/Trimethoprim. Microbiology 11/09/23 14:09 Foot Left Anaerobic Culture - Preliminary 11/09/23 14:09 Foot Left Aerobic Culture - Preliminary 11/09/23 01:01 Blood Blood Culture - Preliminary 11/09/23 01:01 Blood Blood Culture - Preliminary 09/23/23 08:03 Foot Left Wound Culture - Final Methicillin Resis Staph Aureus Laboratory Tests 11/09/23 11/09/23 11/09/23 01:01 01:01 02:25 WBC Lactic Acid 0.8 C-Reactive Protein 21.4 H Procalcitonin 0.2 11/10/23 11/11/23 11/12/23 06:02 05:59 06:30 WBC 18.3 H 18.9 H 16.9 H Lactic Acid C-Reactive Protein Procalcitonin 11/13/23 06:11 WBC 13.1 H Lactic Acid C-Reactive Protein Procalcitonin Assessment/Recommendation/Discussion Spoke briefly with consulting provider. Per conversation, appears that no residual infected bone remains in patient, however infected soft tissue remains. Ideally pathogen directed therapy for 10-14 days from source control is recommended. Would currently recommend de-escalation at this time if appropriate from Cefepime/Vancomycin/metronidazole to doxycycline PO 100 mg BID and amoxicillin/clavulanic acid PO 875 mg q12h to complete a 14 day course from source control. Please reach out if additional recommendations are needed or if new information comes to light. Will follow. Thank you for the interesting consult. Judd Dia, PharmD Infectious Disease/Antimicrobial Stewardship Pharmacist 01/29/24; 1216 WBC 13.1 K/mm3 (4.5-10.0) H 11/13/23 06:11 Creatinine 0.90 mg/dL (0.7-1.3) 11/13/23 06:11 Estim Creat Clear Calc 92 ml/min 11/13/23 06:11
[2023-11-13 13:25] LABS: Vancomycin Trough 17.5 ug/mL (10.0-20.0)
[2023-11-13 16:29] LABS: Glucose Point of Care 200 mg/dl (65-105)
[2023-11-13] MEDS: RIVAROXABAN 20 MG TABLET PO (16:49)
[2023-11-13 20:12] LABS: Glucose Point of Care 233 mg/dl (65-105)
[2023-11-13] MEDS: ROSUVASTATIN 10 MG TABLET 20 MG PO (20:27)
[2023-11-14] VITALS (7 sets, daily range): BP systolic 136–156; BP diastolic 58–65; PULSE 60–64; RESP 17–20; TEMP 36–36.9; O2SAT 96–98
[2023-11-14] MEDS: metroNIDAZOLE 500 MG/ISO 100ML 500 MG/100 ML BAG 100 MG IVPB ×3 (01:03→16:38)
[2023-11-14] MEDS: HYDROmorphone HCL INJ (*CRX) 1 MG/ML SYR 0.5 MG IV PUSH ×2 (02:10→11:44)
[2023-11-14] MEDS: VANCOMYCIN 1,500 MG/NS 500 ML 1,500 MG/500 ML BAG 250 MG IVPB ×2 (02:13→13:57)
[2023-11-14 06:43] LABS: Hematocrit 30.5 % (42.0-52.0); Hemoglobin 9.3 g/dL (14.0-18.0); Mean Corpuscular HGB Conc 30.5 g/dl (32-36); Mean Corpuscular Hemoglobin 25.1 pg (26-34); Mean Corpuscular Volume 82.2 fl (80-100); Mean Platelet Volume 9.7 fl (7.4-10.4); Platelet Count Result 530 k/mm3 (150-375); Red Blood Count 3.71 M/mm3 (4.6-6.20); Red Cell Distribution Width 15.7 % (11.5-14.5); White Blood Count 12.4 K/mm3 (4.5-10.0)
[2023-11-14 06:55] LABS: Alanine Aminotransferase 55 U/L (6-50); Albumin Level 2.8 g/dL (3.5-5.1); Alkaline Phosphatase 143 U/L (38-126); Anion Gap 8 mmol/L (8-16); Aspartate Amino Transferase 42 U/L (17-59); Bilirubin,Total 0.5 mg/dL (0.2-1.3); Blood Urea Nitrogen 20 mg/dL (9-20); Carbon Dioxide 23 mmol/L (22-30); Chloride 100 mmol/L (98-107); Estimated CRCL calculation 92 ml/min; Estimated Glomerular Filt Rate > 60; Glucose 159 mg/dL (65-110); Potassium 3.6 mmol/L (3.4-5.0); Sodium 131 mmol/L (137-145)
[2023-11-14 07:34] LABS: Glucose Point of Care 173 mg/dl (65-105)
[2023-11-14] MEDS: POTASSIUM CHLORIDE 10 MEQ ER TABLET PO ×2 (08:18→16:38)
[2023-11-14] MEDS: HYDROcodone/acetaminophen (*CRX) 5-325 MG TABLET 1 TAB PO ×4 (08:19→22:13)
[2023-11-14] MEDS: ESCITALOPRAM OXALATE 10 MG TABLET PO (08:19)
[2023-11-14] MEDS: EMPAGLIFLOZIN 25 MG TABLET PO (08:19)
[2023-11-14] MEDS: METOPROLOL TARTRATE 50 MG TAB 100 MG PO ×2 (08:19→20:00)
[2023-11-14] MEDS: FUROSEMIDE 40 MG TABLET PO (08:20)
[2023-11-14] MEDS: FENOFIBRATE 160 MG TABLET PO (08:20)
[2023-11-14] MEDS: FLUTICASONE/SALMETEROL 230-21 MCG INHALER 1 PUFF 2 PUFF INHALATION ×2 (08:50→21:59)
--- NOTE | 2023-11-14 08:53 | PHA.ABX.ID ---
Pharmacy ID Consult - Stewardship Interventions Type of Interventions: Other Pharmacy ID Note: BRIEF UPDATE: previous note pasted below Culture result update is below Microbiology 11/09/23 14:09 Foot Left Anaerobic Culture - Preliminary 11/09/23 14:09 Foot Left Aerobic Culture - Final Streptococcus dysgalactiae Provider plan noted: Patient has failed several rounds of oral antibiotics previously for foot wound. He had evidence of an abscess on CT and intraoperatively which was tracking to the midfoot. Therefore, patient would benefit from 3 weeks of IV antibiotics and then transition at 3 weeks of oral antibiotics. Blood cultures pending currently. PICC line to be placed pending blood culture results. We will likely plan for vancomycin Q 24 hours and Flagyl oral. Will Sign off at this time - informed consulting provider Thank you for the interesting consult. Judd Dia, PharmD Infectious Disease/Antimicrobial Stewardship Pharmacist 11/14/23; 0853 WBC 12.4 K/mm3 (4.5-10.0) H 11/14/23 05:54 Creatinine 0.90 mg/dL (0.7-1.3) 11/14/23 05:54 Estim Creat Clear Calc 92 ml/min 11/14/23 05:54 Pharmacy ID Consult - Stewardship Interventions Type of Interventions: Discharge Recommendation Pharmacy ID Note: Subjective Pharmacy was consulted by Briana Lopez regarding infectious diseases for Charly Presley Jr.. Charly Presley Jr. is a 68 year old M with concerns regarding osteomyelitis of infected toe on left foot s/p amputation.. Background The patient is currently receiving Cefepime/Metronidazole/Vancomycin IV (Day 5). The patient's PMH includes a chronic diabetic foot ulcer now showing potential osteomyelitis. Additionally, patient underwent left transmetatarsal amputation on 11/09/2023. GPC shown on left foot culture from 11/09 and 09/23/2023 has a wound culture from affected foot with MRSA - sensitive to vancomycin, doxycycline, and Sulfamethoxazole/Trimethoprim. Microbiology 11/09/23 14:09 Foot Left Anaerobic Culture - Preliminary 11/09/23 14:09 Foot Left Aerobic Culture - Preliminary 11/09/23 01:01 Blood Blood Culture - Preliminary 11/09/23 01:01 Blood Blood Culture - Preliminary 09/23/23 08:03 Foot Left Wound Culture - Final Methicillin Resis Staph Aureus Laboratory Tests 11/09/23 11/09/23 11/09/23 01:01 01:01 02:25 WBC Lactic Acid 0.8 C-Reactive Protein 21.4 H Procalcitonin 0.2 11/10/23 11/11/23 11/12/23 06:02 05:59 06:30 WBC 18.3 H 18.9 H 16.9 H Lactic Acid C-Reactive Protein Procalcitonin 11/13/23 06:11 WBC 13.1 H Lactic Acid C-Reactive Protein Procalcitonin Assessment/Recommendation/Discussion Spoke briefly with consulting provider. Per conversation, appears that no residual infected bone remains in patient, however infected soft tissue remains. Ideally pathogen directed therapy for 10-14 days from source control is recommended. Would currently recommend de-escalation at this time if appropriate from Cefepime/Vancomycin/metronidazole to doxycycline PO 100 mg BID and amoxicillin/clavulanic acid PO 875 mg q12h to complete a 14 day course from source control. Please reach out if additional recommendations are needed or if new information comes to light. Will follow. Thank you for the interesting consult. Judd Dia, PharmD Infectious Disease/Antimicrobial Stewardship Pharmacist 11/13/23; [id number]
--- NOTE | 2023-11-14 09:26 | PM.PNORT ---
Progress Note: A&P Assessment and Plan (1) Chronic ulcer of left foot with necrosis of muscle: Code(s): L97.523 - Non-pressure chronic ulcer of other part of left foot with necrosis of muscle Status: Chronic Assessment and Plan: POD #5: Left TMA Elevate LLE on pillows. Ice as needed. Dressing changed today. Incision well approximated. Surrounding tissue with uncertain viability at this time. No necrosis but dusky appearance noted. New dressing applied. Adaptic over incision and covered dry. Will continue to monitor. Discussed importance of smoking cessation as well to allow for optimal healing. Begin daily dressing changes. Awaiting fracture boot from [facility] to room for protection. NWB LLE. Pain control. IV antibiotics. PICC line pending. Plan for IV antibitoics with Vancomycin x3 weeks and then transition to orals given previous failure to improve with oral antibiotics MRSA and extensive soft tissue abscess with tracking to the midfoot. Blood cultures pending. Wound culture reveals streptococcus dysgalactiae. Dispo: Patient requests SNF at discharge. Will require terminal make up operator IV antibiotics. (2) Osteomyelitis of second toe of left foot: Code(s): M86.9 - Osteomyelitis, unspecified Status: Acute (3) Peripheral vascular disease: Code(s): I73.9 - Peripheral vascular disease, unspecified Status: Chronic (4) Hypertension: Qualifiers: Hypertension type: unspecified Qualified Code(s): I10 - Essential (primary) hypertension Code(s): I10 - Essential (primary) hypertension Status: Chronic (5) Dyslipidemia: Code(s): E78.5 - Hyperlipidemia, unspecified Status: Chronic (6) Cellulitis of foot, left: Code(s): L03.116 - Cellulitis of left lower limb Status: Acute (7) Diabetes: Qualifiers: Diabetes mellitus type: type 2 Diabetes mellitus terminal make up operator insulin use: with penitentiary use Diabetes mellitus complication status: with circulatory complication Diabetes mellitus complication detail: with peripheral angiopathy with gangrene Qualified Code(s): E11.52 - Type 2 diabetes mellitus with diabetic peripheral angiopathy with gangrene; Z79.4 - alf (current) use of insulin Code(s): E11.9 - Type 2 diabetes mellitus without complications Status: Chronic Subjective Subjective Date/Time Seen: 11/14/23 09:26 Post Op day: 5 Principal diagnosis: left foot osteomyelitis/diabetic foot ulcer Interval history: Patient continues to complain of 7-8/10 pain LLE. Otherwise, no complaints. Review of Systems Review of Systems: All systems reviewed & are unremarkable except as noted in HPI and below Exam Const: General: comfortable and no acute distress Resp: Effort & Inspection: normal respiratory effort Cardio: Rate: regular rate Rhythm: regular rhythm GI: GI Palp: Yes Soft to palpation and No Tenderness to palpation present (GI) Skin: Other: Dressing left foot c/d/i. No drainage visible. Knee soft. No effusion. No pain. splint in place. Extrem: Left lower extremity: knee Details: normal to inspection and normal ROM; no tenderness and no swelling and lower leg (Splint intact LLE ) Other: Dressing removed. Incision remains well approximated. Bathtub look to surrounding tissue with some improvement. Viability still uncertain at this time. Dusky appearance. Mild to moderate serosanguineous drainage. No malodor. New dressing applied. Objective Data Vital Signs Vital Signs: Vital Signs - 24 hr 11/13/23 14:00 11/13/23 20:14 11/13/23 20:26 Temperature 35.8 C L 36.1 C L Pulse Rate 59 L 60 62 Respiratory Rate 18 17 Blood Pressure 132/51 L 149/62 H Pulse Oximetry 96 96 Oxygen Delivery Fraction of Inspired Oxygen 11/13/23 20:00 11/14/23 05:17 11/14/23 08:19 Temperature 36.6 C Pulse Rate 62 60 60 Respiratory Rate 17 17 Blood Pressure 136/65 Pulse Oximetry 96 98 Oxygen Deliv
[2023-11-14 11:30] LABS: Glucose Point of Care 259 mg/dl (65-105)
[2023-11-14] MEDS: CEFEPIME 2 GM/NS 50 ML 2 GM/50 ML BAG IVPB (11:44)
[2023-11-14] MEDS: INSULIN ASPART (*BKC) 100 UNITS/ML SUB-Q ×3 (11:50→21:48)
[2023-11-14] MEDS: LIDOCAINE HCL 1% PF INJ 5 ML VIAL INFILTRATE (14:10)
--- NOTE | 2023-11-14 15:59 | P.PNIM_ITS ---
Progress Note: A&P Assessment and Plan (1) Cellulitis of foot, left: Code(s): L03.116 - Cellulitis of left lower limb Status: Acute Assessment and Plan: * Secondary to combination of PVD and DM, not well controlled * Continue Vancomycin, Cefepime and Flagyl * Orthopedic consult placed and they are co-managing * Monitor labs and VS. * Not currently meeting Sepsis criteria. * BC x2 are pending, but pt has hx of MRSA historically. * 11/10/23: Orthopedics co-managing. Recommending continuation of the abx of Vanc, Cefepime and Flagyl pending BCx and Wound cx. Dressing change orders per Ortho. * 11/11/23: POD # [address] Pizarro * Orthopedics to keep dressing in place until Monday. NWB LLE, elevate LLE. Continue IV abx. Blood culture and wound cultures pending. Wound cultures show gram positive cocci. Patient has hx of MRSA. * 11/12/23: POD #3 TMA- [place] * LLE elevated, Splint C/D/I- dressing change tomorrow * Pain adequtely contolled at this time. * Blood and wound cultures pending, wound culture with gram positive cocci. Continue IV abx * 11/13/23 POD #4 TMA- [place] * Ortho to do dressing change today * Blood and wound cultures still pending * Pain controlled * Continue IV abx * 11/14/23: IV antibiotics. PICC line pending. Plan for IV antibitoics with Vancomycin x3 weeks and then transition to orals given previous failure to improve with oral antibiotics MRSA and extensive soft tissue abscess with tracking to the midfoot.Blood cultures pending.? Wound culture reveals streptococcus dysgalactiae. (2) Osteomyelitis of second toe of left foot: Code(s): M86.9 - Osteomyelitis, unspecified Status: Acute Assessment and Plan: * See plan for #1. * OR this afternoon with Dr. Pizarro. * Wound cultures pending. * 11/10/23: Continue IV abx pending Blood Cxs and Wound Cx. S/P Left TMA yesterday. Continue pain meds as ordered. Orthopedics to determine restart date of Xarelto and also of dressing changes. PT eval ordered for today. * 11/11/23: POD # [address] Pizarro * Orthopedics to keep dressing in place until Monday. NWB LLE, elevate LLE. Continue IV abx. Blood culture and wound cultures pending. Wound cultures show gram positive cocci. Patient has hx of MRSA * Patient refused PT * 11/12/23: POD#3 TMA. Pain adequately controlled. Wound cultures pending- gram positive cocci. Hx of MRSA. Patient more agreeable to OOB activity- NWB per Ortho. Xarelto restarted per Ortho 11/10. * Wants rehab at [place], will most likely need joint terminal attack controller IV abx at [place] * 11/13/23 POD #4 TMA- [place] * Blood and wound cultures still pending, Pain controlled, Continue IV abx * Ortho to do dressing change today * 11/14/23: IV antibiotics. PICC line pending. Plan for IV antibitoics with Vanco mycin x3 weeks and then transition to orals given previous failure to improve with oral antibiotics MRSA and extensive soft tissue abscess with tracking to the midfoot. Blood cultures pending.? Wound culture reveals streptococcus dysgalactiae. * Daily dressing changes per ortho (3) Chronic ulcer of left foot with necrosis of muscle: Code(s): L97.523 - Non-pressure chronic ulcer of other part of left foot with necrosis of muscle Status: Chronic Assessment and Plan: * See #1 and #2 (4) Diabetes: Qualifiers: Diabetes mellitus type: type 2 Diabetes mellitus joint terminal attack controller insulin use: with joint terminal attack controller use Diabetes mellitus complication status: with circulatory complication Diabetes mellitus complication detail: with peripheral angiopathy with gangrene Qualified Code(s): E11.52 - Type 2 diabetes mellitus with diabetic peripheral angiopa
--- NOTE | 2023-11-14 15:59 | PM.IMPN ---
Progress Note: A&P Assessment and Plan (1) Cellulitis of foot, left: Code(s): L03.116 - Cellulitis of left lower limb Status: Acute Assessment and Plan: Secondary to combination of PVD and DM, not well controlled Continue Vancomycin, Cefepime and Flagyl Orthopedic consult placed and they are co-managing Monitor labs and VS. Not currently meeting Sepsis criteria. BC x2 are pending, but pt has hx of MRSA historically. 11/10/23: Orthopedics co-managing. Recommending continuation of the abx of Vanc, Cefepime and Flagyl pending BCx and Wound cx. Dressing change orders per Ortho. 11/11/23: POD # [address] Pizarro Orthopedics to keep dressing in place until Monday. NWB LLE, elevate LLE. Continue IV abx. Blood culture and wound cultures pending. Wound cultures show gram positive cocci. Patient has hx of MRSA. 11/12/23: POD #3 TMA- [place] LLE elevated, Splint C/D/I- dressing change tomorrow Pain adequtely contolled at this time. Blood and wound cultures pending, wound culture with gram positive cocci. Continue IV abx 11/13/23 POD #4 TMA- [place] Ortho to do dressing change today Blood and wound cultures still pending Pain controlled Continue IV abx 11/14/23: IV antibiotics. PICC line pending. Plan for IV antibitoics with Vancomycin x3 weeks and then transition to orals given previous failure to improve with oral antibiotics MRSA and extensive soft tissue abscess with tracking to the midfoot.Blood cultures pending.? Wound culture reveals streptococcus dysgalactiae. (2) Osteomyelitis of second toe of left foot: Code(s): M86.9 - Osteomyelitis, unspecified Status: Acute Assessment and Plan: See plan for #1. OR this afternoon with Dr. Pizarro. Wound cultures pending. 11/10/23: Continue IV abx pending Blood Cxs and Wound Cx. S/P Left TMA yesterday. Continue pain meds as ordered. Orthopedics to determine restart date of Xarelto and also of dressing changes. PT eval ordered for today. 11/11/23: POD # [address] Pizarro Orthopedics to keep dressing in place until Monday. NWB LLE, elevate LLE. Continue IV abx. Blood culture and wound cultures pending. Wound cultures show gram positive cocci. Patient has hx of MRSA Patient refused PT 11/12/23: POD#3 TMA. Pain adequately controlled. Wound cultures pending- gram positive cocci. Hx of MRSA. Patient more agreeable to OOB activity- NWB per Ortho. Xarelto restarted per Ortho 11/10. Wants rehab at [place], will most likely need long filler cigar roller machine IV abx at [place] 11/13/23 POD #4 TMA- [place] Blood and wound cultures still pending, Pain controlled, Continue IV abx Ortho to do dressing change today 11/14/23: IV antibiotics. PICC line pending. Plan for IV antibitoics with Vancomycin x3 weeks and then transition to orals given previous failure to improve with oral antibiotics MRSA and extensive soft tissue abscess with tracking to the midfoot. Blood cultures pending.? Wound culture reveals streptococcus dysgalactiae. Daily dressing changes per ortho (3) Chronic ulcer of left foot with necrosis of muscle: Code(s): L97.523 - Non-pressure chronic ulcer of other part of left foot with necrosis of muscle Status: Chronic Assessment and Plan: See #1 and #2 (4) Diabetes: Qualifiers: Diabetes mellitus type: type 2 Diabetes mellitus retirement insulin use: with long filler cigar roller machine use Diabetes mellitus complication status: with circulatory complication Diabetes mellitus complication detail: with peripheral angiopathy with gangrene Qualified Code(s): E11.52 - Type 2 diabetes mellitus with diabetic peripheral angiopathy with gangrene; Z79.4 - FDC (current) use of insulin Code(s): E11.9 - Type 2 diabetes mellitus without complications Status: Chronic Assessment and Plan: With long filler cigar roller machine use of insulin With vascular complications resulting in Gangrene and chronic infection of Osteomyelitis of Left toe/foot Tight glucose control will be needed post
[2023-11-14 16:16] LABS: Glucose Point of Care 226 mg/dl (65-105)
[2023-11-14] MEDS: RIVAROXABAN 20 MG TABLET PO (16:38)
[2023-11-14] MEDS: ROSUVASTATIN 10 MG TABLET 20 MG PO (19:59)
[2023-11-14] MEDS: MORPHINE SULFATE (*CRX) 2 MG/ML INJ IV PUSH (20:06)
[2023-11-14] MEDS: CENTRAL LINE FLUSH 10 ML IV PUSH (20:09)
[2023-11-14 21:42] LABS: Glucose Point of Care 244 mg/dl (65-105)
[2023-11-15] MEDS: metroNIDAZOLE 500 MG/ISO 100ML 500 MG/100 ML BAG 100 MG IVPB ×2 (00:11→09:34)
[2023-11-15] MEDS: CEFEPIME 2 GM/NS 50 ML 2 GM/50 ML BAG IVPB ×2 (00:11→12:31)
[2023-11-15] MEDS: VANCOMYCIN 1,500 MG/NS 500 ML 1,500 MG/500 ML BAG 250 MG IVPB ×2 (01:40→14:42)
[2023-11-15] MEDS: MORPHINE SULFATE (*CRX) 2 MG/ML INJ IV PUSH ×3 (01:47→16:52)
[2023-11-15 04:10] VITALS: BP 155/66; PULSE 61; RESP 18; TEMP 36.9; O2SAT 97
[2023-11-15 05:48] LABS: Hematocrit 29.4 % (42.0-52.0); Hemoglobin 8.7 g/dL (14.0-18.0); Mean Corpuscular HGB Conc 29.6 g/dl (32-36); Mean Corpuscular Hemoglobin 24.8 pg (26-34); Mean Corpuscular Volume 83.8 fl (80-100); Mean Platelet Volume 9.6 fl (7.4-10.4); Platelet Count Result 501 k/mm3 (150-375); Red Blood Count 3.51 M/mm3 (4.6-6.20); Red Cell Distribution Width 15.9 % (11.5-14.5); White Blood Count 12.5 K/mm3 (4.5-10.0)
[2023-11-15] MEDS: CENTRAL LINE FLUSH 10 ML IV PUSH ×2 (06:00→14:33)
[2023-11-15 06:03] LABS: Alanine Aminotransferase 46 U/L (6-50); Albumin Level 2.8 g/dL (3.5-5.1); Alkaline Phosphatase 130 U/L (38-126); Anion Gap 12 mmol/L (8-16); Aspartate Amino Transferase 45 U/L (17-59); Bilirubin,Total 0.4 mg/dL (0.2-1.3); Blood Urea Nitrogen 18 mg/dL (9-20); Calcium 7.8 mg/dL (8.4-10.2); Carbon Dioxide 20 mmol/L (22-30); Chloride 101 mmol/L (98-107); Estimated CRCL calculation 102 ml/min; Estimated Glomerular Filt Rate > 60; Glucose 158 mg/dL (65-110); Potassium 3.6 mmol/L (3.4-5.0); Sodium 133 mmol/L (137-145)
--- NOTE | 2023-11-15 07:15 | PM.PNORT ---
Progress Note: A&P Assessment and Plan (1) Chronic ulcer of left foot with necrosis of muscle: Code(s): L97.523 - Non-pressure chronic ulcer of other part of left foot with necrosis of muscle Status: Chronic Assessment and Plan: POD #6: Left TMA Elevate LLE on pillows. Dressing changed today. Incision well approximated. Drainage appears to be improving. Continue with daily dry gauze dressing change. Pain control. IV antibiotics. PICC line Inserted yesterday. Plan for IV antibitoics with Vancomycin x3 weeks and then transition to orals given previous failure to improve with oral antibiotics MRSA and extensive soft tissue abscess with tracking to the midfoot. Blood cultures negative. Wound culture reveals streptococcus dysgalactiae. Dispo: ready for SNF. IV antibiotics X 3 weeks. Daily dressing changes Fx boot for protected weight bearing (2) Osteomyelitis of second toe of left foot: Code(s): M86.9 - Osteomyelitis, unspecified Status: Acute (3) Peripheral vascular disease: Code(s): I73.9 - Peripheral vascular disease, unspecified Status: Chronic (4) Hypertension: Qualifiers: Hypertension type: unspecified Qualified Code(s): I10 - Essential (primary) hypertension Code(s): I10 - Essential (primary) hypertension Status: Chronic (5) Dyslipidemia: Code(s): E78.5 - Hyperlipidemia, unspecified Status: Chronic (6) Cellulitis of foot, left: Code(s): L03.116 - Cellulitis of left lower limb Status: Acute (7) Diabetes: Qualifiers: Diabetes mellitus type: type 2 Diabetes mellitus fci insulin use: with rodent exterminator use Diabetes mellitus complication status: with circulatory complication Diabetes mellitus complication detail: with peripheral angiopathy with gangrene Qualified Code(s): E11.52 - Type 2 diabetes mellitus with diabetic peripheral angiopathy with gangrene; Z79.4 - truck terminal manager (current) use of insulin Code(s): E11.9 - Type 2 diabetes mellitus without complications Status: Chronic Subjective Subjective Date/Time Seen: 11/15/23 07:15 Post Op day: 6 Principal diagnosis: left foot osteomyelitis/diabetic foot ulcer Interval history: Patient continues to complain of pain LLE, improved today. voiding and bowel movement. Exam Const: General: comfortable and no acute distress Resp: Effort & Inspection: normal respiratory effort Cardio: Rate: regular rate Rhythm: regular rhythm GI: GI Palp: Yes Soft to palpation and No Tenderness to palpation present (GI) Extrem: Left lower extremity: knee Details: normal to inspection and normal ROM; no tenderness and no swelling and lower leg (Splint intact LLE ) Other: Dressing changed. Incision remains well approximated. Bathtub look to surrounding tissue with some improvement. Viability still uncertain at this time. Dusky appearance. loose skin at the distal aspect of the incision. Removed without difficulty. Serous drainage noted on the dressing but no active drainage visible. No bleeding or purulent drainage. Sterile dressing applied. Objective Data Vital Signs Vital Signs: Vital Signs - 24 hr 11/14/23 08:19 11/14/23 08:20 11/14/23 14:00 Temperature 96.8 F L Pulse Rate 60 64 Respiratory Rate 18 18 Blood Pressure 156/58 H Pulse Oximetry 98 98 Oxygen Delivery Room Air Fraction of Inspired Oxygen 11/14/23 22:01 11/14/23 19:50 11/14/23 20:00 Temperature 98.5 F Pulse Rate 60 60 Respiratory Rate 20 20 Blood Pressure 139/63 Pulse Oximetry 96 98 96 Oxygen Delivery Room Air Room Air Fraction of Inspired Oxygen 21 21 11/15/23 04:10 Temperature 98.4 F Pulse Rate 61 Respiratory Rate 18 Blood Pressure 155/66 H Pulse Oximetry 97 Oxygen Delivery Fraction of Inspired Oxygen Intake/Output Intake/Output: Intake & Output 11/12/23 11/13/23 11/14/23 11/15/23 23:59 23:59 23:59 23:59 Intake Total
[2023-11-15 07:41] LABS: Glucose Point of Care 161 mg/dl (65-105)
[2023-11-15 09:06] VITALS: O2SAT 99
[2023-11-15] MEDS: FLUTICASONE/SALMETEROL 230-21 MCG INHALER 1 PUFF 2 PUFF INHALATION (09:06)
[2023-11-15 09:32] VITALS: PULSE 60
[2023-11-15] MEDS: METOPROLOL TARTRATE 50 MG TAB 100 MG PO (09:32)
[2023-11-15] MEDS: FUROSEMIDE 40 MG TABLET PO (09:32)
[2023-11-15] MEDS: FENOFIBRATE 160 MG TABLET PO (09:34)
[2023-11-15] MEDS: POTASSIUM CHLORIDE 10 MEQ ER TABLET PO ×2 (09:34→16:48)
[2023-11-15] MEDS: ESCITALOPRAM OXALATE 10 MG TABLET PO (09:34)
[2023-11-15] MEDS: EMPAGLIFLOZIN 25 MG TABLET PO (09:34)
[2023-11-15 11:17] LABS: Glucose Point of Care 309 mg/dl (65-105)
--- NOTE | 2023-11-15 11:51 | PM.IMPN ---
Subjective Date/time seen: 11/15/23 11:51 Objective Data Vital Signs Vital Signs: Vital Signs - 24 hr 11/14/23 14:00 11/14/23 22:01 11/14/23 19:50 Temperature 96.8 F L 98.5 F Pulse Rate 64 60 Respiratory Rate 18 20 Blood Pressure 156/58 H 139/63 Pulse Oximetry 98 96 98 Oxygen Delivery Room Air Fraction of Inspired Oxygen 21 11/14/23 20:00 11/15/23 04:10 11/15/23 09:06 Temperature 98.4 F Pulse Rate 60 61 Respiratory Rate 20 18 Blood Pressure 155/66 H Pulse Oximetry 96 97 99 Oxygen Delivery Room Air Room Air Fraction of Inspired Oxygen 11/15/23 09:32 Temperature Pulse Rate 60 Respiratory Rate Blood Pressure Pulse Oximetry Oxygen Delivery Fraction of Inspired Oxygen Intake/Output Intake/Output: Intake & Output 11/12/23 11/13/23 11/14/23 11/15/23 23:59 23:59 23:59 23:59 Intake Total 3274 2624 2720 940 Output Total 2875 3700 1475 2770 Balance 399 -1076 1245 -1830 Meds/Results Medications: Active Medications Generic Name Dose Route Start Last Admin Trade Name Freq PRN Reason Stop Dose Admin Acetaminophen 650 mg 11/09/23 03:23 11/11/23 08:32 Acetaminophen 325 Mg Tablet PO 650 mg Q4H PRN Administration Mild Pain (1-3) or Fever Hydrocodone Bitart/Acetaminophen 1 tab 11/09/23 03:28 11/14/23 22:13 Hydrocodone/Acetaminophen (*Crx) 5-325 Mg Tablet PO 1 tab Q4H PRN Administration Moderate Pain (4-6) Albuterol 2 puff 11/11/23 14:46 Albuterol Sulfate (*Sp) Aerosol 1 Puff INHALATION Q6HRT PRN Shortness Of Breath Dextrose 12.5 gm 11/09/23 06:51 11/09/23 07:04 Dextrose 50% 25 Gm/50 Ml Syringe IV PUSH 12.5 gm PRN PRN Administration Hypoglycemia Protocol Empagliflozin 25 mg 11/09/23 10:35 11/15/23 09:34 Empagliflozin 25 Mg Tablet PO 25 mg DAILY DANIEL Administration Escitalopram Oxalate 10 mg 11/09/23 10:35 11/15/23 09:34 Escitalopram Oxalate 10 Mg Tablet PO 10 mg DAILY DANIEL Administration Fenofibrate 160 mg 11/09/23 10:35 11/15/23 09:34 Fenofibrate 160 Mg Tablet PO 160 mg DAILY DANIEL Administration Fentanyl Citrate 25 mcg 11/09/23 15:12 11/09/23 15:43 Fentanyl Citrate Inj (*Crx) 100 Mcg/2 Ml Vial IV PUSH 25 mcg PRN PRN Administration Pain Furosemide 40 mg 11/09/23 10:35 11/15/23 09:32 Furosemide 40 Mg Tablet PO 40 mg DAILY DANIEL Administration Glucagon 1 mg 11/09/23 06:51 Glucagon For Inj 1 Mg Vial IM PRN PRN Hypoglycemia Protocol Glucose 15 gm 11/09/23 06:51 Glucose Oral Gel 15 Gm Of Glucse In 37.5 Gm Tube PO PRN PRN Hypoglycemia Protocol Cefepime HCl 2 gm in 50 mls @ 100 mls/hr 11/09/23 12:00 11/15/23 00:40 Maxipime 2 Gm/Ns 50 Ml IVPB Infused Q12H DANIEL Infusion Metronidazole 500 mg in 100 mls @ 100 mls/hr 11/09/23 09:00 11/15/23 09:34 Flagyl 500 Mg/Iso Soln 100 Ml IVPB 100 mls/hr Q8H DANIEL Administration Dextrose 1,000 mls @ 100 mls/hr 11/09/23 06:51 Dextrose 5% 1,000 Ml IVPB PRN PRN Hypoglycemia Protocol Vancomycin HCl 1,500 mg in 500 mls @ 250 mls/hr 11/09/23 14:00 11/15/23 01:40 Vancomycin 1,500 Mg/Ns 500 Ml IVPB 250 mls/hr Q12H DANIEL Administration Insulin Aspart 4 - 8 units 11/09/23 21:00 11/15/23 08:01 Insulin Aspart (*Bkc) 100 Units/Ml SUB-Q Not Given [facility] DANIEL Protocol Insulin Aspart 1 - 3 units 11/10/23 21:00 11/14/23 22:08 Insulin Aspart (*Bkc) 100 Units/Ml SUB-Q Not Given [facility] Protocol Insulin Glargine 105 units 11/09/23 21:00 11/14/23 21:49 Insulin Glargine (*Bkc) 100 Units/Ml SUB-Q Not Given [facility] DANIEL Magnesium Hydroxide 30 ml 11/09/23 15:51 Magnesium Hydroxide Susp 30 Ml Udc PO BID PRN Constipation Metoprolol Tartrate 100 mg 11/09/23 10:35 11/15/23 09:32 Metoprolol Tartrate 50 Mg Tab PO 100 mg Q12HR DANIEL Administration Morphine Sulfate 2 mg 11/09/23 03:28 11/15/23
[2023-11-15] MEDS: INSULIN ASPART (*BKC) 100 UNITS/ML SUB-Q ×2 (12:33→16:45)
--- NOTE | 2023-11-15 12:58 | PM.DS ---
DS: Admitting Diagnosis Discharge Date 11/15/2023 Admitting Diagnosis Cellulitis left foot DS: Discharge Diagnosis Discharge Diagnosis (1) Chronic ulcer of left foot with necrosis of muscle: Code(s): L97.523 - Non-pressure chronic ulcer of other part of left foot with necrosis of muscle Status: Chronic (2) Peripheral vascular disease: Code(s): I73.9 - Peripheral vascular disease, unspecified Status: Chronic (3) Cellulitis of foot, left: Code(s): L03.116 - Cellulitis of left lower limb Status: Acute (4) Osteomyelitis of second toe of left foot: Code(s): M86.9 - Osteomyelitis, unspecified Status: Acute (5) COPD (chronic obstructive pulmonary disease): Code(s): J44.9 - Chronic obstructive pulmonary disease, unspecified Status: Acute (6) CAD (coronary artery disease): Code(s): I25.10 - Atherosclerotic heart disease of [place] coronary artery without angina pectoris Status: Acute (7) Diabetes: Qualifiers: Diabetes mellitus complication detail: with peripheral angiopathy with gangrene Diabetes mellitus complication status: with circulatory complication Diabetes mellitus chcf insulin use: with chcf use Diabetes mellitus type: type 2 Qualified Code(s): E11.52 - Type 2 diabetes mellitus with diabetic peripheral angiopathy with gangrene; Z79.4 - assisted (current) use of insulin Code(s): E11.9 - Type 2 diabetes mellitus without complications Status: Chronic DS: Summary Hospital Course Reason for hospitalization: Left foot pain Hospital Course: A 68-year-old male with history of diabetes mellitus and peripheral vascular disease who presents to the ED for evaluation of left foot pain and worsening left foot wound.? She sees wound care, stated wound had been debrided in this hospital and he does dressing as recommended however wound is not getting better.? He also stated that he recently had left lower extremity vascular stents.? Complaints of about 7 to 8/10 pain on the left foot, worse with movement, associated redness and foul-smelling discharge.? She was evaluated in the ER and found to have osteomyelitis involving left 2nd toe, also found to have elevated inflammatory markers as well as white count of 18,000. He was started on vancomycin cefepime and Flagyl and I was consulted for admission of this patient to medical floor for further management.? During my consultation, still complains of pain despite getting Dilaudid, he wants more pain control.? Denied fever, chills, or pain in any other part of the body. Interval Hx: 11/10/23: Orthopedics co-managing. Recommending continuation of the abx of Vanc, Cefepime and Flagyl pending BCx and Wound cx. Dressing change orders per Ortho. 11/10/23: Continue IV abx pending Blood Cxs and Wound Cx. S/P Left TMA yesterday. Continue pain meds as ordered. 11/10/23: Continue Diabetic/Heart healthy diet as ordered. Continue Lantus 105 units HS, Continue High dose correction with meals, and based on elevated fasting glucose this AM of 167, add moderate dose corrective at HS. Suspect that pt's insulin dosages will need to be adjusted as the pain and inflammation from infection and surgery are under better control. Continue Hypoglycemic protocol and also glucose checks AC and HS and prn. Orthopedics to determine restart date of Xarelto and also of dressing changes. PT eval ordered for today. 11/10/23: Appreciate Orthopedics decision on when to restart Xarelto after surgery. I spoke w/RN Kimi who will call and verify with Orthopedics 11/11/23: POD # [address] Pizarro [facility] to keep dressing in place until Monday. NWB LLE, elevate LLE. Continue IV abx. Blood culture and wound cultures pending. Wound cultures show gram positive cocci. Patient has hx of MRSA. 11/11/23? 0905 Interval history: Charly Presley 68 year old male was examined at the bedside today in interval assessment as he is POD #2 of a
[2023-11-15 14:00] VITALS: BP 131/54; PULSE 60; RESP 22; TEMP 36.2; O2SAT 96
[2023-11-15 16:22] LABS: Glucose Point of Care 285 mg/dl (65-105)
[2023-11-15] MEDS: RIVAROXABAN 20 MG TABLET PO (16:48)
== END 2023-11-15 17:31 | disposition swing bed (61) | DRG 475 ==
LOC: ANHED 11-09 03:27 → ANH3MEDSUR 11-09 04:05
PROVIDERS: Nurse Practitioner Adult Health; Nurse Practitioner Family; Orthopaedic Surgery; Admitting Provider Student in an Organized Health Care Education/Training Program; Emergency Provider Emergency Medicine; PCP Internal Medicine Cardiovascular Disease; Visit Provider Nurse Practitioner
PROC: 0Y6N0Z9 Detachment at Left Foot, Partial 1st Ray, Open Approach (ICD-10-PCS; CPT 28805; principal; 2023-11-09 13:30)
DX: M86.172 Other acute osteomyelitis, left ankle and foot (principal); E11.52 Type 2 diabetes mellitus with diabetic peripheral angiopathy with gangrene; L03.116 Cellulitis of left lower limb; L97.524 Non-pressure chronic ulcer of other part of left foot with necrosis of bone; B95.4 Other streptococcus as the cause of diseases classified elsewhere; E11.628 Type 2 diabetes mellitus with other skin complications; E11.621 Type 2 diabetes mellitus with foot ulcer; E78.5 Hyperlipidemia, unspecified; F17.210 Nicotine dependence, cigarettes, uncomplicated; I10 Essential (primary) hypertension; I48.91 Unspecified atrial fibrillation; I25.10 Atherosclerotic heart disease of native coronary artery without angina pectoris; J44.9 Chronic obstructive pulmonary disease, unspecified; Z95.820 Peripheral vascular angioplasty status with implants and grafts; Z86.14 Personal history of Methicillin resistant Staphylococcus aureus infection; Z95.0 Presence of cardiac pacemaker; Z86.711 Personal history of pulmonary embolism; Z95.1 Presence of aortocoronary bypass graft; Z79.4 Long term (current) use of insulin; Z79.01 Long term (current) use of anticoagulants; Z79.84 Long term (current) use of oral hypoglycemic drugs
CPT/HCPCS: 36415; 36569; 73630; 73701; 80048; 80053; 80202; 81001; 82948; 83036; 83605; 83735; 84145; 85025; 85027; 85610; 85652; 85730; 86140; 87040; 87070; 87075; 87205; 88305; 88311; 94640; 96365; 96366; 96367; 96375; 97110; 97116; 97161; 97166; 97530; 97535; 99285; A9270; G0378; J0692; J1170; J1815; J1836; J2270; J2405; J2704; J3010; J3370; J7030; J7120; Q9967

== ENCOUNTER 2023-11-15 18:26 | Inpatient (IN) | payer MEDICARE, SELFPAY ==
--- NOTE | ~2023-11-15 | US_ITS ---
EXAMINATION: US soft tissue UE RT DATE: 12/04/2023 07:47 INDICATION: Soft tissue nodule at the right antecubital fossa TECHNIQUE: Multiple grayscale and Doppler ultrasound images of the region of concern at the right ant ecubital fossa were obtained. COMPARISON: Right elbow radiograph dated 12/03/2023 FINDINGS: 7.1 x 4.5 x 1.8 cm ovoid mass at the region of concern which is isoechoic to the subcutaneous fat. Th e mass appears intramuscular with a 2 mm thick peripheral rim of muscle between the mass in the subcu taneous tissue. On the prior lateral right elbow radiographs this can be seen is a bulge of central f at attenuation with similar smooth peripheral rim of soft tissue density along its superficial margin which would be consistent with an intramuscular lipoma. IMPRESSION: 1. 7.1 x 4.5 x 1.8 cm intramuscular mass at the proximal right forearm which is of fat attenuation on the prior radiograph consistent with a lipoma. Reviewed, dictated and finalized at location A. CH BUSINESS ADMINISTRATOR
--- NOTE | ~2023-11-15 | XR_ITS ---
EXAMINATION: XR chest 2V DATE: 11/18/2023 10:15 INDICATION: Chronic cough TECHNIQUE: PA and lateral views of the chest are obtained. COMPARISON: 11/14/2023 FINDINGS: The lungs are free of acute opacities. No pleural effusion or pneumothorax. The cardiomedia stinal silhouette is normal. There are bridging osteophytes at multiple levels in the spine, consiste nt with diffuse idiopathic skeletal hyperostosis (DISH). A right upper extremity PICC ends with its t ip at the superior cavoatrial junction. A dual-lead cardiac pacemaker of the left chest wall ends wit h leads in expected locations. Median sternotomy wires are consistent with prior cardiac surgery. IMPRESSION: 1. No acute cardiopulmonary abnormality. Reviewed, dictated and finalized at location F. ONAL SALES TRAINER
--- NOTE | ~2023-11-15 | XR_ITS ---
EXAMINATION: XR elbow RT min 3V DATE: 12/03/2023 05:23 INDICATION: Nodular swelling at the lateral right elbow. TECHNIQUE: Anteroposterior, two oblique and lateral views of the right elbow were obtained. COMPARISON: None. FINDINGS: Alignment is normal. No fracture. Mild osteoarthritis at the right elbow with no joint effusion. Dual -lumen peripherally inserted central venous catheter at the distal upper arm. Multiple small enthesop athic ossicles along the lateral epicondyle. Soft and tissue swelling with increased density at the a nterolateral aspect of the elbow and proximal forearm. IMPRESSION: 1. Nonspecific soft tissue swelling with increased density at the anterolateral aspect of the right e lbow and proximal forearm of indeterminate etiology which in the acute setting could be related to ed taty, hematoma or abscess. Could consider ultrasound or contrast-enhanced CT for further evaluation as clinically indicated. Reviewed, dictated and finalized at location A. TRONIC CONSOLE DISPLAY OPERATOR IMPRESSION: 1. Nonspecific soft tissue swelling with increased density at the anterolateral aspect of the right elbow and proximal forearm of indeterminate etiology which in the acute setting could be related to edema, hematoma or abscess. Could con border machine operator ultrasound or contrast-enhanced CT for further evaluation as clinically i ndicated.
[2023-11-15 20:00] VITALS: O2SAT 98
[2023-11-15 20:46] VITALS: BMI 33.2
[2023-11-15] MEDS: ROSUVASTATIN 10 MG TABLET 20 MG PO (22:19)
[2023-11-15] MEDS: HYDROcodone/acetaminophen (*CRX) 10-325 MG TABLET 1 TAB PO (22:20)
[2023-11-15 22:21] VITALS: PULSE 68
[2023-11-15] MEDS: METOPROLOL TARTRATE 50 MG TAB 100 MG PO (22:21)
[2023-11-15] MEDS: metroNIDAZOLE 500 MG/ISO 100ML 500 MG/100 ML BAG 100 MG IVPB (22:26)
[2023-11-15] MEDS: CEFEPIME 2 GM/NS 50 ML 2 GM/50 ML BAG IVPB (23:35)
[2023-11-16] VITALS: BP 125/65; PULSE 68; RESP 16; TEMP 36.8; O2SAT 98
[2023-11-16] MEDS: VANCOMYCIN 1,500 MG/NS 500 ML 1,500 MG/500 ML BAG 250 MG IVPB (02:56)
[2023-11-16] MEDS: metroNIDAZOLE 500 MG/ISO 100ML 500 MG/100 ML BAG 100 MG IVPB (05:43)
[2023-11-16] MEDS: SALMET XINAFT/FLUTIC PROPIN 500 MCG/50 MCG INH CAP 1 PUFF INHALATION ×2 (05:43→18:21)
[2023-11-16 08:00] VITALS: BP 130/52; PULSE 60; RESP 17; TEMP 35.9; O2SAT 99
[2023-11-16 08:10] LABS: Glucose Point of Care 227 mg/dl (65-105)
[2023-11-16] MEDS: INSULIN HUMAN LISPRO (*BKC) 1,000 UNITS/10 ML VIAL 20 UNITS SUB-Q ×2 (09:19→12:45)
[2023-11-16] MEDS: FENOFIBRATE NANOCRYSTALLIZED 145 MG TABLET PO (09:20)
[2023-11-16] MEDS: GLIMEPIRIDE 2 MG TABLET 4 MG PO (09:20)
[2023-11-16] MEDS: EMPAGLIFLOZIN 25 MG TABLET PO (09:20)
[2023-11-16] MEDS: metFORMIN HCL 500 MG TABLET 1000 MG PO ×2 (09:20→17:12)
[2023-11-16 09:21] VITALS: PULSE 60
[2023-11-16] MEDS: POTASSIUM CHLORIDE 10 MEQ ER TABLET PO ×2 (09:21→17:12)
[2023-11-16] MEDS: FUROSEMIDE 40 MG TABLET PO (09:21)
[2023-11-16] MEDS: METOPROLOL TARTRATE 50 MG TAB 100 MG PO ×2 (09:21→21:05)
[2023-11-16] MEDS: ESCITALOPRAM OXALATE 10 MG TABLET PO (09:21)
--- NOTE | 2023-11-16 11:03 | PM.IMHP ---
H&P: HPI History of Present Illness Date/Time: 11/16/23 11:03 [facility] Past Medical History Medical History (Updated 11/11/23 @ 14:42 by Kerri Arellano APRN) Atrial fibrillation CAD (coronary artery disease) COPD (chronic obstructive pulmonary disease) Dyslipidemia Hypertension Pacemaker Peripheral vascular disease Pulmonary emboli Tobacco abuse Surgical History Surgical History Hx of CABG Family History Family History Mother Cancer Father Cancer Social History Social History Smoking packs per day: 2 Smoking cigarettes per day: 40.0 Years smoked: 60 Smoking pack-years: 120.00 Smoking status: Current every day smoker Tobacco type: cigarettes Second hand tobacco smoke exposure: No Alcohol intake: never Substance use: never Substance use type: does not use Do You Feel Safe in your Home?: Yes Lack of Transportation: No Lack of Food: Never True Current Housing: I Have Housing Concerned About Future Housing: No Difficulty Paying Gas/Electric Bills: No Difficulty Paying for Meds: No Currently Unemployed: No Education: High School Diploma/GED Difficulty w/ Childcare or Family Care: No Spiritual care concerns: No Meds Home Medications and Allergies Home Medications Medication Instructions Recorded Confirmed Type empagliflozin 25 mg tablet 25 mg PO DAILY 09/22/23 11/15/23 History (Jardiance) escitalopram oxalate 10 mg tablet 10 mg PO DAILY 09/22/23 11/15/23 History fenofibrate 160 mg tablet 160 mg PO DAILY 09/22/23 11/15/23 History fluticasone 500 mcg-salmeterol 50 1 inh inhalation BID 09/22/23 11/15/23 History mcg/dose blistr powdr for inhalation (Advair Diskus) furosemide 40 mg tablet 40 mg PO DAILY 09/22/23 11/15/23 History glimepiride 2 mg tablet 4 mg PO DAILY 09/22/23 11/15/23 History insulin aspart U-100 100 unit/mL 20 unit subcut TIDWM 09/22/23 11/15/23 History subcutaneous solution (Novolog U-100 Insulin aspart) insulin glargine 100 unit/mL (3 105 unit subcut HS 09/22/23 11/15/23 History mL) subcutaneous pen (Basaglar KwikPen U-100 Insulin) metformin 1,000 mg tablet 1,000 mg PO BIDWM 09/22/23 11/15/23 History metoprolol tartrate 100 mg tablet 100 mg PO BID 09/22/23 11/15/23 History potassium chloride 10 mEq 10 meq PO BIDWM 09/22/23 11/15/23 History tablet,extended release rivaroxaban 20 mg tablet (Xarelto) 20 mg PO DAILY 09/22/23 11/15/23 History rosuvastatin 20 mg tablet 20 mg PO HS 09/22/23 11/15/23 History vancomycin 1.5 gram intravenous 1,500 mg IV Q12H 21 days #10 ea 11/14/23 11/15/23 Rx solution metronidazole 500 mg tablet 500 mg PO Q8H 14 days #42 tabs 11/15/23 11/15/23 Rx Allergies Allergy/AdvReac Type Severity Reaction Status Date / Time No Known Allergies Allergy Verified 10/03/23 13:07 Vital Signs Vital Signs - 24 hr 11/15/23 22:21 11/15/23 20:00 11/16/23 00:00 Temperature 36.8 C Pulse Rate 68 68 Respiratory Rate 16 Blood Pressure 125/65 Pulse Oximetry 98 98 Oxygen Delivery Room Air Room Air 11/16/23 09:21 Temperature Pulse Rate 60 Respiratory Rate Blood Pressure Pulse Oximetry Oxygen Delivery
[2023-11-16] MEDS: cefTRIAXone 2 GM/NS 100 ML 2 GM/100 ML BAG IVPB (11:21)
--- NOTE | 2023-11-16 11:40 | PM.IMHP ---
H&P: HPI History of Present Illness Date/Time: 11/16/23 11:40 <Nilsa Nelson RN - Last Filed: 11/16/23 14:46> Chief Complaint: 68 year old male with history of CAD, COPD, dyslipidemia, Hypertension, pacemaker, PVD, pulmonary embolism, and assistant terminal manager tobacco use. Patient presents with chief complaint of L foot infection that was treated at [facility]. Upon interviewing patient, patient states that he has had wound on left foot for about one month. Patient states that he had amputation of L 2nd and 3rd metatarsals performed by MD Bustamante due to osteomyelitis and septic joint. Patient state that prior to amputation he had stents placed in the LUE due to poor circulation and PVD. Prior to operation it was documented that the patient was receiving wound care at [facility] and it was reported that the wound as worsening with increase pain, purulent drainage, and foul smelling. XR for L foot on 11/09/23 showed destructive changes in 2nd and 3rd promixal phalanges suspicious of osteomyelitis. CT L foot 11/09/23 showed destructive and erosional changes with osteomyelitis in 2nd to 4th metataral heads with 2nd and 3rd proximinal phalanges with fracture vs osteolysis of distal aspect. Patient has prior surgical history of CABG. Patient is on Xarelto for anticoagulation therapy 20 mg PO daily. Patient has history of atrial fibrillation that is controlled with metoprolol 100 mg PO bid. Patient states pain is 4 /10 is morning and states pain regimen has been effective for controlling patient. Patient states he has SOB with ambulation short distances such as to the restroom and has COPD and is a life long smoker. States he sleeps with HOB elevated and denies difficulty with sleeping last night. Patient is up to chair and able to ambulate to the restroom with walker with SBA from nursing staff. Patient was educated on smoking cessation and importance for controlling glucose level to promote healing. Patient continues to receive care at [facility] for antibiotic therapy swing and increase strengthen and mobility. Patient states he did have some diarrhea this morning but denies any yesterday. Patient education to report multiple loose stools to staff due to antibiotic therapy that is being administered. patient education on food that help decrease diarrhea and help promote gut health, such as yogurt. Patient states he was been refusing long lasting insulin due to the fact he is afraid for his sugars dropping, morning glucose was 158. AM finger stick was 227. Patient is aware for current medication regimen. <Nilsa Nelson RN - Last Filed: 11/16/23 14:46> Patient admitted for post op care and management. Patient had surgical amputation of 2nd and 3rd phalanges on 11/09/23 performed by MD Nation. Patient to continue antibiotic therapy, physical and occupational therapy, and wound care for discharge. <Hema Zhang APRN - Last Filed: 11/16/23 15:09> Narrative: Patient present with post op amputation of 2nd and 3rd phalanges performed by MD Nation on 11/09/23. Patient admits to poor hyperglycemic control and being a life long smoker. Patient states that ulcer has been present of a month and has had stents placed in LLE to improve circulation several weeks prior to amputation. Patient states patient is 4/10 and current pain regimen has been effective at treating his pain. Patient states pain is only in L foot, denies radiating pain. Patient is able to ambulate to the restroom with walker, fracture boot, and SBA from nursing staff. Patient states pain increases with movement and decreases with rest and elevation. Patient stated he is depressed, inquired if patient feels like he needs medical intervention for depression at this time patient declined and voiced frustration with current situation but stated staff have been helpful. Patient continues to adapt to changes post-op. Patient anticipated for 3 weeks for swing bed stay for antibiotic therap
[2023-11-16 11:43] LABS: Glucose Point of Care 233 mg/dl (65-105)
[2023-11-16 13:19] LABS: Vancomycin Trough 21.6 ug/mL (10.0-15.0)
[2023-11-16] MEDS: ALTEPLASE 2 MG VIAL (CATHFLO) IV PUSH (14:28)
[2023-11-16] MEDS: SACCHAROMYCES BOULARDII 250 MG CAPSULE PO ×2 (14:31→17:12)
[2023-11-16] MEDS: metroNIDAZOLE 250 MG TABLET 500 MG PO ×2 (14:31→21:06)
[2023-11-16] MEDS: SALINE LOCK FLUSH 20 ML IV PUSH ×2 (14:32→17:14)
[2023-11-16] MEDS: HYDROcodone/acetaminophen (*CRX) 5-325 MG TABLET 1 TAB PO ×2 (14:52→21:06)
[2023-11-16 16:00] VITALS: BP 134/80; PULSE 88; RESP 17; TEMP 36.6; O2SAT 98
[2023-11-16 17:04] LABS: Glucose Point of Care 55 mg/dl (65-105)
[2023-11-16] MEDS: RIVAROXABAN 10 MG TABLET 20 MG PO (17:12)
[2023-11-16 20:00] VITALS: PULSE 70; RESP 16; O2SAT 98
[2023-11-16 20:06] LABS: Glucose Point of Care 193 mg/dl (65-105)
[2023-11-16 20:06] LABS: Glucose Point of Care 159 mg/dl (65-105)
[2023-11-16 21:05] VITALS: PULSE 70
[2023-11-16] MEDS: ROSUVASTATIN 10 MG TABLET 20 MG PO (21:05)
[2023-11-17] VITALS: BP 136/75; PULSE 68; RESP 16; TEMP 36.4; O2SAT 98
[2023-11-17] MEDS: VANCOMYCIN 1,250 MG/NS 250 ML 1,250 MG/250 ML BAG 166.67 MG IVPB (01:19)
[2023-11-17] MEDS: HYDROcodone/acetaminophen (*CRX) 5-325 MG TABLET 1 TAB PO ×5 (01:39→23:54)
[2023-11-17] MEDS: SALMET XINAFT/FLUTIC PROPIN 500 MCG/50 MCG INH CAP 1 PUFF INHALATION ×2 (06:12→18:18)
[2023-11-17] MEDS: metroNIDAZOLE 250 MG TABLET 500 MG PO ×3 (06:12→20:25)
[2023-11-17 08:00] VITALS: BP 138/58; PULSE 60; RESP 17; TEMP 36.4; O2SAT 99
[2023-11-17 08:06] LABS: Glucose Point of Care 172 mg/dl (65-105)
[2023-11-17] MEDS: INSULIN HUMAN LISPRO (*BKC) 1,000 UNITS/10 ML VIAL 20 UNITS SUB-Q ×2 (09:56→13:10)
[2023-11-17 09:57] VITALS: PULSE 60
[2023-11-17] MEDS: FUROSEMIDE 40 MG TABLET PO (09:57)
[2023-11-17] MEDS: SACCHAROMYCES BOULARDII 250 MG CAPSULE PO ×3 (09:57→16:55)
[2023-11-17] MEDS: ESCITALOPRAM OXALATE 10 MG TABLET PO (09:57)
[2023-11-17] MEDS: GLIMEPIRIDE 2 MG TABLET 4 MG PO (09:57)
[2023-11-17] MEDS: EMPAGLIFLOZIN 25 MG TABLET PO (09:57)
[2023-11-17] MEDS: FENOFIBRATE NANOCRYSTALLIZED 145 MG TABLET PO (09:57)
[2023-11-17] MEDS: metFORMIN HCL 500 MG TABLET 1000 MG PO ×2 (09:57→16:56)
[2023-11-17] MEDS: POTASSIUM CHLORIDE 10 MEQ ER TABLET PO ×2 (09:57→16:58)
[2023-11-17] MEDS: METOPROLOL TARTRATE 50 MG TAB 100 MG PO ×2 (09:57→20:25)
[2023-11-17] MEDS: cefTRIAXone 2 GM/NS 100 ML 2 GM/100 ML BAG IVPB (10:02)
[2023-11-17] MEDS: SALINE LOCK FLUSH 20 ML IV PUSH ×2 (10:04→14:29)
[2023-11-17 11:58] LABS: Glucose Point of Care 254 mg/dl (65-105)
[2023-11-17] MEDS: VANCOMYCIN 1,250 MG/NS 250 ML 1,250 MG/250 ML BAG 250 MG IVPB (14:27)
[2023-11-17 16:00] VITALS: BP 138/84; PULSE 84; RESP 17; TEMP 36.3; O2SAT 98
[2023-11-17] MEDS: RIVAROXABAN 10 MG TABLET 20 MG PO (16:55)
[2023-11-17 17:09] LABS: Glucose Point of Care 61 mg/dl (65-105)
[2023-11-17 18:16] LABS: Glucose Point of Care 131 mg/dl (65-105)
[2023-11-17 19:40] VITALS: PULSE 82; RESP 16; O2SAT 99
[2023-11-17 20:24] LABS: Glucose Point of Care 148 mg/dl (65-105)
[2023-11-17 20:25] VITALS: PULSE 84
[2023-11-17] MEDS: ROSUVASTATIN 10 MG TABLET 20 MG PO (20:25)
[2023-11-18] VITALS (7 sets, daily range): BP systolic 119–170; BP diastolic 52–60; PULSE 59–66; RESP 16–18; TEMP 36.5–36.6; O2SAT 96–99
[2023-11-18] MEDS: VANCOMYCIN 1,250 MG/NS 250 ML 1,250 MG/250 ML BAG 166.67 MG IVPB ×2 (01:45→14:21)
[2023-11-18] MEDS: metroNIDAZOLE 250 MG TABLET 500 MG PO ×3 (06:05→21:09)
[2023-11-18] MEDS: SALMET XINAFT/FLUTIC PROPIN 500 MCG/50 MCG INH CAP 1 PUFF INHALATION ×2 (06:06→18:23)
[2023-11-18 07:32] LABS: Glucose Point of Care 149 mg/dl (65-105)
[2023-11-18] MEDS: metFORMIN HCL 500 MG TABLET 1000 MG PO ×2 (08:14→16:28)
[2023-11-18] MEDS: INSULIN HUMAN LISPRO (*BKC) 1,000 UNITS/10 ML VIAL 20 UNITS SUB-Q ×3 (08:15→16:41)
[2023-11-18] MEDS: POTASSIUM CHLORIDE 10 MEQ ER TABLET PO ×2 (08:16→16:28)
[2023-11-18] MEDS: FENOFIBRATE NANOCRYSTALLIZED 145 MG TABLET PO (08:17)
[2023-11-18] MEDS: GLIMEPIRIDE 2 MG TABLET 4 MG PO (08:17)
[2023-11-18] MEDS: METOPROLOL TARTRATE 50 MG TAB 100 MG PO ×2 (08:17→21:07)
[2023-11-18] MEDS: SACCHAROMYCES BOULARDII 250 MG CAPSULE PO ×3 (08:17→16:27)
[2023-11-18] MEDS: EMPAGLIFLOZIN 25 MG TABLET PO (08:17)
[2023-11-18] MEDS: FUROSEMIDE 40 MG TABLET PO (08:17)
[2023-11-18] MEDS: ESCITALOPRAM OXALATE 10 MG TABLET PO (08:17)
[2023-11-18] MEDS: SALINE LOCK FLUSH 20 ML IV PUSH ×3 (08:18→16:50)
[2023-11-18] MEDS: cefTRIAXone 2 GM/NS 100 ML 2 GM/100 ML BAG IVPB (08:18)
[2023-11-18 11:25] LABS: Glucose Point of Care 221 mg/dl (65-105)
--- NOTE | 2023-11-18 14:26 | PC.NURSE ---
0800 linens changed to bed
[2023-11-18] MEDS: RIVAROXABAN 10 MG TABLET 20 MG PO (16:28)
[2023-11-18 16:39] LABS: Glucose Point of Care 164 mg/dl (65-105)
--- NOTE | 2023-11-18 17:56 | PM.EVENT ---
Event Note Event Note Event Note: Patient complaining of a cough and states that the cough is getting worse and he is afraid he is getting stuff in his lungs. I did complete a chest xray and no pneumonia seen at this time. Dressing change completed and there is some necrosis noted and area where sutures are intact I did not see anyting that would represent a infection at this time.
--- NOTE | 2023-11-18 18:45 | PC.NURSE ---
report to ramiro jung. all questions answered.
[2023-11-18 21:07] LABS: Glucose Point of Care 136 mg/dl (65-105)
[2023-11-18] MEDS: ROSUVASTATIN 10 MG TABLET 20 MG PO (21:07)
[2023-11-18] MEDS: HYDROcodone/acetaminophen (*CRX) 5-325 MG TABLET 1 TAB PO (21:08)
[2023-11-19] VITALS: BP 144/67; PULSE 66; RESP 16; TEMP 36.9; O2SAT 99
[2023-11-19] MEDS: VANCOMYCIN 1,250 MG/NS 250 ML 1,250 MG/250 ML BAG 166.67 MG IVPB ×2 (01:35→13:57)
--- NOTE | 2023-11-19 02:52 | PCRCNOTE ---
RT enter pt room for cpap check. Pt cpap is removed. Pt is in bed sleep on RA.
--- NOTE | 2023-11-19 05:44 | PC.NURSE ---
Patient was sitting in his recliner watching TV at the beginning of the shift. Patient drinks a great deal of iced tea. His urine output is WNL, at an average of 30.8 mL/hr. Patient wears his surgical boot when he is up, with a heel touch only for weight bearing. Patient's vitals were WNL, with the exception of BP (144/67(
--- NOTE | 2023-11-19 05:48 | PC.NURSE ---
Patient was sitting in his recliner watching TV at the beginning of the shift. Patient drinks a great deal of iced tea. His urine output is WNL. Patient wears his surgical boot when he is up, with a heel touch only for weight bearing. Patient has been encouraged to elevate his foot during the day when possible, as patient has c/o throbbing and a stabbing pain in his foot when he goes to bed. Patient's vitals were WNL, with the exception of BP (144/67). Patient's blood sugar ranged from 136 at HS to 221 at noon. Patient slept well. Patient removed his C-PAP as he stated it was uncomfortable, and wasn't working for him.
[2023-11-19] MEDS: metroNIDAZOLE 250 MG TABLET 500 MG PO ×3 (06:07→21:01)
[2023-11-19] MEDS: SALMET XINAFT/FLUTIC PROPIN 500 MCG/50 MCG INH CAP 1 PUFF INHALATION ×2 (06:08→17:39)
[2023-11-19 08:00] VITALS: BP 164/66; PULSE 60; RESP 16; TEMP 37.3; O2SAT 98
[2023-11-19 08:16] LABS: Glucose Point of Care 159 mg/dl (65-105)
[2023-11-19] MEDS: INSULIN HUMAN LISPRO (*BKC) 1,000 UNITS/10 ML VIAL 20 UNITS SUB-Q ×2 (08:20→11:51)
[2023-11-19] MEDS: SALINE LOCK FLUSH 20 ML IV PUSH ×3 (09:00→17:39)
[2023-11-19] MEDS: metFORMIN HCL 500 MG TABLET 1000 MG PO ×2 (09:12→17:39)
[2023-11-19 09:13] VITALS: PULSE 86
[2023-11-19] MEDS: FUROSEMIDE 40 MG TABLET PO (09:13)
[2023-11-19] MEDS: GLIMEPIRIDE 2 MG TABLET 4 MG PO (09:13)
[2023-11-19] MEDS: SACCHAROMYCES BOULARDII 250 MG CAPSULE PO ×3 (09:13→17:38)
[2023-11-19] MEDS: METOPROLOL TARTRATE 50 MG TAB 100 MG PO ×2 (09:13→21:01)
[2023-11-19] MEDS: POTASSIUM CHLORIDE 10 MEQ ER TABLET PO ×2 (09:13→17:38)
[2023-11-19] MEDS: EMPAGLIFLOZIN 25 MG TABLET PO (09:14)
[2023-11-19] MEDS: ESCITALOPRAM OXALATE 10 MG TABLET PO (09:14)
[2023-11-19] MEDS: FENOFIBRATE NANOCRYSTALLIZED 145 MG TABLET PO (09:14)
[2023-11-19] MEDS: cefTRIAXone 2 GM/NS 100 ML 2 GM/100 ML BAG IVPB (09:19)
[2023-11-19 11:36] LABS: Glucose Point of Care 251 mg/dl (65-105)
[2023-11-19 16:00] VITALS: BP 121/52; PULSE 60; RESP 16; TEMP 35.9; O2SAT 99
[2023-11-19 17:07] LABS: Glucose Point of Care 92 mg/dl (65-105)
[2023-11-19] MEDS: RIVAROXABAN 10 MG TABLET 20 MG PO (17:38)
[2023-11-19 20:00] VITALS: O2SAT 99
[2023-11-19 21:01] VITALS: PULSE 66
[2023-11-19] MEDS: ROSUVASTATIN 10 MG TABLET 20 MG PO (21:01)
[2023-11-19 21:09] LABS: Glucose Point of Care 172 mg/dl (65-105)
[2023-11-20] VITALS: BP 125/66; PULSE 66; RESP 16; TEMP 36.6; O2SAT 99
[2023-11-20] MEDS: HYDROcodone/acetaminophen (*CRX) 5-325 MG TABLET 1 TAB PO ×3 (00:18→18:44)
[2023-11-20] MEDS: VANCOMYCIN 1,250 MG/NS 250 ML 1,250 MG/250 ML BAG 166.67 MG IVPB ×2 (01:40→14:32)
--- NOTE | 2023-11-20 04:58 | PC.NURSE ---
Patient was already in bed at the beginning of the shift. He transfers wearing his boot, and using a gait belt, wheeled walker, and assist of one. Patient walked to the toilet 2 times during the night. Patient had difficulty falling asleep, and asked for pain medication about 0030. Patient slept well after getting the pain medication. Patient's vitals were WNL. He is asking for something to help him sleep for the next time. Patient had a medium sized, brown, formed BM at the beginning of the shift.
[2023-11-20 05:35] LABS: Estimated CRCL calculation 98 ml/min; Estimated Glomerular Filt Rate > 60
[2023-11-20] MEDS: metroNIDAZOLE 250 MG TABLET 500 MG PO ×3 (05:40→21:42)
[2023-11-20] MEDS: SALMET XINAFT/FLUTIC PROPIN 500 MCG/50 MCG INH CAP 1 PUFF INHALATION ×2 (06:06→17:50)
[2023-11-20 08:00] VITALS: BP 138/60; PULSE 60; RESP 18; TEMP 36; O2SAT 98
[2023-11-20 08:10] LABS: Glucose Point of Care 185 mg/dl (65-105)
[2023-11-20] MEDS: INSULIN HUMAN LISPRO (*BKC) 1,000 UNITS/10 ML VIAL 20 UNITS SUB-Q ×2 (08:12→12:09)
[2023-11-20 08:13] VITALS: PULSE 60
[2023-11-20] MEDS: FENOFIBRATE NANOCRYSTALLIZED 145 MG TABLET PO (08:13)
[2023-11-20] MEDS: METOPROLOL TARTRATE 50 MG TAB 100 MG PO ×2 (08:13→21:30)
[2023-11-20] MEDS: SACCHAROMYCES BOULARDII 250 MG CAPSULE PO ×3 (08:13→17:17)
[2023-11-20] MEDS: ESCITALOPRAM OXALATE 10 MG TABLET PO (08:14)
[2023-11-20] MEDS: POTASSIUM CHLORIDE 10 MEQ ER TABLET PO ×2 (08:14→17:18)
[2023-11-20] MEDS: metFORMIN HCL 500 MG TABLET 1000 MG PO ×2 (08:14→17:17)
[2023-11-20] MEDS: GLIMEPIRIDE 2 MG TABLET 4 MG PO (08:14)
[2023-11-20] MEDS: EMPAGLIFLOZIN 25 MG TABLET PO (08:14)
[2023-11-20] MEDS: FUROSEMIDE 40 MG TABLET PO (08:14)
[2023-11-20] MEDS: cefTRIAXone 2 GM/NS 100 ML 2 GM/100 ML BAG IVPB (08:16)
[2023-11-20] MEDS: SALINE LOCK FLUSH 20 ML IV PUSH ×3 (09:20→17:18)
[2023-11-20 12:06] LABS: Glucose Point of Care 136 mg/dl (65-105)
[2023-11-20 16:00] VITALS: BP 132/64; PULSE 60; RESP 18; TEMP 36; O2SAT 100
[2023-11-20 16:59] LABS: Glucose Point of Care 94 mg/dl (65-105)
[2023-11-20] MEDS: RIVAROXABAN 10 MG TABLET 20 MG PO (17:18)
[2023-11-20] MEDS: ROSUVASTATIN 10 MG TABLET 20 MG PO (21:29)
[2023-11-20 21:30] VITALS: PULSE 60
[2023-11-20 21:43] LABS: Glucose Point of Care 182 mg/dl (65-105)
[2023-11-21] VITALS: BP 147/70; PULSE 60; RESP 18; TEMP 36.3; O2SAT 96
[2023-11-21] MEDS: VANCOMYCIN 1,250 MG/NS 250 ML 1,250 MG/250 ML BAG 166.67 MG IVPB ×2 (02:08→14:03)
[2023-11-21] MEDS: HYDROcodone/acetaminophen (*CRX) 5-325 MG TABLET 1 TAB PO ×3 (03:10→21:44)
[2023-11-21] MEDS: metroNIDAZOLE 250 MG TABLET 500 MG PO ×3 (06:22→21:45)
[2023-11-21] MEDS: SALMET XINAFT/FLUTIC PROPIN 500 MCG/50 MCG INH CAP 1 PUFF INHALATION ×2 (06:23→18:25)
--- NOTE | 2023-11-21 07:21 | PC.NURSE ---
Al was sitting in the recliner with his feet elevated when the shift started. He is able to walk using the wheeled walker and his boot, with stand by assist. Patient needs to be reminded to walk on the heel, rather than the front of the foot. Otherwise, he does very well when he walks. Patient is attempting to leave the boot off his foot when he is in the recliner, and only putting it on when he is walking. Vitals are WNL, except for temperature (97.4), and systolic BP (147/70). Patient slept fairly well.
[2023-11-21 08:00] VITALS: BP 125/51; PULSE 67; RESP 17; TEMP 36.2; O2SAT 97
[2023-11-21 08:08] LABS: Glucose Point of Care 203 mg/dl (65-105)
[2023-11-21] MEDS: INSULIN HUMAN LISPRO (*BKC) 1,000 UNITS/10 ML VIAL 20 UNITS SUB-Q ×3 (09:00→17:43)
[2023-11-21 09:01] VITALS: PULSE 67
[2023-11-21] MEDS: SACCHAROMYCES BOULARDII 250 MG CAPSULE PO ×3 (09:01→17:44)
[2023-11-21] MEDS: FENOFIBRATE NANOCRYSTALLIZED 145 MG TABLET PO (09:01)
[2023-11-21] MEDS: POTASSIUM CHLORIDE 10 MEQ ER TABLET PO ×2 (09:01→17:44)
[2023-11-21] MEDS: FUROSEMIDE 40 MG TABLET PO (09:01)
[2023-11-21] MEDS: GLIMEPIRIDE 2 MG TABLET 4 MG PO (09:01)
[2023-11-21] MEDS: EMPAGLIFLOZIN 25 MG TABLET PO (09:01)
[2023-11-21] MEDS: METOPROLOL TARTRATE 50 MG TAB 100 MG PO ×2 (09:01→21:45)
[2023-11-21] MEDS: metFORMIN HCL 500 MG TABLET 1000 MG PO ×2 (09:01→17:44)
[2023-11-21] MEDS: ESCITALOPRAM OXALATE 10 MG TABLET PO (09:02)
[2023-11-21] MEDS: cefTRIAXone 2 GM/NS 100 ML 2 GM/100 ML BAG IVPB (09:02)
[2023-11-21] MEDS: SALINE LOCK FLUSH 20 ML IV PUSH ×2 (09:05→14:00)
--- NOTE | 2023-11-21 09:37 | PC.NURSE ---
Notified Michael ABBASI that pictures were uploaded for review. Michael will call the discharging provider to have them review the new photos.
--- NOTE | 2023-11-21 11:03 | PM.IMPN ---
Progress Note: A&P Assessment and Plan (1) Osteomyelitis of second toe of left foot: Code(s): M86.9 - Osteomyelitis, unspecified Status: Acute Assessment and Plan: Status post-op L foot partial amputation by MD Nation 11/09/23 IV vancomycin and rocephin for 3 weeks 3 weeks of oral anitibiotics Augmentin, doxycycline, and Flagyl 2/: antibiotics continue. Wound care appointment was changed by Orthopedics office, reached out to midlevel at orthopedic office to review wound photos and encourage that we keep prior scheduled appointment. (2) Cellulitis of foot, left: Code(s): L03.116 - Cellulitis of left lower limb Status: Acute Assessment and Plan: Status post-op L foot partial amputation by MD Nation 11/09/23 IV vancomycin and rocephin for 3 weeks 3 weeks of oral anitibiotics Augmentin, doxycycline, and Flagyl (3) Diabetes: Qualifiers: Diabetes mellitus type: type 2 Diabetes mellitus continuous churn buttermaker insulin use: with longterm use Diabetes mellitus complication status: with circulatory complication Diabetes mellitus complication detail: with peripheral angiopathy with gangrene Qualified Code(s): E11.52 - Type 2 diabetes mellitus with diabetic peripheral angiopathy with gangrene; Z79.4 - terminal manager (current) use of insulin Code(s): E11.9 - Type 2 diabetes mellitus without complications Status: Chronic Assessment and Plan: Monitor blood glucose levels administer insulin as directed educate improves of dietary control continue glimepiride 4mg Po daily, Jardiance 25 mg PO daily and metformin 1000mg PO bid last Hemoglobin A1C 9.1 2: Patient is essentially dictating a sliding scale based on premeal glucose and anticipated intake of meal tray with decent results. (4) COPD (chronic obstructive pulmonary disease): Code(s): J44.9 - Chronic obstructive pulmonary disease, unspecified Status: Acute Assessment and Plan: education on smoking cessation offered nicotine patch which patient declined (5) KIRILL on CPAP: Code(s): G47.33 - Obstructive sleep apnea (adult) (pediatric) Status: Acute Assessment and Plan: has not use home unit due to missing supplies at home AutoPap order during hospitalization 2/6: New supplies have been ordered for home machine. Patient complying well with CPAP use. (6) Peripheral vascular disease: Code(s): I73.9 - Peripheral vascular disease, unspecified Status: Chronic Assessment and Plan: continue anticoagulation therapy xaraleto 20 mg PO daily Known arterial stent LLE 11/21: Wound at risk due to PVD, contacted orthopedic office to reevaluate photos and to try to keep original 11/24 wound reeval appointment that office called to change yesterday to 12/05 (7) Hypertension: Qualifiers: Hypertension type: unspecified Qualified Code(s): I10 - Essential (primary) hypertension Code(s): I10 - Essential (primary) hypertension Status: Chronic Assessment and Plan: blood pressure reviewed on 11/21, stable continue current management (8) Situational depression: Code(s): F43.21 - Adjustment disorder with depressed mood Status: Acute Assessment and Plan: Patient stated he was depressed and that he is frustrated with current situation. Patient denies needs to increase lexpro 10 mg PO daily or change medication regimen. Allowed patient to vent frustration, states he is frustrated at his situation and not the staff. Patient states staff has been helpful with care. Time Spent With Patient Time with patient: 25 - 35 minutes Subjective Date/time seen: 11/21/23 11:03 Interval history: Dressing changed and new photos of foot were uploaded to the chart. Wound care appointment was canceled and moved to December 05. We have reached out to Orthopedics with concern regarding earlier evaluation preferred due to poor vascular flow at baseline. Awaiting ret
[2023-11-21] MEDS: INSULIN HUMAN LISPRO (*BKC) 1,000 UNITS/10 ML VIAL SUB-Q (12:24)
[2023-11-21 13:24] LABS: Vancomycin Trough 18.5 ug/mL (10.0-15.0)
[2023-11-21 16:00] VITALS: BP 138/64; PULSE 70; RESP 18; TEMP 36.1; O2SAT 98
[2023-11-21 16:57] LABS: Glucose Point of Care 219 mg/dl (65-105)
[2023-11-21 16:57] LABS: Glucose Point of Care 107 mg/dl (65-105)
[2023-11-21] MEDS: RIVAROXABAN 10 MG TABLET 20 MG PO (17:44)
[2023-11-21] MEDS: ROSUVASTATIN 10 MG TABLET 20 MG PO (21:44)
[2023-11-21] MEDS: traZODone HCL 50 MG TABLET PO (21:45)
[2023-11-21 21:56] LABS: Glucose Point of Care 124 mg/dl (65-105)
[2023-11-22] VITALS: BP 131/67; PULSE 60; RESP 20; TEMP 36.2; O2SAT 97
[2023-11-22] MEDS: VANCOMYCIN 1,250 MG/NS 250 ML 1,250 MG/250 ML BAG 166.67 MG IVPB ×2 (02:56→14:10)
[2023-11-22 05:29] LABS: Estimated CRCL calculation 96 ml/min; Estimated Glomerular Filt Rate > 60
[2023-11-22] MEDS: SALMET XINAFT/FLUTIC PROPIN 500 MCG/50 MCG INH CAP 1 PUFF INHALATION ×2 (06:55→17:27)
[2023-11-22] MEDS: metroNIDAZOLE 250 MG TABLET 500 MG PO ×3 (06:55→21:29)
[2023-11-22 07:43] LABS: Glucose Point of Care 173 mg/dl (65-105)
[2023-11-22 08:00] VITALS: BP 140/70; PULSE 66; RESP 14; TEMP 36.8; O2SAT 98
[2023-11-22] MEDS: SACCHAROMYCES BOULARDII 250 MG CAPSULE PO ×3 (08:55→17:28)
[2023-11-22] MEDS: metFORMIN HCL 500 MG TABLET 1000 MG PO ×2 (08:55→17:29)
[2023-11-22 08:56] VITALS: PULSE 78
[2023-11-22] MEDS: FENOFIBRATE NANOCRYSTALLIZED 145 MG TABLET PO (08:56)
[2023-11-22] MEDS: GLIMEPIRIDE 2 MG TABLET 4 MG PO (08:56)
[2023-11-22] MEDS: METOPROLOL TARTRATE 50 MG TAB 100 MG PO ×2 (08:56→20:43)
[2023-11-22] MEDS: EMPAGLIFLOZIN 25 MG TABLET PO (08:57)
[2023-11-22] MEDS: ESCITALOPRAM OXALATE 10 MG TABLET PO (08:57)
[2023-11-22] MEDS: FUROSEMIDE 40 MG TABLET PO (08:57)
[2023-11-22] MEDS: POTASSIUM CHLORIDE 10 MEQ ER TABLET PO ×2 (08:57→17:30)
[2023-11-22] MEDS: metFORMIN HCL 500 MG TABLET (09:10)
[2023-11-22] MEDS: INSULIN HUMAN LISPRO (*BKC) 1,000 UNITS/10 ML VIAL 20 UNITS SUB-Q ×2 (09:17→12:08)
[2023-11-22] MEDS: cefTRIAXone 2 GM/NS 100 ML 2 GM/100 ML BAG IVPB (09:18)
[2023-11-22 12:07] LABS: Glucose Point of Care 360 mg/dl (65-105)
[2023-11-22] MEDS: INSULIN HUMAN LISPRO (*BKC) 1,000 UNITS/10 ML VIAL SUB-Q (12:08)
[2023-11-22] MEDS: SALINE LOCK FLUSH 10 ML IV PUSH ×3 (12:10→20:53)
[2023-11-22] MEDS: SALINE LOCK FLUSH 20 ML IV PUSH ×2 (12:11→20:44)
[2023-11-22 16:00] VITALS: BP 115/54; PULSE 60; RESP 18; TEMP 35.8; O2SAT 99
[2023-11-22 17:05] LABS: Glucose Point of Care 65 mg/dl (65-105)
[2023-11-22] MEDS: RIVAROXABAN 10 MG TABLET 20 MG PO (17:28)
[2023-11-22 20:43] VITALS: PULSE 60
[2023-11-22] MEDS: traZODone HCL 50 MG TABLET PO (20:43)
[2023-11-22] MEDS: ROSUVASTATIN 10 MG TABLET 20 MG PO (20:44)
[2023-11-22 20:53] LABS: Glucose Point of Care 197 mg/dl (65-105)
[2023-11-22] MEDS: HYDROcodone/acetaminophen (*CRX) 5-325 MG TABLET 1 TAB PO (21:28)
--- NOTE | 2023-11-22 21:34 | PC.NURSE ---
PICC site has dark red blood around insertion site, dressing changed per protocol, site continues a slow oozing, lumens taped down near ends to help with stabilization, fresh cloth sleeve applied, charge nurse notified, both lumens flush without difficulty but no blood return from either lumen, caps changed, call light in reach
[2023-11-22 23:57] VITALS: BP 115/54; PULSE 62; RESP 17; TEMP 36.9; O2SAT 96
[2023-11-23] MEDS: VANCOMYCIN 1,250 MG/NS 250 ML 1,250 MG/250 ML BAG 166.67 MG IVPB ×2 (01:31→14:50)
[2023-11-23] MEDS: SALMET XINAFT/FLUTIC PROPIN 500 MCG/50 MCG INH CAP 1 PUFF INHALATION ×2 (06:05→18:13)
[2023-11-23] MEDS: metroNIDAZOLE 250 MG TABLET 500 MG PO ×3 (06:06→21:17)
[2023-11-23 08:00] VITALS: BP 147/66; PULSE 60; RESP 18; TEMP 36.8; O2SAT 96
[2023-11-23 08:00] LABS: Glucose Point of Care 175 mg/dl (65-105)
[2023-11-23] MEDS: INSULIN HUMAN LISPRO (*BKC) 1,000 UNITS/10 ML VIAL 20 UNITS SUB-Q ×2 (08:05→12:01)
[2023-11-23] MEDS: SALINE LOCK FLUSH 20 ML IV PUSH ×4 (08:07→17:11)
[2023-11-23] MEDS: SACCHAROMYCES BOULARDII 250 MG CAPSULE PO ×3 (08:59→17:11)
[2023-11-23] MEDS: metFORMIN HCL 500 MG TABLET 1000 MG PO ×2 (08:59→17:12)
[2023-11-23 09:00] VITALS: PULSE 60
[2023-11-23] MEDS: METOPROLOL TARTRATE 50 MG TAB 100 MG PO ×2 (09:00→21:18)
[2023-11-23] MEDS: FUROSEMIDE 40 MG TABLET PO (09:00)
[2023-11-23] MEDS: POTASSIUM CHLORIDE 10 MEQ ER TABLET PO ×2 (09:00→17:12)
[2023-11-23] MEDS: EMPAGLIFLOZIN 25 MG TABLET PO (09:00)
[2023-11-23] MEDS: FENOFIBRATE NANOCRYSTALLIZED 145 MG TABLET PO (09:00)
[2023-11-23] MEDS: GLIMEPIRIDE 2 MG TABLET 4 MG PO (09:00)
[2023-11-23] MEDS: ESCITALOPRAM OXALATE 10 MG TABLET PO (09:01)
[2023-11-23] MEDS: cefTRIAXone 2 GM/NS 100 ML 2 GM/100 ML BAG IVPB (09:01)
[2023-11-23] MEDS: HYDROcodone/acetaminophen (*CRX) 5-325 MG TABLET 1 TAB PO ×2 (09:27→20:22)
[2023-11-23 12:01] LABS: Glucose Point of Care 264 mg/dl (65-105)
[2023-11-23] MEDS: INSULIN HUMAN LISPRO (*BKC) 1,000 UNITS/10 ML VIAL SUB-Q (12:02)
[2023-11-23 16:00] VITALS: BP 142/60; PULSE 60; RESP 16; TEMP 36.3; O2SAT 100
[2023-11-23 17:00] LABS: Glucose Point of Care 130 mg/dl (65-105)
[2023-11-23] MEDS: RIVAROXABAN 10 MG TABLET 20 MG PO (17:11)
[2023-11-23 20:00] VITALS: PULSE 60; RESP 16; O2SAT 100
[2023-11-23 21:08] LABS: Glucose Point of Care 234 mg/dl (65-105)
[2023-11-23] MEDS: traZODone HCL 50 MG TABLET PO (21:17)
[2023-11-23 21:18] VITALS: PULSE 60
[2023-11-23] MEDS: ROSUVASTATIN 10 MG TABLET 20 MG PO (21:18)
[2023-11-24] VITALS: BP 136/57; PULSE 60; RESP 17; TEMP 36.1; O2SAT 98
[2023-11-24] MEDS: VANCOMYCIN 1,250 MG/NS 250 ML 1,250 MG/250 ML BAG 166.67 MG IVPB ×2 (01:37→13:52)
--- NOTE | 2023-11-24 04:50 | PC.NURSE ---
Patient was sitting in his recliner, visiting with his son when the shift started. Patient c/o pain of 7/10 in foot prior to dressing change. Patient's wound had a moderate amount of serosanguineous drainage, with some necrotic areas of tissue remaining. Suture line looks good, with no swelling, redness, or purulent drainage. Dressings were changed, for the second time today. Patient is currently using the urinal, unless he needs to have a BM, in order to stay off his foot as much as possible. Patient wears a fracture boot when he is up and walking. Patient sometimes needs to be reminded to walk on his heel on the L foot. Patient transfers with a gait belt, WW, and stand by assist of 1. Patient had a large BM in the rock breaker hours. Otherwise, he slept well.
[2023-11-24 05:49] LABS: Estimated CRCL calculation 88 ml/min; Estimated Glomerular Filt Rate > 60
[2023-11-24] MEDS: metroNIDAZOLE 250 MG TABLET 500 MG PO ×3 (06:06→21:46)
[2023-11-24] MEDS: SALMET XINAFT/FLUTIC PROPIN 500 MCG/50 MCG INH CAP 1 PUFF INHALATION ×2 (06:08→17:45)
[2023-11-24 07:25] LABS: Glucose Point of Care 213 mg/dl (65-105)
[2023-11-24 07:53] LABS: Glucose Point of Care 234 mg/dl (65-105)
[2023-11-24 08:00] VITALS: BP 120/50; PULSE 64; PULSE 65; RESP 18; TEMP 36.4; O2SAT 96; O2SAT 98
[2023-11-24] MEDS: metFORMIN HCL 500 MG TABLET 1000 MG PO ×2 (08:08→17:05)
[2023-11-24] MEDS: POTASSIUM CHLORIDE 10 MEQ ER TABLET PO ×2 (08:09→17:05)
[2023-11-24] MEDS: INSULIN HUMAN LISPRO (*BKC) 1,000 UNITS/10 ML VIAL 20 UNITS SUB-Q ×2 (08:10→12:21)
[2023-11-24] MEDS: SALINE LOCK FLUSH 20 ML IV PUSH ×3 (09:04→17:04)
[2023-11-24] MEDS: cefTRIAXone 2 GM/NS 100 ML 2 GM/100 ML BAG IVPB (09:07)
[2023-11-24 09:08] VITALS: PULSE 84
[2023-11-24] MEDS: EMPAGLIFLOZIN 25 MG TABLET PO (09:08)
[2023-11-24] MEDS: FENOFIBRATE NANOCRYSTALLIZED 145 MG TABLET PO (09:08)
[2023-11-24] MEDS: FUROSEMIDE 40 MG TABLET PO (09:08)
[2023-11-24] MEDS: METOPROLOL TARTRATE 50 MG TAB 100 MG PO ×2 (09:08→21:46)
[2023-11-24] MEDS: GLIMEPIRIDE 2 MG TABLET 4 MG PO (09:09)
[2023-11-24] MEDS: ESCITALOPRAM OXALATE 10 MG TABLET PO (09:09)
[2023-11-24] MEDS: SACCHAROMYCES BOULARDII 250 MG CAPSULE PO ×3 (09:10→17:04)
[2023-11-24 11:45] LABS: Glucose Point of Care 239 mg/dl (65-105)
--- NOTE | 2023-11-24 12:50 | PC.NURSE ---
Blood drawn from PICC Line for labs, line gives good return and flushes easily. Clave changed after draw.
[2023-11-24 16:00] VITALS: BP 128/56; PULSE 60; RESP 18; TEMP 36; O2SAT 98
[2023-11-24] MEDS: RIVAROXABAN 10 MG TABLET 20 MG PO (17:05)
[2023-11-24 17:08] LABS: Glucose Point of Care 76 mg/dl (65-105)
[2023-11-24] MEDS: traZODone HCL 50 MG TABLET PO (21:46)
[2023-11-24] MEDS: ROSUVASTATIN 10 MG TABLET 20 MG PO (21:46)
[2023-11-24] MEDS: HYDROcodone/acetaminophen (*CRX) 5-325 MG TABLET 1 TAB PO (21:47)
[2023-11-24 21:58] LABS: Glucose Point of Care 174 mg/dl (65-105)
[2023-11-25] VITALS: BP 144/59; PULSE 60; RESP 17; TEMP 36.2; O2SAT 96
[2023-11-25] MEDS: VANCOMYCIN 1,250 MG/NS 250 ML 1,250 MG/250 ML BAG 166.67 MG IVPB ×2 (02:52→13:47)
[2023-11-25] MEDS: SALMET XINAFT/FLUTIC PROPIN 500 MCG/50 MCG INH CAP 1 PUFF INHALATION ×2 (06:48→18:00)
[2023-11-25] MEDS: metroNIDAZOLE 250 MG TABLET 500 MG PO ×3 (06:48→21:55)
[2023-11-25 07:56] LABS: Glucose Point of Care 228 mg/dl (65-105)
[2023-11-25 08:00] VITALS: BP 149/59; PULSE 60; RESP 17; TEMP 35.9; O2SAT 98
[2023-11-25] MEDS: EMPAGLIFLOZIN 25 MG TABLET PO (09:17)
[2023-11-25] MEDS: ESCITALOPRAM OXALATE 10 MG TABLET PO (09:17)
[2023-11-25] MEDS: POTASSIUM CHLORIDE 10 MEQ ER TABLET PO ×2 (09:17→17:56)
[2023-11-25] MEDS: FUROSEMIDE 40 MG TABLET PO (09:17)
[2023-11-25] MEDS: metFORMIN HCL 500 MG TABLET 1000 MG PO ×2 (09:17→17:56)
[2023-11-25] MEDS: GLIMEPIRIDE 2 MG TABLET 4 MG PO (09:17)
[2023-11-25 09:18] VITALS: PULSE 60
[2023-11-25] MEDS: SALINE LOCK FLUSH 20 ML IV PUSH ×3 (09:18→17:59)
[2023-11-25] MEDS: SACCHAROMYCES BOULARDII 250 MG CAPSULE PO ×3 (09:18→17:55)
[2023-11-25] MEDS: METOPROLOL TARTRATE 50 MG TAB 100 MG PO ×2 (09:18→21:56)
[2023-11-25] MEDS: FENOFIBRATE NANOCRYSTALLIZED 145 MG TABLET PO (09:18)
[2023-11-25] MEDS: cefTRIAXone 2 GM/NS 100 ML 2 GM/100 ML BAG IVPB (09:19)
[2023-11-25] MEDS: INSULIN HUMAN LISPRO (*BKC) 1,000 UNITS/10 ML VIAL 20 UNITS SUB-Q ×3 (09:20→17:55)
[2023-11-25 11:44] LABS: Glucose Point of Care 338 mg/dl (65-105)
[2023-11-25] MEDS: INSULIN HUMAN LISPRO (*BKC) 1,000 UNITS/10 ML VIAL SUB-Q (13:04)
[2023-11-25 16:00] VITALS: BP 108/48; PULSE 60; RESP 17; TEMP 35.5; O2SAT 99
[2023-11-25 16:39] LABS: Glucose Point of Care 162 mg/dl (65-105)
[2023-11-25] MEDS: RIVAROXABAN 10 MG TABLET 20 MG PO (17:56)
[2023-11-25] MEDS: traZODone HCL 50 MG TABLET PO (21:55)
[2023-11-25] MEDS: ROSUVASTATIN 10 MG TABLET 20 MG PO (21:55)
[2023-11-25] MEDS: HYDROcodone/acetaminophen (*CRX) 5-325 MG TABLET 1 TAB PO (21:56)
[2023-11-25 22:07] LABS: Glucose Point of Care 99 mg/dl (65-105)
[2023-11-26] VITALS: BP 102/47; PULSE 60; RESP 16; TEMP 36.3; O2SAT 96
[2023-11-26] MEDS: VANCOMYCIN 1,250 MG/NS 250 ML 1,250 MG/250 ML BAG 166.67 MG IVPB (02:55)
[2023-11-26 06:01] LABS: Estimated Glomerular Filt Rate > 60
[2023-11-26] MEDS: metroNIDAZOLE 250 MG TABLET 500 MG PO ×3 (06:31→21:51)
[2023-11-26] MEDS: SALMET XINAFT/FLUTIC PROPIN 500 MCG/50 MCG INH CAP 1 PUFF INHALATION ×2 (06:31→18:18)
[2023-11-26 08:00] VITALS: BP 122/50; PULSE 60; RESP 18; TEMP 35.8; O2SAT 98
[2023-11-26 08:08] LABS: Glucose Point of Care 184 mg/dl (65-105)
[2023-11-26 08:48] LABS: Estimated CRCL calculation 81 ml/min
[2023-11-26] MEDS: GLIMEPIRIDE 2 MG TABLET 4 MG PO (09:40)
[2023-11-26] MEDS: SACCHAROMYCES BOULARDII 250 MG CAPSULE PO ×3 (09:40→16:49)
[2023-11-26] MEDS: FENOFIBRATE NANOCRYSTALLIZED 145 MG TABLET PO (09:40)
[2023-11-26] MEDS: metFORMIN HCL 500 MG TABLET 1000 MG PO ×2 (09:40→16:49)
[2023-11-26] MEDS: FUROSEMIDE 40 MG TABLET PO (09:40)
[2023-11-26 09:41] VITALS: PULSE 60
[2023-11-26] MEDS: METOPROLOL TARTRATE 50 MG TAB 100 MG PO ×2 (09:41→21:51)
[2023-11-26] MEDS: POTASSIUM CHLORIDE 10 MEQ ER TABLET PO ×2 (09:41→16:49)
[2023-11-26] MEDS: EMPAGLIFLOZIN 25 MG TABLET PO (09:41)
[2023-11-26] MEDS: ESCITALOPRAM OXALATE 10 MG TABLET PO (09:41)
[2023-11-26] MEDS: cefTRIAXone 2 GM/NS 100 ML 2 GM/100 ML BAG IVPB (09:41)
[2023-11-26] MEDS: INSULIN HUMAN LISPRO (*BKC) 1,000 UNITS/10 ML VIAL 20 UNITS SUB-Q ×3 (09:50→22:03)
[2023-11-26] MEDS: SALINE LOCK FLUSH 20 ML IV PUSH ×3 (10:00→17:41)
[2023-11-26 11:58] LABS: Glucose Point of Care 307 mg/dl (65-105)
[2023-11-26] MEDS: INSULIN HUMAN LISPRO (*BKC) 1,000 UNITS/10 ML VIAL SUB-Q (13:00)
[2023-11-26 13:50] LABS: Vancomycin Trough 21.7 ug/mL (10.0-15.0)
[2023-11-26 16:00] VITALS: BP 110/50; PULSE 64; RESP 17; TEMP 36.6; O2SAT 98
[2023-11-26] MEDS: RIVAROXABAN 10 MG TABLET 20 MG PO (16:49)
[2023-11-26 17:09] LABS: Glucose Point of Care 94 mg/dl (65-105)
[2023-11-26] MEDS: VANCOMYCIN 1,000 MG/NS 250 ML 1,000 MG/250 ML BAG 250 MG IVPB (19:49)
[2023-11-26] MEDS: ROSUVASTATIN 10 MG TABLET 20 MG PO (21:51)
[2023-11-26] MEDS: traZODone HCL 50 MG TABLET PO (21:51)
[2023-11-26 22:00] LABS: Glucose Point of Care 151 mg/dl (65-105)
[2023-11-27] VITALS (7 sets, daily range): BP systolic 104–127; BP diastolic 46–60; PULSE 60; RESP 14–17; TEMP 35.7–36.3; O2SAT 96–98
[2023-11-27] MEDS: SALMET XINAFT/FLUTIC PROPIN 500 MCG/50 MCG INH CAP 1 PUFF INHALATION ×2 (05:53→18:27)
[2023-11-27] MEDS: metroNIDAZOLE 250 MG TABLET 500 MG PO ×3 (05:53→21:22)
--- NOTE | 2023-11-27 07:46 | PM.IMPN ---
Progress Note: A&P Assessment and Plan (1) Osteomyelitis of second toe of left foot: Code(s): M86.9 - Osteomyelitis, unspecified Status: Acute Assessment and Plan: Status post-op L foot partial amputation by [facility] 11/09/23 IV vancomycin and rocephin for 3 weeks 3 weeks of oral anitibiotics Augmentin, doxycycline, and Flagyl 11/21: antibiotics continue. Wound care appointment was changed by Orthopedics office, reached out to midlevel at orthopedic office to review wound photos and encourage that we keep prior scheduled appointment. (2) Cellulitis of foot, left: Code(s): L03.116 - Cellulitis of left lower limb Status: Acute Assessment and Plan: Status post-op L foot partial amputation by [facility] 11/09/23 IV vancomycin and rocephin for 3 weeks after acute care discharge then follow with 3 weeks of oral antibiotics Augmentin, doxycycline, and Flagyl (3) Diabetes: Qualifiers: Diabetes mellitus complication detail: with peripheral angiopathy with gangrene Diabetes mellitus complication status: with circulatory complication Diabetes mellitus [facility] insulin use: with [facility] use Diabetes mellitus type: type 2 Qualified Code(s): E11.52 - Type 2 diabetes mellitus with diabetic peripheral angiopathy with gangrene; Z79.4 - [facility] (current) use of insulin Code(s): E11.9 - Type 2 diabetes mellitus without complications Status: Chronic Assessment and Plan: Monitor blood glucose levels administer insulin as directed educate improves of dietary control continue glimepiride 4mg Po daily, Jardiance 25 mg PO daily and metformin 1000mg PO bid last Hemoglobin A1C 9.1 2: Patient is essentially dictating a sliding scale based on premeal glucose and anticipated intake of meal tray with decent results. 11/27: Patient continues to dictate mealtime dosage of lispro and refuses glargine. Sugars roughly 150-200 throughout the day. (4) COPD (chronic obstructive pulmonary disease): Code(s): J44.9 - Chronic obstructive pulmonary disease, unspecified Status: Acute Assessment and Plan: education on smoking cessation offered nicotine patch which patient declined (5) KIRILL on CPAP: Code(s): G47.33 - Obstructive sleep apnea (adult) (pediatric) Status: Acute Assessment and Plan: has not use home unit due to missing supplies at home AutoPap order during hospitalization 2/6: New supplies have been ordered for home machine. Patient complying well with CPAP use. (6) Peripheral vascular disease: Code(s): I73.9 - Peripheral vascular disease, unspecified Status: Chronic Assessment and Plan: continue anticoagulation therapy xaraleto 20 mg PO daily Known arterial stent LLE 11/21: Wound at risk due to PVD, contacted orthopedic office to reevaluate photos and to try to keep original 11/24 wound reeval appointment that office called to change yesterday to 12/05 11/27: Follow up evaluation on 12/05 at wound clinic at [place] with Orthopedics when sutures are anticipated to be removed (7) Hypertension: Qualifiers: Hypertension type: unspecified Qualified Code(s): I10 - Essential (primary) hypertension Code(s): I10 - Essential (primary) hypertension Status: Chronic Assessment and Plan: Blood pressure reviewed on 11/27, stable continue current management (8) Situational depression: Code(s): F43.21 - Adjustment disorder with depressed mood Status: Acute Assessment and Plan: Patient stated he was depressed and that he is frustrated with current situation. Patient denies needs to increase lexpro 10 mg PO daily or change medication regimen. Allowed patient to vent frustration, states he is frustrated at his situation and not the staff. Patient states staff has been helpful with care. 11/27: Improved mood and outlook Time Spent With Patient Time: Time 32 minutes Time with patient: 25 -
[2023-11-27] MEDS: POTASSIUM CHLORIDE 10 MEQ ER TABLET PO ×2 (08:00→17:10)
[2023-11-27] MEDS: metFORMIN HCL 500 MG TABLET 1000 MG PO ×2 (08:00→17:10)
[2023-11-27] MEDS: VANCOMYCIN 1,000 MG/NS 250 ML 1,000 MG/250 ML BAG 250 MG IVPB ×2 (08:05→20:27)
[2023-11-27 08:08] LABS: Glucose Point of Care 204 mg/dl (65-105)
[2023-11-27] MEDS: INSULIN HUMAN LISPRO (*BKC) 1,000 UNITS/10 ML VIAL 20 UNITS SUB-Q ×2 (08:21→12:03)
[2023-11-27] MEDS: FUROSEMIDE 40 MG TABLET PO (09:08)
[2023-11-27] MEDS: HYDROcodone/acetaminophen (*CRX) 5-325 MG TABLET 1 TAB PO ×2 (09:08→20:27)
[2023-11-27] MEDS: ESCITALOPRAM OXALATE 10 MG TABLET PO (09:08)
[2023-11-27] MEDS: METOPROLOL TARTRATE 50 MG TAB 100 MG PO ×2 (09:08→21:22)
[2023-11-27] MEDS: GLIMEPIRIDE 2 MG TABLET 4 MG PO (09:08)
[2023-11-27] MEDS: SACCHAROMYCES BOULARDII 250 MG CAPSULE PO ×3 (09:08→17:10)
[2023-11-27] MEDS: FENOFIBRATE NANOCRYSTALLIZED 145 MG TABLET PO (09:08)
[2023-11-27] MEDS: EMPAGLIFLOZIN 25 MG TABLET PO (09:08)
[2023-11-27] MEDS: SALINE LOCK FLUSH 20 ML IV PUSH ×3 (09:10→17:09)
[2023-11-27] MEDS: cefTRIAXone 2 GM/NS 100 ML 2 GM/100 ML BAG IVPB (10:12)
[2023-11-27] MEDS: PREGABALIN (*CRX) 25 MG CAPSULE 75 MG PO ×2 (11:33→21:21)
[2023-11-27 11:43] LABS: Glucose Point of Care 240 mg/dl (65-105)
[2023-11-27] MEDS: INSULIN HUMAN LISPRO (*BKC) 1,000 UNITS/10 ML VIAL SUB-Q (12:03)
[2023-11-27 17:05] LABS: Glucose Point of Care 48 mg/dl (65-105)
[2023-11-27 17:05] LABS: Glucose Point of Care 42 mg/dl (65-105)
[2023-11-27] MEDS: GLUCOSE ORAL GEL 15 GM OF GLUCSE IN 37.5 GM TUBE PO (17:05)
[2023-11-27] MEDS: RIVAROXABAN 10 MG TABLET 20 MG PO (17:10)
[2023-11-27 17:37] LABS: Glucose 73 mg/dL (70-99)
[2023-11-27 17:56] LABS: Glucose Point of Care 89 mg/dl (65-105)
[2023-11-27 21:14] LABS: Glucose Point of Care 175 mg/dl (65-105)
[2023-11-27] MEDS: ROSUVASTATIN 10 MG TABLET 20 MG PO (21:21)
[2023-11-27] MEDS: traZODone HCL 50 MG TABLET PO (21:22)
[2023-11-28] MEDS: metroNIDAZOLE 250 MG TABLET 500 MG PO ×3 (05:06→22:12)
[2023-11-28] MEDS: SALMET XINAFT/FLUTIC PROPIN 500 MCG/50 MCG INH CAP 1 PUFF INHALATION ×2 (05:07→18:47)
[2023-11-28 07:14] LABS: Estimated CRCL calculation 77 ml/min; Estimated Glomerular Filt Rate > 60; Vancomycin Trough 18.1 ug/mL (10.0-15.0)
[2023-11-28 07:38] LABS: Glucose Point of Care 217 mg/dl (65-105)
[2023-11-28 08:00] VITALS: BP 130/68; PULSE 60; RESP 18; TEMP 36.6; O2SAT 97
[2023-11-28 08:06] LABS: Hematocrit 31.7 % (37.0-46.0); Hemoglobin 9.8 g/dL (12.4-15.3); Mean Corpuscular HGB Conc 30.9 g/dL (32.0-36.0); Mean Corpuscular Hemoglobin 25.4 pg (27.0-31.0); Mean Corpuscular Volume 82.1 fL (78.0-102.0); Mean Platelet Volume 10.2 fl (8.7-11.0); Platelet Count Result 330 K/mm3 (150-420); Red Blood Count 3.86 M/mm3 (4.70-6.10); Red Cell Distribution Width 17.6 % (11.6-14.4); White Blood Count 7.9 K/mm3 (4.8-10.8)
[2023-11-28 08:19] LABS: Alanine Aminotransferase 45 U/L (16-63); Albumin Level 2.3 g/dL (3.4-5.0); Alkaline Phosphatase 45 U/L (46-116); Anion Gap 8 mmol/L (8-16); Aspartate Amino Transferase 37 U/L (15-37); Bilirubin,Total 0.2 mg/dL (0.00-1.00); Blood Urea Nitrogen 14 mg/dL (7-18); Calcium 8.5 mg/dL (8.5-10.1); Carbon Dioxide 28 mmol/L (21-32); Chloride 99 mmol/L (98-108); Estimated CRCL calculation 76 ml/min; Estimated Glomerular Filt Rate > 60; Glucose 204 mg/dL (70-99); Magnesium 1.9 mg/dL (1.8-2.4); Osmolality Calculated 286 mOsm/kg (285-295); Potassium 4.3 mmol/L (3.5-5.1); Sodium 135 mmol/L (136-145); Total Protein 7.4 g/dL (6.4-8.2)
[2023-11-28] MEDS: INSULIN HUMAN LISPRO (*BKC) 1,000 UNITS/10 ML VIAL 20 UNITS SUB-Q ×3 (08:37→17:10)
[2023-11-28] MEDS: cefTRIAXone 2 GM/NS 100 ML 2 GM/100 ML BAG IVPB (08:40)
[2023-11-28 08:41] VITALS: PULSE 88
[2023-11-28] MEDS: ESCITALOPRAM OXALATE 10 MG TABLET PO (08:41)
[2023-11-28] MEDS: FENOFIBRATE NANOCRYSTALLIZED 145 MG TABLET PO (08:41)
[2023-11-28] MEDS: SACCHAROMYCES BOULARDII 250 MG CAPSULE PO ×3 (08:41→18:46)
[2023-11-28] MEDS: metFORMIN HCL 500 MG TABLET 1000 MG PO ×2 (08:41→16:47)
[2023-11-28] MEDS: METOPROLOL TARTRATE 50 MG TAB 100 MG PO ×2 (08:41→21:05)
[2023-11-28] MEDS: PREGABALIN (*CRX) 25 MG CAPSULE 75 MG PO ×2 (08:42→21:05)
[2023-11-28] MEDS: GLIMEPIRIDE 2 MG TABLET 4 MG PO (08:42)
[2023-11-28] MEDS: FUROSEMIDE 40 MG TABLET PO (08:42)
[2023-11-28] MEDS: EMPAGLIFLOZIN 25 MG TABLET PO (08:43)
[2023-11-28] MEDS: POTASSIUM CHLORIDE 10 MEQ ER TABLET PO ×2 (08:43→16:47)
[2023-11-28] MEDS: VANCOMYCIN 1,000 MG/NS 250 ML 1,000 MG/250 ML BAG 250 MG IVPB ×2 (09:25→20:30)
[2023-11-28] MEDS: HEPARIN SODIUM LOCK FLUSH 500 UNITS/5 ML SYRINGE IV PUSH ×2 (09:25→22:12)
[2023-11-28] MEDS: SALINE LOCK FLUSH 20 ML IV PUSH ×3 (09:26→17:48)
[2023-11-28 12:00] LABS: Glucose Point of Care 306 mg/dl (65-105)
[2023-11-28] MEDS: INSULIN HUMAN LISPRO (*BKC) 1,000 UNITS/10 ML VIAL SUB-Q (12:05)
[2023-11-28 15:13] VITALS: BP 130/54; PULSE 78; RESP 18; TEMP 36; O2SAT 96
[2023-11-28] MEDS: RIVAROXABAN 10 MG TABLET 20 MG PO (16:47)
[2023-11-28 16:48] LABS: Glucose Point of Care 146 mg/dl (65-105)
[2023-11-28 20:00] VITALS: PULSE 60; RESP 18; O2SAT 96
[2023-11-28] MEDS: HYDROcodone/acetaminophen (*CRX) 5-325 MG TABLET 1 TAB PO (20:28)
[2023-11-28] MEDS: ROSUVASTATIN 10 MG TABLET 20 MG PO (21:04)
[2023-11-28 21:05] VITALS: PULSE 60
[2023-11-28] MEDS: traZODone HCL 50 MG TABLET PO (22:12)
[2023-11-28 22:17] LABS: Glucose Point of Care 78 mg/dl (65-105)
[2023-11-29] VITALS: BP 122/55; PULSE 60; RESP 17; TEMP 36; O2SAT 99
[2023-11-29] MEDS: SALMET XINAFT/FLUTIC PROPIN 500 MCG/50 MCG INH CAP 1 PUFF INHALATION ×2 (06:20→17:47)
[2023-11-29] MEDS: metroNIDAZOLE 250 MG TABLET 500 MG PO ×3 (06:20→21:50)
[2023-11-29 08:00] VITALS: BP 121/53; PULSE 60; RESP 17; TEMP 35.7; O2SAT 96
[2023-11-29] MEDS: VANCOMYCIN 1,000 MG/NS 250 ML 1,000 MG/250 ML BAG 250 MG IVPB ×2 (08:02→19:59)
[2023-11-29] MEDS: INSULIN HUMAN LISPRO (*BKC) 1,000 UNITS/10 ML VIAL 20 UNITS SUB-Q ×3 (08:12→17:46)
[2023-11-29 08:16] LABS: Glucose Point of Care 178 mg/dl (65-105)
[2023-11-29] MEDS: SALINE LOCK FLUSH 20 ML IV PUSH ×3 (09:04→17:50)
[2023-11-29] MEDS: cefTRIAXone 2 GM/NS 100 ML 2 GM/100 ML BAG IVPB (09:04)
[2023-11-29] MEDS: FENOFIBRATE NANOCRYSTALLIZED 145 MG TABLET PO (09:05)
[2023-11-29] MEDS: EMPAGLIFLOZIN 25 MG TABLET PO (09:05)
[2023-11-29] MEDS: PREGABALIN (*CRX) 25 MG CAPSULE 75 MG PO ×2 (09:05→20:57)
[2023-11-29] MEDS: metFORMIN HCL 500 MG TABLET 1000 MG PO ×2 (09:05→17:47)
[2023-11-29] MEDS: GLIMEPIRIDE 2 MG TABLET 4 MG PO (09:05)
[2023-11-29] MEDS: SACCHAROMYCES BOULARDII 250 MG CAPSULE PO ×3 (09:05→17:47)
[2023-11-29 09:06] VITALS: PULSE 60
[2023-11-29] MEDS: POTASSIUM CHLORIDE 10 MEQ ER TABLET PO ×2 (09:06→17:47)
[2023-11-29] MEDS: ESCITALOPRAM OXALATE 10 MG TABLET PO (09:06)
[2023-11-29] MEDS: METOPROLOL TARTRATE 50 MG TAB 100 MG PO ×2 (09:06→20:58)
[2023-11-29] MEDS: FUROSEMIDE 40 MG TABLET PO (09:06)
[2023-11-29] MEDS: INSULIN HUMAN LISPRO (*BKC) 1,000 UNITS/10 ML VIAL SUB-Q (12:11)
[2023-11-29 12:12] LABS: Glucose Point of Care 293 mg/dl (65-105)
[2023-11-29 16:00] VITALS: BP 121/54; PULSE 60; RESP 20; TEMP 35.8; O2SAT 99
[2023-11-29 17:06] LABS: Glucose Point of Care 97 mg/dl (65-105)
[2023-11-29] MEDS: RIVAROXABAN 10 MG TABLET 20 MG PO (17:47)
[2023-11-29 20:00] VITALS: PULSE 65; RESP 18; O2SAT 95
[2023-11-29 20:52] LABS: Glucose Point of Care 107 mg/dl (65-105)
[2023-11-29 20:58] VITALS: PULSE 65
[2023-11-29] MEDS: traZODone HCL 50 MG TABLET PO (20:58)
[2023-11-29] MEDS: ROSUVASTATIN 10 MG TABLET 20 MG PO (20:58)
[2023-11-30] VITALS: BP 101/59; PULSE 80; RESP 20; TEMP 36.6; O2SAT 93
[2023-11-30 05:28] LABS: Estimated CRCL calculation 68 ml/min; Estimated Glomerular Filt Rate > 60
[2023-11-30] MEDS: metroNIDAZOLE 250 MG TABLET 500 MG PO ×3 (06:28→21:10)
[2023-11-30] MEDS: SALMET XINAFT/FLUTIC PROPIN 500 MCG/50 MCG INH CAP 1 PUFF INHALATION ×2 (06:29→17:39)
[2023-11-30 07:07] LABS: Vancomycin Trough 23.6 ug/mL (10.0-15.0)
[2023-11-30 07:50] VITALS: BP 121/52; PULSE 60; RESP 16; TEMP 36; O2SAT 98
[2023-11-30 07:58] LABS: Glucose Point of Care 321 mg/dl (65-105)
[2023-11-30] MEDS: INSULIN HUMAN LISPRO (*BKC) 1,000 UNITS/10 ML VIAL 20 UNITS SUB-Q ×3 (09:21→17:38)
[2023-11-30] MEDS: INSULIN HUMAN LISPRO (*BKC) 1,000 UNITS/10 ML VIAL SUB-Q ×2 (09:21→17:38)
[2023-11-30] MEDS: cefTRIAXone 2 GM/NS 100 ML 2 GM/100 ML BAG IVPB (09:22)
[2023-11-30] MEDS: SACCHAROMYCES BOULARDII 250 MG CAPSULE PO ×3 (09:23→17:39)
[2023-11-30] MEDS: metFORMIN HCL 500 MG TABLET 1000 MG PO ×2 (09:23→17:39)
[2023-11-30] MEDS: GLIMEPIRIDE 2 MG TABLET 4 MG PO (09:23)
[2023-11-30 09:24] VITALS: PULSE 60
[2023-11-30] MEDS: FENOFIBRATE NANOCRYSTALLIZED 145 MG TABLET PO (09:24)
[2023-11-30] MEDS: FUROSEMIDE 40 MG TABLET PO (09:24)
[2023-11-30] MEDS: METOPROLOL TARTRATE 50 MG TAB 100 MG PO ×2 (09:24→20:57)
[2023-11-30] MEDS: ESCITALOPRAM OXALATE 10 MG TABLET PO (09:24)
[2023-11-30] MEDS: EMPAGLIFLOZIN 25 MG TABLET PO (09:24)
[2023-11-30] MEDS: POTASSIUM CHLORIDE 10 MEQ ER TABLET PO ×2 (09:24→17:39)
[2023-11-30] MEDS: PREGABALIN (*CRX) 25 MG CAPSULE 75 MG PO ×2 (09:24→20:56)
[2023-11-30] MEDS: SALINE LOCK FLUSH 20 ML IV PUSH ×3 (09:25→17:43)
[2023-11-30 11:49] LABS: Glucose Point of Care > 450 mg/dl (65-105)
[2023-11-30] MEDS: INSULIN HUMAN LISPRO (*BKC) 1,000 UNITS/10 ML VIAL 15 UNITS SUB-Q (11:50)
[2023-11-30 16:03] LABS: Glucose Point of Care 221 mg/dl (65-105)
[2023-11-30 16:45] VITALS: BP 115/54; PULSE 60; RESP 16; TEMP 35.6; O2SAT 98
[2023-11-30] MEDS: RIVAROXABAN 10 MG TABLET 20 MG PO (17:39)
[2023-11-30] MEDS: HEPARIN SODIUM LOCK FLUSH 500 UNITS/5 ML SYRINGE IV PUSH (18:00)
[2023-11-30] MEDS: VANCOMYCIN 750 MG/NS 250 ML 750 MG/250 ML BAG 250 MG IVPB (20:54)
[2023-11-30] MEDS: traZODone HCL 50 MG TABLET PO (20:56)
[2023-11-30] MEDS: ROSUVASTATIN 10 MG TABLET 20 MG PO (20:57)
[2023-11-30 21:08] LABS: Glucose Point of Care 151 mg/dl (65-105)
[2023-11-30] MEDS: INSULIN GLARGINE (*BKC) 1,000 UNITS/10 ML VIAL 40 UNITS SUB-Q (21:10)
[2023-12-01] VITALS: BP 124/58; PULSE 60; RESP 14; TEMP 36.4; O2SAT 97
[2023-12-01 05:34] LABS: Estimated CRCL calculation 69 ml/min; Estimated Glomerular Filt Rate > 60
[2023-12-01] MEDS: metroNIDAZOLE 250 MG TABLET 500 MG PO ×3 (06:55→21:16)
[2023-12-01] MEDS: SALMET XINAFT/FLUTIC PROPIN 500 MCG/50 MCG INH CAP 1 PUFF INHALATION ×2 (06:55→17:55)
[2023-12-01 07:58] LABS: Glucose Point of Care 219 mg/dl (65-105)
[2023-12-01 08:00] VITALS: BP 134/74; PULSE 82; RESP 18; TEMP 36.6; O2SAT 95
[2023-12-01] MEDS: INSULIN HUMAN LISPRO (*BKC) 1,000 UNITS/10 ML VIAL 20 UNITS SUB-Q ×3 (08:13→17:25)
[2023-12-01] MEDS: INSULIN HUMAN LISPRO (*BKC) 1,000 UNITS/10 ML VIAL SUB-Q ×2 (08:14→11:54)
[2023-12-01] MEDS: metFORMIN HCL 500 MG TABLET 1000 MG PO ×2 (08:17→16:39)
[2023-12-01] MEDS: SACCHAROMYCES BOULARDII 250 MG CAPSULE PO ×3 (08:17→16:39)
[2023-12-01] MEDS: FENOFIBRATE NANOCRYSTALLIZED 145 MG TABLET PO (08:17)
[2023-12-01] MEDS: FUROSEMIDE 40 MG TABLET PO (08:18)
[2023-12-01] MEDS: POTASSIUM CHLORIDE 10 MEQ ER TABLET PO ×2 (08:18→16:39)
[2023-12-01] MEDS: METOPROLOL TARTRATE 50 MG TAB 100 MG PO ×2 (08:18→21:15)
[2023-12-01] MEDS: GLIMEPIRIDE 2 MG TABLET 4 MG PO (08:18)
[2023-12-01] MEDS: PREGABALIN (*CRX) 25 MG CAPSULE 75 MG PO ×2 (08:18→21:15)
[2023-12-01] MEDS: ESCITALOPRAM OXALATE 10 MG TABLET PO (08:19)
[2023-12-01] MEDS: EMPAGLIFLOZIN 25 MG TABLET PO (08:19)
[2023-12-01] MEDS: cefTRIAXone 2 GM/NS 100 ML 2 GM/100 ML BAG IVPB (08:19)
[2023-12-01] MEDS: SALINE LOCK FLUSH 20 ML IV PUSH ×3 (08:20→16:39)
[2023-12-01] MEDS: VANCOMYCIN 750 MG/NS 250 ML 750 MG/250 ML BAG 250 MG IVPB ×2 (09:08→19:55)
[2023-12-01 11:55] LABS: Glucose Point of Care 286 mg/dl (65-105)
[2023-12-01 16:00] VITALS: BP 115/55; PULSE 60; RESP 18; TEMP 35.8; O2SAT 99
[2023-12-01] MEDS: RIVAROXABAN 10 MG TABLET 20 MG PO (16:39)
[2023-12-01 16:49] LABS: Glucose Point of Care 124 mg/dl (65-105)
[2023-12-01 20:01] VITALS: BP 129/57; PULSE 60; RESP 20; TEMP 36.3; O2SAT 97
[2023-12-01 21:15] VITALS: PULSE 65
[2023-12-01] MEDS: traZODone HCL 50 MG TABLET PO (21:15)
[2023-12-01] MEDS: ROSUVASTATIN 10 MG TABLET 20 MG PO (21:15)
[2023-12-01 21:25] LABS: Glucose Point of Care 73 mg/dl (65-105)
[2023-12-01 23:50] VITALS: BP 120/50; PULSE 60; RESP 16; TEMP 35.9; O2SAT 97
[2023-12-02] MEDS: SALMET XINAFT/FLUTIC PROPIN 500 MCG/50 MCG INH CAP 1 PUFF INHALATION ×2 (06:21→18:00)
[2023-12-02] MEDS: metroNIDAZOLE 250 MG TABLET 500 MG PO ×3 (06:22→21:43)
[2023-12-02 06:49] LABS: Estimated CRCL calculation 72 ml/min; Estimated Glomerular Filt Rate > 60
[2023-12-02 06:55] LABS: Vancomycin Trough 14.5 ug/mL (10.0-15.0)
[2023-12-02 08:00] VITALS: BP 128/58; PULSE 84; RESP 17; TEMP 36.6; O2SAT 97
[2023-12-02 08:00] LABS: Glucose Point of Care 228 mg/dl (65-105)
[2023-12-02] MEDS: INSULIN HUMAN LISPRO (*BKC) 1,000 UNITS/10 ML VIAL 20 UNITS SUB-Q ×3 (08:02→16:53)
[2023-12-02] MEDS: INSULIN HUMAN LISPRO (*BKC) 1,000 UNITS/10 ML VIAL SUB-Q ×2 (08:03→11:53)
--- NOTE | 2023-12-02 08:57 | PC.NURSE ---
Pharmacy contacted regarding vanc trough. Per Buzz, no changes at this time.
[2023-12-02] MEDS: VANCOMYCIN 750 MG/NS 250 ML 750 MG/250 ML BAG 250 MG IVPB ×2 (09:40→20:29)
[2023-12-02 10:09] VITALS: PULSE 84
[2023-12-02] MEDS: ESCITALOPRAM OXALATE 10 MG TABLET PO (10:09)
[2023-12-02] MEDS: METOPROLOL TARTRATE 50 MG TAB 100 MG PO ×2 (10:09→21:43)
[2023-12-02] MEDS: FENOFIBRATE NANOCRYSTALLIZED 145 MG TABLET PO (10:09)
[2023-12-02] MEDS: SACCHAROMYCES BOULARDII 250 MG CAPSULE PO ×3 (10:09→16:52)
[2023-12-02] MEDS: EMPAGLIFLOZIN 25 MG TABLET PO (10:09)
[2023-12-02] MEDS: POTASSIUM CHLORIDE 10 MEQ ER TABLET PO ×2 (10:10→16:52)
[2023-12-02] MEDS: metFORMIN HCL 500 MG TABLET 1000 MG PO ×2 (10:10→16:52)
[2023-12-02] MEDS: PREGABALIN (*CRX) 25 MG CAPSULE 75 MG PO ×2 (10:10→21:42)
[2023-12-02] MEDS: FUROSEMIDE 40 MG TABLET PO (10:10)
[2023-12-02] MEDS: GLIMEPIRIDE 2 MG TABLET 4 MG PO (10:10)
[2023-12-02] MEDS: SALINE LOCK FLUSH 20 ML IV PUSH ×3 (10:11→16:53)
[2023-12-02] MEDS: cefTRIAXone 2 GM/NS 100 ML 2 GM/100 ML BAG IVPB (10:12)
[2023-12-02 11:46] LABS: Glucose Point of Care 268 mg/dl (65-105)
[2023-12-02 16:15] VITALS: BP 118/67; PULSE 60; RESP 18; TEMP 36.9; O2SAT 98
[2023-12-02 16:51] LABS: Glucose Point of Care 192 mg/dl (65-105)
[2023-12-02] MEDS: RIVAROXABAN 10 MG TABLET 20 MG PO (16:52)
--- NOTE | 2023-12-02 19:06 | PC.NURSE ---
report to ramiro palma. all questions answered.
[2023-12-02 20:00] VITALS: PULSE 65; RESP 18; O2SAT 98
[2023-12-02] MEDS: HYDROcodone/acetaminophen (*CRX) 5-325 MG TABLET 1 TAB PO (20:27)
[2023-12-02 21:43] VITALS: PULSE 65
[2023-12-02] MEDS: traZODone HCL 50 MG TABLET PO (21:43)
[2023-12-02] MEDS: ROSUVASTATIN 10 MG TABLET 20 MG PO (21:43)
[2023-12-02] MEDS: INSULIN GLARGINE (*BKC) 1,000 UNITS/10 ML VIAL 40 UNITS SUB-Q (21:48)
[2023-12-02 21:55] LABS: Glucose Point of Care 112 mg/dl (65-105)
[2023-12-03] VITALS (7 sets, daily range): BP systolic 109–139; BP diastolic 54–68; PULSE 60–72; RESP 16–24; TEMP 35.8–36.2; O2SAT 97–98
[2023-12-03 04:53] LABS: Estimated CRCL calculation 69 ml/min; Estimated Glomerular Filt Rate > 60
--- NOTE | 2023-12-03 04:57 | P.PNCROSS_ITS ---
Event Note Event Note Event Note: Patient has a nodule that is swollen soft no redness no warmth and no pain. Pat ient would more than likely require and ultrasound not here today so I will order a xray to see if there is anything noted.
[2023-12-03] MEDS: metroNIDAZOLE 250 MG TABLET 500 MG PO ×3 (06:16→21:36)
[2023-12-03] MEDS: SALMET XINAFT/FLUTIC PROPIN 500 MCG/50 MCG INH CAP 1 PUFF INHALATION ×2 (06:16→17:52)
[2023-12-03] MEDS: metFORMIN HCL 500 MG TABLET 1000 MG PO ×2 (07:54→17:52)
[2023-12-03] MEDS: POTASSIUM CHLORIDE 10 MEQ ER TABLET PO ×2 (07:55→17:52)
[2023-12-03 08:14] LABS: Glucose Point of Care 228 mg/dl (65-105)
[2023-12-03] MEDS: INSULIN HUMAN LISPRO (*BKC) 1,000 UNITS/10 ML VIAL 20 UNITS SUB-Q ×3 (08:16→17:14)
[2023-12-03] MEDS: INSULIN HUMAN LISPRO (*BKC) 1,000 UNITS/10 ML VIAL SUB-Q ×2 (08:17→12:16)
[2023-12-03] MEDS: VANCOMYCIN 750 MG/NS 250 ML 750 MG/250 ML BAG 250 MG IVPB ×2 (08:17→20:38)
[2023-12-03] MEDS: cefTRIAXone 2 GM/NS 100 ML 2 GM/100 ML BAG IVPB (09:53)
[2023-12-03] MEDS: SACCHAROMYCES BOULARDII 250 MG CAPSULE PO ×3 (09:54→17:52)
[2023-12-03] MEDS: EMPAGLIFLOZIN 25 MG TABLET PO (09:54)
[2023-12-03] MEDS: FENOFIBRATE NANOCRYSTALLIZED 145 MG TABLET PO (09:54)
[2023-12-03] MEDS: METOPROLOL TARTRATE 50 MG TAB 100 MG PO ×2 (09:54→21:36)
[2023-12-03] MEDS: ESCITALOPRAM OXALATE 10 MG TABLET PO (09:55)
[2023-12-03] MEDS: GLIMEPIRIDE 2 MG TABLET 4 MG PO (09:55)
[2023-12-03] MEDS: SALINE LOCK FLUSH 20 ML IV PUSH ×3 (09:55→17:52)
[2023-12-03] MEDS: FUROSEMIDE 40 MG TABLET PO (09:55)
[2023-12-03] MEDS: PREGABALIN (*CRX) 25 MG CAPSULE 75 MG PO ×2 (10:38→21:39)
[2023-12-03 12:18] LABS: Glucose Point of Care 262 mg/dl (65-105)
[2023-12-03 16:56] LABS: Glucose Point of Care 166 mg/dl (65-105)
[2023-12-03] MEDS: RIVAROXABAN 10 MG TABLET 20 MG PO (17:52)
[2023-12-03] MEDS: HYDROcodone/acetaminophen (*CRX) 5-325 MG TABLET 1 TAB PO (20:38)
[2023-12-03] MEDS: HEPARIN SODIUM LOCK FLUSH 500 UNITS/5 ML SYRINGE IV PUSH (21:36)
[2023-12-03] MEDS: ROSUVASTATIN 10 MG TABLET 20 MG PO (21:38)
[2023-12-03] MEDS: traZODone HCL 50 MG TABLET PO (21:39)
[2023-12-03 21:48] LABS: Glucose Point of Care 80 mg/dl (65-105)
[2023-12-04] MEDS: metroNIDAZOLE 250 MG TABLET 500 MG PO ×3 (05:50→21:35)
[2023-12-04] MEDS: SALMET XINAFT/FLUTIC PROPIN 500 MCG/50 MCG INH CAP 1 PUFF INHALATION ×2 (05:50→18:18)
[2023-12-04 08:00] VITALS: BP 129/55; PULSE 60; RESP 18; TEMP 35.9; O2SAT 98
[2023-12-04] MEDS: metFORMIN HCL 500 MG TABLET 1000 MG PO ×2 (08:05→17:36)
[2023-12-04] MEDS: POTASSIUM CHLORIDE 10 MEQ ER TABLET PO ×2 (08:05→17:36)
[2023-12-04 08:10] LABS: Glucose Point of Care 177 mg/dl (65-105)
[2023-12-04] MEDS: ESCITALOPRAM OXALATE 10 MG TABLET PO (08:10)
[2023-12-04 08:11] VITALS: PULSE 60
[2023-12-04] MEDS: GLIMEPIRIDE 2 MG TABLET 4 MG PO (08:11)
[2023-12-04] MEDS: FUROSEMIDE 40 MG TABLET PO (08:11)
[2023-12-04] MEDS: SACCHAROMYCES BOULARDII 250 MG CAPSULE PO ×3 (08:11→17:36)
[2023-12-04] MEDS: METOPROLOL TARTRATE 50 MG TAB 100 MG PO ×2 (08:11→21:36)
[2023-12-04] MEDS: EMPAGLIFLOZIN 25 MG TABLET PO (08:11)
[2023-12-04] MEDS: FENOFIBRATE NANOCRYSTALLIZED 145 MG TABLET PO (08:11)
[2023-12-04] MEDS: PREGABALIN (*CRX) 25 MG CAPSULE 75 MG PO ×2 (08:11→21:35)
[2023-12-04] MEDS: VANCOMYCIN 750 MG/NS 250 ML 750 MG/250 ML BAG 250 MG IVPB ×2 (08:12→20:35)
[2023-12-04] MEDS: INSULIN HUMAN LISPRO (*BKC) 1,000 UNITS/10 ML VIAL 20 UNITS SUB-Q ×3 (08:20→17:04)
[2023-12-04] MEDS: SALINE LOCK FLUSH 20 ML IV PUSH ×3 (08:23→17:36)
--- NOTE | 2023-12-04 08:36 | PM.EVENT ---
Event Note Event Note Event Note: Ultrasound completed of the arm awaiting results we will work according to the patient results.
[2023-12-04] MEDS: cefTRIAXone 2 GM/NS 100 ML 2 GM/100 ML BAG IVPB (09:42)
[2023-12-04] MEDS: INSULIN HUMAN LISPRO (*BKC) 1,000 UNITS/10 ML VIAL SUB-Q ×2 (12:09→17:05)
[2023-12-04 12:13] LABS: Glucose Point of Care 255 mg/dl (65-105)
[2023-12-04 16:00] VITALS: BP 123/56; PULSE 60; RESP 18; TEMP 36.1; O2SAT 98
[2023-12-04 17:09] LABS: Glucose Point of Care 145 mg/dl (65-105)
[2023-12-04] MEDS: RIVAROXABAN 10 MG TABLET 20 MG PO (17:36)
[2023-12-04 19:58] VITALS: PULSE 60; RESP 18; O2SAT 98
[2023-12-04] MEDS: HYDROcodone/acetaminophen (*CRX) 5-325 MG TABLET 1 TAB PO (20:37)
[2023-12-04] MEDS: traZODone HCL 50 MG TABLET PO (21:35)
[2023-12-04 21:36] VITALS: PULSE 69
[2023-12-04] MEDS: ROSUVASTATIN 10 MG TABLET 20 MG PO (21:36)
[2023-12-04] MEDS: HEPARIN SODIUM LOCK FLUSH 500 UNITS/5 ML SYRINGE IV PUSH (21:38)
[2023-12-04 21:48] LABS: Glucose Point of Care 189 mg/dl (65-105)
[2023-12-04] MEDS: INSULIN GLARGINE (*BKC) 1,000 UNITS/10 ML VIAL 40 UNITS SUB-Q (21:55)
[2023-12-05] VITALS: BP 124/51; PULSE 69; RESP 18; TEMP 36.1; O2SAT 97
[2023-12-05] MEDS: metroNIDAZOLE 250 MG TABLET 500 MG PO ×3 (06:27→21:32)
[2023-12-05] MEDS: SALMET XINAFT/FLUTIC PROPIN 500 MCG/50 MCG INH CAP 1 PUFF INHALATION ×2 (06:27→18:45)
[2023-12-05 07:04] LABS: Glucose Point of Care 212 mg/dl (65-105)
[2023-12-05 07:15] VITALS: BP 121/56; PULSE 60; RESP 18; TEMP 36.3; O2SAT 98
[2023-12-05 07:19] LABS: Vancomycin Trough 16.1 ug/mL (10.0-15.0)
[2023-12-05] MEDS: INSULIN HUMAN LISPRO (*BKC) 1,000 UNITS/10 ML VIAL 20 UNITS SUB-Q ×3 (07:26→17:25)
[2023-12-05] MEDS: INSULIN HUMAN LISPRO (*BKC) 1,000 UNITS/10 ML VIAL SUB-Q (07:27)
[2023-12-05] MEDS: GLIMEPIRIDE 2 MG TABLET 4 MG PO (07:28)
[2023-12-05] MEDS: FENOFIBRATE NANOCRYSTALLIZED 145 MG TABLET PO (07:28)
[2023-12-05] MEDS: metFORMIN HCL 500 MG TABLET 1000 MG PO ×2 (07:29→17:25)
[2023-12-05] MEDS: SACCHAROMYCES BOULARDII 250 MG CAPSULE PO ×3 (07:29→17:25)
[2023-12-05 07:30] VITALS: PULSE 60
[2023-12-05] MEDS: ESCITALOPRAM OXALATE 10 MG TABLET PO (07:30)
[2023-12-05] MEDS: EMPAGLIFLOZIN 25 MG TABLET PO (07:30)
[2023-12-05] MEDS: METOPROLOL TARTRATE 50 MG TAB 100 MG PO ×2 (07:30→21:33)
[2023-12-05] MEDS: FUROSEMIDE 40 MG TABLET PO (07:31)
[2023-12-05] MEDS: POTASSIUM CHLORIDE 10 MEQ ER TABLET PO ×2 (07:31→17:25)
[2023-12-05] MEDS: PREGABALIN (*CRX) 25 MG CAPSULE 75 MG PO ×2 (07:31→21:31)
--- NOTE | 2023-12-05 07:42 | PM.IMPN ---
Progress Note: A&P Assessment and Plan (1) Osteomyelitis of second toe of left foot: Code(s): M86.9 - Osteomyelitis, unspecified Status: Acute Assessment and Plan: Status post-op L foot partial amputation by [facility] 11/09/23 IV vancomycin and rocephin for 3 weeks 3 weeks of oral anitibiotics Augmentin, doxycycline, and Flagyl 11/21: antibiotics continue. Wound care appointment was changed by Orthopedics office, reached out to midlevel at orthopedic office to review wound photos and encourage that we keep prior scheduled appointment. 12/05/23: Continue IV antibiotics until , then will transition to oral antibiotics Monday. Patient has appointment at the wound clinic this morning and we will await further instruction from Dr. Natoin's office. Continue with dressing changes and wound care per wound clinic recommendations. (2) Cellulitis of foot, left: Code(s): L03.116 - Cellulitis of left lower limb Status: Acute Assessment and Plan: Status post-op L foot partial amputation by [facility] 11/09/23 IV vancomycin and rocephin for 3 weeks after acute care discharge then follow with 3 weeks of oral antibiotics Augmentin, doxycycline, and Flagyl 12/05/23: see above plan of care (3) Diabetes: Qualifiers: Diabetes mellitus type: type 2 Diabetes mellitus extermination inspector insulin use: with extermination inspector use Diabetes mellitus complication status: with circulatory complication Diabetes mellitus complication detail: with peripheral angiopathy with gangrene Qualified Code(s): E11.52 - Type 2 diabetes mellitus with diabetic peripheral angiopathy with gangrene; Z79.4 - custodial (current) use of insulin Code(s): E11.9 - Type 2 diabetes mellitus without complications Status: Chronic Assessment and Plan: Monitor blood glucose levels administer insulin as directed educate improves of dietary control continue glimepiride 4mg Po daily, Jardiance 25 mg PO daily and metformin 1000mg PO bid last Hemoglobin A1C 9.1 11/21: Patient is essentially dictating a sliding scale based on premeal glucose and anticipated intake of meal tray with decent results. 11/27: Patient continues to dictate mealtime dosage of lispro and refuses glargine. Sugars roughly 150-200 throughout the day. 12/05/23: BG ranging 145-212 Continue with current treatment plan. Patient refusing short acting and long acting insulin for better glycemic control. (4) COPD (chronic obstructive pulmonary disease): Code(s): J44.9 - Chronic obstructive pulmonary disease, unspecified Status: Acute Assessment and Plan: education on smoking cessation offered nicotine patch which patient declined 12/05/23: Previous smoker Lungs slightly wheeze today bilaterally, non-productive cough (5) KIRILL on CPAP: Code(s): G47.33 - Obstructive sleep apnea (adult) (pediatric) Status: Acute Assessment and Plan: has not use home unit due to missing supplies at home AutoPap order during hospitalization 11/21: New supplies have been ordered for home machine. Patient complying well with CPAP use. 12/05/23: Patient using Cpap at night No change to current treatment plan (6) Peripheral vascular disease: Code(s): I73.9 - Peripheral vascular disease, unspecified Status: Chronic Assessment and Plan: continue anticoagulation therapy xaraleto 20 mg PO daily Known arterial stent LLE 11/21: Wound at risk due to PVD, contacted orthopedic office to reevaluate photos and to try to keep original 11/24 wound reeval appointment that office called to change yesterday to 12/05 11/27: Follow up evaluation on 12/05 at wound clinic at [place] with Orthopedics when sutures are anticipated to be removed 12/05/23: Wound clinic appointment today at [place] for suture removal and wound assessment Will await further details from the wound clinic. (7) Hypertension: Qualifiers: Hypertension
[2023-12-05 08:00] LABS: Basophils Absolute Auto 0.11 K/mm3 (0.00-0.10); Basophils Percent Auto 1.4 % (0.0-1.0); Eosinophils Absolute Auto 0.72 K/mm3 (0.02-0.50); Eosinophils Percent Auto 8.9 % (1.0-6.0); Hemoglobin 10.6 g/dL (12.4-15.3); Immature Granulocyte Absolute 0.02 K/mm3 (0.00-0.00); Immature Granulocyte Percent A 0.2 % (0.0-0.0); Lymphocytes Absolute Auto 1.65 K/mm3 (1.10-4.50); Lymphocytes Percent Auto 20.3 % (18.0-42.0); Mean Corpuscular HGB Conc 30.3 g/dL (32.0-36.0); Mean Corpuscular Hemoglobin 24.9 pg (27.0-31.0); Mean Corpuscular Volume 82.4 fL (78.0-102.0); Mean Platelet Volume 10.2 fl (8.7-11.0); Monocytes Percent Auto 8.6 % (2.0-11.0); Neutrophils Absolute Auto 4.9 K/mm3 (1.7-7.2); Neutrophils Percent Auto 60.6 % (50.0-70.0); Platelet Count Result 295 K/mm3 (150-420); Red Blood Count 4.25 M/mm3 (4.70-6.10); Red Cell Distribution Width 18.1 % (11.6-14.4); White Blood Count 8.1 K/mm3 (4.8-10.8)
[2023-12-05 08:04] LABS: Magnesium 1.9 mg/dL (1.8-2.4)
--- NOTE | 2023-12-05 08:05 | PC.NURSE ---
Pt assisted into private vehicle for leave of absence to appointment with Dr. Pizarro.
[2023-12-05 08:10] LABS: Alanine Aminotransferase 36 U/L (16-63); Albumin Level 2.7 g/dL (3.4-5.0); Alkaline Phosphatase 43 U/L (46-116); Anion Gap 7 mmol/L (8-16); Aspartate Amino Transferase 20 U/L (15-37); Bilirubin,Total 0.2 mg/dL (0.00-1.00); Blood Urea Nitrogen 24 mg/dL (7-18); Calcium 8.6 mg/dL (8.5-10.1); Carbon Dioxide 29 mmol/L (21-32); Chloride 102 mmol/L (98-108); Estimated CRCL calculation 71 ml/min; Estimated Glomerular Filt Rate > 60; Glucose 191 mg/dL (70-99); Osmolality Calculated 295 mOsm/kg (285-295); Potassium 4.4 mmol/L (3.5-5.1); Sodium 138 mmol/L (136-145); Total Protein 7.7 g/dL (6.4-8.2)
--- NOTE | 2023-12-05 11:00 | PC.NURSE ---
Pt returned from dr visit. New wound care orders placed in paper chart and given to AYLEEN Murguia.
[2023-12-05] MEDS: VANCOMYCIN 750 MG/NS 250 ML 750 MG/250 ML BAG 250 MG IVPB ×2 (11:29→20:25)
[2023-12-05] MEDS: cefTRIAXone 2 GM/NS 100 ML 2 GM/100 ML BAG IVPB (11:29)
[2023-12-05] MEDS: SALINE LOCK FLUSH 20 ML IV PUSH ×3 (11:30→18:46)
[2023-12-05 11:50] LABS: Glucose Point of Care 194 mg/dl (65-105)
[2023-12-05 16:00] VITALS: BP 113/53; PULSE 97; RESP 17; TEMP 36; O2SAT 97
[2023-12-05 16:50] LABS: Glucose Point of Care 115 mg/dl (65-105)
[2023-12-05] MEDS: RIVAROXABAN 10 MG TABLET 20 MG PO (17:25)
[2023-12-05 21:25] LABS: Glucose Point of Care 124 mg/dl (65-105)
[2023-12-05] MEDS: traZODone HCL 50 MG TABLET PO (21:31)
[2023-12-05] MEDS: ROSUVASTATIN 10 MG TABLET 20 MG PO (21:32)
[2023-12-05 21:33] VITALS: PULSE 94
[2023-12-05] MEDS: INSULIN GLARGINE (*BKC) 1,000 UNITS/10 ML VIAL 40 UNITS SUB-Q (21:33)
[2023-12-06 00:35] VITALS: BP 128/58; PULSE 60; RESP 16; TEMP 35.7; O2SAT 97
[2023-12-06] MEDS: metroNIDAZOLE 250 MG TABLET 500 MG PO ×3 (05:51→21:26)
[2023-12-06] MEDS: SALMET XINAFT/FLUTIC PROPIN 500 MCG/50 MCG INH CAP 1 PUFF INHALATION ×2 (05:51→18:22)
[2023-12-06 07:50] LABS: Glucose Point of Care 183 mg/dl (65-105)
[2023-12-06 08:00] VITALS: BP 126/59; PULSE 60; RESP 17; TEMP 35.8; O2SAT 98
[2023-12-06 08:27] VITALS: PULSE 60
[2023-12-06] MEDS: PREGABALIN (*CRX) 25 MG CAPSULE 75 MG PO ×2 (08:27→21:25)
[2023-12-06] MEDS: METOPROLOL TARTRATE 50 MG TAB 100 MG PO ×2 (08:27→21:26)
[2023-12-06] MEDS: INSULIN HUMAN LISPRO (*BKC) 1,000 UNITS/10 ML VIAL 20 UNITS SUB-Q ×3 (08:27→17:12)
[2023-12-06] MEDS: GLIMEPIRIDE 2 MG TABLET 4 MG PO (08:27)
[2023-12-06] MEDS: SACCHAROMYCES BOULARDII 250 MG CAPSULE PO ×3 (08:28→17:13)
[2023-12-06] MEDS: POTASSIUM CHLORIDE 10 MEQ ER TABLET PO ×2 (08:28→17:13)
[2023-12-06] MEDS: EMPAGLIFLOZIN 25 MG TABLET PO (08:28)
[2023-12-06] MEDS: FUROSEMIDE 40 MG TABLET PO (08:28)
[2023-12-06] MEDS: FENOFIBRATE NANOCRYSTALLIZED 145 MG TABLET PO (08:28)
[2023-12-06] MEDS: ESCITALOPRAM OXALATE 10 MG TABLET PO (08:28)
[2023-12-06] MEDS: metFORMIN HCL 500 MG TABLET 1000 MG PO ×2 (08:28→17:13)
[2023-12-06] MEDS: SALINE LOCK FLUSH 20 ML IV PUSH ×3 (10:04→17:18)
[2023-12-06] MEDS: cefTRIAXone 2 GM/NS 100 ML 2 GM/100 ML BAG IVPB (10:04)
[2023-12-06] MEDS: VANCOMYCIN 750 MG/NS 250 ML 750 MG/250 ML BAG 250 MG IVPB ×2 (10:04→19:58)
[2023-12-06 11:53] LABS: Glucose Point of Care 225 mg/dl (65-105)
[2023-12-06] MEDS: INSULIN HUMAN LISPRO (*BKC) 1,000 UNITS/10 ML VIAL SUB-Q (12:04)
[2023-12-06 16:00] VITALS: BP 132/57; PULSE 60; RESP 18; TEMP 36; O2SAT 99
[2023-12-06 16:58] LABS: Glucose Point of Care 122 mg/dl (65-105)
[2023-12-06] MEDS: RIVAROXABAN 10 MG TABLET 20 MG PO (17:13)
[2023-12-06] MEDS: HYDROcodone/acetaminophen (*CRX) 5-325 MG TABLET 1 TAB PO (19:58)
[2023-12-06 20:00] VITALS: PULSE 64; RESP 18; O2SAT 99
[2023-12-06] MEDS: HEPARIN SODIUM LOCK FLUSH 500 UNITS/5 ML SYRINGE IV PUSH (21:24)
[2023-12-06 21:26] VITALS: PULSE 64
[2023-12-06] MEDS: traZODone HCL 50 MG TABLET PO (21:26)
[2023-12-06] MEDS: ROSUVASTATIN 10 MG TABLET 20 MG PO (21:27)
[2023-12-06 21:34] LABS: Glucose Point of Care 199 mg/dl (65-105)
[2023-12-06] MEDS: INSULIN GLARGINE (*BKC) 1,000 UNITS/10 ML VIAL 40 UNITS SUB-Q (21:37)
[2023-12-07] VITALS: BP 130/41; PULSE 64; RESP 17; TEMP 36.2; O2SAT 96
[2023-12-07] MEDS: metroNIDAZOLE 250 MG TABLET 500 MG PO ×2 (06:11→13:00)
[2023-12-07] MEDS: SALMET XINAFT/FLUTIC PROPIN 500 MCG/50 MCG INH CAP 1 PUFF INHALATION (06:11)
[2023-12-07 08:00] VITALS: BP 118/48; PULSE 60; RESP 18; TEMP 36.1; O2SAT 99
[2023-12-07] MEDS: INSULIN HUMAN LISPRO (*BKC) 1,000 UNITS/10 ML VIAL SUB-Q ×2 (08:00→12:11)
[2023-12-07] MEDS: INSULIN HUMAN LISPRO (*BKC) 1,000 UNITS/10 ML VIAL 20 UNITS SUB-Q ×2 (08:00→12:11)
[2023-12-07 08:21] LABS: Glucose Point of Care 216 mg/dl (65-105)
[2023-12-07] MEDS: metFORMIN HCL 500 MG TABLET 1000 MG PO (08:22)
[2023-12-07] MEDS: POTASSIUM CHLORIDE 10 MEQ ER TABLET PO (08:22)
[2023-12-07 09:01] LABS: Basophils Absolute Auto 0.09 K/mm3 (0.00-0.10); Basophils Percent Auto 1.1 % (0.0-1.0); Eosinophils Absolute Auto 0.59 K/mm3 (0.02-0.50); Hematocrit 33.4 % (37.0-46.0); Hemoglobin 10.1 g/dL (12.4-15.3); Immature Granulocyte Absolute 0.02 K/mm3 (0.00-0.00); Immature Granulocyte Percent A 0.2 % (0.0-0.0); Lymphocytes Absolute Auto 1.33 K/mm3 (1.10-4.50); Lymphocytes Percent Auto 15.8 % (18.0-42.0); Mean Corpuscular HGB Conc 30.2 g/dL (32.0-36.0); Mean Corpuscular Hemoglobin 24.9 pg (27.0-31.0); Mean Corpuscular Volume 82.5 fL (78.0-102.0); Mean Platelet Volume 9.6 fl (8.7-11.0); Monocytes Absolute Auto 0.68 K/mm3 (0.10-0.90); Monocytes Percent Auto 8.1 % (2.0-11.0); Neutrophils Absolute Auto 5.7 K/mm3 (1.7-7.2); Neutrophils Percent Auto 67.8 % (50.0-70.0); Platelet Count Result 276 K/mm3 (150-420); Red Blood Count 4.05 M/mm3 (4.70-6.10); Red Cell Distribution Width 18.2 % (11.6-14.4); White Blood Count 8.4 K/mm3 (4.8-10.8)
[2023-12-07 09:21] LABS: Alanine Aminotransferase 16 U/L (16-63); Albumin Level 2.8 g/dL (3.4-5.0); Alkaline Phosphatase 40 U/L (46-116); Anion Gap 8 mmol/L (8-16); Aspartate Amino Transferase 16 U/L (15-37); Bilirubin,Total 0.2 mg/dL (0.00-1.00); Blood Urea Nitrogen 27 mg/dL (7-18); Calcium 8.6 mg/dL (8.5-10.1); Carbon Dioxide 29 mmol/L (21-32); Chloride 100 mmol/L (98-108); Estimated CRCL calculation 72 ml/min; Estimated Glomerular Filt Rate > 60; Glucose 233 mg/dL (70-99); Osmolality Calculated 296 mOsm/kg (285-295); Potassium 4.3 mmol/L (3.5-5.1); Sodium 137 mmol/L (136-145); Total Protein 7.8 g/dL (6.4-8.2)
[2023-12-07] MEDS: SACCHAROMYCES BOULARDII 250 MG CAPSULE PO ×2 (09:21→13:00)
[2023-12-07] MEDS: FENOFIBRATE NANOCRYSTALLIZED 145 MG TABLET PO (09:21)
[2023-12-07] MEDS: GLIMEPIRIDE 2 MG TABLET 4 MG PO (09:21)
[2023-12-07] MEDS: AMOXICILLIN/CLAVULANATE K 875-125 MG TAB 1 TABLET PO (09:21)
[2023-12-07] MEDS: EMPAGLIFLOZIN 25 MG TABLET PO (09:22)
[2023-12-07] MEDS: ESCITALOPRAM OXALATE 10 MG TABLET PO (09:22)
[2023-12-07] MEDS: PREGABALIN (*CRX) 25 MG CAPSULE 75 MG PO (09:22)
[2023-12-07] MEDS: DOXYCYCLINE HYCLATE 100 MG TABLET PO (09:22)
[2023-12-07 09:23] VITALS: PULSE 60
[2023-12-07] MEDS: FUROSEMIDE 40 MG TABLET PO (09:23)
[2023-12-07] MEDS: METOPROLOL TARTRATE 50 MG TAB 100 MG PO (09:23)
[2023-12-07] MEDS: SALINE LOCK FLUSH 20 ML IV PUSH (09:24)
--- NOTE | 2023-12-07 10:19 | PM.DS ---
DS: Admitting Diagnosis Discharge Date 12/07/23 Admitting Diagnosis Osteomyelitis of 2nd toe left foot cellulitis of left foot diabetes COPD KIRILL on CPAP peripheral vascular disease hypertension situational depression DS: Discharge Diagnosis Discharge Diagnosis (1) Osteomyelitis of second toe of left foot: Code(s): M86.9 - Osteomyelitis, unspecified Status: Acute (2) Cellulitis of foot, left: Code(s): L03.116 - Cellulitis of left lower limb Status: Acute (3) Diabetes: Qualifiers: Diabetes mellitus complication detail: with peripheral angiopathy with gangrene Diabetes mellitus complication status: with circulatory complication Diabetes mellitus extermination supervisor insulin use: with senior living use Diabetes mellitus type: type 2 Qualified Code(s): E11.52 - Type 2 diabetes mellitus with diabetic peripheral angiopathy with gangrene; Z79.4 - [employer] (current) use of insulin Code(s): E11.9 - Type 2 diabetes mellitus without complications Status: Chronic (4) COPD (chronic obstructive pulmonary disease): Code(s): J44.9 - Chronic obstructive pulmonary disease, unspecified Status: Acute (5) KIRILL on CPAP: Code(s): G47.33 - Obstructive sleep apnea (adult) (pediatric) Status: Acute (6) Peripheral vascular disease: Code(s): I73.9 - Peripheral vascular disease, unspecified Status: Chronic (7) Hypertension: Qualifiers: Hypertension type: unspecified Qualified Code(s): I10 - Essential (primary) hypertension Code(s): I10 - Essential (primary) hypertension Status: Chronic (8) Situational depression: Code(s): F43.21 - Adjustment disorder with depressed mood Status: Acute DS: Summary Hospital Course Reason for hospitalization: Osteomyelitis of 2nd toe left foot cellulitis of left foot diabetes COPD KIRILL on CPAP peripheral vascular disease hypertension situational depression Hospital Course: 11/16/23: 68 year old male with history of CAD, COPD, dyslipidemia, Hypertension, pacemaker, PVD, pulmonary embolism, and extermination supervisor tobacco use.? Patient presents with chief complaint of L foot infection that was treated at [facility]. Upon interviewing patient, patient states that he has had wound on left foot for about one month. Patient states that he had amputation of L 2nd and 3rd metatarsals performed by MD Bustamante due to osteomyelitis and septic joint. Patient state that prior to amputation he had stents placed in the LUE due to poor circulation and PVD. Prior to operation it was documented that the patient was receiving wound care at [place] and it was reported that the wound as worsening with? increase pain, purulent drainage, and foul smelling. XR for L foot? on 11/09/23 showed destructive changes in 2nd and 3rd promixal phalanges suspicious of osteomyelitis. CT L foot 11/09/23 showed destructive and erosional changes with osteomyelitis in 2nd to 4th metataral heads with 2nd and 3rd proximinal phalanges with fracture vs osteolysis of distal aspect.? ? Patient has prior surgical history of CABG. Patient is on Xarelto for anticoagulation therapy 20 mg PO daily. Patient has history of atrial fibrillation that is controlled with metoprolol 100 mg PO bid. Patient states pain is 4 /10 is morning and states pain regimen has been effective for controlling patient. Patient states he has SOB with ambulation short distances such as to the restroom and has COPD and is a life long smoker. States he sleeps with HOB elevated and denies difficulty with sleeping last night. ?Patient is up to chair and able to ambulate to the restroom with walker with SBA from nursing staff. Patient was educated on smoking cessation and importance for controlling glucose level to promote healing. Patient continues to receive care at [facility] for antibiotic therapy swing and increase strengthen and mobility. Patient states he did have some diarrhea this mayito
[2023-12-07 11:54] LABS: Glucose Point of Care 307 mg/dl (65-105)
--- NOTE | 2023-12-11 11:53 | PC.NURSE ---
Discharge call back attempted, no answer
--- NOTE | 2023-12-11 12:19 | PC.NURSE ---
Discharge call back, patient returned call, doing well, missing all of the staff, no questions or concerns re dc instructions or visit
== END 2023-12-07 15:45 | disposition home health service (06) | DRG 638 ==
PROVIDERS: Nurse Practitioner; Nurse Practitioner Acute Care; Admitting Provider Internal Medicine; Visit Provider Internal Medicine
DX: E11.69 Type 2 diabetes mellitus with other specified complication (principal); I48.20 Chronic atrial fibrillation, unspecified; M86.172 Other acute osteomyelitis, left ankle and foot; L03.116 Cellulitis of left lower limb; K52.1 Toxic gastroenteritis and colitis; E11.51 Type 2 diabetes mellitus with diabetic peripheral angiopathy without gangrene; I73.9 Peripheral vascular disease, unspecified; I10 Essential (primary) hypertension; I25.10 Atherosclerotic heart disease of native coronary artery without angina pectoris; J44.9 Chronic obstructive pulmonary disease, unspecified; E78.5 Hyperlipidemia, unspecified; R22.31 Localized swelling, mass and lump, right upper limb; G47.33 Obstructive sleep apnea (adult) (pediatric); T36.95XA Adverse effect of unspecified systemic antibiotic, initial encounter; F43.21 Adjustment disorder with depressed mood; F17.210 Nicotine dependence, cigarettes, uncomplicated; Z95.0 Presence of cardiac pacemaker; Z86.711 Personal history of pulmonary embolism; Z89.422 Acquired absence of other left toe(s); Z95.820 Peripheral vascular angioplasty status with implants and grafts; Z95.1 Presence of aortocoronary bypass graft; Z79.01 Long term (current) use of anticoagulants; Z79.4 Long term (current) use of insulin
CPT/HCPCS: 36415; 71046; 73080; 76882; 80053; 80202; 82565; 82947; 82948; 83735; 85025; 85027; 97110; 97112; 97161; 97165; 97530; 97535; A9270; J0692; J0696; J1815; J1836; J2997; J3370

== ENCOUNTER 2023-12-22 07:12 | Outpatient (RCR) | payer MEDICARE, SELFPAY ==
--- NOTE | 2023-10-03 08:41 | PM.IMHP ---
H&P: HPI History of Present Illness Date/Time: 10/03/23 08:41 Chief Complaint: Left DFU Narrative: 68 year old male presents today with complaints of left DFU. History, exam and radiographs reviewed with the patient. Referring physician records reviewed. Patient previously seen in the hospital and underwent debridement by Dr. Pizarro 1 week, 3 days ago of the left DFU. He has been performing daily dressing changes at home with the assistance of his family. Review of Systems Constitutional: Constitutional: Denies fever(s) Eyes: Eyes: Denies blurry vision ENT: Reports Normal hearing present Cardiovascular: Cardiovascular: Denies chest pain and Denies dyspnea Respiratory: Respiratory: Denies dyspnea and Denies wheezing Gastrointestinal: Gastrointestinal: Denies abdominal pain Genitourinary: Genitourinary: Denies urinary urgency Musculoskeletal: Musculoskeletal: Reports as per HPI and Denies numbness Integumentary/Breasts: Skin/Breast: Denies changing lesions and Denies sores Neurologic: Reports Normal hearing present, Denies behavioral changes, Denies confusion, Denies numbness and Denies convulsions Psychiatric: Psychiatric: Denies behavioral changes, Denies confusion and Denies hallucinations Endocrine: Endocrine: Denies heat intolerance Hematologic/Lymphatic: Hematologic/Lymphatic: Denies easy bleeding Allergic/Immunologic: Allergic/Immunologic: Denies wheezing [facility] Past Medical History Medical History Atrial fibrillation CAD (coronary artery disease) COPD (chronic obstructive pulmonary disease) Pacemaker Pulmonary emboli Tobacco abuse Surgical History Surgical History Hx of CABG Social History Social History Smoking packs per day: 2 Smoking cigarettes per day: 40.0 Years smoked: 60 Smoking pack-years: 120.00 Smoking status: Current every day smoker Tobacco type: cigarettes Alcohol intake: never Substance use: never Do You Feel Safe in your Home?: Yes Lack of Transportation: No Lack of Food: Sometimes True Current Housing: I Have Housing Concerned About Future Housing: No Difficulty Paying Gas/Electric Bills: No Difficulty Paying for Meds: YES Currently Unemployed: No Education: High School Diploma/GED Difficulty w/ Childcare or Family Care: No Spiritual care concerns: No Meds Home Medications and Allergies Home Medications Medication Instructions Recorded Confirmed Type empagliflozin 25 mg tablet 25 mg PO DAILY 09/22/23 09/22/23 History (Jardiance) escitalopram oxalate 10 mg tablet 10 mg PO DAILY 09/22/23 09/22/23 History fenofibrate 160 mg tablet 160 mg PO DAILY 09/22/23 09/22/23 History fluticasone 500 mcg-salmeterol 50 1 inh inhalation BID 09/22/23 09/22/23 History mcg/dose blistr powdr for inhalation (Advair Diskus) furosemide 40 mg tablet 40 mg PO DAILY 09/22/23 09/22/23 History glimepiride 2 mg tablet 4 mg PO DAILY 09/22/23 09/22/23 History insulin aspart U-100 100 unit/mL 20 unit subcut TIDWM 09/22/23 09/22/23 History subcutaneous solution (Novolog U-100 Insulin aspart) insulin glargine 100 unit/mL (3 105 unit subcut HS 09/22/23 09/22/23 History mL) subcutaneous pen (Basaglar KwikPen U-100 Insulin) metformin 1,000 mg tablet 1,000 mg PO BIDWM 09/22/23 09/22/23 History metoprolol tartrate 100 mg tablet 100 mg PO BID 09/22/23 09/22/23 History potassium chloride 10 mEq 10 meq PO BIDWM 09/22/23 09/22/23 History tablet,extended release rivaroxaban 20 mg tablet (Xarelto) 20 mg PO DAILY 09/22/23 09/22/23 History rosuvastatin 20 mg tablet 20 mg PO HS 09/22/23 09/22/23 History amoxicillin 875 mg-potassium 1 tablet PO Q12H #9 tabs 09/26/23 Rx clavulanate 125 mg tablet doxycycline hyclate 100 mg tablet 100 mg PO Q12HR #9 tabs 09/26/23 Rx Allergies
[2023-10-03 12:39] VITALS: BMI 37.6
--- NOTE | 2023-10-17 09:03 | PM.IMHP ---
H&P: HPI History of Present Illness Date/Time: 10/17/23 09:03 Chief Complaint: Left DFU Narrative: 68 year old male presents today for reevlauation of left DFU. History, exam and radiographs reviewed with the patient. Referring physician records reviewed. Patient previously seen in the hospital and underwent debridement by Dr. Pizarro 3 weeks, 3 days ago of the left DFU. He has been performing daily dressing changes at home with the assistance of his family. Review of Systems Constitutional: Constitutional: Denies fever(s) Eyes: Eyes: Denies blurry vision ENT: Reports Normal hearing present Cardiovascular: Cardiovascular: Denies chest pain and Denies dyspnea Respiratory: Respiratory: Denies dyspnea and Denies wheezing Gastrointestinal: Gastrointestinal: Denies abdominal pain Genitourinary: Genitourinary: Denies urinary urgency Musculoskeletal: Musculoskeletal: Reports as per HPI and Denies numbness Integumentary/Breasts: Skin/Breast: Denies changing lesions and Denies sores Neurologic: Reports Normal hearing present, Denies behavioral changes, Denies confusion, Denies numbness and Denies convulsions Psychiatric: Psychiatric: Denies behavioral changes, Denies confusion and Denies hallucinations Endocrine: Endocrine: Denies heat intolerance Hematologic/Lymphatic: Hematologic/Lymphatic: Denies easy bleeding Allergic/Immunologic: Allergic/Immunologic: Denies wheezing PMFSH Past Medical History Medical History Atrial fibrillation CAD (coronary artery disease) COPD (chronic obstructive pulmonary disease) Pacemaker Pulmonary emboli Tobacco abuse Surgical History Surgical History Hx of CABG Social History Social History Smoking packs per day: 2 Smoking cigarettes per day: 40.0 Years smoked: 60 Smoking pack-years: 120.00 Smoking status: Current every day smoker Tobacco type: cigarettes Alcohol intake: never Substance use: never Do You Feel Safe in your Home?: Yes Lack of Transportation: No Lack of Food: Sometimes True Current Housing: I Have Housing Concerned About Future Housing: No Difficulty Paying Gas/Electric Bills: No Difficulty Paying for Meds: YES Currently Unemployed: No Education: High School Diploma/GED Difficulty w/ Childcare or Family Care: No Spiritual care concerns: No Meds Home Medications and Allergies Home Medications Medication Instructions Recorded Confirmed Type empagliflozin 25 mg tablet 25 mg PO DAILY 09/22/23 10/03/23 History (Jardiance) escitalopram oxalate 10 mg tablet 10 mg PO DAILY 09/22/23 10/03/23 History fenofibrate 160 mg tablet 160 mg PO DAILY 09/22/23 10/03/23 History fluticasone 500 mcg-salmeterol 50 1 inh inhalation BID 09/22/23 10/03/23 History mcg/dose blistr powdr for inhalation (Advair Diskus) furosemide 40 mg tablet 40 mg PO DAILY 09/22/23 10/03/23 History glimepiride 2 mg tablet 4 mg PO DAILY 09/22/23 10/03/23 History insulin aspart U-100 100 unit/mL 20 unit subcut TIDWM 09/22/23 10/03/23 History subcutaneous solution (Novolog U-100 Insulin aspart) insulin glargine 100 unit/mL (3 105 unit subcut HS 09/22/23 10/03/23 History mL) subcutaneous pen (Basaglar KwikPen U-100 Insulin) metformin 1,000 mg tablet 1,000 mg PO BIDWM 09/22/23 10/03/23 History metoprolol tartrate 100 mg tablet 100 mg PO BID 09/22/23 10/03/23 History potassium chloride 10 mEq 10 meq PO BIDWM 09/22/23 10/03/23 History tablet,extended release rivaroxaban 20 mg tablet (Xarelto) 20 mg PO DAILY 09/22/23 10/03/23 History rosuvastatin 20 mg tablet 20 mg PO HS 09/22/23 10/03/23 History Allergies Allergy/AdvReac Type Severity Reaction Status Date / Time No Known Allergies Allergy Verified 10/03/23 13:07 Exam Const: General: healthy appearing; No in
--- NOTE | 2023-12-05 09:12 | P.PNOP_ITS ---
Progress Note: A&P Assessment and Plan (1) Osteomyelitis of second toe of left foot: Code(s): M86.9 - Osteomyelitis, unspecified Status: Acute Assessment and Plan: 3.5 weeks status post transmetatarsal amputation left foot. Complicated by diabetes, peripheral vascular disease, neuropathy. Sutures removed today. Necrotic cap and some wound dehiscence noted. Continue with supportive care with 0 form and Betadine paint. Daily dressing change. Offloading with fracture boot. Absolute tobacco cessation. Follow-up in 2 weeks for reassessment. (2) Peripheral vascular disease: Code(s): I73.9 - Peripheral vascular disease, unspecified Status: Chronic Assessment and Plan: Status post stent placement. No palpable pulses. Recommend follow-up with vascular For follow-up of left leg and for possible intervention for preventative maintenance of right leg. Subjective Subjective Date/Time Seen: 12/05/23 09:12 Post Op day: 3w5d Principal diagnosis: LT TMA Interval history: [facility] postoperative visit for left foot transmeta tarsal amputation 3 weeks 5 days ago. Patient currently and swing bed [facility]. IV antibiotics and daily dressing change. Exam Const: General: healthy appearing; No in distress or confusion Orientation/consciousness: patient oriented x3 and No confusion HENMT: Head: normal to inspection, normocephalic and atraumatic Eyes: Conjunctivae: conjunctivae normal Sclera: sclerae normal Resp: Effort & Inspection: normal respiratory effort and no audible wheezes Neuro: General: patient oriented x3 and No confusion Extrem: Other: Left foot dressing removed. Necrotic areas along the incision line and distal aspect of the midportion of the foot. No purulence or areas of infection noted. Mild wound separation. Foot and ankle without erythema or swelling. No palpable pulses. Psych: Affect: normal affect Objective Data Meds/Results Medications: Active Medications Generic Name Dose Route Start Last Admin Trade Name Freq PRN Reason Stop Dose Admin Collagenase 1 applic 10/03/23 13:06 Collagenase Oint 30 Gm Tube TOPICAL 01/02/24 23:59 PRN PRN Wound Care
--- NOTE | 2023-12-22 11:28 | PM.PNORT ---
Progress Note: A&P Assessment and Plan (1) Osteomyelitis of second toe of left foot: Code(s): M86.9 - Osteomyelitis, unspecified Status: Acute Assessment and Plan: 6 weeks status post transmetatarsal amputation left foot. Surgery complicated by wound dehiscence. Emergency room visit reviewed. The sutures that were placed were removed as they were not effective. Recovery and condition Complicated by diabetes, peripheral vascular disease, neuropathy. Sutures removed today. Necrotic cap and some wound dehiscence noted. Continue with Daily dressing changes. start Santyl. Offloading with fracture boot Or postop shoe. Absolute tobacco cessation. Follow-up in 2 weeks for reassessment. (2) Peripheral vascular disease: Code(s): I73.9 - Peripheral vascular disease, unspecified Status: Chronic Assessment and Plan: Status post stent placement. No palpable pulses. Recommend follow-up with vascular For follow-up of left leg and for possible intervention for preventative maintenance of right leg. Subjective Subjective Date/Time Seen: 12/22/23 11:28 Post Op day: 6wks Principal diagnosis: LT TMA Interval history: [facility] postoperative visit for left foot transmetatarsal amputation 6 weeks ago. Complicated by wound dehiscence. Patient was discharged from swing bed and is now at home with home health. Daily dressing changes. Presented to the emergency room in the interim. States that they sutured the end of the foot in the emergency room. Exam Resp: Effort & Inspection: normal respiratory effort and no audible wheezes Neuro: General: patient oriented x3 and No confusion Extrem: Other: Left foot dressing removed. Necrotic areas along the incision line and Plantar aspect of the skin flap. No purulence or areas of infection noted. no drainage. Moderate wound separation which probes to soft tissue. Foot and ankle without erythema or swelling. No palpable pulses. Psych: Affect: normal affect Objective Data Meds/Results Medications: Active Medications Generic Name Dose Route Start Last Admin Trade Name Freq PRN Reason Stop Dose Admin Collagenase 1 applic 12/22/23 08:30 Collagenase Oint 30 Gm Tube TOPICAL 03/23/24 23:55 PRN PRN Wound Care
== END 2024-01-01 23:59 | disposition home or self-care (01) ==
LOC: ANHWOC 07:12
PROVIDERS: PCP Internal Medicine Cardiovascular Disease; Visit Provider Orthopaedic Surgery
DX: E11.621 Type 2 diabetes mellitus with foot ulcer (principal); L97.429 Non-pressure chronic ulcer of left heel and midfoot with unspecified severity
CPT/HCPCS: 99213; 99214; 99215; G0463

== ENCOUNTER 2024-03-22 09:00 | Outpatient (RCR) | payer MEDICARE, SELFPAY ==
[2024-01-02 00:03] VITALS: BMI 37.6
--- NOTE | 2024-01-02 09:35 | P.PNOP_ITS ---
Progress Note: A&P Assessment and Plan (1) Osteomyelitis of second toe of left foot: Code(s): M86.9 - Osteomyelitis, unspecified Status: Acute Assessment and Plan: 8 weeks status post transmetatarsal amputation left foot. Surgery complicated by wound dehiscence. Recovery and condition complicated by diabetes, peripheral vascular disease, neuropathy. Necrotic cap and some wound dehiscence noted. Continue with Daily dressing changes and Santyl. Offloading with fracture boot Or postop shoe. Absolute tobacco cessation. Follow-up in 2 weeks for reassessment. Refer to vascular surgery. (2) Peripheral vascular disease: Code(s): I73.9 - Peripheral vascular disease, unspecified Status: Chronic Assessment and Plan: Status post stent placement. No palpable pulses. Recommend follow-up with vascular For follow-up of left leg and for possible intervention for preventative maintenance of right leg. Subjective Subjective Date/Time Seen: 01/02/24 09:35 Post Op day: 8 wks Principal diagnosis: LT TMA Interval history: [facility] postoperative visit for left foot transmetatarsal amputation 8 weeks ago. Complicated by wound dehiscence. Patient was discharged from swing bed and is now at home with home health. Daily dressing changes. Review of Systems Constitutional: Constitutional: Denies fever(s) Eyes: Eyes: Denies blurry vision ENT: Reports Normal hearing present Cardiovascular: Cardiovascular: Denies chest pain and Denies dyspnea Respiratory: Respiratory: Denies dyspnea and Denies wheezing Gastrointestinal: Gastrointestinal: Denies abdominal pain Genitourinary: Genitourinary: Denies urinary urgency Musculoskeletal: Musculoskeletal: Reports as per HPI and Denies numbness Integumentary/Breasts: Skin/Breast: Denies changing lesions and Denies sores Neurologic: Reports Normal hearing present, Denies behavioral changes, Denies confusion, Denies numbness and Denies convulsions Psychiatric: Psychiatric: Denies behavioral changes, Denies confusion and Denies hallucinations Endocrine: Endocrine: Denies heat intolerance Hematologic/Lymphatic: Hematologic/Lymphatic: Denies easy bleeding Allergic/Immunologic: Allergic/Immunologic: Denies wheezing Exam Resp: Effort & Inspection: normal respiratory effort and no audible wheezes Neuro: General: patient oriented x3 and No confusion Extrem: Other: Left foot dressing removed. Necrotic areas along the incision line and Plantar aspect of the skin flap. No purulence or areas of infection noted. no drainage. Moderate wound separation which probes to soft tissue. Foot and ankle without erythema or swelling. No palpable pulses. Psych: Affect: normal affect
--- NOTE | 2024-01-19 09:45 | PM.PNORT ---
Progress Note: A&P Assessment and Plan (1) Osteomyelitis of second toe of left foot: Code(s): M86.9 - Osteomyelitis, unspecified Status: Acute Assessment and Plan: 10 weeks status post transmetatarsal amputation left foot. Surgery complicated by wound dehiscence. Recovery and condition complicated by diabetes, peripheral vascular disease, neuropathy. Necrotic cap and some wound dehiscence noted. Continue with Daily dressing changes and Santyl. Offloading with fracture boot Or postop shoe. Absolute tobacco cessation recommended, patient noncompliant. Follow-up in 2 weeks for reassessment. Vascular Surgery appt on 12/23. (2) Peripheral vascular disease: Code(s): I73.9 - Peripheral vascular disease, unspecified Status: Chronic Assessment and Plan: Status post stent placement. No palpable pulses. Recommend follow-up with vascular For follow-up of left leg and for possible intervention for preventative maintenance of right leg. Subjective Subjective Date/Time Seen: 01/19/24 09:45 Post Op day: 10 wk Principal diagnosis: LT TMA Interval history: [facility] postoperative visit for left foot transmetatarsal amputation 10 weeks ago. Complicated by wound dehiscence. Patient is now at home with home health. Daily dressing changes. Review of Systems Constitutional: Constitutional: Denies fever(s) Eyes: Eyes: Denies blurry vision ENT: Reports Normal hearing present Cardiovascular: Cardiovascular: Denies chest pain and Denies dyspnea Respiratory: Respiratory: Denies dyspnea and Denies wheezing Gastrointestinal: Gastrointestinal: Denies abdominal pain Genitourinary: Genitourinary: Denies urinary urgency Musculoskeletal: Musculoskeletal: Reports as per HPI and Denies numbness Integumentary/Breasts: Skin/Breast: Denies changing lesions and Denies sores Neurologic: Reports Normal hearing present, Denies behavioral changes, Denies confusion, Denies numbness and Denies convulsions Psychiatric: Psychiatric: Denies behavioral changes, Denies confusion and Denies hallucinations Endocrine: Endocrine: Denies heat intolerance Hematologic/Lymphatic: Hematologic/Lymphatic: Denies easy bleeding Allergic/Immunologic: Allergic/Immunologic: Denies wheezing Exam Resp: Effort & Inspection: normal respiratory effort and no audible wheezes Neuro: General: patient oriented x3 and No confusion Extrem: Other: Left foot dressing removed. Necrotic areas along the incision line and plantar aspect of the skin flap, mild improvement. No purulence or areas of infection noted. No drainage. Improvement in wound separation which probes to soft tissue. Foot and ankle without erythema or swelling. No palpable pulses. Wound measures 1.0x10.5x2.5 cm. Psych: Affect: normal affect Objective Data Meds/Results Medications: Active Medications Generic Name Dose Route Start Last Admin Trade Name Freq PRN Reason Stop Dose Admin Collagenase 1 applic 01/02/24 10:57 Collagenase Oint 30 Gm Tube TOPICAL 04/03/24 23:59 PRN PRN Wound Care [facility] Follow-up Hospital Follow-up: [id number] Post-op Follow Up
--- NOTE | 2024-02-02 09:56 | PM.PNORT ---
Progress Note: A&P Assessment and Plan (1) Osteomyelitis of second toe of left foot: Code(s): M86.9 - Osteomyelitis, unspecified Status: Acute Assessment and Plan: 12 weeks status post transmetatarsal amputation left foot. Surgery complicated by wound dehiscence. Recovery and condition complicated by diabetes, peripheral vascular disease, neuropathy. Necrotic cap and some wound dehiscence noted. Continue with Daily dressing changes and Santyl. Patient family states they are only able to do every other day dressing. Home health still assisting twice a week. Offloading with postop shoe. Absolute tobacco cessation recommended, patient noncompliant. Follow-up in 2 weeks for reassessment. Patient missed his Vascular Surgery appt on 12/23 due to not having a ride. (2) Peripheral vascular disease: Code(s): I73.9 - Peripheral vascular disease, unspecified Status: Chronic Assessment and Plan: Status post stent placement. No palpable pulses. Recommend follow-up with vascular For follow-up of left leg and for possible intervention for preventative maintenance of right leg. Subjective Subjective Date/Time Seen: 02/02/24 09:56 Post Op day: 12wk Principal diagnosis: Left foot osteomyelitis Interval history: [facility] postoperative visit for left foot transmetatarsal amputation 12 weeks. Complicated by wound dehiscence. Patient is now at home with home health. only able to change dressing every other day. Exam Resp: Effort & Inspection: normal respiratory effort and no audible wheezes Neuro: General: patient oriented x3 and No confusion Extrem: Other: Left foot dressing removed. Necrotic areas along the incision line and plantar aspect of the skin flap, mild improvement. No purulence or areas of infection noted. No drainage. Improvement in wound separation which probes to soft tissue. Foot and ankle without erythema or swelling. No palpable pulses. Wound measures 1.0x11x1.4 cm. Psych: Affect: normal affect Objective Data Meds/Results Medications: Active Medications Generic Name Dose Route Start Last Admin Trade Name Freq PRN Reason Stop Dose Admin Collagenase 1 applic 01/02/24 10:57 Collagenase Oint 30 Gm Tube TOPICAL 04/03/24 23:59 PRN PRN Wound Care [facility] Follow-up Billing Hospital Follow-up Hospital Follow-up: [id number] Post-op Follow Up
--- NOTE | 2024-02-16 11:16 | P.OP_ITS ---
Procedure Note - Detailed Date of Procedure 02/16/24 Pre-op Diagnosis left TMA incisional checkup Post-op Diagnosis Same Procedure Performed excisional Debridement left foot Surgeon Prasanth Pizarro MD Slate Cutter Operator [facility] Anesthesia None Indications 68-year-old with neuropathy and peripheral vascular disease. Left transmetatarsal amputation complicated by wound dehiscence. Indicated for debridement. Findings 5 x 1 x 3 cm dehiscence left foot. Devitalized skin, subcutaneous tissue, muscle. Description of Procedure Patient identified. Informed consent given. Operative extremity marked. Left foot sterilize with alcohol prep solution. 15 blade knife used to debride skin, subcutaneous tissue, muscle from the left foot wound. Devitalized tissue excised and passed off. Healthy viable tissue left in place. Wound irrigated. Sterile dressing applied. All sponge, needle, instrument counts were correct at the end of the case. Estimated Blood Loss 1 Packing Yes Complications None Condition Stable Disposition No change [facility] Billing Surgery - Charge Forward: Surgery Billing ([id number])
--- NOTE | 2024-02-16 11:19 | PM.PNORT ---
Progress Note: A&P Assessment and Plan (1) Osteomyelitis of second toe of left foot: Code(s): M86.9 - Osteomyelitis, unspecified Status: Acute Assessment and Plan: 14 weeks status post transmetatarsal amputation left foot. Surgery complicated by wound dehiscence. Recovery and condition complicated by diabetes, peripheral vascular disease, neuropathy. Necrotic cap and some wound dehiscence noted. Continue with Daily dressing changes and Santyl. Patient family states they are only able to do every other day dressing. Home health still assisting twice a week. Offloading with postop shoe. Absolute tobacco cessation recommended, patient noncompliant. Follow-up in 2 weeks for reassessment. Indicated for debridement. See the procedure note. Discussed nonoperative and operative treatment options with the patient. Risks and benefits of each as well as alternatives were reviewed. All of the patient's questions were answered. The risks of surgery reviewed including but not limited to: Neurovascular damage, wound complication, infection, blood clot, pulmonary embolus, stroke, myocardial infarction, and anesthetic risks up to and including . Continued pain and possible dysfunction were explained. Specific risks of the procedure including later recurrence of deformity. No guarantees were offered. If hardware used, discussed risk of failure/ breakage and possible need for removal. If complications occur, the patient understands the need for further treatment, possible further surgery. Patient verbalizes understanding and wishes to proceed. PLAN: Excisional debridement left foot (2) Peripheral vascular disease: Code(s): I73.9 - Peripheral vascular disease, unspecified Status: Chronic Assessment and Plan: Status post stent placement. No palpable pulses. Recommend follow-up with vascular For follow-up of left leg and for possible intervention for preventative maintenance of right leg. Subjective Subjective Date/Time Seen: 02/16/24 11:19 Post Op day: 14wk (14wk) Principal diagnosis: Left foot osteomyelitis Interval history: [facility] postoperative visit for left foot transmetatarsal amputation 14 weeks. Complicated by wound dehiscence. Patient is now at assisted living with home health. only able to change dressing every other day. Noted more slough from the foot. Review of Systems Constitutional: Constitutional: Denies fever(s) Eyes: Eyes: Denies blurry vision ENT: Reports Normal hearing present Cardiovascular: Cardiovascular: Denies chest pain and Denies dyspnea Respiratory: Respiratory: Denies dyspnea and Denies wheezing Gastrointestinal: Gastrointestinal: Denies abdominal pain Genitourinary: Genitourinary: Denies urinary urgency Musculoskeletal: Musculoskeletal: Reports as per HPI and Denies numbness Integumentary/Breasts: Skin/Breast: Denies changing lesions and Denies sores Neurologic: Reports Normal hearing present, Denies behavioral changes, Denies confusion, Denies numbness and Denies convulsions Psychiatric: Psychiatric: Denies behavioral changes, Denies confusion and Denies hallucinations Endocrine: Endocrine: Denies heat intolerance Hematologic/Lymphatic: Hematologic/Lymphatic: Denies easy bleeding Allergic/Immunologic: Allergic/Immunologic: Denies wheezing Exam Resp: Effort & Inspection: normal respiratory effort and no audible wheezes Neuro: General: patient oriented x3 and No confusion Extrem: Other: Left foot dressing removed. Necrotic areas along the incision line and plantar aspect of the skin flap, mild improvement. No purulence or areas of infection noted. No drainage. Improvement in wound separation which probes to soft tissue. Foot and ankle without erythema or swelling. No palpable pulses. Wound measures 1.0x5.2x3.3 cm. Psych: Affect: normal affect Objective Data Meds/Results Medications: Active
--- NOTE | 2024-03-05 09:03 | PM.PNORT ---
Progress Note: A&P Assessment and Plan (1) Osteomyelitis of second toe of left foot: Code(s): M86.9 - Osteomyelitis, unspecified Status: Acute Assessment and Plan: 16 weeks status post transmetatarsal amputation left foot. Surgery complicated by wound dehiscence. Recovery and condition complicated by diabetes, peripheral vascular disease, neuropathy. Necrotic cap and some wound dehiscence noted. Continue with Daily dressing changes, switch to silver gel to promote healing. Patient family states they are only able to do every other day dressing. Home health still assisting twice a week. Offloading with postop shoe. Absolute tobacco cessation recommended, patient noncompliant. Follow-up in 2 weeks for reassessment. Indicated for debridement. See the procedure note. Discussed nonoperative and operative treatment options with the patient. Risks and benefits of each as well as alternatives were reviewed. All of the patient's questions were answered. The risks of surgery reviewed including but not limited to: Neurovascular damage, wound complication, infection, blood clot, pulmonary embolus, stroke, myocardial infarction, and anesthetic risks up to and including . Continued pain and possible dysfunction were explained. Specific risks of the procedure including later recurrence of deformity. No guarantees were offered. If hardware used, discussed risk of failure/ breakage and possible need for removal. If complications occur, the patient understands the need for further treatment, possible further surgery. Patient verbalizes understanding and wishes to proceed. PLAN: Excisional debridement left foot (2) Peripheral vascular disease: Code(s): I73.9 - Peripheral vascular disease, unspecified Status: Chronic Assessment and Plan: Status post stent placement. No palpable pulses. Recommend follow-up with vascular for follow-up of left leg and for possible intervention for preventative maintenance of right leg. unable to find provider who will accept his insurance. Subjective Subjective Date/Time Seen: 03/05/24 09:03 Post Op day: 14wk (14wk) Principal diagnosis: Left foot osteomyelitis Interval history: [facility] postoperative visit for left foot transmetatarsal amputation 16 weeks. Complicated by wound dehiscence. Patient is now at assisted living with home health. Dressing changes every other day. Home health nursing performs dressing changes 1-2 times per week. Noted more slough from the foot. Review of Systems Constitutional: Constitutional: Denies fever(s) Eyes: Eyes: Denies blurry vision ENT: Reports Normal hearing present Cardiovascular: Cardiovascular: Denies chest pain and Denies dyspnea Respiratory: Respiratory: Denies dyspnea and Denies wheezing Gastrointestinal: Gastrointestinal: Denies abdominal pain Genitourinary: Genitourinary: Denies urinary urgency Musculoskeletal: Musculoskeletal: Reports as per HPI and Denies numbness Integumentary/Breasts: Skin/Breast: Denies changing lesions and Denies sores Neurologic: Reports Normal hearing present, Denies behavioral changes, Denies confusion, Denies numbness and Denies convulsions Psychiatric: Psychiatric: Denies behavioral changes, Denies confusion and Denies hallucinations Endocrine: Endocrine: Denies heat intolerance Hematologic/Lymphatic: Hematologic/Lymphatic: Denies easy bleeding Allergic/Immunologic: Allergic/Immunologic: Denies wheezing Exam Resp: Effort & Inspection: normal respiratory effort and no audible wheezes Neuro: General: patient oriented x3 and No confusion Extrem: Other: Left foot dressing removed. Necrotic areas along the incision line and plantar aspect of the skin flap, mild improvement. No purulence or areas of infection noted. No drainage. Improvement in wound separation which probes to soft tissue. Foot and ankle without erythema or swelling. No palpab
--- NOTE | 2024-03-05 09:07 | P.OP_ITS ---
Procedure Note - Detailed Date of Procedure 03/05/24 Pre-op Diagnosis left TMA incisional checkup Post-op Diagnosis Same Procedure Performed Excisional debridement left foot of skin and subcutaneous tissue Surgeon Prasanth Pizarro MD Labor Utilization Superintendent alis reina Anesthesia None Indications 69-year-old with left foot wound. Increased slough noted at the incision site. Indicated for debridement. Description of Procedure Patient identified, consent given. Proper extremity noted. Left foot prepped with alcohol prep solution. 15 blade knife and rongeur used to remove skin, subcutaneous tissue from the wound. Devitalized tissue excised and passed off. Healthy viable tissue remained. Bleeding controlled with pressure. Sterile dressing applied. Estimated Blood Loss 1 Tourniquet Time Total Tourniquet Time: 0 Drains No Packing Yes Pathology None sent Complications None Condition Stable Disposition No change [facility] Billing Surgery - Charge Forward: Surgery Billing ([id number])
--- NOTE | 2024-03-22 13:21 | P.OP_ITS ---
Procedure Note - Detailed Date of Procedure 03/22/24 Pre-op Diagnosis left TMA Post-op Diagnosis Same Procedure Performed Excisional debridement foot Surgeon Prasanth Pizarro MD Clinical Product Specialist PRASANTH Narvaez Anesthesia None Indications 69-year-old with left foot wound. Status post transmetatarsal amputation with wound dehiscence postoperatively. Has been doing dressing changes. Now with infected tissue at the wound site. Findings Wound 9 cm x 1 cm x 1.6 cm left foot. Necrotic tissue surrounding the wound with swelling and erythema. Purulent drainage. Description of Procedure What was done: Patient identified. Informed consent given. Operative extremity marked. Positioned supine on table. Time-out performed confirming the patient, site of the surgery and the plan. Foot prepped with alcohol solution. Left foot wound debrided skin, subcutaneous tissue, muscle with 15 blade knife, pickups and rongeur. Necrotic and devitalized tissue sharply excised and passed off. Viable tissue left in place. Hemostasis controlled with local pressure. Wound irrigated. Sterile dressing applied. All sponge, needle, instrument counts were correct at the end of the case. Estimated Blood Loss 1 Tourniquet Time Total Tourniquet Time: 0 Drains No Packing Yes Pathology None sent Complications None Condition Stable Disposition Same day [facility] Billing Surgery - Charge Forward: Surgery Billing ([id number]- LT foot)
--- NOTE | 2024-03-22 13:27 | PM.CNOR ---
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 Indicated for debridement. Recommend admit with IV antibiotics, MRI left foot. Patient to go to ER for evaluation of elevated blood sugar and comorbid conditions with plan to admit to hospital from the emergency room. See procedure note for debridement in the wound clinic. (3) Osteomyelitis of second toe of left foot: Code(s): M86.9 - Osteomyelitis, unspecified Status: Acute (4) Cellulitis of foot, left: Code(s): L03.116 - Cellulitis of left lower limb Status: Acute (5) Diabetes: Qualifiers: Diabetes mellitus type: type 2 Diabetes mellitus fci insulin use: with fci use Diabetes mellitus complication status: with circulatory complication Diabetes mellitus complication detail: with peripheral angiopathy with gangrene Qualified Code(s): E11.52 - Type 2 diabetes mellitus with diabetic peripheral angiopathy with gangrene; Z79.4 - long-term (current) use of insulin Code(s): E11.9 - Type 2 diabetes mellitus without complications Status: Chronic History of Present Illness HPI Consult date: 03/22/24 Requesting physician: Bruce Wheeler APRN Chief complaint: left TMA wound. Infected diabetic foot Narrative: 69-year-old gentleman known to the wound clinic for left foot wound status post transmetatarsal amputation 4 months ago. Presented to the Wound Clinic at [facility] today with fever, increased swelling and pain left foot. Noted drainage and foul odor. States foot was getting worse over the past 2-3 days. Noted low-grade temperature at home yesterday. Blood sugar elevated this morning. Review of Systems Constitutional: Constitutional: Denies fever(s) Eyes: Eyes: Denies blurry vision ENT: Reports Normal hearing present Cardiovascular: Cardiovascular: Denies chest pain and Denies dyspnea Respiratory: Respiratory: Denies dyspnea and Denies wheezing Gastrointestinal: Gastrointestinal: Denies abdominal pain Genitourinary: Genitourinary: Denies urinary urgency Musculoskeletal: Musculoskeletal: Reports as per HPI and Denies numbness Integumentary/Breasts: Skin/Breast: Denies changing lesions and Denies sores Neurologic: Reports Normal hearing present, Denies behavioral changes, Denies confusion, Denies numbness and Denies convulsions Psychiatric: Psychiatric: Denies behavioral changes, Denies confusion and Denies hallucinations Endocrine: Endocrine: Denies heat intolerance Hematologic/Lymphatic: Hematologic/Lymphatic: Denies easy bleeding Allergic/Immunologic: Allergic/Immunologic: Denies wheezing [facility] Past Medical History Medical History Atrial fibrillation CAD (coronary artery disease) COPD (chronic obstructive pulmonary disease) Dyslipidemia Hypertension Pacemaker Peripheral vascular disease Pulmonary emboli Tobacco abuse Surgical History Surgical History Hx of CABG Family History Family History Mother Cancer Father Cancer Social History Social History Smoking packs per day: 2 Smoking cigarettes per day: 40.0 Years smoked: 60 Smoking pack-years: 120.00 Smoking status: Current every day smoker Tobacco type: cigarettes Second hand tobacco smoke exposure: No Alcohol intake: never Substance use: never Substance use type: does not use D
== END 2024-04-01 23:59 | disposition home or self-care (01) ==
LOC: ANHWOC 09:00
PROVIDERS: PCP Internal Medicine Cardiovascular Disease; Visit Provider Orthopaedic Surgery
DX: E11.621 Type 2 diabetes mellitus with foot ulcer (principal); L97.429 Non-pressure chronic ulcer of left heel and midfoot with unspecified severity
CPT/HCPCS: 99213; 99214; A9270; G0463

== ENCOUNTER 2024-03-22 12:47 | Inpatient (IN) | payer MEDICARE, SELFPAY ==
--- NOTE | ~2024-03-22 | US_ITS ---
EXAMINATION: US arterial duplex LE DATE: 03/22/2024 16:33 INDICATION: Peripheral arterial disease. TECHNIQUE: Multiple grayscale and Doppler ultrasound images of the left lower limb were obtained. COMPARISON: None FINDINGS: Peak systolic velocity is 144 cm/s left common femoral artery. There is flow reversal in le ft profunda femoris with peak systolic velocity of 20 cm/s. Peak systolic velocity is 168 cm/s in pro ximal superficial femoral artery. There is a patent stent in proximal superficial femoral artery. Pea k systolic velocity is 205 cm/s in mid superficial femoral artery, 145 cm/s in distal superficial fem oral artery, 117 cm/s in proximal popliteal artery, 89 cm/s in distal popliteal artery, 51 cm/s in po sterior tibial artery, 67 cm/s in anterior tibial artery, and 13 cm/s in dorsalis pedis. There is no flow in peroneal artery. IMPRESSION: 1. Patent stent in proximal left superficial femoral artery. 2. Increased velocity gradient between left anterior tibial artery and dorsalis pedis, consistent wi th moderate to severe stenosis. 3. Total occlusion of left peroneal artery. Reviewed, dictated and finalized at location A. IMPRESSION: 1. Patent stent in proximal left superficial femoral artery. 2. Increased velocity gradient between left anterior tibial artery and dorsali s pedis, consistent with moderate to severe stenosis. 3. Total occlusion of left peroneal artery.
--- NOTE | ~2024-03-22 | XR_ITS ---
XR foot LT min 3V 03/22/2024 14:38 Indication: Osteomyelitis Procedure: 4 views left foot Comparison: 11/08/2023 Findings: Erosive changes are present at the fifth metatarsal. There is amputation of the first-fifth metatarsals. Moderate overlying soft tissue swelling. No other lytic defects are seen. No foreign jose dies. Impression: 1: Lytic defect involving the proximal aspect of the fifth metatarsal which may be postoperative in n ature, although osteomyelitis is not excluded. Consider correlation with MRI. Reviewed, dictated and finalized at location B. Impression: 1: Lytic defect involving the proximal aspect of the fifth metatarsal which may be postoperative in nature, although osteomyelitis is not excluded. Consider c orrelation with MRI.
[2024-03-22 13:01] VITALS: BP 129/60; PULSE 60; RESP 16; TEMP 36.7; O2SAT 98
--- NOTE | 2024-03-22 14:03 | ED.WOUNDLAC ---
HPI - Wound/Laceration General Chief Complaint: Wound/Laceration Stated Complaint: left foot wound, sent by Wound Care Time Seen by Provider: 03/22/24 13:07 Source: patient Mode of arrival: ambulatory Limitations: no limitations History of Present Illness HPI narrative: Charly is a 69-year-old male patient presenting to the emergency room today with complaints of a diabetic wound infection to the left foot. He was sent here by the wound care clinic. He thought he was supposed to be direct admitted for IV antibiotics to the hospital for the wound infection. Patient lives in assisted living. Patient was brought to the ER for evaluation. He denies any known fever or chills. Patient is a heavy smoker. History of PVD, diabetes, CABG, AFib, pacemaker, COPD, and hypertension. Related Data Home Medications Medication Instructions Recorded Confirmed empagliflozin 25 mg tablet 25 mg PO DAILY 09/22/23 11/15/23 (Jardiance) escitalopram oxalate 10 mg tablet 10 mg PO DAILY 09/22/23 11/15/23 fenofibrate 160 mg tablet 160 mg PO DAILY 09/22/23 11/15/23 fluticasone 500 mcg-salmeterol 50 1 inh inhalation BID 09/22/23 11/15/23 mcg/dose blistr powdr for inhalation (Advair Diskus) furosemide 40 mg tablet 40 mg PO DAILY 09/22/23 11/15/23 glimepiride 2 mg tablet 4 mg PO DAILY 09/22/23 11/15/23 insulin aspart U-100 100 unit/mL 20 unit subcut TIDWM 09/22/23 11/15/23 subcutaneous solution (Novolog U-100 Insulin aspart) insulin glargine 100 unit/mL (3 105 unit subcut HS 09/22/23 11/15/23 mL) subcutaneous pen (Basaglar KwikPen U-100 Insulin) metformin 1,000 mg tablet 1,000 mg PO BIDWM 09/22/23 11/15/23 metoprolol tartrate 100 mg tablet 100 mg PO BID 09/22/23 11/15/23 potassium chloride 10 mEq 10 meq PO BIDWM 09/22/23 11/15/23 tablet,extended release rivaroxaban 20 mg tablet (Xarelto) 20 mg PO DAILY 09/22/23 11/15/23 rosuvastatin 20 mg tablet 20 mg PO HS 09/22/23 11/15/23 Allergies Allergy/AdvReac Type Severity Reaction Status Date / Time No Known Allergies Allergy Verified 03/22/24 13:09 Review of Systems Review of Systems: Pertinent positives per HPI. Patient denies any fever, chills, rash, headache, visual changes, dizziness, cough, runny nose, sore throat, shortness of breath, chest pain, palpitations, nausea, vomiting, diarrhea, constipation, abdominal pain, or any urinary issues. [facility] Past Medical History Medical History Atrial fibrillation CAD (coronary artery disease) COPD (chronic obstructive pulmonary disease) Dyslipidemia Hypertension Pacemaker Peripheral vascular disease Pulmonary emboli Tobacco abuse Surgical History Surgical History Hx of CABG Family History Family History Mother Cancer Father Cancer Social History Social History Smoking packs per day: 2 Smoking cigarettes per day: 40.0 Years smoked: 60 Smoking pack-years: 120.00 Smoking status: Current every day smoker Tobacco type: cigarettes Second hand tobacco smoke exposure: No Alcohol intake: never Substance use: never Substance use type: does not use Do You Feel Safe in your Home?: Yes Lack of Transportation: No Lack of Food: Never True Current Housing: I Have Housing Concerned About Future Housing: No Difficulty Paying Gas/Electric Bills: No Difficulty Paying for Meds: No Currently Unemployed: No Education: High School Diploma/GED Difficulty w/ Childcare or Family Care: No Spiritual care concerns: No Comments At the time of my signature, I reviewed and agree with the nursing past medical, surgical, social, and family history. There is no relevant family history pertinent to the patient complaint. Exam Narrative: General: Well-developed, well
[2024-03-22 14:34] LABS: Basophils Absolute Auto 0.1 K/mm3 (0.0-0.1); Eosinophils Absolute Auto 0.7 K/mm3 (0-0.3); Eosinophils Percent Auto 5.7 % (0-4.4); Hematocrit 38.3 % (42.0-52.0); Hemoglobin 12.4 g/dL (14.0-18.0); Immature Granulocyte Absolute 0.05 K/mm3 (0.00-0.031); Immature Granulocyte Percent A 0.4 % (0-0.5); Lymphocytes Absolute Auto 2.06 K/mm3 (0.9-3.2); Lymphocytes Percent Auto 17.1 % (18.3-44.2); Mean Corpuscular HGB Conc 32.4 g/dl (32-36); Mean Corpuscular Hemoglobin 26.9 pg (26-34); Mean Corpuscular Volume 83.1 fl (80-100); Mean Platelet Volume 11.1 fl (7.4-10.4); Monocytes Absolute Auto 0.9 K/mm3 (0.1-0.6); Monocytes Percent Auto 7.7 % (2.6-8.5); Neutrophils Absolute Auto 8.2 K/mm3 (1.3-6.7); Neutrophils Percent Auto 68.1 % (45.5-73.1); Platelet Count Result 266 k/mm3 (150-375); Red Blood Count 4.61 M/mm3 (4.6-6.20); Red Cell Distribution Width 15.4 % (11.5-14.5)
[2024-03-22 14:35] VITALS: BP 135/55; PULSE 64; RESP 18; O2SAT 98
[2024-03-22 14:46] LABS: Alanine Aminotransferase 22 U/L (6-50); Albumin Level 4.2 g/dL (3.5-5.1); Alkaline Phosphatase 40 U/L (38-126); Anion Gap 9 mmol/L (4-12); Aspartate Amino Transferase 23 U/L (17-59); Bilirubin,Total 0.5 mg/dL (0.2-1.3); Blood Urea Nitrogen 28 mg/dL (9-20); Calcium 9.4 mg/dL (8.4-10.2); Carbon Dioxide 23 mmol/L (22-30); Chloride 103 mmol/L (98-107); Estimated CRCL calculation 74 ml/min; Estimated Glomerular Filt Rate > 60; Glucose 257 mg/dL (65-110); Potassium 4.6 mmol/L (3.4-5.0); Sodium 135 mmol/L (137-145)
[2024-03-22 14:47] LABS: Lactic Acid Reflex 2.1 mmol/L (0.7-2.0)
[2024-03-22] MEDS: CEFEPIME 2 GM/NS 50 ML 2 GM/50 ML BAG IVPB (16:41)
[2024-03-22 16:43] VITALS: BP 138/65; PULSE 60; RESP 16; O2SAT 100
[2024-03-22] MEDS: VANCOMYCIN 1,250 MG/NS 250 ML 1,250 MG/250 ML BAG 166.67 MG IVPB ×2 (17:11→18:54)
[2024-03-22] MEDS: metroNIDAZOLE 500 MG/ISO 100ML 500 MG/100 ML BAG 100 MG IVPB (17:15)
[2024-03-22 17:21] LABS: Glucose Point of Care 199 mg/dl (65-105)
[2024-03-22 17:30] VITALS: BMI 34.5
[2024-03-22 17:32] LABS: Reflex Lactic Acid Yes or No Add Lactic
[2024-03-22 18:46] VITALS: BP 129/56; PULSE 60; RESP 18; TEMP 36.1; O2SAT 100
[2024-03-22 19:25] LABS: Lactic Acid 1.4 mmol/L (0.7-2.0)
[2024-03-22 22:07] VITALS: BP 144/59; PULSE 59; RESP 20; TEMP 36.6; O2SAT 99
--- NOTE | 2024-03-22 22:46 | PM.IMHP ---
H&P: HPI History of Present Illness Date/Time: 03/22/24 22:46 Chief Complaint: Patient sent to the ER for admission directly from the Wound Clinic for left foot MRI and IV antibiotics by orthopedics after debridement of the left foot today Narrative: Our patient is a very unfortunate 69 years old white male with uncontrolled diabetes mellitus, heavy 2 packs per day smoking, severe peripheral disease, CAD, history of non compliance and chronic medical issues who is having multiple issues with his left foot. 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 Patient underwent debridement in the wound care clinic today and sent to the ER where he was seen, evaluated, worked up and being admitted for orthopedics follow-up, IV antibiotics, left foot MRI, further workup and medical management. Review of Systems Review of Systems: 14 systems were reviewed with pertinent positives and negatives per HPI. Except as documented in the HPI/progress notes, all other systems were reviewed and are negative. All systems reviewed & are unremarkable except as noted in HPI and below PMFSH Past Medical History Medical History Atrial fibrillation CAD (coronary artery disease) COPD (chronic obstructive pulmonary disease) Dyslipidemia Hypertension Pacemaker Peripheral vascular disease Pulmonary emboli Tobacco abuse Surgical History Surgical History Hx of CABG Family History Family History Mother Cancer Father Cancer Social History Social History Smoking packs per day: 2 Smoking cigarettes per day: 40.0 Years smoked: 60 Smoking pack-years: 120.00 Smoking status: Current every day smoker Second hand tobacco smoke exposure: No Alcohol intake: never Substance use: never Substance use type: does not use Do You Feel Safe in your Home?: Yes Lack of Transportation: No Lack of Food: Never True Current Housing: I Have Housing Concerned About Future Housing: No Difficulty Paying Gas/Electric Bills: No Difficulty Paying for Meds: No Currently Unemployed: No Education: High School Diploma/GED Difficulty w/ Childcare or Family Care: No Spiritual care concerns: No Meds Home Medications and Allergies Home Medications Medication Instructions Recorded Confirmed Type escitalopram oxalate 10 mg tablet 10 mg PO DAILY 09/22/23 03/22/24 History fenofibrate 160 mg tablet 160 mg PO DAILY 09/22/23 03/22/24 History furosemide 40 mg tablet 40 mg PO DAILY 09/22/23 03/22/24 History insulin aspart U-100 100 unit/mL 20 unit subcut TIDWM 09/22/23 03/22/24 History subcutaneous solution (Novolog U-100 Insulin aspart) insulin glargine 100 unit/mL (3 50 unit subcut HS 09/22/23 03/22/24 History mL) subcutaneous pen (Basaglar KwikPen U-100 Insulin) metformin 1,000 mg tablet 1,000 mg PO BIDWM 09/22/23 03/22/24 History metoprolol tartrate 100 mg tablet 100 mg PO BID 09/22/23 03/22/24 History potassium chloride 10 mEq 10 meq PO DAILY 09/22/23 03/22/24 History tablet,extended release rivaroxaban 20 mg tablet (Xarelto) 20 mg PO DAILY 09/22/23 03/22/24 History rosuvastatin 20 mg tablet 20 mg PO HS 09/22/23 03/22/24 History hydrocodone 5 mg-acetaminophen 325 1 tablet PO Q4H PRN Pain Rated 4-7 12/07/23 03/22/24 Rx mg tablet #20 tabs fluticasone furoate 200 1 inh inhalation DAILY 03/22/24 03/22/24 History mcg-vilanterol 25 mcg/dose inhalation powder (Breo Ellipta) Allergies Allergy/AdvReac Type Severity Reaction Status Date / Time No Known Allergies Allergy Verified 03/22/24 13:09 Vital Signs Vital Signs - 24 hr 03/22/24 13:01 03/22/24 14:35
[2024-03-23] VITALS (8 sets, daily range): BP systolic 132–152; BP diastolic 61–67; PULSE 59–75; RESP 18–20; TEMP 36.1–36.5; O2SAT 95–100
[2024-03-23] MEDS: SODIUM CHLORIDE 0.9% IV 1,000 ML 75 ML IV CONT (01:08)
[2024-03-23] MEDS: CEFEPIME 1 GM/NS 50 ML 1 GM/50 ML BAG IVPB ×3 (01:08→16:56)
[2024-03-23] MEDS: metroNIDAZOLE 500 MG/ISO 100ML 500 MG/100 ML BAG 100 MG IVPB ×3 (01:09→17:25)
[2024-03-23 05:47] LABS: Basophils Absolute Auto 0.1 K/mm3 (0.0-0.1); Eosinophils Absolute Auto 0.7 K/mm3 (0-0.3); Eosinophils Percent Auto 6.5 % (0-4.4); Hematocrit 39.3 % (42.0-52.0); Hemoglobin 12.6 g/dL (14.0-18.0); Immature Granulocyte Absolute 0.05 K/mm3 (0.00-0.031); Immature Granulocyte Percent A 0.5 % (0-0.5); Lymphocytes Absolute Auto 1.83 K/mm3 (0.9-3.2); Lymphocytes Percent Auto 16.9 % (18.3-44.2); Mean Corpuscular HGB Conc 32.1 g/dl (32-36); Mean Corpuscular Volume 84.2 fl (80-100); Mean Platelet Volume 10.2 fl (7.4-10.4); Monocytes Absolute Auto 0.9 K/mm3 (0.1-0.6); Monocytes Percent Auto 8.7 % (2.6-8.5); Neutrophils Absolute Auto 7.2 K/mm3 (1.3-6.7); Neutrophils Percent Auto 66.4 % (45.5-73.1); Platelet Count Result 257 k/mm3 (150-375); Red Blood Count 4.67 M/mm3 (4.6-6.20); Red Cell Distribution Width 15.2 % (11.5-14.5); White Blood Count 10.8 K/mm3 (4.5-10.0)
[2024-03-23 06:07] LABS: Anion Gap 8 mmol/L (4-12); Blood Urea Nitrogen 29 mg/dL (9-20); Calcium 9.1 mg/dL (8.4-10.2); Carbon Dioxide 22 mmol/L (22-30); Chloride 106 mmol/L (98-107); Estimated CRCL calculation 89 ml/min; Estimated Glomerular Filt Rate > 60; Glucose 141 mg/dL (65-110); Magnesium 1.8 mg/dL (1.6-2.3); Phosphorus 4.3 mg/dL (2.5-4.5); Potassium 4.4 mmol/L (3.4-5.0); Sodium 136 mmol/L (137-145)
[2024-03-23 06:41] LABS: Glucose Point of Care 214 mg/dl (65-105)
[2024-03-23 08:32] LABS: Glucose Point of Care 178 mg/dl (65-105)
[2024-03-23] MEDS: METOPROLOL TARTRATE 50 MG TAB 100 MG PO ×2 (09:22→21:20)
[2024-03-23] MEDS: POTASSIUM CHLORIDE 10 MEQ ER TABLET PO (09:23)
[2024-03-23] MEDS: ESCITALOPRAM OXALATE 10 MG TABLET PO (09:23)
[2024-03-23] MEDS: FENOFIBRATE 160 MG TABLET PO (09:23)
[2024-03-23] MEDS: RIVAROXABAN 20 MG TABLET PO (09:24)
[2024-03-23] MEDS: FLUTICASONE/SALMETEROL 230-21 MCG INHALER 1 PUFF 2 PUFF INHALATION ×2 (09:32→21:04)
--- NOTE | 2024-03-23 10:46 | PM.CNOR ---
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 Indicated for debridement- limited performed yesterday. May require OR debridement. Recommend IV antibiotics. Start twice daily dressing change with Dakin solution. Unable to have MRI due to pacemaker. discussed possibility of proceeding to OR for further debridement. (3) Osteomyelitis of second toe of left foot: Code(s): M86.9 - Osteomyelitis, unspecified Status: Acute Assessment and Plan: Status post transmetatarsal amputation 4 months ago (4) Cellulitis of foot, left: Code(s): L03.116 - Cellulitis of left lower limb Status: Acute (5) Diabetes: Qualifiers: Diabetes mellitus type: type 2 Diabetes mellitus [facility] insulin use: with long term acute care registered nurse use Diabetes mellitus complication status: with circulatory complication Diabetes mellitus complication detail: with peripheral angiopathy with gangrene Qualified Code(s): E11.52 - Type 2 diabetes mellitus with diabetic peripheral angiopathy with gangrene; Z79.4 - bed bug exterminator (current) use of insulin Code(s): E11.9 - Type 2 diabetes mellitus without complications Status: Chronic History of Present Illness HPI Consult date: 03/23/24 Requesting physician: Bruce Wheeler APRN Chief complaint: Diabetic Foot Wound Infection/Cellulitis/PVD/Uncon Narrative: 69-year-old gentleman known to the wound clinic for left foot wound status post transmetatarsal amputation 4 months ago. Presented to the Wound Clinic at [facility] yesterday with fever, increased swelling and pain left foot. Noted drainage and foul odor. States foot was getting worse over the past 2-3 days. Noted low-grade temperature at home yesterday. Blood sugar elevated yesterday morning. Review of Systems Constitutional: Constitutional: Denies fever(s) Eyes: Eyes: Denies blurry vision ENT: Reports Normal hearing present Cardiovascular: Cardiovascular: Denies chest pain and Denies dyspnea Respiratory: Respiratory: Denies dyspnea and Denies wheezing Gastrointestinal: Gastrointestinal: Denies abdominal pain Genitourinary: Genitourinary: Denies urinary urgency Musculoskeletal: Musculoskeletal: Reports as per HPI and Denies numbness Integumentary/Breasts: Skin/Breast: Denies changing lesions and Denies sores Neurologic: Reports Normal hearing present, Denies behavioral changes, Denies confusion, Denies numbness and Denies convulsions Psychiatric: Psychiatric: Denies behavioral changes, Denies confusion and Denies hallucinations Endocrine: Endocrine: Denies heat intolerance Hematologic/Lymphatic: Hematologic/Lymphatic: Denies easy bleeding Allergic/Immunologic: Allergic/Immunologic: Denies wheezing [facility] Past Medical History Medical History Atrial fibrillation CAD (coronary artery disease) COPD (chronic obstructive pulmonary disease) Dyslipidemia Hypertension Pacemaker Peripheral vascular disease Pulmonary emboli Tobacco abuse Surgical History Surgical History Hx of CABG Family History Family History Mother Cancer Father Cancer Social History Social History Smoking packs per day: 2 Smoking cigarettes per day: 40.0 Years smoked: 60 Smoking pack-years: 120.00 Smoking status: Current every day smoker Second hand tobacco smoke exposure: No Alcohol i
[2024-03-23 12:17] LABS: Glucose Point of Care 289 mg/dl (65-105)
[2024-03-23] MEDS: INSULIN ASPART (*BKC) 100 UNITS/ML 20 UNITS SUB-Q ×2 (12:40→17:26)
[2024-03-23] MEDS: VANCOMYCIN 1,500 MG/NS 500 ML 1,500 MG/500 ML BAG 250 MG IVPB (13:03)
[2024-03-23] MEDS: SOD HYPOCHLORITE 1/4 STRENGTH 473 ML 1 APPLIC TOPICAL ×2 (13:26→21:24)
--- NOTE | 2024-03-23 16:37 | WPDPN ---
Progress Note: A&P Assessment and Plan (1) Diabetic infection of left foot: Code(s): E11.628 - Type 2 diabetes mellitus with other skin complications; L08.9 - Local infection of the skin and subcutaneous tissue, unspecified Status: Acute (2) Uncontrolled diabetes mellitus: Qualifiers: Diabetes mellitus type: type 2 Glycemic state: with hyperglycemia Qualified Code(s): E11.65 - Type 2 diabetes mellitus with hyperglycemia Status: Acute (3) Situational depression: Code(s): F43.21 - Adjustment disorder with depressed mood Status: Acute (4) Peripheral vascular disease: Code(s): I73.9 - Peripheral vascular disease, unspecified Status: Chronic (5) Hypertension: Qualifiers: Hypertension type: unspecified Qualified Code(s): I10 - Essential (primary) hypertension Code(s): I10 - Essential (primary) hypertension Status: Chronic (6) Personal history of noncompliance with medical treatment and regimen: Code(s): Z91.199 - Patient's noncompliance with other medical treatment and regimen due to unspecified reason Status: Acute Plan Chief Complaint: Patient sent to the ER for admission directly from the Wound Clinic for left foot MRI and IV antibiotics by orthopedics after debridement of the left foot today Narrative: Our patient is a very unfortunate 69 years old white male with uncontrolled diabetes mellitus, heavy 2 packs per day smoking, severe peripheral disease, CAD, history of non compliance and chronic medical issues who is having multiple issues with his left foot. 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 Patient underwent debridement in the wound care clinic today and sent to the ER where he was seen, evaluated, worked up and being admitted for orthopedics follow-up, IV antibiotics, left foot MRI, further workup and medical management. interval history 03/23/2024: s/p left foot transmetatarsal amputation 4 months ago was seen by his surgeon and found to have increased necrotic tissue, purulent discharge or foul smelling odor had limited debridement suspect patient may have OM, unable to have MRI due to pacemaker, patient is being treated with cefepime, Flagyl and vancomycin , surgery service is recommending deeper debridement to remove necrotic tissue will be done in OR. patient continue to smoke despite severe wound and while admitted patient goes out to smoke without any permission and is very belligerent about and does not follow rules in the hospital. Subjective Date/time seen: 03/23/24 16:37 Interval history: Chief Complaint: Patient sent to the ER for admission directly from the Wound Clinic for left foot MRI and IV antibiotics by orthopedics after debridement of the left foot today Narrative: Our patient is a very unfortunate 69 years old white male with uncontrolled diabetes mellitus, heavy 2 packs per day smoking, severe peripheral disease, CAD, history of non compliance and chronic medical issues who is having multiple issues with his left foot. 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 Patient underwent debridement in the wound care clinic today and sent to the ER where he was seen, evaluated, worked up and being admitted for orthopedics follow-up, IV antibiotics, left foot MRI, further workup and medical management. interval history 03/23/2024: s/p left foot transmetatarsal amputation 4 months ago was seen by his surgeon and found to have increased necrotic tissue, purulent discharge or foul smelling odor had limited debridement suspect patient may have OM, unable to have MRI due to pacemaker, patient is being treated with cefepime, [place]
[2024-03-23 17:17] LABS: Glucose Point of Care 213 mg/dl (65-105)
[2024-03-23] MEDS: ROSUVASTATIN 20 MG TABLET PO (21:20)
[2024-03-24] VITALS (8 sets, daily range): BP systolic 135–143; BP diastolic 61–68; PULSE 59–60; RESP 18–20; TEMP 35.8; O2SAT 98–100
[2024-03-24] MEDS: CEFEPIME 1 GM/NS 50 ML 1 GM/50 ML BAG IVPB ×3 (00:22→16:30)
[2024-03-24] MEDS: metroNIDAZOLE 500 MG/ISO 100ML 500 MG/100 ML BAG 100 MG IVPB ×3 (01:48→17:03)
[2024-03-24 04:35] LABS: Hematocrit 39.1 % (42.0-52.0); Hemoglobin 12.6 g/dL (14.0-18.0); Mean Corpuscular HGB Conc 32.2 g/dl (32-36); Mean Corpuscular Volume 83.9 fl (80-100); Mean Platelet Volume 10.1 fl (7.4-10.4); Platelet Count Result 238 k/mm3 (150-375); Red Blood Count 4.66 M/mm3 (4.6-6.20); Red Cell Distribution Width 15.3 % (11.5-14.5)
[2024-03-24 04:59] LABS: Anion Gap 6 mmol/L (4-12); Blood Urea Nitrogen 24 mg/dL (9-20); Calcium 8.7 mg/dL (8.4-10.2); Carbon Dioxide 25 mmol/L (22-30); Chloride 103 mmol/L (98-107); Estimated CRCL calculation 81 ml/min; Estimated Glomerular Filt Rate > 60; Glucose 247 mg/dL (65-110); Magnesium 1.9 mg/dL (1.6-2.3); Potassium 5.1 mmol/L (3.4-5.0); Sodium 134 mmol/L (137-145)
[2024-03-24 05:15] LABS: Vancomycin Trough 10.7 ug/mL (10.0-20.0)
[2024-03-24 05:35] LABS: Glucose Point of Care 197 mg/dl (65-105)
[2024-03-24] MEDS: VANCOMYCIN 1,500 MG/NS 500 ML 1,500 MG/500 ML BAG 250 MG IVPB ×2 (06:02→18:19)
[2024-03-24] MEDS: FLUTICASONE/SALMETEROL 230-21 MCG INHALER 1 PUFF 2 PUFF INHALATION ×2 (08:25→21:32)
[2024-03-24 08:36] LABS: Glucose Point of Care 343 mg/dl (65-105)
[2024-03-24] MEDS: ESCITALOPRAM OXALATE 10 MG TABLET PO (09:12)
[2024-03-24] MEDS: METOPROLOL TARTRATE 50 MG TAB 100 MG PO ×2 (09:12→21:59)
[2024-03-24] MEDS: FENOFIBRATE 160 MG TABLET PO (09:12)
[2024-03-24] MEDS: RIVAROXABAN 20 MG TABLET PO (09:12)
[2024-03-24] MEDS: INSULIN ASPART (*BKC) 100 UNITS/ML 20 UNITS SUB-Q ×3 (09:14→17:51)
[2024-03-24] MEDS: SOD HYPOCHLORITE 1/4 STRENGTH 473 ML 1 APPLIC TOPICAL ×2 (10:34→22:54)
[2024-03-24 11:22] LABS: Glucose Point of Care 386 mg/dl (65-105)
--- NOTE | 2024-03-24 11:26 | PM.PNORT ---
Progress Note: A&P Assessment and Plan (1) Diabetic infection of left foot: Code(s): E11.628 - Type 2 diabetes mellitus with other skin complications; L08.9 - Local infection of the skin and subcutaneous tissue, unspecified Status: Acute (2) Peripheral vascular disease: Code(s): I73.9 - Peripheral vascular disease, unspecified Status: Chronic (3) Chronic ulcer of left foot with necrosis of muscle: Code(s): L97.523 - Non-pressure chronic ulcer of other part of left foot with necrosis of muscle Status: Chronic Assessment and Plan: Dakin solution dressing changes started yesterday with noted improvement in odor. Still with necrotic tissue and purulent material at the wound site. Indicated for surgical debridement. Discussed with patient. Patient still using tobacco and wanting to smoke. Long discussion with patient regarding the negative healing effects of nicotine. Recommend absolute cessation of smoking, nicotine patches, nicotine gum. Discussed the potential complication with further infection and loss of limb. Discussed nonoperative and operative treatment options with the patient. Risks and benefits of each as well as alternatives were reviewed. All of the patient's questions were answered. The risks of surgery reviewed including but not limited to: Neurovascular damage, wound complication, infection, blood clot, pulmonary embolus, stroke, myocardial infarction, and anesthetic risks up to and including . Continued pain and possible dysfunction were explained. Specific risks of the procedure including later recurrence of deformity. No guarantees were offered. If hardware used, discussed risk of failure/ breakage and possible need for removal. If complications occur, the patient understands the need for further treatment, possible further surgery. Patient verbalizes understanding and wishes to proceed. PLAN: Debridement left foot (4) Cellulitis of foot, left: Code(s): L03.116 - Cellulitis of left lower limb Status: Acute Subjective Subjective Date/Time Seen: 03/24/24 11:26 Post Op day: 14wk (4.5mos) Principal diagnosis: Left foot osteomyelitis Interval history: Dakin's solution dressing changes started yesterday. Odor improved. No new complaints. Difficulty yesterday due to patient wanting to go outside to smoke. Exam Resp: Effort & Inspection: normal respiratory effort and no audible wheezes Neuro: General: patient oriented x3 and No confusion Extrem: Other: Left foot dressing removed. Necrotic areas along the incision line and plantar aspect of the skin flap, Necrosis and infection worse. purulent drainage. plantar foot with increased swelling and erythema. No palpable pulses. Wound measures 9x1x1.6 cm. Psych: Affect: normal affect Objective Data Vital Signs Vital Signs: Vital Signs - 24 hr 03/23/24 14:00 03/23/24 21:04 03/23/24 21:12 Temperature 97.3 F L 97.0 F L Pulse Rate 60 75 59 L Respiratory Rate 18 18 20 Blood Pressure 132/61 152/65 H Pulse Oximetry 98 100 Oxygen Delivery Fraction of Inspired Oxygen 03/23/24 21:20 03/23/24 20:00 03/24/24 06:00 Temperature 96.4 F L Pulse Rate 66 60 Respiratory Rate 20 Blood Pressure 135/61 Pulse Oximetry 100 Oxygen Delivery Room Air Fraction of Inspired Oxygen 03/24/24 08:25 03/24/24 08:25 03/24/24 09:12 Temperature Pulse Rate 60 60 Respiratory Rate 18 Blood Pressure Pulse Oximetry 98 Oxygen Delivery Room Air Fraction of Inspired Oxygen 21 Intake/Output Intake/Output: Intake & Output 03/21/24 03/22/24 03/23/24 03/24/24 23:59 23:59 23:59 23:59 Intake Total 590 3040 990 Output Total 900 Balance 590 2140 990 Meds/Results Medications: Active Medications Generic Name Dose Route Start Last Admin Trade Name Freq PRN Reason Stop Dose Admin Acetaminophen 650 mg 03/22/24 23:06 Acetaminophen 325 Mg Tablet P
--- NOTE | 2024-03-24 14:57 | WPDPN ---
Progress Note: A&P Assessment and Plan (1) Diabetic infection of left foot: Code(s): E11.628 - Type 2 diabetes mellitus with other skin complications; L08.9 - Local infection of the skin and subcutaneous tissue, unspecified Status: Acute (2) Peripheral vascular disease: Code(s): I73.9 - Peripheral vascular disease, unspecified Status: Chronic (3) Chronic ulcer of left foot with necrosis of muscle: Code(s): L97.523 - Non-pressure chronic ulcer of other part of left foot with necrosis of muscle Status: Chronic Assessment and Plan: Interval history: Chief Complaint: Patient sent to the ER for admission directly from the Wound Clinic for left foot MRI and IV antibiotics by orthopedics after debridement of the left foot today Narrative: Our patient is a very unfortunate 69 years old white male with uncontrolled diabetes mellitus, heavy 2 packs per day smoking, severe peripheral disease, CAD, history of non compliance and chronic medical issues who is having multiple issues with his left foot. 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 Patient underwent debridement in the wound care clinic today and sent to the ER where he was seen, evaluated, worked up and being admitted for orthopedics follow-up, IV antibiotics, left foot MRI, further workup and medical management. interval history 03/23/2024: s/p left foot transmetatarsal amputation 4 months ago was seen by his surgeon and found to have increased necrotic tissue, purulent discharge or foul smelling odor had limited debridement suspect patient may have OM, unable to have MRI due to pacemaker, patient is being treated with cefepime, Flagyl and vancomycin , surgery service is recommending deeper debridement to remove necrotic tissue will be done in OR. patient continue to smoke despite severe wound and while admitted patient goes out to smoke without any permission and is very belligerent about and does not follow rules in the hospital. Interval history 03/24/2024: Patient was seen by his surgeon recommended surgical debridement and risk and benefit were discussed with the patient by the surgeon, unfortunately patient continue to smoke understand risk of wound healing and history of diabetes, wound culture is growing staphylococcus aureus pending sensitivity, blood culture in pending, patient is being treated with cefepime, metronidazole and vancomycin, will follow and monitor. (4) Cellulitis of foot, left: Code(s): L03.116 - Cellulitis of left lower limb Status: Acute Subjective Date/time seen: 03/24/24 14:57 Interval history: Chief Complaint: Patient sent to the ER for admission directly from the Wound Clinic for left foot MRI and IV antibiotics by orthopedics after debridement of the left foot today Narrative: Our patient is a very unfortunate 69 years old white male with uncontrolled diabetes mellitus, heavy 2 packs per day smoking, severe peripheral disease, CAD, history of non compliance and chronic medical issues who is having multiple issues with his left foot. 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 Patient underwent debridement in the wound care clinic today and sent to the ER where he was seen, evaluated, worked up and being admitted for orthopedics follow-up, IV antibiotics, left foot MRI, further workup and medical management. interval history 03/23/2024: s/p left foot transmetatarsal amputation 4 months ago was seen by his surgeon and found to have increased necrotic tissue, purulent discharge or foul smelling odor had limited debridement suspect patient may have OM, unable to have MRI due to pacemaker, patient is being treate
[2024-03-24 16:52] LABS: Glucose Point of Care 211 mg/dl (65-105)
[2024-03-24] MEDS: HYDROcodone/acetaminophen (*CRX) 5-325 MG TABLET 1 TAB PO (19:11)
--- NOTE | 2024-03-24 21:06 | PC.NURSE ---
PATIENT REQUEST TO GO OUTSIDE AND SMOKE. THIS NURSE SPOKE WITH PATIENT REGARDING THE HOSPITALS SMOKING POLICY AND SMOKING CESSATION. SECURITY NOTIFIED TO ESCORT PATIENT OUTSIDE.
[2024-03-24] MEDS: ROSUVASTATIN 20 MG TABLET PO (21:59)
[2024-03-24] MEDS: INSULIN GLARGINE (*BKC) 100 UNITS/ML 50 UNITS SUB-Q (22:00)
[2024-03-25] VITALS (13 sets, daily range): BP systolic 110–169; BP diastolic 51–68; PULSE 59–80; RESP 16–21; TEMP 36.1–36.8; O2SAT 95–100
[2024-03-25] MEDS: metroNIDAZOLE 500 MG/ISO 100ML 500 MG/100 ML BAG 100 MG IVPB ×2 (00:43→09:23)
[2024-03-25] MEDS: CEFEPIME 1 GM/NS 50 ML 1 GM/50 ML BAG IVPB ×2 (00:43→08:53)
[2024-03-25 05:53] LABS: Basophils Absolute Auto 0.1 K/mm3 (0.0-0.1); Basophils Percent Auto 0.9 % (0.2-1.2); Eosinophils Absolute Auto 0.8 K/mm3 (0-0.3); Eosinophils Percent Auto 9.3 % (0-4.4); Hematocrit 39.6 % (42.0-52.0); Hemoglobin 12.7 g/dL (14.0-18.0); Immature Granulocyte Absolute 0.02 K/mm3 (0.00-0.031); Immature Granulocyte Percent A 0.2 % (0-0.5); Lymphocytes Percent Auto 16.3 % (18.3-44.2); Mean Corpuscular HGB Conc 32.1 g/dl (32-36); Mean Corpuscular Hemoglobin 26.9 pg (26-34); Mean Corpuscular Volume 83.9 fl (80-100); Monocytes Absolute Auto 0.9 K/mm3 (0.1-0.6); Monocytes Percent Auto 10.1 % (2.6-8.5); Neutrophils Absolute Auto 5.4 K/mm3 (1.3-6.7); Neutrophils Percent Auto 63.2 % (45.5-73.1); Platelet Count Result 238 k/mm3 (150-375); Red Blood Count 4.72 M/mm3 (4.6-6.20); Red Cell Distribution Width 15.2 % (11.5-14.5); White Blood Count 8.6 K/mm3 (4.5-10.0)
[2024-03-25 06:07] LABS: Anion Gap 6 mmol/L (4-12); Blood Urea Nitrogen 23 mg/dL (9-20); Calcium 8.6 mg/dL (8.4-10.2); Carbon Dioxide 25 mmol/L (22-30); Chloride 105 mmol/L (98-107); Estimated CRCL calculation 89 ml/min; Estimated Glomerular Filt Rate > 60; Glucose 166 mg/dL (65-110); Potassium 4.5 mmol/L (3.4-5.0); Sodium 136 mmol/L (137-145)
[2024-03-25] MEDS: VANCOMYCIN 1,500 MG/NS 500 ML 1,500 MG/500 ML BAG 250 MG IVPB (06:18)
--- NOTE | 2024-03-25 07:02 | WPDHPUPDATE1 ---
History and Physical Update Update Date/Time: 03/25/24 07:02 History and Physical has been reviewed, including an updated exam of the patient. There are NO changes in the patient's condition. Risks, benefits, and alternatives have been discussed and questions answered. Patient agrees to proceed with procedure.
[2024-03-25] MEDS: LACTATED RINGERS 1,000 ML 30 ML IV CONT (08:10)
[2024-03-25 08:43] LABS: Glucose Point of Care 252 mg/dl (65-105)
--- NOTE | 2024-03-25 09:00 | WPDANESEPPF ---
Anes - Initial Pre Proc Eval Procedure: Operation Date: 03/25/24 09:30 Proposed Procedures p Left foot Debridement - Prasanth Pizarro MD Date/Time: 03/25/24 09:00 Surgeon: Latesha Gillette MD Pre Op Diagnosis: Diabetic Foot Wound Infection/Cellulitis/PVD/Uncon Patient Data Age: 69 Gender: M Height: 1.85 m Weight: 118.8 kg Last Vital Signs Temp 97.0 F L 03/25/24 06:00 Pulse 60 03/25/24 06:00 Resp 20 03/25/24 06:00 BP 150/62 H 03/25/24 06:00 Pulse Ox 98 03/25/24 06:00 O2 Del Method Room Air 03/24/24 21:36 FiO2 21 03/24/24 21:36 Allergies Allergy/AdvReac Type Severity Reaction Status Date / Time No Known Allergies Allergy Verified 03/22/24 13:09 Home Medications Medication Instructions Recorded Confirmed Type escitalopram oxalate 10 mg tablet 10 mg PO DAILY 09/22/23 03/22/24 History fenofibrate 160 mg tablet 160 mg PO DAILY 09/22/23 03/22/24 History furosemide 40 mg tablet 40 mg PO DAILY 09/22/23 03/22/24 History insulin aspart U-100 100 unit/mL 20 unit subcut TIDWM 09/22/23 03/22/24 History subcutaneous solution (Novolog U-100 Insulin aspart) insulin glargine 100 unit/mL (3 50 unit subcut HS 09/22/23 03/22/24 History mL) subcutaneous pen (Basaglar KwikPen U-100 Insulin) metformin 1,000 mg tablet 1,000 mg PO BIDWM 09/22/23 03/22/24 History metoprolol tartrate 100 mg tablet 100 mg PO BID 09/22/23 03/22/24 History potassium chloride 10 mEq 10 meq PO DAILY 09/22/23 03/22/24 History tablet,extended release rivaroxaban 20 mg tablet (Xarelto) 20 mg PO DAILY 09/22/23 03/22/24 History rosuvastatin 20 mg tablet 20 mg PO HS 09/22/23 03/22/24 History hydrocodone 5 mg-acetaminophen 325 1 tablet PO Q4H PRN Pain Rated 4-7 02/22/24 06/07/24 Rx mg tablet #20 tabs fluticasone furoate 200 1 inh inhalation DAILY 03/22/24 03/22/24 History mcg-vilanterol 25 mcg/dose inhalation powder (Breo Ellipta) Laboratory Tests 03/24/24 03/24/24 03/25/24 11:19 16:50 05:29 WBC 8.6 K/mm3 (4.5-10.0) RBC 4.72 M/mm3 (4.6-6.20) Hgb 12.7 L g/dL (14.0-18.0) Hct 39.6 L % (42.0-52.0) MCV 83.9 fl (80-100) MCH 26.9 pg (26-34) MCHC 32.1 g/dl (32-36) RDW 15.2 H % (11.5-14.5) Plt Count 238 k/mm3 (150-375) MPV 10.0 fl (7.4-10.4) Immature Gran % (Auto) 0.2 % (0-0.5) Neut % (Auto) 63.2 % (45.5-73.1) Lymph % (Auto) 16.3 L % (18.3-44.2) [place] % (Auto) 10.1 H % (2.6-8.5) Eos % (Auto) 9.3 H % (0-4.4) Baso % (Auto) 0.9 % (0.2-1.2) Lymph # (Auto) 1.40 K/mm3 (0.9-3.2) [place] # (Auto) 0.9 H K/mm3 (0.1-0.6) Eos # (Auto) 0.8 H K/mm3 (0-0.3) Baso # (Auto) 0.1 K/mm3 (0.0-0.1) Abs Immat Gran (auto) 0.02 K/mm3 (0.00-0.031) Absolute Neuts (auto) 5.4 K/mm3 (1.3-6.7) Absolute Nucleated RBC 0.000 K/mm3 (0.0-0.012) Nucleated RBC % 0.0 % (0.0-0.2) Sodium 136 L mmol/L (137-145) Potassium 4.5 mmol/L (3.4-5.0) Chloride 105 mmol/L (98-107) Carbon Dioxide 25 mmol/L (22-30) Anion Gap 6 mmol/L (4-12) BUN 23 H mg/dL (9-20) Creatinine 0.90 mg/dL (0.7-1.3) Estim Creat Clear Calc 89 ml/min Estimated GFR > 60 (59 - ) Glucose 166 H mg/dL (65-110) POC Capillary Glucose 386 H mg/dl 211 H mg/dl (65-105) (65-105) Calcium 8.6 mg/dL (8.4-10.2) Magnesium 2.0 mg/dL (1.6-2.3) 03/25/24 08:41 WBC RBC Hgb Hct MCV MCH MCHC RDW Plt Count MPV Immature Gran % (Auto) Neut % (Auto) Lymph % (Auto) [place] % (Auto) Eos % (Auto) Baso % (Auto) Lymph # (Auto) [place] # (Auto) Eos # (Auto)
[2024-03-25] MEDS: FLUTICASONE/SALMETEROL 230-21 MCG INHALER 1 PUFF 2 PUFF INHALATION ×2 (09:15→21:35)
[2024-03-25] MEDS: BUPivacaine HCL 0.5% PF 30 ML VIAL 10 ML INFILTRATE (09:57)
[2024-03-25] MEDS: VANCOMYCIN HCL 1,000 MG VIAL 1000 MG TOPICAL (10:02)
--- NOTE | 2024-03-25 10:29 | W.PM.PROC2 ---
Procedure Note - Detailed Date of Procedure 03/25/24 Pre-op Diagnosis Diabetic Foot Wound Infection/Cellulitis/PVD/Uncon Post-op Diagnosis Same Procedure Performed Excisional debridement left foot Surgeon Prasanth Pizarro MD Attending Pathologist 1st maintenance assistant Anesthesia General Indications 69-year-old left diabetic foot ulcer nonhealing wound. Superinfection noted over past week. Started on antibiotics. Presents operative debridement. Findings 9 x 1.5 cm in distal Left foot. purulent material and necrotic tissue. Description of Procedure Patient identified in the preoperative holding. Informed consent given. Operative extremity marked. Patient received intravenous antibiotics. Patient brought to the operating room where underwent general anesthetic by anesthesia team. Positioned supine on operating room table. Time-out performed confirming the patient, site of the surgery and the plan. left foot prepped and draped in usual sterile surgical fashion using Betadine prep solution. There was an ulcer over the distal aspect of the left foot 9 cm in length and 1.5 cm in width which revealed full-thickness necrosis with Involvement of the skin, subcutaneous tissue and muscle. Fifteen blade knife used excise and remove skin, subcutaneous tissue and muscle that was devitalized and infected. no open bone encountered. Rongeur used to remove any large loose pieces of tissue and passed off. Thorough irrigation done. Vancomycin powder then applied to the wound. Wound Loosely closed with 0 Prolene interrupted suture. Sterile dressings applied. Patient awoke from anesthesia, extubated and taken to the recovery room in stable condition. All sponge needle and instrument counts correct at the end the case. Implants None Estimated Blood Loss 10 Tourniquet Time Total Tourniquet Time: 0 Urine Output 900 Drains No Packing Yes Pathology None sent Complications None Condition Stable Disposition PACU [facility] Billing Surgery - Charge Forward: Surgery Billing ([id number])
[2024-03-25 10:37] LABS: Glucose Point of Care 287 mg/dl (65-105)
--- NOTE | 2024-03-25 10:49 | SUR.PHASEI ---
1035 pt blood sugar is 287. Dr. Muñoz aware. Proceed to transfer patient upstairs per MD.
[2024-03-25 11:39] LABS: Glucose Point of Care 184 mg/dl (65-105)
[2024-03-25 11:46] LABS: Glucose Point of Care 262 mg/dl (65-105)
--- NOTE | 2024-03-25 12:13 | PM.IMPN ---
Progress Note: A&P Assessment and Plan (1) Diabetic infection of left foot: Code(s): E11.628 - Type 2 diabetes mellitus with other skin complications; L08.9 - Local infection of the skin and subcutaneous tissue, unspecified Status: Acute (2) Peripheral vascular disease: Code(s): I73.9 - Peripheral vascular disease, unspecified Status: Chronic (3) Chronic ulcer of left foot with necrosis of muscle: Code(s): L97.523 - Non-pressure chronic ulcer of other part of left foot with necrosis of muscle Status: Chronic Assessment and Plan: Status post debridement 03/25 in the OR (4) Cellulitis of foot, left: Code(s): L03.116 - Cellulitis of left lower limb Status: Acute Plan Patient is status post wound debridement in the OR on 03/25. Will deescalate antibiotics to vancomycin only for MRSA. Will consider oral antibiotics tomorrow. Patient is aware he should not leave the floor to continue to smoke. Time Spent With Patient Time with patient: Greater than 35 minutes Subjective Date/time seen: 03/25/24 12:13 Interval history: Chief Complaint: Patient sent to the ER for admission directly from the Wound Clinic for left foot MRI and IV antibiotics by orthopedics after debridement of the left foot today Narrative: Our patient is a very unfortunate 69 years old white male with uncontrolled diabetes mellitus, heavy 2 packs per day smoking, severe peripheral disease, CAD, history of non compliance and chronic medical issues who is having multiple issues with his left foot. 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 Patient underwent debridement in the wound care clinic today and sent to the ER where he was seen, evaluated, worked up and being admitted for orthopedics follow-up, IV antibiotics, left foot MRI, further workup and medical management. interval history 03/23/2024: s/p left foot transmetatarsal amputation 4 months ago was seen by his surgeon and found to have increased necrotic tissue, purulent discharge or foul smelling odor had limited debridement suspect patient may have OM, unable to have MRI due to pacemaker, patient is being treated with cefepime, Flagyl and vancomycin , surgery service is recommending deeper debridement to remove necrotic tissue will be done in OR. patient continue to smoke despite severe wound and while admitted patient goes out to smoke without any permission and is very belligerent about and does not follow rules in the hospital. Interval history 03/24/2024: Patient was seen by his surgeon recommended surgical debridement and risk and benefit were discussed with the patient by the surgeon, unfortunately patient continue to smoke understand risk of wound healing and history of diabetes, wound culture is growing staphylococcus aureus pending sensitivity, blood culture in pending, patient is being treated with cefepime, metronidazole and vancomycin, will follow and monitor. Interval history 03/25/2024: Patient went to the OR today for left foot debridement, no bone exposed during procedure per surgical note. Antibiotics de-escalated to vancomycin only for MRSA. Consider transition to orals tomorrow if doing well. Review of Systems Review of Systems: All systems reviewed & are unremarkable except as noted in HPI and below Exam Narrative: General physical exam: 69 years old obese male, sitting in the chair Head/eyes: Atraumatic, ENT: Moist mucous membranes, nasal passages clear Neck: Supple, CVS: S1 + S2, regular rate and rhythm, no murmurs Respiratory: Bilaterally fair air entry in both lung johnson, mild B/L crackles, symmetric chest expansion, no distress Abdomen: Soft, non-tender, bowel sounds + Extremities: no edema, left foot dressing in place postoperative Musculoskeletal: Moves all extremities Ski
[2024-03-25] MEDS: INSULIN ASPART (*BKC) 100 UNITS/ML 20 UNITS SUB-Q (12:19)
[2024-03-25] MEDS: RIVAROXABAN 20 MG TABLET PO (12:33)
[2024-03-25] MEDS: ESCITALOPRAM OXALATE 10 MG TABLET PO (12:34)
[2024-03-25] MEDS: METOPROLOL TARTRATE 50 MG TAB 100 MG PO ×2 (12:34→21:13)
[2024-03-25] MEDS: FENOFIBRATE 160 MG TABLET PO (12:34)
--- NOTE | 2024-03-25 13:16 | PC.NURSE ---
INCIDENT RESPONSE LEAD told RN there was blood on the floor and RN checked patient's dressing and it is saturated in blood. RN called Dr. Pizarro and updated him on patient's saturated dressing post surgery. Per Dr. Pizarro take off dressing and rewrap foot.
[2024-03-25 16:54] LABS: Glucose Point of Care 198 mg/dl (65-105)
--- NOTE | 2024-03-25 17:16 | PC.NURSE ---
Patient fired RN Bethanie. This RN will assume care for patient at this time.
[2024-03-25 18:25] LABS: Vancomycin Trough 14.3 ug/mL (10.0-20.0)
[2024-03-25] MEDS: VANCOMYCIN 1,750 MG/NS 500 ML 1,750 MG/500 ML BAG 250 MG IVPB (19:04)
[2024-03-25] MEDS: ROSUVASTATIN 20 MG TABLET PO (21:14)
[2024-03-25] MEDS: INSULIN GLARGINE (*BKC) 100 UNITS/ML 50 UNITS SUB-Q (21:14)
[2024-03-25 21:38] LABS: Glucose Point of Care 296 mg/dl (65-105)
[2024-03-25] MEDS: HYDROcodone/acetaminophen (*CRX) 5-325 MG TABLET 1 TAB PO (21:40)
[2024-03-26] VITALS: BP 122/57; PULSE 61; RESP 18; TEMP 36.5; O2SAT 98
[2024-03-26] MEDS: VANCOMYCIN 1,750 MG/NS 500 ML 1,750 MG/500 ML BAG 250 MG IVPB (05:37)
[2024-03-26 06:08] VITALS: BP 144/85; PULSE 60; RESP 20; TEMP 36.4; O2SAT 100
[2024-03-26 06:27] LABS: Hematocrit 38.8 % (42.0-52.0); Hemoglobin 12.1 g/dL (14.0-18.0); Mean Corpuscular HGB Conc 31.2 g/dl (32-36); Mean Corpuscular Hemoglobin 26.6 pg (26-34); Mean Corpuscular Volume 85.3 fl (80-100); Mean Platelet Volume 10.3 fl (7.4-10.4); Platelet Count Result 237 k/mm3 (150-375); Red Blood Count 4.55 M/mm3 (4.6-6.20); Red Cell Distribution Width 15.1 % (11.5-14.5); White Blood Count 8.7 K/mm3 (4.5-10.0)
[2024-03-26 06:38] LABS: Anion Gap 3 mmol/L (4-12); Blood Urea Nitrogen 18 mg/dL (9-20); Calcium 8.8 mg/dL (8.4-10.2); Carbon Dioxide 28 mmol/L (22-30); Chloride 104 mmol/L (98-107); Estimated CRCL calculation 81 ml/min; Estimated Glomerular Filt Rate > 60; Glucose 210 mg/dL (65-110); Magnesium 1.9 mg/dL (1.6-2.3); Potassium 4.4 mmol/L (3.4-5.0); Sodium 135 mmol/L (137-145)
[2024-03-26] MEDS: FLUTICASONE/SALMETEROL 230-21 MCG INHALER 1 PUFF 2 PUFF INHALATION (08:38)
[2024-03-26 08:41] VITALS: O2SAT 98
[2024-03-26 08:46] LABS: Glucose Point of Care 195 mg/dl (65-105)
[2024-03-26 09:17] VITALS: PULSE 59
[2024-03-26] MEDS: FENOFIBRATE 160 MG TABLET PO (09:17)
[2024-03-26] MEDS: ESCITALOPRAM OXALATE 10 MG TABLET PO (09:17)
[2024-03-26] MEDS: METOPROLOL TARTRATE 50 MG TAB 100 MG PO (09:17)
[2024-03-26] MEDS: SOD HYPOCHLORITE 1/4 STRENGTH 473 ML 1 APPLIC TOPICAL (09:22)
--- NOTE | 2024-03-26 11:13 | PM.PNORT ---
Progress Note: A&P Assessment and Plan (1) Diabetic infection of left foot: Code(s): E11.628 - Type 2 diabetes mellitus with other skin complications; L08.9 - Local infection of the skin and subcutaneous tissue, unspecified Status: Acute Assessment and Plan: POD #1: Excisional debridement left foot Dressing changed. Continue daily dressing changes with adaptic covering incision and gauze/ABD, wrap with kerlex. Coband. Post op shoe. Limit weight bearing on the LLE. Cultures with MRSA. Medicine team transitioning patient to oral antibiotics today. Plan to follow up in the [facility] wound clinic next week for dressing change. Patient to be performing daily dressing changes. (2) Personal history of noncompliance with medical treatment and regimen: Code(s): Z91.199 - Patient's noncompliance with other medical treatment and regimen due to unspecified reason Status: Acute (3) Uncontrolled diabetes mellitus: Qualifiers: Diabetes mellitus type: type 2 Glycemic state: with hyperglycemia Qualified Code(s): E11.65 - Type 2 diabetes mellitus with hyperglycemia Status: Acute (4) Peripheral vascular disease: Code(s): I73.9 - Peripheral vascular disease, unspecified Status: Chronic (5) Chronic ulcer of left foot with necrosis of muscle: Code(s): L97.523 - Non-pressure chronic ulcer of other part of left foot with necrosis of muscle Status: Chronic (6) Tobacco abuse: Code(s): Z72.0 - Tobacco use Status: Acute Assessment and Plan: Patient is currently a smoker. We discussed importance of smoking cessation to prevent further wound complications or loss of limb. Time Spent With Patient Time: Reviewed history, exam, radiographs and current labs with attending MD and covering surgeon, Dr. Pizarro, who agrees with current plan as indicated above. No further recommendations from Dr. Pizarro at this time. Subjective Subjective Date/Time Seen: 03/26/24 11:13 Post Op day: 1 Interval history: POD #1: Excisional debridement left foot Patient doing well. No new concerns. Hopeful for discharge home today. Review of Systems Constitutional: Constitutional: Denies fever(s) Eyes: Eyes: Denies blurry vision ENT: Reports Normal hearing present Cardiovascular: Cardiovascular: Denies chest pain and Denies dyspnea Respiratory: Respiratory: Denies dyspnea and Denies wheezing Gastrointestinal: Gastrointestinal: Denies abdominal pain Genitourinary: Genitourinary: Denies urinary urgency Musculoskeletal: Musculoskeletal: Reports as per HPI and Denies numbness Integumentary/Breasts: Skin/Breast: Denies changing lesions and Denies sores Neurologic: Reports Normal hearing present, Denies behavioral changes, Denies confusion, Denies numbness and Denies convulsions Psychiatric: Psychiatric: Denies behavioral changes, Denies confusion and Denies hallucinations Endocrine: Endocrine: Denies heat intolerance Hematologic/Lymphatic: Hematologic/Lymphatic: Denies easy bleeding Allergic/Immunologic: Allergic/Immunologic: Denies wheezing Exam Const: General: comfortable Resp: Effort & Inspection: normal respiratory effort Cardio: Rate: regular rate Rhythm: regular rhythm GI: GI Palp: Yes Soft to palpation Auscultation: normal bowel sounds Extrem: Other: Left foot dressing removed. Wound bed appears viable at this time. Mild sanguinous drainage. Surrounding tissue without redness. No malodor. Psych: Mental Status: mental status grossly normal Objective Data Vital Signs Vital Signs: Vital Signs - 24 hr 03/25/24 11:15 03/25/24 11:40 03/25/24 12:34 Temperature 36.1 C L Pulse Rate 60 60 60 Respiratory Rate 21 H 18 Blood Pressure 143/62 H 148/55 H Pulse Oximetry 98 100 Oxygen Delivery Room Air 03/25/24 11:55 03/25/24 14:00 03/25/24 20:00 Temperature 36.1 C L 36.6 C 36.4 C Pulse Rate 60 60 59 L Respiratory Rate 18 18 16 Blo
--- NOTE | 2024-03-26 12:01 | PM.DS ---
DS: Admitting Diagnosis Discharge Date 03/26/2024 Admitting Diagnosis diabetic infection of left foot, uncontrolled diabetes mellitus, situational depression, peripheral vascular disease, hypertension, dyslipidemia, cellulitis of left foot, tobacco abuse, COPD, CAD, diabetes, long-term current use of insulin, KIRILL on CPAP, obesity, diabetic foot ulcer, personal history of noncompliance with medical treatment and regimen DS: Discharge Diagnosis Discharge Diagnosis (1) Diabetic infection of left foot: Code(s): E11.628 - Type 2 diabetes mellitus with other skin complications; L08.9 - Local infection of the skin and subcutaneous tissue, unspecified Status: Acute (2) Personal history of noncompliance with medical treatment and regimen: Code(s): Z91.199 - Patient's noncompliance with other medical treatment and regimen due to unspecified reason Status: Acute (3) Uncontrolled diabetes mellitus: Qualifiers: Diabetes mellitus type: type 2 Glycemic state: with hyperglycemia Qualified Code(s): E11.65 - Type 2 diabetes mellitus with hyperglycemia Status: Acute (4) Peripheral vascular disease: Code(s): I73.9 - Peripheral vascular disease, unspecified Status: Chronic (5) Chronic ulcer of left foot with necrosis of muscle: Code(s): L97.523 - Non-pressure chronic ulcer of other part of left foot with necrosis of muscle Status: Chronic (6) Tobacco abuse: Code(s): Z72.0 - Tobacco use Status: Acute (7) Cellulitis of foot, left: Code(s): L03.116 - Cellulitis of left lower limb Status: Acute DS: Summary Hospital Course Hospital Course: This is a 69-year-old male patient with history of peripheral vascular disease, diabetes, tobacco abuse and prior partial left foot amputation who was hospitalized for infected wound of the left foot. There was concern for further osteomyelitis. Wound was cultured and ended up growing MRSA. Blood cultures negative growth to date. Patient underwent evaluation with Orthopedics return to the operating room for incision drainage and debridement. No further bone was in vault once all infected tissue was removed. During hospitalization patient was very confrontational with staff and demanding to leave the floor to go smoke. He did this multiple times. He was reminded multiple times a continuing to smoke as well as his diabetes control and peripheral vascular disease leads to less likelihood of good wound closure increases risk of further complications reinfection need for further amputation etc.. Despite this patient continued to insist smoking. He attempted to walk around the room in an attempt to leave the floor yesterday just shortly after surgery and sustained some increased bleeding. antibiotics changed to orals today to target MRSA 14 days of Bactrim. Potassium discontinued as he was hyperkalemic and initiated on Bactrim. He is supposed to have daily dressing changes home health already in place and will be notified of his discharge today. When patient was informed he was being discharged he asked for his IV to be removed immediately. Patient as soon as his IV removed he demanded to be able to the floor to smoke and then returned to his room to wait for his son to get off work. Past discharge instructions were completed patient was provided with discharge information and discharged from the facility once he left the floor to go smoke. Status at Discharge Cognitive/behavioral status at discharge: Awake alert oriented very confrontational at times Functional status at discharge: independent ambulation Overall status at discharge: patient is progressing back to baseline Time Spent with Patient Time attestation: Total time spent providing and/or coordinating discharge services: 40 minutes Time spent: Greater than 30 minutes Exam Narrative: General physical exam: 69 years old obese male, sitting in the bed Head/eyes: Atr
--- NOTE | 2024-03-26 12:05 | WPDANESPN ---
Anes - Prog Note Post-Op Date/Time: 03/26/24 12:05 Cardiovascular status: normal Respiratory status: normal Airway patency: baseline Mental status: baseline Post-Op hydration status: normal Vital Signs: Last Vital Signs Temp 36.4 C 03/26/24 06:08 Pulse 59 L 03/26/24 09:17 Resp 20 03/26/24 06:08 BP 144/85 H 03/26/24 06:08 Pulse Ox 98 03/26/24 08:41 O2 Del Method Room Air 03/26/24 08:41 O2 Flow Rate 8 03/25/24 10:30 FiO2 21 03/24/24 21:36 Pain Score (VAS): 0 I/O: Intake & Output 03/25/24 03/26/24 03/26/24 23:59 07:59 15:59 Intake Total 1100 900 480 Output Total 2500 Balance 1100 -1600 480 Laboratory Tests 03/26/24 06:00 03/26/24 06:00 03/25/24 03/25/24 03/25/24 16:50 17:49 20:48 WBC RBC Hgb Hct MCV MCH MCHC RDW Plt Count MPV Sodium Potassium Chloride Carbon Dioxide Anion Gap BUN Creatinine Estim Creat Clear Calc Estimated GFR Glucose POC Capillary Glucose 198 H 296 H Calcium Magnesium Vancomycin Trough 14.3 03/26/24 03/26/24 06:00 08:34 WBC 8.7 RBC 4.55 L Hgb 12.1 L Hct 38.8 L MCV 85.3 MCH 26.6 MCHC 31.2 L RDW 15.1 H Plt Count 237 MPV 10.3 Sodium 135 L Potassium 4.4 Chloride 104 Carbon Dioxide 28 Anion Gap 3 L BUN 18 Creatinine 1.00 Estim Creat Clear Calc 81 Estimated GFR > 60 Glucose 210 H POC Capillary Glucose 195 H Calcium 8.8 Magnesium 1.9 Vancomycin Trough Microbiology 03/22/24 14:25 Foot Left Wound Culture - Final Methicillin Resis Staph Aureus Post-procedural complaints: none Patient Feedback: Patient satisfied with anesthetic care.
--- NOTE | 2024-03-26 12:36 | PC.NURSE ---
Pt asked if we can hold his room for him until five. I made him aware that once he signed his discharge paperwork and left the unit that he was considered discharged and could not come back to his room. Pt verbalized understanding.
== END 2024-03-26 12:37 | disposition home health service (06) | DRG 623 ==
LOC: ANHED 16:22 → ANH3MED 16:53
PROVIDERS: Family Medicine; Orthopaedic Surgery; Admitting Provider Hospitalist; Emergency Provider Nurse Practitioner Family; PCP Nurse Practitioner Family; Visit Provider Nurse Practitioner
PROC: 0KBW0ZZ Excision of Left Foot Muscle, Open Approach (ICD-10-PCS; principal; 2024-03-25 09:30)
DX: E11.628 Type 2 diabetes mellitus with other skin complications (principal); L03.116 Cellulitis of left lower limb; B95.62 Methicillin resistant Staphylococcus aureus infection as the cause of diseases classified elsewhere; I73.9 Peripheral vascular disease, unspecified; E11.621 Type 2 diabetes mellitus with foot ulcer; L97.523 Non-pressure chronic ulcer of other part of left foot with necrosis of muscle; E11.51 Type 2 diabetes mellitus with diabetic peripheral angiopathy without gangrene; I25.10 Atherosclerotic heart disease of native coronary artery without angina pectoris; I48.91 Unspecified atrial fibrillation; J44.9 Chronic obstructive pulmonary disease, unspecified; I10 Essential (primary) hypertension; E11.65 Type 2 diabetes mellitus with hyperglycemia; E78.5 Hyperlipidemia, unspecified; F17.210 Nicotine dependence, cigarettes, uncomplicated; F43.21 Adjustment disorder with depressed mood; Z91.199 Patient's noncompliance with other medical treatment and regimen due to unspecified reason; Z86.711 Personal history of pulmonary embolism; Z95.0 Presence of cardiac pacemaker; Z95.1 Presence of aortocoronary bypass graft; E66.9 Obesity, unspecified; Z68.34 Body mass index [BMI] 34.0-34.9, adult
CPT/HCPCS: 36415; 73630; 80048; 80053; 80202; 82948; 83605; 83735; 84100; 85025; 85027; 87040; 87070; 87147; 87181; 87205; 93926; 94640; 99214; 99285; A9270; G0463; J0692; J1815; J1836; J3010; J3370; J7030; J7120

== ENCOUNTER 2024-05-27 11:37 | Emergency (ER) | payer MEDICARE, SELFPAY ==
[2024-05-27] VITALS (7 sets, daily range): BP systolic 119–157; BP diastolic 55–63; PULSE 59–60; RESP 16–20; TEMP 36.7–36.9; O2SAT 97–98
--- NOTE | ~2024-05-27 | XR_ITS ---
EXAMINATION: XR chest 2V DATE: 05/27/2024 12:16 INDICATION: Dizziness. Leg numbness. TECHNIQUE: frontal and lateral views of the chest were obtained. COMPARISON: Chest radiograph dated 11/18/2023 FINDINGS: The lungs remain clear with no focal airspace opacities, pulmonary edema, pleural effusion or pneumot horax. The cardiomediastinal silhouette is normal. Median sternotomy wires and mediastinal surgical c lips are seen, likely from prior coronary artery bypass grafting. Dual lead pacemaker seen with lead s projecting over the expected locations of the right atrium and right ventricle. Bridging osteophyte s at multiple levels in the thoracic spine consistent with diffuse idiopathic skeletal hyperostosis ( DISH). IMPRESSION: 1. No acute cardiopulmonary disease. Reviewed, dictated and finalized at location A.
--- NOTE | 2024-05-27 11:42 | ECG_ITS ---
Test Date: 2024-05-27 11:44:59 Measurements Intervals [place] Rate: 60 P: 156 ME: 193 QRS: -71 QRSD: 219 T: 124 QT: 503 QTc: 503 Interpretive Statements ELECTRONIC ATRIAL PACEMAKER ELECTRONIC VENTRICULAR PACEMAKER ABNORMAL RHYTHM ECG No previous ECG available for comparison Electronically Signed On 05-27-2024 12:38:42 CDT by Ascencion Giron M.D.
[2024-05-27 12:04] LABS: Basophils Absolute Auto 0.1 K/mm3 (0.0-0.1); Basophils Percent Auto 0.8 % (0.2-1.2); Eosinophils Absolute Auto 0.5 K/mm3 (0-0.3); Eosinophils Percent Auto 5.2 % (0-4.4); Hematocrit 37.4 % (42.0-52.0); Hemoglobin 12.3 g/dL (14.0-18.0); Immature Granulocyte Absolute 0.06 K/mm3 (0.00-0.031); Immature Granulocyte Percent A 0.6 % (0-0.5); Lymphocytes Absolute Auto 1.83 K/mm3 (0.9-3.2); Lymphocytes Percent Auto 18.4 % (18.3-44.2); Mean Corpuscular HGB Conc 32.9 g/dl (32-36); Mean Corpuscular Hemoglobin 28.1 pg (26-34); Mean Corpuscular Volume 85.4 fl (80-100); Mean Platelet Volume 10.5 fl (7.4-10.4); Monocytes Absolute Auto 0.9 K/mm3 (0.1-0.6); Monocytes Percent Auto 8.7 % (2.6-8.5); Neutrophils Absolute Auto 6.6 K/mm3 (1.3-6.7); Neutrophils Percent Auto 66.3 % (45.5-73.1); Platelet Count Result 271 k/mm3 (150-375); Red Blood Count 4.38 M/mm3 (4.6-6.20); Red Cell Distribution Width 15.6 % (11.5-14.5)
[2024-05-27 12:14] LABS: Alanine Aminotransferase 23 U/L (6-50); Alkaline Phosphatase 41 U/L (38-126); Anion Gap 13 mmol/L (4-12); Aspartate Amino Transferase 24 U/L (17-59); Bilirubin,Total 0.4 mg/dL (0.2-1.3); Blood Urea Nitrogen 32 mg/dL (9-20); Calcium 9.3 mg/dL (8.4-10.2); Carbon Dioxide 20 mmol/L (22-30); Chloride 99 mmol/L (98-107); Estimated CRCL calculation 68 ml/min; Estimated Glomerular Filt Rate 60; Glucose 432 mg/dL (65-110); Potassium 4.6 mmol/L (3.4-5.0); Sodium 132 mmol/L (137-145)
--- NOTE | 2024-05-27 13:04 | ED.DIZZY ---
HPI - Dizziness General Chief Complaint: Dizziness Stated Complaint: dizzy Time Seen by Provider: 05/27/24 12:45 History of Present Illness HPI Narrative: This is a 69-year-old male with a past medical history significant for AFib, coronary disease status post CABG, pacemaker placement, COPD. 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 Patient states that he was sitting down for a prolonged period time onto his right leg and when he went up to try and stand up to go to the car he knows that the bottom of his foot was feeling like pins and needles and falling asleep. He attempted to take a few steps but was unable to and felt like he might fall out. He was put in his own ED room for evaluation. Laboratory studies were obtained. Patient states his symptoms resolved after a few moments and he feels back to his normal health right now. He is expressing desire for discharge. Denies any chest pain, shortness a breath, nausea, vomiting, headache, vision change, fever, chills. Patient thinks he might have just laid too long on his foot and it had fallen asleep on him. Related Data Home Medications Medication Instructions Recorded Confirmed escitalopram oxalate 10 mg tablet 10 mg PO DAILY 09/22/23 03/22/24 fenofibrate 160 mg tablet 160 mg PO DAILY 09/22/23 03/22/24 furosemide 40 mg tablet 40 mg PO DAILY 09/22/23 03/22/24 insulin aspart U-100 100 unit/mL 20 unit subcut TIDWM 09/22/23 03/22/24 subcutaneous solution (Novolog U-100 Insulin aspart) insulin glargine 100 unit/mL (3 50 unit subcut HS 09/22/23 03/22/24 mL) subcutaneous pen (Basaglar KwikPen U-100 Insulin) metformin 1,000 mg tablet 1,000 mg PO BIDWM 09/22/23 03/22/24 metoprolol tartrate 100 mg tablet 100 mg PO BID 09/22/23 03/22/24 rivaroxaban 20 mg tablet (Xarelto) 20 mg PO DAILY 09/22/23 03/22/24 rosuvastatin 20 mg tablet 20 mg PO HS 09/22/23 03/22/24 fluticasone furoate 200 1 inh inhalation DAILY 03/22/24 03/22/24 mcg-vilanterol 25 mcg/dose inhalation powder (Breo Ellipta) Allergies Allergy/AdvReac Type Severity Reaction Status Date / Time No Known Allergies Allergy Verified 05/27/24 12:22 Review of Systems Review of Systems: As reviewed above in the [facility] Past Medical History Medical History Atrial fibrillation CAD (coronary artery disease) COPD (chronic obstructive pulmonary disease) Dyslipidemia Hypertension Pacemaker Peripheral vascular disease Pulmonary emboli Tobacco abuse Surgical History Surgical History Hx of CABG Family History Family History Mother Cancer Father Cancer Social History Social History Smoking packs per day: 2 Smoking cigarettes per day: 40.0 Years smoked: 60 Smoking pack-years: 120.00 Smoking status: Current every day smoker Second hand tobacco smoke exposure: No Alcohol intake: never Substance use: never Substance use type: does not use Do You Feel Safe in your Home?: Yes Lack of Transportation: No Lack of Food: Never True Current Housing: I Have Housing Concerned About Future Housing: No Difficulty Paying Gas/Electric Bills: No Difficulty Paying for Meds: No Currently Unemployed: No Education: High School Diploma/GED Difficulty w/ Childcare or Family Care: No Spiritual care concerns: No Exam Narrative: GENERAL: [Well-appearing, well-nourished, and in no acute distress.] HEAD: [Normocephalic, atraumatic.] EYES: [PERRLA and EOMI.] ENT: Nares clear, no rhinorrhea or epistaxis. Mucous membranes moist. NECK: Supple. CHEST: [Clear to auscultation. No respiratory distress.] HEART: [Regular rate and rhythm]. No murmur heard. [Normal peripheral pulses.] ABDOMEN: [Soft, n
== END 2024-05-27 13:57 | disposition home or self-care (01) ==
PROVIDERS: Emergency Medicine; Emergency Provider Student in an Organized Health Care Education/Training Program; PCP Nurse Practitioner Family
DX: R20.2 Paresthesia of skin (principal); I48.91 Unspecified atrial fibrillation; I25.10 Atherosclerotic heart disease of native coronary artery without angina pectoris; I10 Essential (primary) hypertension; E78.5 Hyperlipidemia, unspecified; E11.51 Type 2 diabetes mellitus with diabetic peripheral angiopathy without gangrene; I73.9 Peripheral vascular disease, unspecified; J44.9 Chronic obstructive pulmonary disease, unspecified; F17.210 Nicotine dependence, cigarettes, uncomplicated; Z95.1 Presence of aortocoronary bypass graft; Z95.0 Presence of cardiac pacemaker; Z86.711 Personal history of pulmonary embolism; Z79.01 Long term (current) use of anticoagulants; Z79.4 Long term (current) use of insulin; Z79.84 Long term (current) use of oral hypoglycemic drugs; Z79.899 Other long term (current) drug therapy
CPT/HCPCS: 36415; 71046; 80053; 85025; 93005; 99284

== ENCOUNTER 2024-06-21 07:08 | Outpatient (RCR) | payer MEDICARE, SELFPAY ==
[2024-04-02 00:04] VITALS: BMI 37.6
--- NOTE | 2024-04-02 09:38 | P.PNOP_ITS ---
Progress Note: A&P Assessment and Plan (1) Diabetic infection of left foot: Code(s): E11.628 - Type 2 diabetes mellitus with other skin complications; L08.9 - Local infection of the skin and subcutaneous tissue, unspecified Status: Acute Assessment and Plan: 1St postoperative visit after admission to hospital with infection left transmetatarsal amputation wound. Status post debridement 8 days. Currently on oral antibiotics which were making him sick. Rinne switch him from Bactrim to dicloxacillin. Wound at this time appears stable. Sutures in place. Continue with silver gel and gauze daily dressing changes. May continue to shower. Offloading with postoperative shoe. Follow-up in 2 weeks for wound check. reiterated once again the need for absolute tobacco cessation. Also recommend close follow-up with primary care and referral to vascular for arterial deficiency bilateral lower extremities. Subjective Subjective Date/Time Seen: 04/02/24 09:38 Post Op day: 8 days (14wk) Principal diagnosis: Left foot infection Interval history: [facility] postoperative visit for left foot transmetatarsal amputation with wound dehiscence and complicated by recent infection. 8 days status post operative debridement left foot. Patient oral antibiotics. Home health assist dressing changes. Interim complaints Of nausea with oral antibiotics. Review of Systems Constitutional: Constitutional: Denies fever(s) Eyes: Eyes: Denies blurry vision ENT: Reports Normal hearing present Cardiovascular: Cardiovascular: Denies chest pain and Denies dyspnea Respiratory: Respiratory: Denies dyspnea and Denies wheezing Gastrointestinal: Gastrointestinal: Denies abdominal pain Genitourinary: Genitourinary: Denies urinary urgency Musculoskeletal: Musculoskeletal: Reports as per HPI and Denies numbness Integumentary/Breasts: Skin/Breast: Denies changing lesions and Denies sores Neurologic: Reports Normal hearing present, Denies behavioral changes, Denies confusion, Denies numbness and Denies convulsions Psychiatric: Psychiatric: Denies behavioral changes, Denies confusion and Denies hallucinations Endocrine: Endocrine: Denies heat intolerance Hematologic/Lymphatic: Hematologic/Lymphatic: Denies easy bleeding Allergic/Immunologic: Allergic/Immunologic: Denies wheezing Exam Const: General: comfortable Resp: Effort & Inspection: normal respiratory effort Cardio: Rate: regular rate Rhythm: regular rhythm GI: GI Palp: Yes Soft to palpation Auscultation: normal bowel sounds Extrem: Other: Left foot dressing removed. Wound bed appears viable at this time. Mild sanguinous drainage. Surrounding tissue without redness. No malodor. Wound 8.5X1.5X0.5cm Psych: Mental Status: mental status grossly normal
--- NOTE | 2024-04-16 10:02 | P.PNOP_ITS ---
Subjective Subjective Date/Time Seen: 04/16/24 10:02
--- NOTE | 2024-04-16 10:02 | PM.PNORT ---
Subjective Subjective Date/Time Seen: 04/16/24 10:02
--- NOTE | 2024-04-16 10:02 | PM.IMHP ---
H&P: HPI History of Present Illness Date/Time: 04/16/24 10:02 Chief Complaint: Left Foot TMA and I&D TMA Narrative: 3 weeks s/p return to OR for I&D of nonhealing left TMA wound/incision. Patient reports no new concerns. Tolerating dressing changes well. Still smoking. Review of Systems Constitutional: Constitutional: Denies fever(s) Eyes: Eyes: Denies blurry vision ENT: Reports Normal hearing present Cardiovascular: Cardiovascular: Denies chest pain and Denies dyspnea Respiratory: Respiratory: Denies dyspnea and Denies wheezing Gastrointestinal: Gastrointestinal: Denies abdominal pain Genitourinary: Genitourinary: Denies urinary urgency Musculoskeletal: Musculoskeletal: Reports as per HPI and Denies numbness Integumentary/Breasts: Skin/Breast: Denies changing lesions and Denies sores Neurologic: Reports Normal hearing present, Denies behavioral changes, Denies confusion, Denies numbness and Denies convulsions Psychiatric: Psychiatric: Denies behavioral changes, Denies confusion and Denies hallucinations Endocrine: Endocrine: Denies heat intolerance Hematologic/Lymphatic: Hematologic/Lymphatic: Denies easy bleeding Allergic/Immunologic: Allergic/Immunologic: Denies wheezing [facility] Past Medical History Medical History Atrial fibrillation CAD (coronary artery disease) COPD (chronic obstructive pulmonary disease) Dyslipidemia Hypertension Pacemaker Peripheral vascular disease Pulmonary emboli Tobacco abuse Surgical History Surgical History Hx of CABG Family History Family History Mother Cancer Father Cancer Social History Social History Smoking packs per day: 2 Smoking cigarettes per day: 40.0 Years smoked: 60 Smoking pack-years: 120.00 Smoking status: Current every day smoker Second hand tobacco smoke exposure: No Alcohol intake: never Substance use: never Substance use type: does not use Do You Feel Safe in your Home?: Yes Lack of Transportation: No Lack of Food: Never True Current Housing: I Have Housing Concerned About Future Housing: No Difficulty Paying Gas/Electric Bills: No Difficulty Paying for Meds: No Currently Unemployed: No Education: High School Diploma/GED Difficulty w/ Childcare or Family Care: No Spiritual care concerns: No Meds Home Medications and Allergies Home Medications Medication Instructions Recorded Confirmed Type escitalopram oxalate 10 mg tablet 10 mg PO DAILY 09/22/23 03/22/24 History fenofibrate 160 mg tablet 160 mg PO DAILY 09/22/23 03/22/24 History furosemide 40 mg tablet 40 mg PO DAILY 09/22/23 03/22/24 History insulin aspart U-100 100 unit/mL 20 unit subcut TIDWM 09/22/23 03/22/24 History subcutaneous solution (Novolog U-100 Insulin aspart) insulin glargine 100 unit/mL (3 50 unit subcut HS 09/22/23 03/22/24 History mL) subcutaneous pen (Basaglar KwikPen U-100 Insulin) metformin 1,000 mg tablet 1,000 mg PO BIDWM 09/22/23 03/22/24 History metoprolol tartrate 100 mg tablet 100 mg PO BID 09/22/23 03/22/24 History rivaroxaban 20 mg tablet (Xarelto) 20 mg PO DAILY 09/22/23 03/22/24 History rosuvastatin 20 mg tablet 20 mg PO HS 09/22/23 03/22/24 History hydrocodone 5 mg-acetaminophen 325 1 tablet PO Q4H PRN Pain Rated 4-7 12/07/23 03/22/24 Rx mg tablet #20 tabs fluticasone furoate 200 1 inh inhalation DAILY 03/22/24 03/22/24 History mcg-vilanterol 25 mcg/dose inhalation powder (Breo Ellipta) doxycycline monohydrate 100 mg 100 mg PO BID #30 caps 04/02/24 Rx capsule Allergies Allergy/AdvReac Type Severity Reaction Status Date / Time No Known Allergies Allergy Verified 03/25/24 09:17 Exam Const: General: comfortable Resp: Effort & Inspection: normal r
--- NOTE | 2024-04-30 08:36 | PM.IMHP ---
H&P: HPI History of Present Illness Date/Time: 04/30/24 08:36 Chief Complaint: Left diabetic foot ulcer Narrative: 5 weeks status post debridement left foot transmetatarsal amputation open and diabetic foot ulcer. Continues dressing changes with home health at home. No interim complaints. Review of Systems Constitutional: Constitutional: Denies fever(s) Eyes: Eyes: Denies blurry vision ENT: Reports Normal hearing present Cardiovascular: Cardiovascular: Denies chest pain and Denies dyspnea Respiratory: Respiratory: Denies dyspnea and Denies wheezing Gastrointestinal: Gastrointestinal: Denies abdominal pain Genitourinary: Genitourinary: Denies urinary urgency Musculoskeletal: Musculoskeletal: Reports as per HPI and Denies numbness Integumentary/Breasts: Skin/Breast: Denies changing lesions and Denies sores Neurologic: Reports Normal hearing present, Denies behavioral changes, Denies confusion, Denies numbness and Denies convulsions Psychiatric: Psychiatric: Denies behavioral changes, Denies confusion and Denies hallucinations Endocrine: Endocrine: Denies heat intolerance Hematologic/Lymphatic: Hematologic/Lymphatic: Denies easy bleeding Allergic/Immunologic: Allergic/Immunologic: Denies wheezing PMFSH Past Medical History Medical History Atrial fibrillation CAD (coronary artery disease) COPD (chronic obstructive pulmonary disease) Dyslipidemia Hypertension Pacemaker Peripheral vascular disease Pulmonary emboli Tobacco abuse Surgical History Surgical History Hx of CABG Family History Family History Mother Cancer Father Cancer Social History Social History Smoking packs per day: 2 Smoking cigarettes per day: 40.0 Years smoked: 60 Smoking pack-years: 120.00 Smoking status: Current every day smoker Second hand tobacco smoke exposure: No Alcohol intake: never Substance use: never Substance use type: does not use Do You Feel Safe in your Home?: Yes Lack of Transportation: No Lack of Food: Never True Current Housing: I Have Housing Concerned About Future Housing: No Difficulty Paying Gas/Electric Bills: No Difficulty Paying for Meds: No Currently Unemployed: No Education: High School Diploma/GED Difficulty w/ Childcare or Family Care: No Spiritual care concerns: No Meds Home Medications and Allergies Home Medications Medication Instructions Recorded Confirmed Type escitalopram oxalate 10 mg tablet 10 mg PO DAILY 09/22/23 03/22/24 History fenofibrate 160 mg tablet 160 mg PO DAILY 09/22/23 03/22/24 History furosemide 40 mg tablet 40 mg PO DAILY 09/22/23 03/22/24 History insulin aspart U-100 100 unit/mL 20 unit subcut TIDWM 09/22/23 03/22/24 History subcutaneous solution (Novolog U-100 Insulin aspart) insulin glargine 100 unit/mL (3 50 unit subcut HS 09/22/23 03/22/24 History mL) subcutaneous pen (Basaglar KwikPen U-100 Insulin) metformin 1,000 mg tablet 1,000 mg PO BIDWM 09/22/23 03/22/24 History metoprolol tartrate 100 mg tablet 100 mg PO BID 09/22/23 03/22/24 History rivaroxaban 20 mg tablet (Xarelto) 20 mg PO DAILY 09/22/23 03/22/24 History rosuvastatin 20 mg tablet 20 mg PO HS 09/22/23 03/22/24 History hydrocodone 5 mg-acetaminophen 325 1 tablet PO Q4H PRN Pain Rated 4-7 12/07/23 03/22/24 Rx mg tablet #20 tabs fluticasone furoate 200 1 inh inhalation DAILY 03/22/24 03/22/24 History mcg-vilanterol 25 mcg/dose inhalation powder (Breo Ellipta) doxycycline monohydrate 100 mg 100 mg PO BID #30 caps 04/02/24 Rx capsule Allergies Allergy/AdvReac Type Severity Reaction Status Date / Time No Known Allergies Allergy Verified 03/25/24 09:17 Exam Const: General: comfortable Resp: Effort &
--- NOTE | 2024-04-30 08:42 | P.OP_ITS ---
Procedure Note - Detailed Date of Procedure 04/30/24 Pre-op Diagnosis left TMA wound. Infected diabetic foot Post-op Diagnosis Same Procedure Performed excisional debridement left foot ulcer including skin and subcutaneous tissue Surgeon Prasanth Pizarro MD Non Destructive Testing Scientist John [facility] Anesthesia None Indications diabetes, neuropathy, peripheral vascular disease with nonhealing wound left foot. 50% slough. Indicated for debridement. Description of Procedure Patient identified. Informed consent given. Operative extremity marked. Left foot cleansed with alcohol prep solution. Curette used to debride the wound which measured 10 x 3 cm. Skin, subcutaneous tissue that was loose, nonviable or slough excised and passed off. Sterile dressing applied. Estimated Blood Loss 1 Tourniquet Time Total Tourniquet Time: 0 Drains No Packing Yes ( Silver gel and Lucy) Pathology None sent Complications None Condition Stable Disposition No change [facility] Billing Surgery - Charge Forward: Surgery Billing ([id number])
--- NOTE | 2024-05-14 09:00 | PM.IMHP ---
H&P: HPI History of Present Illness Date/Time: 05/14/24 09:00 Chief Complaint: Left Foot TMA wound PMFSH Past Medical History Medical History Atrial fibrillation CAD (coronary artery disease) COPD (chronic obstructive pulmonary disease) Dyslipidemia Hypertension Pacemaker Peripheral vascular disease Pulmonary emboli Tobacco abuse Surgical History Surgical History Hx of CABG Family History Family History Mother Cancer Father Cancer Social History Social History Smoking packs per day: 2 Smoking cigarettes per day: 40.0 Years smoked: 60 Smoking pack-years: 120.00 Smoking status: Current every day smoker Second hand tobacco smoke exposure: No Alcohol intake: never Substance use: never Substance use type: does not use Do You Feel Safe in your Home?: Yes Lack of Transportation: No Lack of Food: Never True Current Housing: I Have Housing Concerned About Future Housing: No Difficulty Paying Gas/Electric Bills: No Difficulty Paying for Meds: No Currently Unemployed: No Education: High School Diploma/GED Difficulty w/ Childcare or Family Care: No Spiritual care concerns: No Meds Home Medications and Allergies Home Medications Medication Instructions Recorded Confirmed Type escitalopram oxalate 10 mg tablet 10 mg PO DAILY 09/22/23 03/22/24 History fenofibrate 160 mg tablet 160 mg PO DAILY 09/22/23 03/22/24 History furosemide 40 mg tablet 40 mg PO DAILY 09/22/23 03/22/24 History insulin aspart U-100 100 unit/mL 20 unit subcut TIDWM 09/22/23 03/22/24 History subcutaneous solution (Novolog U-100 Insulin aspart) insulin glargine 100 unit/mL (3 50 unit subcut HS 09/22/23 03/22/24 History mL) subcutaneous pen (Basaglar KwikPen U-100 Insulin) metformin 1,000 mg tablet 1,000 mg PO BIDWM 09/22/23 03/22/24 History metoprolol tartrate 100 mg tablet 100 mg PO BID 09/22/23 03/22/24 History rivaroxaban 20 mg tablet (Xarelto) 20 mg PO DAILY 09/22/23 03/22/24 History rosuvastatin 20 mg tablet 20 mg PO HS 09/22/23 03/22/24 History hydrocodone 5 mg-acetaminophen 325 1 tablet PO Q4H PRN Pain Rated 4-7 12/07/23 03/22/24 Rx mg tablet #20 tabs fluticasone furoate 200 1 inh inhalation DAILY 03/22/24 03/22/24 History mcg-vilanterol 25 mcg/dose inhalation powder (Breo Ellipta) doxycycline monohydrate 100 mg 100 mg PO BID #30 caps 04/02/24 Rx capsule Allergies Allergy/AdvReac Type Severity Reaction Status Date / Time No Known Allergies Allergy Verified 03/25/24 09:17 Exam Const: General: comfortable Resp: Effort & Inspection: normal respiratory effort Cardio: Rate: regular rate Rhythm: regular rhythm GI: GI Palp: Yes Soft to palpation Auscultation: normal bowel sounds Extrem: Other: Left foot dressing removed. Wound bed appears viable at this time. Mild sanguinous drainage. Surrounding tissue without redness. No malodor. Wound 8.4x2.5x1.0 cm, 100% slough. No signs of infection. Psych: Mental Status: mental status grossly normal Assessment and Plan Assessment and plan (1) Chronic ulcer of left foot with necrosis of muscle: Code(s): L97.523 - Non-pressure chronic ulcer of other part of left foot with necrosis of muscle Status: Chronic Assessment and Plan: 7 weeks s/p left TMA I&D. Wound with 50% slough. Patient still smoking. Noncompliant with smoking cessation recommendations. Discussed concern for possible further infection or need for BKA if non-healing wound due to continued smoking. Patient verbalized understanding. Continue Lucy & Silver gel to dressing changes to try and attempt improved wound healing. Recommended continued home dressing changes DAILY. Follow up in 1 week. Indicated f
--- NOTE | 2024-05-24 09:26 | PM.IMHP ---
H&P: HPI History of Present Illness Date/Time: 05/24/24 09:26 Chief Complaint: Left Foot TMA wound Review of Systems Constitutional: Constitutional: Denies fever(s) Eyes: Eyes: Denies blurry vision ENT: Reports Normal hearing present Cardiovascular: Cardiovascular: Denies chest pain and Denies dyspnea Respiratory: Respiratory: Denies dyspnea and Denies wheezing Gastrointestinal: Gastrointestinal: Denies abdominal pain Genitourinary: Genitourinary: Denies urinary urgency Musculoskeletal: Musculoskeletal: Reports as per HPI and Denies numbness Integumentary/Breasts: Skin/Breast: Denies changing lesions and Denies sores Neurologic: Reports Normal hearing present, Denies behavioral changes, Denies confusion, Denies numbness and Denies convulsions Psychiatric: Psychiatric: Denies behavioral changes, Denies confusion and Denies hallucinations Endocrine: Endocrine: Denies heat intolerance Hematologic/Lymphatic: Hematologic/Lymphatic: Denies easy bleeding Allergic/Immunologic: Allergic/Immunologic: Denies wheezing PMFSH Past Medical History Medical History Atrial fibrillation CAD (coronary artery disease) COPD (chronic obstructive pulmonary disease) Dyslipidemia Hypertension Pacemaker Peripheral vascular disease Pulmonary emboli Tobacco abuse Surgical History Surgical History Hx of CABG Family History Family History Mother Cancer Father Cancer Social History Social History Smoking packs per day: 2 Smoking cigarettes per day: 40.0 Years smoked: 60 Smoking pack-years: 120.00 Smoking status: Current every day smoker Second hand tobacco smoke exposure: No Alcohol intake: never Substance use: never Substance use type: does not use Do You Feel Safe in your Home?: Yes Lack of Transportation: No Lack of Food: Never True Current Housing: I Have Housing Concerned About Future Housing: No Difficulty Paying Gas/Electric Bills: No Difficulty Paying for Meds: No Currently Unemployed: No Education: High School Diploma/GED Difficulty w/ Childcare or Family Care: No Spiritual care concerns: No Meds Home Medications and Allergies Home Medications Medication Instructions Recorded Confirmed Type escitalopram oxalate 10 mg tablet 10 mg PO DAILY 12/08/23 06/07/24 History fenofibrate 160 mg tablet 160 mg PO DAILY 09/22/23 03/22/24 History furosemide 40 mg tablet 40 mg PO DAILY 09/22/23 03/22/24 History insulin aspart U-100 100 unit/mL 20 unit subcut TIDWM 09/22/23 03/22/24 History subcutaneous solution (Novolog U-100 Insulin aspart) insulin glargine 100 unit/mL (3 50 unit subcut HS 09/22/23 03/22/24 History mL) subcutaneous pen (Basaglar KwikPen U-100 Insulin) metformin 1,000 mg tablet 1,000 mg PO BIDWM 09/22/23 03/22/24 History metoprolol tartrate 100 mg tablet 100 mg PO BID 09/22/23 03/22/24 History rivaroxaban 20 mg tablet (Xarelto) 20 mg PO DAILY 09/22/23 03/22/24 History rosuvastatin 20 mg tablet 20 mg PO HS 09/22/23 03/22/24 History hydrocodone 5 mg-acetaminophen 325 1 tablet PO Q4H PRN Pain Rated 4-7 12/07/23 03/22/24 Rx mg tablet #20 tabs fluticasone furoate 200 1 inh inhalation DAILY 03/22/24 03/22/24 History mcg-vilanterol 25 mcg/dose inhalation powder (Breo Ellipta) doxycycline monohydrate 100 mg 100 mg PO BID #30 caps 04/02/24 Rx capsule Allergies Allergy/AdvReac Type Severity Reaction Status Date / Time No Known Allergies Allergy Verified 03/25/24 09:17 Exam Const: General: comfortable Resp: Effort & Inspection: normal respiratory effort Cardio: Rate: regular rate Rhythm: regular rhythm GI: GI Palp: Yes Soft to palpation Auscultation: normal bowel sounds Extrem: Other: Left douglas
--- NOTE | 2024-06-04 12:02 | PM.IMHP ---
H&P: HPI History of Present Illness Date/Time: 06/04/24 12:02 Chief Complaint: left transmetatarsal amputation Narrative: 3 months status post debridement of left TMA. Medical record reviewed. Patient in the emergency room last week with dizziness and paresthesias. Blood sugar noted to be in the 400s. No new complaint with left foot. [facility] Past Medical History Medical History Atrial fibrillation CAD (coronary artery disease) COPD (chronic obstructive pulmonary disease) Dyslipidemia Hypertension Pacemaker Peripheral vascular disease Pulmonary emboli Tobacco abuse Surgical History Surgical History Hx of CABG Family History Family History Mother Cancer Father Cancer Social History Social History Smoking packs per day: 2 Smoking cigarettes per day: 40.0 Years smoked: 60 Smoking pack-years: 120.00 Smoking status: Current every day smoker Second hand tobacco smoke exposure: No Alcohol intake: never Substance use: never Substance use type: does not use Do You Feel Safe in your Home?: Yes Lack of Transportation: No Lack of Food: Never True Current Housing: I Have Housing Concerned About Future Housing: No Difficulty Paying Gas/Electric Bills: No Difficulty Paying for Meds: No Currently Unemployed: No Education: High School Diploma/GED Difficulty w/ Childcare or Family Care: No Spiritual care concerns: No Meds Home Medications and Allergies Home Medications Medication Instructions Recorded Confirmed Type escitalopram oxalate 10 mg tablet 10 mg PO DAILY 09/22/23 03/22/24 History fenofibrate 160 mg tablet 160 mg PO DAILY 09/22/23 03/22/24 History furosemide 40 mg tablet 40 mg PO DAILY 09/22/23 03/22/24 History insulin aspart U-100 100 unit/mL 20 unit subcut TIDWM 09/22/23 03/22/24 History subcutaneous solution (Novolog U-100 Insulin aspart) insulin glargine 100 unit/mL (3 50 unit subcut HS 09/22/23 03/22/24 History mL) subcutaneous pen (Basaglar KwikPen U-100 Insulin) metformin 1,000 mg tablet 1,000 mg PO BIDWM 09/22/23 03/22/24 History metoprolol tartrate 100 mg tablet 100 mg PO BID 09/22/23 03/22/24 History rivaroxaban 20 mg tablet (Xarelto) 20 mg PO DAILY 09/22/23 03/22/24 History rosuvastatin 20 mg tablet 20 mg PO HS 09/22/23 03/22/24 History hydrocodone 5 mg-acetaminophen 325 1 tablet PO Q4H PRN Pain Rated 4-7 12/07/23 03/22/24 Rx mg tablet #20 tabs fluticasone furoate 200 1 inh inhalation DAILY 03/22/24 03/22/24 History mcg-vilanterol 25 mcg/dose inhalation powder (Breo Ellipta) doxycycline monohydrate 100 mg 100 mg PO BID #30 caps 04/02/24 Rx capsule Allergies Allergy/AdvReac Type Severity Reaction Status Date / Time No Known Allergies Allergy Verified 05/27/24 12:22 Exam Const: General: comfortable Resp: Effort & Inspection: normal respiratory effort Cardio: Rate: regular rate Rhythm: regular rhythm GI: GI Palp: Yes Soft to palpation Auscultation: normal bowel sounds Extrem: Other: Left foot dressing removed. Wound bed appears viable at this time. Mild sanguinous drainage. Surrounding tissue without redness. No malodor. Wound 8x2x0.4 cm, 100% slough. No signs of infection. Psych: Mental Status: mental status grossly normal Assessment and Plan Assessment and plan (1) Chronic ulcer of left foot with necrosis of muscle: Code(s): L97.523 - Non-pressure chronic ulcer of other part of left foot with necrosis of muscle Status: Chronic Assessment and Plan: 12 weeks s/p left TMA I&D. Wound with 50% slough. Patient still smoking. Noncompliant with smoking cessation recommendations. Discussed concern for possible further infection or need for B
== END 2024-07-01 23:59 | disposition home or self-care (01) ==
LOC: ANHWOC 07:08
PROVIDERS: PCP Nurse Practitioner Family; Visit Provider Orthopaedic Surgery
DX: E11.621 Type 2 diabetes mellitus with foot ulcer (principal); L97.429 Non-pressure chronic ulcer of left heel and midfoot with unspecified severity
CPT/HCPCS: 99213; 99214; G0463

== ENCOUNTER 2024-08-09 07:28 | Outpatient (RCR) | payer MEDICARE, SELFPAY ==
[2024-07-02 00:06] VITALS: BMI 37.6
--- NOTE | 2024-07-12 07:49 | PCWOUND ---
WOCN NOTE Patient called to cancel appointment due to ride issues.
--- NOTE | 2024-07-19 09:34 | P.HP_ITS ---
H&P: HPI History of Present Illness Date/Time: 07/19/24 09:34 Chief Complaint: left transmetatarsal amputation Narrative: 3 months status post debridement of left TMA. Missed several follow up appointments due to transportation issues but continuing home dressing changes. No new complaint with left foot. Review of Systems Constitutional: Constitutional: Denies fever(s) Eyes: Eyes: Denies blurry vision ENT: Reports Normal hearing present Cardiovascular: Cardiovascular: Denies chest pain and Denies dyspnea Respiratory: Respiratory: Denies dyspnea and Denies wheezing Gastrointestinal: Gastrointestinal: Denies abdominal pain Genitourinary: Genitourinary: Denies urinary urgency Musculoskeletal: Musculoskeletal: Reports as per HPI and Denies numbness Integumentary/Breasts: Skin/Breast: Denies changing lesions and Denies sores Neurologic: Reports Normal hearing present, Denies behavioral changes, Denies confusion, Denies numbness and Denies convulsions Psychiatric: Psychiatric: Denies behavioral changes, Denies confusion and Denies hallucinations Endocrine: Endocrine: Denies heat intolerance Hematologic/Lymphatic: Hematologic/Lymphatic: Denies easy bleeding Allergic/Immunologic: Allergic/Immunologic: Denies wheezing PMFSH Past Medical History Medical History Atrial fibrillation CAD (coronary artery disease) COPD (chronic obstructive pulmonary disease) Dyslipidemia Hypertension Pacemaker Peripheral vascular disease Pulmonary emboli Tobacco abuse Surgical History Surgical History Hx of CABG Family History Family History Mother Cancer Father Cancer Social History Social History Smoking packs per day: 2 Smoking cigarettes per day: 40.0 Years smoked: 60 Smoking pack-years: 120.00 Smoking status: Current every day smoker Second hand tobacco smoke exposure: No Alcohol intake: never Substance use: never Substance use type: does not use Do You Feel Safe in your Home?: Yes Lack of Transportation: No Lack of Food: Never True Current Housing: I Have Housing Concerned About Future Housing: No Difficulty Paying Gas/Electric Bills: No Difficulty Paying for Meds: No Currently Unemployed: No Education: High School Diploma/GED Difficulty w/ Childcare or Family Care: No Spiritual care concerns: No Meds Home Medications and Allergies Home Medications Medication Instructions Recorded Confirmed Type escitalopram oxalate 10 mg tablet 10 mg PO DAILY 09/22/23 03/22/24 History fenofibrate 160 mg tablet 160 mg PO DAILY 09/22/23 03/22/24 History furosemide 40 mg tablet 40 mg PO DAILY 09/22/23 03/22/24 History insulin aspart U-100 100 unit/mL 20 unit subcut TIDWM 09/22/23 03/22/24 History subcutaneous solution (Novolog U-100 Insulin aspart) insulin glargine 100 unit/mL (3 50 unit subcut HS 09/22/23 03/22/24 History mL) subcutaneous pen (Basaglar KwikPen U-100 Insulin) metformin 1,000 mg tablet 1,000 mg PO BIDWM 09/22/23 03/22/24 History metoprolol tartrate 100 mg tablet 100 mg PO BID 09/22/23 03/22/24 History rivaroxaban 20 mg tablet (Xarelto) 20 mg PO DAILY 09/22/23 03/22/24 History rosuvastatin 20 mg tablet 20 mg PO HS 09/22/23 03/22/24 History hydrocodone 5 mg-acetaminophen 325 1 tablet PO Q4H PRN Pain Rated 4-7 12/07/23 03/22/24 Rx mg tablet #20 tabs fluticasone furoate 200 1 inh inhalation DAILY 03/22/24 03/22/24 History mcg-vilanterol 25 mcg/dose inhalation powder (Breo Ellipta) doxycycline monohydrate 100 mg 100 mg PO BID #30 caps 04/02/24 Rx capsule Allergies Allergy/AdvReac Type Severity Reaction Status Date / Time No Known Allergies Allergy Verified 05/27/24 12:22 Exam Const: General: comfortable Resp: Effort & Inspection: normal respiratory effort Cardio: Rate: regular rate Rhythm: regular rhythm GI: GI Palp: Yes Soft to palpation Auscultation: normal bowel sounds Extrem: Other: Left foot dressing removed. Wound bed appears viable at this time. Mild sanguinous drainage. Surrounding tissue without redness. No malodor. Medial wound measures 1.1x1x0.1 cm, lateral wound measures 0.3x0.9x0.1 cm, 100% red/pink wound bed. Psych: Mental Status: mental status grossly normal Assessment and Plan Assessment and plan (1) Chronic ulcer of left foot with necrosis of muscle: Code(s): L97.523 - Non-pressure chronic ulcer of other part of left foot with necrosis of muscle Status: Chronic Assessment and Plan: 3 months s/p left TMA I&D. Wound with 100% red/pink and viable tissue. Continue Lucy & Silver gel. Recommended continued home dressing changes DAILY. Follow up in 3 weeks. (2) Diabetic infection of left foot: Code(s): E11.628 - Type 2 diabetes mellitus with other skin complications; L08.9 - Local infection of the skin and subcutaneous tissue, unspecified Status: Acute Assessment and Plan: Discussed importance of proper nutrition, diabetic diet and medication compliance for optimal healing. Reviewed signs and symptoms of infection including fever, chills, night sweats, nausea, vomiting, diarrhea, changes to the wound bed or purulent drainage to report to the ED immediately. Patient verbalized understanding. (3) Personal history of noncompliance with medical treatment and regimen: Code(s): Z91.199 - Patient's noncompliance with other medical treatment and regimen due to unspecified reason Status: Acute (4) Uncontrolled diabetes mellitus: Qualifiers: Diabetes mellitus type: type 2 Glycemic state: with hyperglycemia Qualified Code(s): E11.65 - Type 2 diabetes mellitus with hyperglycemia Status: Acute (5) Osteomyelitis of second toe of left foot: Code(s): M86.9 - Osteomyelitis, unspecified Status: Acute Assessment and Plan: Status post transmetatarsal amputation 8 months ago (6) Cellulitis of foot, left: Code(s): L03.116 - Cellulitis of left lower limb Status: Acute (7) Diabetes: Qualifiers: Diabetes mellitus type: type 2 Diabetes mellitus assistant terminal manager insulin use: with fpc use Diabetes mellitus complication status: with circulatory complication Diabetes mellitus complication detail: with peripheral angiopathy with gangrene Qualified Code(s): E11.52 - Type 2 diabetes mellitus with diabetic peripheral angiopathy with gangrene; Z79.4 - exterminator termite (current) use of insulin Code(s): E11.9 - Type 2 diabetes mellitus without complications Status: Chronic
--- NOTE | 2024-08-09 09:33 | PM.PNORT ---
Progress Note: A&P Assessment and Plan (1) Wound dehiscence, external operation: Qualifiers: Encounter type: subsequent encounter Qualified Code(s): T81.31XD - Disruption of external operation (surgical) wound, not elsewhere classified, subsequent encounter Code(s): T81.31XA - Disruption of external operation (surgical) wound, not elsewhere classified, initial encounter Status: Acute Assessment and Plan: 9 months status post left transmetatarsal amputation complicated by wound dehiscence. 4 months status post revision TMA with debridement. Patient currently at home. His home health has ran out due to insurance reasons. He is doing his own daily dressing changes. He notes no new problems in the interim. Overall, left foot wound has improved. Overall dimensions improved. No signs of infection. Reviewed with patient. Continue with daily dressing changes with silver gel and gauze. Continue to wash daily and offload with postoperative shoe. Follow-up in 4 weeks for recheck. (2) Diabetic infection of left foot: Code(s): E11.628 - Type 2 diabetes mellitus with other skin complications; L08.9 - Local infection of the skin and subcutaneous tissue, unspecified Status: Acute Assessment and Plan: Wound at this time appears stable. Continue with silver gel and gauze daily dressing changes. May continue to shower. Offloading with postoperative shoe. Follow-up in 4 weeks for wound check. reiterated once again the need for absolute tobacco cessation. Also recommend close follow-up with primary care and referral to vascular for arterial deficiency bilateral lower extremities. (3) Peripheral vascular disease: Code(s): I73.9 - Peripheral vascular disease, unspecified Status: Chronic Subjective Subjective Date/Time Seen: 08/09/24 09:33 Post Op day: 4mos Principal diagnosis: Left transmetatarsal amputation Interval history: follow-up visit [facility] for left TMA complicated by wound dehiscence. 4 months status post revision TMA and debridement. No new problems. Home health discontinued due to lack of insurance coverage. He is doing daily dressing changes with silver gel and gauze. Review of Systems Constitutional: Constitutional: Denies fever(s) Eyes: Eyes: Denies blurry vision ENT: Reports Normal hearing present Cardiovascular: Cardiovascular: Denies chest pain and Denies dyspnea Respiratory: Respiratory: Denies dyspnea and Denies wheezing Gastrointestinal: Gastrointestinal: Denies abdominal pain Genitourinary: Genitourinary: Denies urinary urgency Musculoskeletal: Musculoskeletal: Reports as per HPI and Denies numbness Integumentary/Breasts: Skin/Breast: Denies changing lesions and Denies sores Neurologic: Reports Normal hearing present, Denies behavioral changes, Denies confusion, Denies numbness and Denies convulsions Psychiatric: Psychiatric: Denies behavioral changes, Denies confusion and Denies hallucinations Endocrine: Endocrine: Denies heat intolerance Hematologic/Lymphatic: Hematologic/Lymphatic: Denies easy bleeding Allergic/Immunologic: Allergic/Immunologic: Denies wheezing Exam Const: General: comfortable Resp: Effort & Inspection: normal respiratory effort Cardio: Rate: regular rate Rhythm: regular rhythm GI: GI Palp: Yes Soft to palpation Auscultation: normal bowel sounds Extrem: Other: Left foot dressing removed. Overall, appearance better and improved. Wound bed appears viable at this time. No drainage. Surrounding tissue without redness. No malodor. central wound measures 0.5x1x0.1 cm, 100% red/pink wound bed. surrounding callus noted. Psych: Mental Status: mental status grossly normal [facility] Date/Time Seen 08/09/24 09:34 Medical History Medical History (Updated 08/09/24 @ 09:54 by Prasanth Pizarro MD) Atrial fibrillation CAD (coronary artery disease) COPD (chronic obstructive pulmonary disease) Dyslipidemia Hypertension Pacemaker Peripheral vascular disease Pulmonary emboli Tobacco abuse Wound dehiscence, external operation Surgical History Surgical History Hx of CABG Family History Family History Mother Cancer Father Cancer Social History Social History Smoking packs per day: 2 Smoking cigarettes per day: 40.0 Years smoked: 60 Smoking pack-years: 120.00 Smoking status: Current every day smoker Second hand tobacco smoke exposure: No Alcohol intake: never Substance use: never Substance use type: does not use Do You Feel Safe in your Home?: Yes Lack of Transportation: No Lack of Food: Never True Current Housing: I Have Housing Concerned About Future Housing: No Difficulty Paying Gas/Electric Bills: No Difficulty Paying for Meds: No Currently Unemployed: No Education: High School Diploma/GED Difficulty w/ Childcare or Family Care: No Spiritual care concerns: No Allergies Allergies Allergy/AdvReac Type Severity Reaction Status Date / Time No Known Allergies Allergy Verified 05/27/24 12:22
--- NOTE | 2024-09-10 07:33 | PCWOUND ---
WOCN NOTE Patient left message at 10:20pm on 09/09/24 that he was cancelling his appointment for today(09/10/24) due to lack of transportation. Will contact orthopedics office to get new appointment and then will notify patient.
== END 2024-10-17 23:59 | disposition home or self-care (01) ==
LOC: ANHWOC 07:28
PROVIDERS: PCP Nurse Practitioner Family; Visit Provider Orthopaedic Surgery
DX: T81.31XD Disruption of external operation (surgical) wound, not elsewhere classified, subsequent encounter (principal); E11.628 Type 2 diabetes mellitus with other skin complications; E11.621 Type 2 diabetes mellitus with foot ulcer; L97.429 Non-pressure chronic ulcer of left heel and midfoot with unspecified severity; I73.9 Peripheral vascular disease, unspecified
CPT/HCPCS: 99214; G0463

== ENCOUNTER 2024-09-30 23:02 | Inpatient (IN) | payer MEDICARE, SELFPAY ==
--- NOTE | ~2024-09-30 | CT_ITS ---
EXAMINATION: CTA chest PE protocol DATE: 10/06/2024 21:02 INDICATION: Rule out pulmonary embolus. TECHNIQUE: Computed tomography angiography (CTA) of the chest was performed with 100 mL Omnipaque-350 intravenous contrast timed to evaluate the pulmonary arteries. Coronal maximum intensity projection 3D-reconstructions were created by the technologist. Automated exposure control and iterative reconst ruction technique were employed. Exam dose: 836.43 mGy-cm total exam DLP. COMPARISON: None. FINDINGS: There is diagnostic contrast enhancement of the pulmonary arteries and no evidence of pulmo nary embolism. Heart size is within normal range. Right atrial and right ventricular pacemaker leads. Status post sternotomy. No hilar or mediastinal mass lesion or lymphadenopathy. No thoracic aortic aneurysm or dissection. There is mild right pleural effusion and bilateral lower lobe dependent atelectasis, right greater th an left. The lungs otherwise appear essentially clear of infiltrate or consolidation. Normal morphology of the adrenal glands. Status post cholecystectomy. Diffuse idiopathic skeletal hyperostosis of the thoracic spine. No suspicious osteolytic or osteoblas tic lesions are noted. IMPRESSION: No evidence of pulmonary embolism Reviewed, dictated and finalized at [facility]. Reviewed, dictated and finalized at [facility]. CY ANALYST
--- NOTE | ~2024-09-30 | XR_ITS ---
Clinical Indication: Shortness of breath PA and lateral views of the chest: Comparison: 05/27/2024 Findings: There is probable mild central pulmonary edema pattern. Possible minimal pleural effusions. Cardiomediastinal silhouette is stable, with pacemaker device. Bones and soft tissues are unremarka ble. Impression: Mild central pulmonary edema with possible minimal pleural effusions. Pacemaker device. Reviewed, dictated and finalized at location . C MIXER Impression: Mild central pulmonary edema with possible minimal pleural effusions. Pacemaker device.
--- NOTE | ~2024-09-30 | XR_ITS ---
EXAMINATION: XR chest 1V portable DATE: 10/05/2024 05:53 INDICATION: Pneumonia. TECHNIQUE: A single frontal view of the chest was obtained. COMPARISON: Chest 2 views 10/01/2024 FINDINGS: Doug B-lines are noted, consistent with mild pulmonary edema. No pleural effusion or pneu mothorax. The heart size is normal. Median sternotomy wires are noted. There is a left chest wall pac er with leads in the right atrium and right ventricle. IMPRESSION: 1. Mild pulmonary edema. Reviewed, dictated and finalized at location [facility]. BONING MACHINE FEEDER IMPRESSION: 1. Mild pulmonary edema.
--- NOTE | ~2024-09-30 | US_ITS ---
US venous doppler [facility] DATE: 10/06/2024 14:52 INDICATION: Rule out deep venous thrombosis TECHNIQUE: Real-time and color flow imaging and Doppler analysis of the veins of both lower extremiti es COMPARISON: None FINDINGS: The greater saphenous veins are patent bilaterally. Thrombus is identified within the left popliteal and peroneal veins. Thrombus is identified within le ft gastrocnemius vein. Otherwise there is spontaneous and phasic flow, normal augmentation and color flow signal and normal compression of the deep veins of both lower extremities. IMPRESSION: The venous thrombosis of the left popliteal and peroneal veins Reviewed, dictated and finalized at [facility]. Reviewed, dictated and finalized at [facility]. F CRNA
[2024-09-30 23:06] VITALS: BP 151/54; PULSE 69; RESP 22; TEMP 36.5; O2SAT 98
[2024-10-01] VITALS (49 sets, daily range): BP systolic 131–166; BP diastolic 55–95; PULSE 69–108; RESP 11–31; TEMP 36.3–36.6; O2SAT 91–100; BMI 36.4
--- NOTE | 2024-10-01 00:02 | ECG_ITS ---
Test Date: 2024-10-01 00:02:32 Measurements Intervals [place] Rate: 69 P: 0 IL: 0 QRS: -67 QRSD: 184 T: 126 QT: 480 QTc: 518 Interpretive Statements ELECTRONIC VENTRICULAR PACEMAKER Compared to ECG 05/27/2024 11:44:59 Atrial-paced complex(es) or rhythm no longer present Electronically Signed On 10-01-2024 16:15:07 TENNIS CENTRE MANAGER by Elsa Dia M.D.
[2024-10-01 00:54] LABS: Alanine Aminotransferase 10 U/L (6-50); Albumin Level 3.6 g/dL (3.5-5.1); Alkaline Phosphatase 47 U/L (38-126); Anion Gap 5 mmol/L (4-12); Aspartate Amino Transferase 16 U/L (17-59); Bilirubin,Total 0.4 mg/dL (0.2-1.3); Blood Urea Nitrogen 27 mg/dL (9-20); Calcium 8.5 mg/dL (8.4-10.2); Carbon Dioxide 26 mmol/L (22-30); Chloride 103 mmol/L (98-107); Estimated CRCL calculation 70 ml/min; Estimated Glomerular Filt Rate 60; Glucose 437 mg/dL (65-110); Potassium 4.6 mmol/L (3.4-5.0); Sodium 134 mmol/L (137-145)
[2024-10-01 01:04] LABS: Basophils Absolute Auto 0.1 K/mm3 (0.0-0.1); Basophils Percent Auto 0.9 % (0.2-1.2); Eosinophils Absolute Auto 0.2 K/mm3 (0-0.3); Eosinophils Percent Auto 2.3 % (0-4.4); Hematocrit 26.2 % (42.0-52.0); Hemoglobin 7.7 g/dL (14.0-18.0); Immature Granulocyte Absolute 0.08 K/mm3 (0.00-0.031); Immature Granulocyte Percent A 0.8 % (0-0.5); Lymphocytes Percent Auto 12.5 % (18.3-44.2); Mean Corpuscular HGB Conc 29.4 g/dl (32-36); Mean Corpuscular Hemoglobin 22.9 pg (26-34); Mean Platelet Volume 10.9 fl (7.4-10.4); Monocytes Absolute Auto 0.9 K/mm3 (0.1-0.6); Monocytes Percent Auto 8.4 % (2.6-8.5); Neutrophils Absolute Auto 7.8 K/mm3 (1.3-6.7); Neutrophils Percent Auto 75.1 % (45.5-73.1); Platelet Count Result 311 k/mm3 (150-375); Red Blood Count 3.36 M/mm3 (4.6-6.20); Red Cell Distribution Width 17.8 % (11.5-14.5); White Blood Count 10.4 K/mm3 (4.5-10.0)
[2024-10-01 01:10] LABS: Hypochromasia 1+; Platelet Estimate Adequate (Adequate); Schistocytes None Seen
[2024-10-01 01:17] LABS: NT Pro B Type Natriuretic Pept 2760 pg/mL (19.9-100)
--- NOTE | 2024-10-01 01:32 | PC.NURSE ---
Pt maintained o2 saturation of 96-99% during walking test.
[2024-10-01 01:43] LABS: Troponin I 0.044 ng/mL (0.000-0.034)
--- NOTE | 2024-10-01 02:38 | ED.GENADULT ---
HPI - General Adult General Chief complaint: Shortness of Breath/Dyspnea Stated complaint: sob Time Seen by Provider: 10/01/24 01:07 History of Present Illness HPI narrative: patient 69-year-old gentleman presents emergency department with chief complaint of shortness of breath. patient reports that for the last couple weeks he has been having increasing shortness of breath reports he gets worse whenever he tries to ambulate patient does not use oxygen at home reports he smokes about a pack and half a day patient does reports he has history of COPD also has history of diabetes that has been poorly controlled. Related Data Home Medications ?Medication ?Instructions ?Recorded ?Confirmed ?Last Taken ?Type escitalopram oxalate 10 mg tablet 10 mg PO DAILY 09/22/23 03/22/24 11/15/23 09:35 History fenofibrate 160 mg tablet 160 mg PO DAILY 09/22/23 03/22/24 11/15/23 09:35 History furosemide 40 mg tablet 40 mg PO DAILY 09/22/23 03/22/24 11/15/23 09:30 History insulin aspart U-100 100 unit/mL 20 unit subcut TIDWM 09/22/23 03/22/24 09/21/23 History subcutaneous solution (Novolog U-100 Insulin aspart) insulin glargine 100 unit/mL (3 50 unit subcut HS 09/22/23 03/22/24 09/21/23 History mL) subcutaneous pen (Basaglar KwikPen U-100 Insulin) metformin 1,000 mg tablet 1,000 mg PO BIDWM 09/22/23 03/22/24 09/21/23 History metoprolol tartrate 100 mg tablet 100 mg PO BID 09/22/23 03/22/24 11/15/23 09:30 History rivaroxaban 20 mg tablet (Xarelto) 20 mg PO DAILY 09/22/23 03/22/24 09/21/23 History rosuvastatin 20 mg tablet 20 mg PO HS 09/22/23 03/22/24 11/14/23 20:00 History fluticasone furoate 200 1 inh inhalation DAILY 03/22/24 03/22/24 Unknown History mcg-vilanterol 25 mcg/dose inhalation powder (Breo Ellipta) Allergies Allergy/AdvReac Type Severity Reaction Status Date / Time No Known Allergies Allergy Verified 12/16/24 23:12 Review of Systems Review of Systems: A 10 system review of systems was completed on the patient and is negative except for what is stated in the HPI. Nursing and ancillary documentation was reviewed. COUNT INCLUDES THE [facility] Past Medical History Medical History Wound dehiscence, external operation Peripheral vascular disease Hypertension Dyslipidemia Atrial fibrillation Pulmonary emboli Tobacco abuse COPD (chronic obstructive pulmonary disease) Pacemaker CAD (coronary artery disease) Surgical History Surgical History Hx of CABG Family History Family History Mother Cancer Father Cancer Social History Social History Smoking packs per day: 2 Smoking cigarettes per day: 40.0 Years smoked: 60 Smoking pack-years: 120.00 Smoking status: Current every day smoker Second hand tobacco smoke exposure: No Alcohol intake: never Substance use: never Substance use type: does not use Do You Feel Safe in your Home?: Yes Lack of Transportation: No Lack of Food: Never True Current Housing: I Have Housing Concerned About Future Housing: No Difficulty Paying Gas/Electric Bills: No Difficulty Paying for Meds: No Currently Unemployed: No Education: High School Diploma/GED Difficulty w/ Childcare or Family Care: No Spiritual care concerns: No Exam Narrative: GENERAL: Well-appearing, well-nourished, and in no acute distress. HEAD: Normocephalic, atraumatic. EYES: PERRLA and EOMI. ENT: Nares clear, no rhinorrhea or epistaxis. Mucous membranes moist. NECK: Supple. CHEST: Clear to auscultation. No respiratory distress. HEART: Regular rate and rhythm. No murmur heard. Normal peripheral pulses. ABDOMEN: Soft, nontender, nondistended, normal active bowel sounds. : Guaiac-negative stool EXTREMITIES: Normal range of motion. No edema. SKIN: Warm, dry, no rash. NEURO: No focal deficits. Alert and oriented x3. PSYCH: Normal mood and affect. Course Vital Signs Vital signs: Vital Signs Temperature 36.5 C 09/30/24 23:06 Pulse Rate 69 09/30/24 23:06 Respiratory Rate 22 H 09/30/24 23:06 Blood Pressure 151/54 H 09/30/24 23:06 Pulse Oximetry 98 09/30/24 23:06 Oxygen Delivery Room Air 09/30/24 23:06 Temperature 36.5 C 09/30/24 23:06 Pulse Rate 70 10/01/24 01:00 Respiratory Rate 21 H 10/01/24 01:00 Blood Pressure 152/69 H 10/01/24 01:00 Pulse Oximetry 99 10/01/24 01:00 Oxygen Delivery Room Air 09/30/24 23:06 Medical Decision Making MDM Narrative Medical decision making narrative: differential diagnosis includes COPD, pneumonia, anemia, CHF, laboratory studies were obtained showed hemoglobin of 7.7 the patient previously had a hemoglobin in May of 12.3. Renal function was normal at 1.2 the patient had a slightly elevated troponin 0.044 BNP was 2760. Chest x-ray showed pulmonary vascular congestion anemia labs were sent on the patient a unit of packed red blood cells were ordered for the patient Vital Signs Vital Signs: Vital Signs Temperature 36.5 C 09/30/24 23:06 Pulse Rate 69 09/30/24 23:06 Respiratory Rate 22 H 09/30/24 23:06 Blood Pressure 151/54 H 09/30/24 23:06 Pulse Oximetry 98 09/30/24 23:06 Oxygen Delivery Room Air 09/30/24 23:06 Temperature 36.5 C 09/30/24 23:06 Pulse Rate 70 10/01/24 01:00 Respiratory Rate 21 H 10/01/24 01:00 Blood Pressure 152/69 H 10/01/24 01:00 Pulse Oximetry 99 10/01/24 01:00 Oxygen Delivery Room Air 09/30/24 23:06 Lab Data 10/01/24 00:08 10/01/24 00:08 Labs: Lab Results 10/01/24 Range/Units 00:08 WBC 10.4 H (4.5-10.0) K/mm3 RBC 3.36 L (4.6-6.20) M/mm3 Hgb 7.7 L D (14.0-18.0) g/dL Hct 26.2 L (42.0-52.0) % MCV 78.0 L (80-100) fl MCH 22.9 L (26-34) pg MCHC 29.4 L (32-36) g/dl RDW 17.8 H (11.5-14.5) % Plt Count 311 (150-375) k/mm3 MPV 10.9 H (7.4-10.4) fl Immature Gran % (Auto) 0.8 H (0-0.5) % Neut % (Auto) 75.1 H (45.5-73.1) % Lymph % (Auto) 12.5 L (18.3-44.2) % [place] % (Auto) 8.4 (2.6-8.5) % Eos % (Auto) 2.3 (0-4.4) % Baso % (Auto) 0.9 (0.2-1.2) % Lymph # (Auto) 1.30 (0.9-3.2) K/mm3 [place] # (Auto) 0.9 H (0.1-0.6) K/mm3 Eos # (Auto) 0.2 (0-0.3) K/mm3 Baso # (Auto) 0.1 (0.0-0.1) K/mm3 Abs Immat Gran (auto) 0.08 H (0.00-0.031) K/mm3 Absolute Neuts (auto) 7.8 H (1.3-6.7) K/mm3 Absolute Nucleated RBC 0.000 (0.0-0.012) K/mm3 Nucleated RBC % 0.0 (0.0-0.2) % Platelet Estimate Adequate (Adequate) Hypochromasia 1+ Schistocytes None seen Sodium 134 L (137-145) mmol/L Potassium 4.6 (3.4-5.0) mmol/L Chloride 103 (98-107) mmol/L Carbon Dioxide 26 (22-30) mmol/L Anion Gap 5 (4-12) mmol/L BUN 27 H (9-20) mg/dL Creatinine 1.20 (0.7-1.3) mg/dL Estim Creat Clear Calc 70 ml/min Estimated GFR 60 (59 - ) Glucose 437 H (65-110) mg/dL Calcium 8.5 (8.4-10.2) mg/dL Total Bilirubin 0.4 (0.2-1.3) mg/dL AST 16 L (17-59) U/L ALT 10 (6-50) U/L Alkaline Phosphatase 47 (38-126) U/L Troponin I 0.044 H* (0.000-0.034) ng/mL NT-Pro-B Natriuret Pep 2760 H (19.9-100) pg/mL Total Protein 7.0 (6.3-8.2) g/dL Albumin 3.6 (3.5-5.1) g/dL Discharge Plan Discharge Clinical Impression: Shortness of breath, Anemia Patient Disposition: Still a Patient Condition: Stable Patient Language: German Prescriptions: No Action hydrocodone-acetaminophen 5-325 mg Tablet 1 tablet PO Q4H PRN (Reason: Pain Rated 4-7) Qty: 20 0RF furosemide 40 mg tablet 40 mg PO DAILY metoprolol tartrate 100 mg tablet 100 mg PO BID insulin aspart U-100 [Novolog U-100 Insulin aspart] 100 unit/mL solution 20 unit subcut TIDWM metformin 1,000 mg tablet 1,000 mg PO BIDWM escitalopram oxalate 10 mg tablet 10 mg PO DAILY rosuvastatin 20 mg tablet 20 mg PO HS fenofibrate 160 mg tablet 160 mg PO DAILY insulin glargine [Basaglar KwikPen U-100 Insulin] 100 unit/mL (3 mL) insulin pen 50 unit SUBCUT HS Xarelto 20 mg tablet 20 mg PO DAILY fluticasone furoate-vilanterol [Breo Ellipta] 200-25 mcg/dose blister with device 1 inh INHALATION DAILY doxycycline monohydrate 100 mg capsule 100 mg PO BID Qty: 30 0RF Follow-up/Referrals: Edu,Shira Warren APN [Primary Care Provider] - Time of Disposition: 02:49
[2024-10-01] MEDS: PANTOPRAZOLE SODIUM IV 40 MG VIAL IV PUSH ×2 (03:03→10:16)
[2024-10-01] MEDS: FUROSEMIDE INJ 40 MG/4 ML VIAL IV PUSH (03:03)
[2024-10-01] MEDS: diphenhydrAMINE HCl INJ 50 MG/ML VIAL 25 MG IV PUSH (03:18)
[2024-10-01 04:04] LABS: Immature Reticulocyte Fraction 16.5 % (3.0-15.9); Reticulocyte Hemoglobin Conten 15.5 pg (28.2-36.6); Reticulocyte Percent 2.58 % (0.7-4.3)
[2024-10-01 04:13] LABS: Reticulocytes Absolute 0.08 10^6/uL (0.02-0.10)
[2024-10-01] MEDS: SODIUM CHLORIDE 0.9% IV 250 ML 30 ML IV CONT (04:37)
[2024-10-01] MEDS: TUBING, BLOOD PLUM PUMP TUBING 1 EACH XX (04:39)
[2024-10-01 05:06] LABS: Iron 30 ug/dL (49-181)
[2024-10-01 05:09] LABS: Transferrin 339 mg/dL (206-381)
[2024-10-01 05:16] LABS: Percent Iron Saturation 7 % (20-50)
[2024-10-01] MEDS: traZODone HCL 50 MG TABLET PO (05:30)
[2024-10-01 05:44] LABS: Basophils Absolute Auto 0.1 K/mm3 (0.0-0.1); Basophils Percent Auto 0.9 % (0.2-1.2); Eosinophils Absolute Auto 0.2 K/mm3 (0-0.3); Eosinophils Percent Auto 2.2 % (0-4.4); Hematocrit 27.5 % (42.0-52.0); Hemoglobin 8.2 g/dL (14.0-18.0); Immature Granulocyte Absolute 0.06 K/mm3 (0.00-0.031); Immature Granulocyte Percent A 0.6 % (0-0.5); Lymphocytes Absolute Auto 1.44 K/mm3 (0.9-3.2); Lymphocytes Percent Auto 13.5 % (18.3-44.2); Mean Corpuscular HGB Conc 29.8 g/dl (32-36); Mean Corpuscular Hemoglobin 22.7 pg (26-34); Mean Corpuscular Volume 76.2 fl (80-100); Mean Platelet Volume 10.4 fl (7.4-10.4); Monocytes Percent Auto 9.4 % (2.6-8.5); Neutrophils Absolute Auto 7.8 K/mm3 (1.3-6.7); Neutrophils Percent Auto 73.4 % (45.5-73.1); Platelet Count Result 300 k/mm3 (150-375); Red Blood Count 3.61 M/mm3 (4.6-6.20); Red Cell Distribution Width 17.2 % (11.5-14.5); White Blood Count 10.7 K/mm3 (4.5-10.0)
[2024-10-01 05:58] LABS: Alanine Aminotransferase 10 U/L (6-50); Albumin Level 3.9 g/dL (3.5-5.1); Alkaline Phosphatase 47 U/L (38-126); Anion Gap 8 mmol/L (4-12); Aspartate Amino Transferase 16 U/L (17-59); Bilirubin,Total 0.7 mg/dL (0.2-1.3); Blood Urea Nitrogen 27 mg/dL (9-20); Calcium 8.9 mg/dL (8.4-10.2); Carbon Dioxide 26 mmol/L (22-30); Chloride 103 mmol/L (98-107); Estimated CRCL calculation 70 ml/min; Estimated Glomerular Filt Rate 60; Glucose 375 mg/dL (65-110); Potassium 4.4 mmol/L (3.4-5.0); Sodium 137 mmol/L (137-145)
[2024-10-01 06:12] LABS: Troponin I 0.046 ng/mL (0.000-0.034)
[2024-10-01 06:16] LABS: Folic Acid 8.5 ng/mL (2.76->20)
[2024-10-01 07:14] LABS: Hypochromasia 2+; Platelet Estimate Adequate (Adequate)
[2024-10-01 07:15] LABS: Anisocytosis 1+; Schistocytes None Seen; Target Cells 1+
--- NOTE | 2024-10-01 08:08 | P.HP_ITS ---
H&P: HPI History of Present Illness Date/Time: 10/01/24 08:08 Chief Complaint: Shortness of breath Narrative: 69 years old gentleman with history of COPD, type 2 diabetes insulin, diastolic heart failure, hyperlipidemia, atrial fibrillation on Xarelto, status post pacemaker, CAD present ED with a chief complaint of shortness breath patient has been having progressive shortness of breath in past weeks, worse with minimal exertion. Patient has been having progressive weakness over a month. Patient has needs admitted black stools, patient denies abdomen pain, nausea vomiting diarrhea. Patient has been having worsening productive cough with yellow sputum in past 3 days. Patient smokes cigarettes half pack a day. With patient denies fever, chills, headache, focal weakness ataxia, nausea vomiting diarrhea dysuria patient had worsening shortness breath yesterday, therefore patient came to ED for evaluation treatment. Patient was afebrile, blood pressure stable. Pulse ox about 91 to 96 in the ED. lab showed leukocytosis of 10,700, uncontrolled diabetes glucose 375, BUN creatinine ratio 27/1.2 on the baseline. Elevated troponin 0.044 and 2nd troponin 0.046. I read the EKG, EKG showed ventricular paced rhythm. X-ray showed central pulmonary edema. BNP 27[address] [facility] Past Medical History Medical History Wound dehiscence, external operation Peripheral vascular disease Hypertension Dyslipidemia Atrial fibrillation Pulmonary emboli Tobacco abuse COPD (chronic obstructive pulmonary disease) Pacemaker CAD (coronary artery disease) Surgical History Surgical History Hx of CABG Family History Family History Mother Cancer Father Cancer Social History Social History Smoking packs per day: 2 Smoking cigarettes per day: 40.0 Years smoked: 60 Smoking pack-years: 120.00 Smoking status: Current every day smoker Second hand tobacco smoke exposure: No Alcohol intake: never Substance use: never Substance use type: does not use Do You Feel Safe in your Home?: Yes Lack of Transportation: No Lack of Food: Never True Current Housing: I Have Housing Concerned About Future Housing: No Difficulty Paying Gas/Electric Bills: No Difficulty Paying for Meds: No Currently Unemployed: No Education: High School Diploma/GED Difficulty w/ Childcare or Family Care: No Spiritual care concerns: No Meds Home Medications and Allergies Home Medications ?Medication ?Instructions ?Recorded ?Confirmed ?Type escitalopram oxalate 10 mg tablet 10 mg PO DAILY 09/22/23 10/01/24 History fenofibrate 160 mg tablet 160 mg PO DAILY 09/22/23 10/01/24 History furosemide 40 mg tablet 40 mg PO DAILY 09/22/23 10/01/24 History insulin aspart U-100 100 unit/mL 20 unit subcut TIDWM 09/22/23 10/01/24 History subcutaneous solution (Novolog U-100 Insulin aspart) insulin glargine 100 unit/mL (3 70 unit subcut HS 09/22/23 10/01/24 History mL) subcutaneous pen (Basaglar KwikPen U-100 Insulin) metformin 1,000 mg tablet 1,000 mg PO BIDWM 09/22/23 10/01/24 History metoprolol tartrate 100 mg tablet 100 mg PO BID 09/22/23 10/01/24 History rivaroxaban 20 mg tablet (Xarelto) 20 mg PO DAILY 09/22/23 10/01/24 History rosuvastatin 20 mg tablet 20 mg PO HS 09/22/23 10/01/24 History fluticasone furoate 200 1 inh inhalation DAILY 03/22/24 10/01/24 History mcg-vilanterol 25 mcg/dose inhalation powder (Breo Ellipta) doxycycline monohydrate 100 mg 100 mg PO BID #30 caps 04/02/24 10/01/24 Rx capsule fluticasone propionate 50 1 spray intranasal Q12H 10/01/24 10/01/24 History mcg/actuation nasal spray,suspension glimepiride 2 mg tablet 2 mg PO BID 10/01/24 10/01/24 History pantoprazole 40 mg tablet,delayed 40 mg PO Q12H 10/01/24 10/01/24 History release Allergies Allergy/AdvReac Type Severity Reaction Status Date / Time No Known Allergies Allergy Verified 10/01/24 03:26 Vital Signs Vital Signs - 24 hr 09/30/24 23:06 10/01/24 00:51 10/01/24 00:54 Temperature 97.7 F Pulse Rate 69 70 70 Respiratory Rate 22 H 11 L 24 H Blood Pressure 151/54 H 152/69 H Pulse Oximetry 98 100 97 Oxygen Delivery Room Air 10/01/24 01:00 10/01/24 01:00 10/01/24 01:02 Temperature Pulse Rate 70 70 70 Respiratory Rate 21 H 17 21 H Blood Pressure 152/69 H 152/59 H Pulse Oximetry 99 99 98 Oxygen Delivery 10/01/24 01:15 10/01/24 01:17 10/01/24 01:31 Temperature Pulse Rate 70 Respiratory Rate 20 20 Blood Pressure Pulse Oximetry 97 100 100 Oxygen Delivery Room Air 10/01/24 01:45 10/01/24 02:00 10/01/24 02:15 Temperature Pulse Rate 70 83 Respiratory Rate 24 H 29 H Blood Pressure Pulse Oximetry 97 100 99 Oxygen Delivery 10/01/24 02:30 10/01/24 02:32 10/01/24 02:45 Temperature Pulse Rate 70 70 70 Respiratory Rate 21 H 24 H 23 H Blood Pressure 166/65 H Pulse Oximetry 100 91 95 Oxygen Delivery 10/01/24 02:47 10/01/24 03:00 10/01/24 03:02 Temperature Pulse Rate 70 Respiratory Rate 21 H 31 H Blood Pressure 158/70 H 149/70 H Pulse Oximetry 95 94 97 Oxygen Delivery 10/01/24 03:15 10/01/24 03:17 10/01/24 03:30 Temperature Pulse Rate Respiratory Rate 24 H 20 23 H Blood Pressure 164/73 H Pulse Oximetry 99 94 97 Oxygen Delivery 10/01/24 03:32 10/01/24 03:45 10/01/24 04:00 Temperature Pulse Rate Respiratory Rate 22 H 17 16 Blood Pressure 136/95 H Pulse Oximetry 91 96 96 Oxygen Delivery 10/01/24 04:02 10/01/24 04:18 10/01/24 04:34 Temperature 97.4 F L 97.5 F L Pulse Rate 70 70 Respiratory Rate 16 14 17 Blood Pressure 155/68 H 155/68 H 136/95 H Pulse Oximetry 98 98 97 Oxygen Delivery 10/01/24 04:47 10/01/24 05:00 10/01/24 05:03 Temperature Pulse Rate 80 70 70 Respiratory Rate 24 H 24 H 16 Blood Pressure 155/59 H 159/76 H Pulse Oximetry 96 97 96 Oxygen Delivery 10/01/24 05:15 10/01/24 05:30 10/01/24 05:42 Temperature 97.5 F L Pulse Rate 74 70 69 Respiratory Rate 17 19 18 Blood Pressure 141/68 H Pulse Oximetry 96 Oxygen Delivery 10/01/24 07:08 Temperature Pulse Rate 70 Respiratory Rate 20 Blood Pressure 131/58 L Pulse Oximetry 94 Oxygen Delivery Exam Narrative: GENERAL: Pleasant, in no acute distress. Well-nourished. - EYES: EOMI. Anicteric. - HENT: Moist mucous membranes. - LUNGS: Distant breath sound bilateral ly, crackles bilateral bases - CARDIOVASCULAR: Regular rate and rhyth m. No murmur. No JVD. - ABDOMEN: Soft, non-tender and non-dist ended. No palpable masses. - EXTREMITIES: No edema. Peripheral puls es 2+. Non-tender. - NEUROLOGIC: No focal neurological defi cits. CN II-XII grossly intact. - PSYCHIATRIC: Awake, Alert and oriented x 3. Appropriate mood and affect. - SKIN: No rashes or lesions. Warm. - LYMPH: No cervical lymphadenopathy. H&P: Results Labs Labs: Short CBC 10/01/24 10/01/24 Range/Units 00:08 05:35 WBC 10.4 H 10.7 H (4.5-10.0) K/mm3 Hgb 7.7 L D 8.2 L (14.0-18.0) g/dL Hct 26.2 L 27.5 L (42.0-52.0) % Plt Count 311 300 (150-375) k/mm3 [facility] 10/01/24 10/01/24 00:08 05:35 Sodium 134 L 137 Potassium 4.6 4.4 Chloride 103 103 Carbon Dioxide 26 26 BUN 27 H 27 H Creatinine 1.20 1.20 Glucose 437 H 375 H Calcium 8.5 8.9 Cardiac Enzymes 10/01/24 10/01/24 Range/Units 00:08 05:35 Troponin I 0.044 H* 0.046 H* (0.000-0.034) ng/mL Liver Function 10/01/24 10/01/24 Range/Units 00:08 05:35 Total Bilirubin 0.4 0.7 (0.2-1.3) mg/dL AST 16 L 16 L (17-59) U/L ALT 10 10 (6-50) U/L Alkaline Phosphatase 47 47 (38-126) U/L Albumin 3.6 3.9 (3.5-5.1) g/dL Assessment and Plan Assessment and plan (1) Shortness of breath: Code(s): R06.02 - Shortness of breath Status: Acute (2) COPD exacerbation: Code(s): J44.1 - Chronic obstructive pulmonary disease with (acute) exacerbation Status: Acute (3) Acute on chronic heart failure: Code(s): I50.9 - Heart failure, unspecified Status: Acute (4) Elevated troponin: Code(s): R79.89 - Other specified abnormal findings of blood chemistry Status: Acute (5) Uncontrolled type 2 diabetes mellitus: Status: Acute (6) CAD (coronary artery disease): Code(s): I25.10 - Atherosclerotic heart disease of [place] coronary artery without angina pectoris Status: Acute (7) KIRILL on CPAP: Code(s): G47.33 - Obstructive sleep apnea (adult) (pediatric) Status: Acute Plan COPD exacerbation Patient has history of COPD, patient is to put dependence Patient's productive cough and progressive pain shortness of breath X-ray shows pulmonary edema and possible superimposed pneumonia Patient leukocytosis Start azithromycin ceftriaxone IV Continue home medication Breo Ellipta 1 puff daily Start DuoNeb scheduled albuterol nebulizer p.r.n. Start methylprednisolone 40 mg q.6 hours IV Start O2 therapy keep pulse ox above 94 Acute on chronic heart failure Patient has elevated BNP, central pulmonary edema on x-ray [employer] Lasix 40 mg daily p.o. to 40 mg daily IV push Follow-up echocardiogram Follow-up input output CAD Patient has elevated troponin, denies chest pain Possible demand ischemia due to COPD and CHF Patient is on Xarelto 20 mg daily p.o., Crestor 20 mg daily p.o. Follow-up echocardiogram Telemetry monitoring EKG p.r.n. Paroxysmal AFib Currently patient has a paced rhythm, Hold Xarelto, suspecting GI bleeding Chronic anemia Hemoglobin 7.7 upon arrival. Baseline hemoglobin 12.3 May 27, 2024 Hemoglobin is below the baseline Follow-up stool guaiac, iron panel, ferritin level, Patient is on Protonix 40 mg IV Patient has black stools intermittently Possible GI bleeding Patient is on blood thinner Consult GI for evaluation treatment Essential hypertension Continue metoprolol 100 mg b.i.d. p.o. Uncontrolled type 2 diabetes continue glargine 70 units q.h.s. Start prandial aspart 15 units before each meal Start insulin sliding scale a.c. and q.h.s. Hospitalist MIPS Advance Care Plan I have confirmed that the patient's Advanced Care Plan is present, code status is documented, or surrogate decision maker is listed in patient medical record.: Yes Medication Reconciliation I have utilized all available resources to obtain, update and review the patients current medications (includes all prescriptions, OTC, herbals, cannabis, and nutritional supplements).: Yes
[2024-10-01] MEDS: AZITHROMYCIN 500 MG/NS 250 ML 500 MG/250 ML BAG 250 MG IVPB (10:13)
[2024-10-01] MEDS: cefTRIAXone 2 GM/NS 100 ML 2 GM/100 ML BAG IVPB (10:14)
[2024-10-01] MEDS: METOPROLOL TARTRATE 50 MG TAB 100 MG PO ×2 (10:15→20:18)
[2024-10-01] MEDS: PANTOPRAZOLE 40 MG TABLET PO ×2 (10:16→20:18)
[2024-10-01 10:27] LABS: Troponin I 0.043 ng/mL (0.000-0.034)
[2024-10-01 11:15] LABS: Iron 19 ug/dL (49-181)
[2024-10-01] MEDS: INSULIN ASPART (*BKC) 100 UNITS/ML 15 UNITS SUB-Q ×2 (11:27→18:14)
[2024-10-01 11:28] LABS: Percent Iron Saturation 4 % (20-50)
[2024-10-01] MEDS: FENOFIBRATE 160 MG TABLET PO (11:28)
[2024-10-01] MEDS: metFORMIN HCL 500 MG TABLET 1000 MG PO ×2 (11:28→18:14)
[2024-10-01] MEDS: ESCITALOPRAM OXALATE 10 MG TABLET PO (11:28)
[2024-10-01 12:41] LABS: Hemoglobin A1C 11.8 % (<5.7)
--- NOTE | 2024-10-01 14:00 | PC.NURSE ---
Patient from ER. Wound on left foot. Pictures taken.
--- NOTE | 2024-10-01 15:44 | WPDGICN ---
Assessment and Plan Assessment and plan (1) Acute on chronic anemia: Code(s): D64.9 - Anemia, unspecified Status: Acute Assessment and Plan: known gastric ulcer about 1.5 month ago, he says that his blood thinner was discontinued because same reason recommend to continue using daily ppi (this time denies melena or overt gib), no need to repeat egd unless any obvious bleeding consider colonoscopy but as outpatient once he is euvolemic and respiratory status has improved will follow only as needed (2) Gastric ulcer: Code(s): K25.9 - Gastric ulcer, unspecified as acute or chronic, without hemorrhage or perforation Status: Acute Assessment and Plan: recommend daily ppi (3) Acute on chronic heart failure: Code(s): I50.9 - Heart failure, unspecified Status: Acute Assessment and Plan: on treatment (4) Acute and chronic respiratory failure: Code(s): J96.20 - Acute and chronic respiratory failure, unspecified whether with hypoxia or hypercapnia Status: Acute (5) Elevated troponin: Code(s): R79.89 - Other specified abnormal findings of blood chemistry Status: Acute (6) Uncontrolled type 2 diabetes mellitus: Status: Acute GI Consult Note Consult date/time: 10/01/24 15:44 Reason for consult: acute on chronic anemia HPI: Charly Bryce Presley Jr. is a 69 year old male with history of COPD, type 2 diabetes insulin, heart failure, hyperlipidemia, atrial fibrillation on Xarelto but discontinued about 1.5 month ago, status post pacemaker, CAD. He came here with symptomatic CHF. He says that has been admitted to [place] [id number] last time about 1.5 month ago with GIB and melena, had EGD and noted to have ulcer then was told not to use blood thinner anymore (also received blood transfusion- hgb earlier this year 12 but do not have blood work from his recent hospitalization). Here with progressive shortness of breath in past weeks, worse with minimal exertion now, orthopnea. Admitted and diagnosed with CHF exacerbation, had mild elevated troponin, hgb 7.7 but this time denies any sort of melena or overt gib. He received one unit prbc. He is feeling better now. Last colonoscopy in [place] about 4 years ago. Review of Systems Constitutional: Constitutional: Reports fatigue Eyes: Eyes: Denies blurry vision ENT: Reports Normal hearing present Cardiovascular: Cardiovascular: Reports pedal edema Respiratory: Respiratory: Reports chest congestion and Reports dyspnea on exertion Gastrointestinal: Gastrointestinal: Denies abdominal pain Genitourinary: Genitourinary: Denies dysuria Musculoskeletal: Musculoskeletal: Denies neck pain Integumentary/Breasts: Skin/Breast: Denies dry skin Neurologic: Denies Abnormal speech present Psychiatric: Psychiatric: Denies behavioral changes [facility] Past Medical History Medical History (Updated 10/01/24 @ 15:52 by Ammon Rojas MD) Acute and chronic respiratory failure Gastric ulcer Acute on chronic anemia Wound dehiscence, external operation Peripheral vascular disease Hypertension Dyslipidemia Atrial fibrillation Pulmonary emboli Tobacco abuse COPD (chronic obstructive pulmonary disease) Pacemaker CAD (coronary artery disease) Surgical History Surgical History Hx of CABG Family History Family History Mother Cancer Father Cancer Social History Social History Smoking packs per day: 2 Smoking cigarettes per day: 40.0 Years smoked: 60 Smoking pack-years: 120.00 Smoking status: Current every day smoker Second hand tobacco smoke exposure: No Alcohol intake: never Substance use: never Substance use type: does not use Do You Feel Safe in your Home?: Yes Lack of Transportation: No Lack of Food: Never True Current Housing: I Have Housing Concerned About Future Housing: No Difficulty Paying Gas/Electric Bills: No Difficulty Paying for Meds: No Currently Unemployed: No Education: High School Diploma/GED Difficulty w/ Childcare or Family Care: No Spiritual care concerns: No Meds Home Medications and Allergies Home Medications ?Medication ?Instructions ?Recorded ?Confirmed ?Type escitalopram oxalate 10 mg tablet 10 mg PO DAILY 09/22/23 10/01/24 History fenofibrate 160 mg tablet 160 mg PO DAILY 09/22/23 10/01/24 History furosemide 40 mg tablet 40 mg PO DAILY 09/22/23 10/01/24 History insulin aspart U-100 100 unit/mL 20 unit subcut TIDWM 09/22/23 10/01/24 History subcutaneous solution (Novolog U-100 Insulin aspart) insulin glargine 100 unit/mL (3 70 unit subcut HS 09/22/23 10/01/24 History mL) subcutaneous pen (Basaglar KwikPen U-100 Insulin) metformin 1,000 mg tablet 1,000 mg PO BIDWM 09/22/23 10/01/24 History metoprolol tartrate 100 mg tablet 100 mg PO BID 09/22/23 10/01/24 History rivaroxaban 20 mg tablet (Xarelto) 20 mg PO DAILY 09/22/23 10/01/24 History rosuvastatin 20 mg tablet 20 mg PO HS 09/22/23 10/01/24 History fluticasone furoate 200 1 inh inhalation DAILY 03/22/24 10/01/24 History mcg-vilanterol 25 mcg/dose inhalation powder (Breo Ellipta) doxycycline monohydrate 100 mg 100 mg PO BID #30 caps 04/02/24 10/01/24 Rx capsule fluticasone propionate 50 1 spray intranasal Q12H 10/01/24 10/01/24 History mcg/actuation nasal spray,suspension glimepiride 2 mg tablet 2 mg PO BID 10/01/24 10/01/24 History pantoprazole 40 mg tablet,delayed 40 mg PO Q12H 10/01/24 10/01/24 History release Allergies Allergy/AdvReac Type Severity Reaction Status Date / Time No Known Allergies Allergy Verified 10/01/24 03:26 Vital Signs Vital Signs - 24 hr 09/30/24 23:06 10/01/24 00:51 10/01/24 00:54 Temperature 97.7 F Pulse Rate 69 70 70 Respiratory Rate 22 H 11 L 24 H Blood Pressure 151/54 H 152/69 H Pulse Oximetry 98 100 97 Oxygen Delivery Room Air 10/01/24 01:00 10/01/24 01:00 10/01/24 01:02 Temperature Pulse Rate 70 70 70 Respiratory Rate 21 H 17 21 H Blood Pressure 152/69 H 152/59 H Pulse Oximetry 99 99 98 Oxygen Delivery 10/01/24 01:15 10/01/24 01:17 10/01/24 01:31 Temperature Pulse Rate 70 Respiratory Rate 20 20 Blood Pressure Pulse Oximetry 97 100 100 Oxygen Delivery Room Air 10/01/24 01:45 10/01/24 02:00 10/01/24 02:15 Temperature Pulse Rate 70 83 Respiratory Rate 24 H 29 H Blood Pressure Pulse Oximetry 97 100 99 Oxygen Delivery 10/01/24 02:30 10/01/24 02:32 10/01/24 02:45 Temperature Pulse Rate 70 70 70 Respiratory Rate 21 H 24 H 23 H Blood Pressure 166/65 H Pulse Oximetry 100 91 95 Oxygen Delivery 10/01/24 02:47 10/01/24 03:00 10/01/24 03:02 Temperature Pulse Rate 70 Respiratory Rate 21 H 31 H Blood Pressure 158/70 H 149/70 H Pulse Oximetry 95 94 97 Oxygen Delivery 10/01/24 03:15 10/01/24 03:17 10/01/24 03:30 Temperature Pulse Rate Respiratory Rate 24 H 20 23 H Blood Pressure 164/73 H Pulse Oximetry 99 94 97 Oxygen Delivery 10/01/24 03:32 10/01/24 03:45 10/01/24 04:00 Temperature Pulse Rate Respiratory Rate 22 H 17 16 Blood Pressure 136/95 H Pulse Oximetry 91 96 96 Oxygen Delivery 10/01/24 04:02 10/01/24 04:18 10/01/24 04:34 Temperature 97.4 F L 97.5 F L Pulse Rate 70 70 Respiratory Rate 16 14 17 Blood Pressure 155/68 H 155/68 H 136/95 H Pulse Oximetry 98 98 97 Oxygen Delivery 10/01/24 04:47 10/01/24 05:00 10/01/24 05:03 Temperature Pulse Rate 80 70 70 Respiratory Rate 24 H 24 H 16 Blood Pressure 155/59 H 159/76 H Pulse Oximetry 96 97 96 Oxygen Delivery 10/01/24 05:15 10/01/24 05:30 10/01/24 05:42 Temperature 97.5 F L Pulse Rate 74 70 69 Respiratory Rate 17 19 18 Blood Pressure 141/68 H Pulse Oximetry 96 Oxygen Delivery 10/01/24 07:01 10/01/24 07:08 10/01/24 07:31 Temperature 97.8 F Pulse Rate 70 70 70 Respiratory Rate 28 H 20 14 Blood Pressure 131/58 L 131/58 L 148/70 H Pulse Oximetry 92 94 94 Oxygen Delivery 10/01/24 08:17 10/01/24 09:00 10/01/24 09:30 Temperature 97.8 F 97.9 F Pulse Rate 70 70 70 Respiratory Rate 18 18 18 Blood Pressure 157/77 H 152/74 H 150/72 H Pulse Oximetry 100 98 97 Oxygen Delivery 10/01/24 10:15 10/01/24 10:30 10/01/24 11:20 Temperature 97.8 F 97.8 F Pulse Rate 70 70 70 Respiratory Rate 18 18 Blood Pressure 148/70 H 152/80 H Pulse Oximetry 97 99 Oxygen Delivery 10/01/24 12:15 10/01/24 13:17 10/01/24 15:23 Temperature 97.9 F 97.9 F 98 F Pulse Rate 70 70 70 Respiratory Rate 18 16 18 Blood Pressure 156/80 H 135/62 135/55 L Pulse Oximetry 99 97 99 Oxygen Delivery Exam Const: General: comfortable HENMT: Face/Nose/Sinus: Normal nares present Eyes: General: appearance normal, both eyes and all related structures Neck: Neck: supple Resp: Auscultation: crackles and diminished lung sounds Cardio: Rate: regular rate Rhythm: regular rhythm GI: Inspection: non-distended GI Palp: Yes Soft to palpation and No Tenderness to palpation present (GI) Auscultation: normal bowel sounds Skin: Other: chronic venous stasis legs Neuro: Speech: normal speech Motor exam (neuro): 5/5 motor strength present throughout Extrem: General: normal to inspection Psych: Mental Status: mental status grossly normal Results Labs 10/01/24 05:35 10/01/24 05:35 Labs: Short CBC 10/01/24 10/01/24 Range/Units 00:08 05:35 WBC 10.4 H 10.7 H (4.5-10.0) K/mm3 Hgb 7.7 L D 8.2 L (14.0-18.0) g/dL Hct 26.2 L 27.5 L (42.0-52.0) % Plt Count 311 300 (150-375) k/mm3 BMP 10/01/24 10/01/24 00:08 05:35 Sodium 134 L 137 Potassium 4.6 4.4 Chloride 103 103 Carbon Dioxide 26 26 BUN 27 H 27 H Creatinine 1.20 1.20 Glucose 437 H 375 H Calcium 8.5 8.9 Cardiac Enzymes 10/01/24 10/01/24 10/01/24 Range/Units 00:08 05:35 09:49 Troponin I 0.044 H* 0.046 H* 0.043 H* (0.000-0.034) ng/mL Liver Function 10/01/24 10/01/24 Range/Units 00:08 05:35 Total Bilirubin 0.4 0.7 (0.2-1.3) mg/dL AST 16 L 16 L (17-59) U/L ALT 10 10 (6-50) U/L Alkaline Phosphatase 47 47 (38-126) U/L Albumin 3.6 3.9 (3.5-5.1) g/dL
[2024-10-01 16:49] LABS: Glucose Point of Care 303 mg/dl (65-105)
[2024-10-01] MEDS: FLUTICASONE/SALMETEROL 230-21 MCG INHALER 1 PUFF 2 PUFF INHALATION (19:40)
[2024-10-01] MEDS: MICONAZOLE NITRATE 2% CREAM 30 GM TUBE 1 APPLIC TOPICAL (20:19)
[2024-10-01] MEDS: INSULIN GLARGINE (*BKC) 100 UNITS/ML 70 UNITS SUB-Q (20:19)
[2024-10-01] MEDS: ROSUVASTATIN 20 MG TABLET PO (20:19)
[2024-10-01 20:44] LABS: Glucose Point of Care 321 mg/dl (65-105)
[2024-10-02] VITALS (21 sets, daily range): BP systolic 115–132; BP diastolic 49–63; PULSE 69–71; RESP 16–22; TEMP 36.4–37; O2SAT 96–100
[2024-10-02] MEDS: FLUTICASONE/SALMETEROL 230-21 MCG INHALER 1 PUFF 2 PUFF INHALATION ×2 (07:24→21:25)
[2024-10-02 08:36] LABS: Glucose Point of Care 208 mg/dl (65-105)
--- NOTE | 2024-10-02 08:41 | PM.IMPN ---
Progress Note: A&P Assessment and Plan (1) Shortness of breath: Code(s): R06.02 - Shortness of breath Status: Acute (2) COPD exacerbation: Code(s): J44.1 - Chronic obstructive pulmonary disease with (acute) exacerbation Status: Acute (3) Acute on chronic heart failure: Code(s): I50.9 - Heart failure, unspecified Status: Acute (4) Elevated troponin: Code(s): R79.89 - Other specified abnormal findings of blood chemistry Status: Acute (5) Uncontrolled type 2 diabetes mellitus: Status: Acute (6) CAD (coronary artery disease): Code(s): I25.10 - Atherosclerotic heart disease of [place] coronary artery without angina pectoris Status: Acute (7) KIRILL on CPAP: Code(s): G47.33 - Obstructive sleep apnea (adult) (pediatric) Status: Acute Plan COPD exacerbation Patient has history of COPD, patient is to put dependence Patient's productive cough and progressive pain shortness of breath X-ray shows pulmonary edema and possible superimposed pneumonia Patient leukocytosis Start azithromycin ceftriaxone IV Continue home medication Breo Ellipta 1 puff daily Start DuoNeb scheduled albuterol nebulizer p.r.n. Start methylprednisolone 40 mg q.6 hours IV Start O2 therapy keep pulse ox above 94 Patient still has cough, with scant phlegm, dyspnea is improving Continue current treatment Acute on chronic heart failure Patient has elevated BNP, central pulmonary edema on x-ray [employer] Lasix 40 mg daily p.o. to 40 mg daily IV push Follow-up echocardiogram Follow-up input output CAD Patient has elevated troponin, denies chest pain Possible demand ischemia due to COPD and CHF Patient is on Xarelto 20 mg daily p.o., Crestor 20 mg daily p.o. Follow-up echocardiogram Telemetry monitoring EKG p.r.n. Paroxysmal AFib Currently patient has a paced rhythm, Hold Xarelto, suspecting GI bleeding Chronic anemia Hemoglobin 7.7 upon arrival. Baseline hemoglobin 12.3 May 27, 2024 Hemoglobin is below the baseline Follow-up stool guaiac, iron panel low ferritin level 14, reticulocyte 16.5, reticulocyte hemoglobin low 15.5 Patient is on Protonix 40 mg IV Patient has black stools intermittently Possible GI bleeding Patient is on blood thinner Consult GI for evaluation treatment s/w ferrous sulfate p.o. 325 mg daily, Venofer 100 mg daily IV Appreciate GI consultation, patient will be scheduled close opiate of patient Essential hypertension Continue metoprolol 100 mg b.i.d. p.o. Uncontrolled type 2 diabetes continue glargine 70 units q.h.s. Start prandial aspart 15 units before each meal Start insulin sliding scale a.c. and q.h.s. Subjective Date/time seen: 10/02/24 08:41 Interval history: I saw examined the patient today. Patient still has severe cough with scant phlegm. Dyspnea is improving. Patient denies nausea vomiting last dose today. Patient is afebrile. Hemoglobin stable Exam Narrative: GENERAL: Pleasant, in no acute distress. Well-nourished. - EYES: EOMI. Anicteric. - HENT: Moist mucous membranes. - LUNGS: Distant breath sound bilaterally, crackles bilateral bases - CARDIOVASCULAR: Regular rate and rhythm. No murmur. No JVD. - ABDOMEN: Soft, non-tender and non-distended. No palpable masses. - EXTREMITIES: No edema. Peripheral pulses 2+. Non-tender. - NEUROLOGIC: No focal neurological deficits. CN II-XII grossly intact. - PSYCHIATRIC: Awake, Alert and oriented x 3. Appropriate mood and affect. - SKIN: No rashes or lesions. Warm. - LYMPH: No cervical lymphadenopathy. Objective Data Vital Signs Vital Signs: Vital Signs - 24 hr 10/01/24 09:00 10/01/24 09:30 10/01/24 10:15 Temperature 97.9 F Pulse Rate 70 70 70 Respiratory Rate 18 18 Blood Pressure 152/74 H 150/72 H Pulse Oximetry 98 97 Oxygen Delivery 10/01/24 10:30 10/01/24 11:20 10/01/24 12:15 Temperature 97.8 F 97.8 F 97.9 F Pulse Rate 70 70 70 Respiratory Rate 18 18 18 Blood Pressure 148/70 H 152/80 H 156/80 H Pulse Oximetry 97 99 99 Oxygen Delivery 10/01/24 13:17 10/01/24 15:23 10/01/24 16:00 Temperature 97.9 F 98 F Pulse Rate 70 70 70 Respiratory Rate 16 18 Blood Pressure 135/62 135/55 L Pulse Oximetry 97 99 Oxygen Delivery 10/01/24 18:00 10/01/24 20:00 10/01/24 20:00 Temperature Pulse Rate 70 70 70 Respiratory Rate 18 Blood Pressure Pulse Oximetry 100 Oxygen Delivery Room Air 10/01/24 20:18 10/01/24 20:41 10/01/24 22:00 Temperature 97.6 F Pulse Rate 108 H 70 70 Respiratory Rate 18 Blood Pressure 147/60 H Pulse Oximetry 100 Oxygen Delivery 10/02/24 00:00 10/02/24 00:00 10/02/24 00:50 Temperature 98.1 F Pulse Rate 70 70 70 Respiratory Rate 18 18 Blood Pressure 131/63 Pulse Oximetry 100 100 Oxygen Delivery Room Air 10/02/24 02:00 10/02/24 04:00 10/02/24 04:00 Temperature Pulse Rate 70 70 70 Respiratory Rate 18 Blood Pressure Pulse Oximetry 100 Oxygen Delivery Room Air 10/02/24 04:13 10/02/24 06:00 10/02/24 07:34 Temperature 98.6 F 98 F Pulse Rate 70 70 70 Respiratory Rate 22 H 16 Blood Pressure 115/56 L 130/57 L Pulse Oximetry 96 97 Oxygen Delivery Intake/Output Intake/Output: Intake & Output 09/29/24 09/30/24 10/01/24 10/02/24 23:59 23:59 23:59 23:59 Intake Total 1740 1100 Balance 1740 1100 Meds/Results Medications: Active Medications Generic Name Dose Route Start Last Admin Trade Name Freq PRN Reason Stop Dose Admin Acetaminophen 650 mg 10/01/24 02:46 Acetaminophen 325 Mg Tablet PO Q4H PRN Mild Pain (1-3) or Fever Dextrose 12.5 gm 10/01/24 08:36 Dextrose 50% 25 Gm/50 Ml Syringe IV PUSH PRN PRN Hypoglycemia Protocol Escitalopram Oxalate 10 mg 10/01/24 09:00 10/01/24 11:28 Escitalopram Oxalate 10 Mg Tablet PO 10 mg DAILY DANIEL Administration Fenofibrate 160 mg 10/01/24 09:00 10/01/24 11:28 Fenofibrate 160 Mg Tablet PO 160 mg DAILY DANIEL Administration Glucagon 1 mg 10/01/24 08:36 Glucagon For Inj 1 Mg Vial IM PRN PRN Hypoglycemia Protocol Glucose 15 gm 10/01/24 08:36 Glucose Oral Gel 15 Gm Of Glucse In 37.5 Gm Tube PO PRN PRN Hypoglycemia Protocol Azithromycin 500 mg in 250 mls @ 250 mls/hr 10/01/24 09:00 10/01/24 11:14 Zithromax IVPB Infused Q24H DANIEL Infusion Ceftriaxone Sodium 2 gm in 100 mls @ 200 mls/hr 10/01/24 09:00 10/01/24 11:14 Rocephin 2 Gm/Ns 100 Ml IVPB Infused Q24H DANIEL Infusion Dextrose 1,000 mls @ 100 mls/hr 10/01/24 08:36 Dextrose 5% 1,000 Ml IVPB PRN PRN Hypoglycemia Protocol Insulin Aspart 15 units 10/01/24 12:00 10/01/24 18:14 Insulin Aspart (*Bkc) 100 Units/Ml SUB-Q 15 units TIDWM DANIEL Administration Insulin Glargine 70 units 10/01/24 21:00 10/01/24 20:19 Insulin Glargine (*Bkc) 100 Units/Ml SUB-Q 70 units HS DANIEL Administration Metformin HCl 1,000 mg 10/01/24 08:50 10/01/24 18:14 Metformin Hcl 500 Mg Tablet PO 1,000 mg BIDWM DANIEL Administration Metoprolol Tartrate 100 mg 10/01/24 09:00 10/01/24 20:18 Metoprolol Tartrate 50 Mg Tab PO 100 mg Q12HR DANIEL Administration Miconazole Nitrate 1 applic 10/01/24 21:00 10/01/24 20:19 Miconazole Nitrate 2% Cream 30 Gm Tube TOPICAL 1 applic Q12HR DANIEL Administration Pantoprazole Sodium 40 mg 10/01/24 09:00 10/01/24 10:16 Pantoprazole Sodium Iv 40 Mg Vial IV PUSH 40 mg QAM DANIEL Administration Pantoprazole Sodium 40 mg 10/01/24 09:00 10/01/24 20:18 Pantoprazole 40 Mg Tablet PO 40 mg Q12HR DANIEL Administration Rivaroxaban 20 mg 10/01/24 18:00 10/01/24 18:27 Rivaroxaban 20 Mg Tablet PO Not Given QPM [facility] Rosuvastatin Calcium 20 mg 10/01/24 21:00 10/01/24 20:19 Rosuvastatin 20 Mg Tablet PO 20 mg HS DANIEL Administration Fluticasone/Salmeterol 2 puff 10/01/24 08:00 10/02/24 07:24 Fluticasone/Salmeterol 230-21 Mcg Inhaler 1 Puff INHALATION 2 puff Q12HRT DANIEL Administration Trazodone HCl 50 mg 10/01/24 04:43 10/01/24 05:30 Trazodone Hcl 50 Mg Tablet PO 50 mg HS PRN Administration Insomnia Radiology Results: ITS Impressions Chest X-Ray 10/01/24 05:58 Impression: Mild central pulmonary edema with possible minimal pleural effusions. Pacemaker device. Labs Labs: Laboratory Results - last 24 hr 10/01/24 10/01/24 10/01/24 04:32 05:35 09:49 POC Capillary Glucose Hemoglobin A1c 11.8 H Iron 19 L TIBC 471 % Saturation 7 L 4 L Troponin I 0.043 H* 10/01/24 10/01/24 10/02/24 16:46 20:13 08:34 POC Capillary Glucose 303 H 321 H 208 H Hemoglobin A1c Iron TIBC % Saturation Troponin I
[2024-10-02 08:59] LABS: Basophils Absolute Auto 0.1 K/mm3 (0.0-0.1); Basophils Percent Auto 1.1 % (0.2-1.2); Eosinophils Absolute Auto 0.3 K/mm3 (0-0.3); Eosinophils Percent Auto 3.4 % (0-4.4); Hematocrit 28.3 % (42.0-52.0); Hemoglobin 8.3 g/dL (14.0-18.0); Immature Granulocyte Absolute 0.03 K/mm3 (0.00-0.031); Immature Granulocyte Percent A 0.4 % (0-0.5); Lymphocytes Absolute Auto 1.38 K/mm3 (0.9-3.2); Lymphocytes Percent Auto 16.2 % (18.3-44.2); Mean Corpuscular HGB Conc 29.3 g/dl (32-36); Mean Corpuscular Hemoglobin 22.5 pg (26-34); Mean Corpuscular Volume 76.7 fl (80-100); Mean Platelet Volume 10.3 fl (7.4-10.4); Monocytes Absolute Auto 0.8 K/mm3 (0.1-0.6); Monocytes Percent Auto 9.9 % (2.6-8.5); Neutrophils Absolute Auto 5.9 K/mm3 (1.3-6.7); Platelet Count Result 260 k/mm3 (150-375); Red Blood Count 3.69 M/mm3 (4.6-6.20); Red Cell Distribution Width 17.6 % (11.5-14.5); White Blood Count 8.5 K/mm3 (4.5-10.0)
[2024-10-02] MEDS: INSULIN ASPART (*BKC) 100 UNITS/ML 15 UNITS SUB-Q ×3 (09:05→17:33)
[2024-10-02] MEDS: METOPROLOL TARTRATE 50 MG TAB 100 MG PO ×2 (09:07→21:21)
[2024-10-02] MEDS: PANTOPRAZOLE 40 MG TABLET PO ×2 (09:07→21:21)
[2024-10-02] MEDS: FERROUS SULFATE 325 MG TABLET DR PO (09:07)
[2024-10-02] MEDS: ESCITALOPRAM OXALATE 10 MG TABLET PO (09:07)
[2024-10-02] MEDS: metFORMIN HCL 500 MG TABLET 1000 MG PO ×2 (09:07→17:33)
[2024-10-02] MEDS: cefTRIAXone 2 GM/NS 100 ML 2 GM/100 ML BAG IVPB (09:08)
[2024-10-02] MEDS: AZITHROMYCIN 500 MG/NS 250 ML 500 MG/250 ML BAG 250 MG IVPB (09:08)
[2024-10-02] MEDS: FENOFIBRATE 160 MG TABLET PO (09:09)
[2024-10-02 09:14] LABS: Anion Gap 6 mmol/L (4-12); Blood Urea Nitrogen 23 mg/dL (9-20); Calcium 8.7 mg/dL (8.4-10.2); Carbon Dioxide 28 mmol/L (22-30); Chloride 103 mmol/L (98-107); Estimated CRCL calculation 68 ml/min; Estimated Glomerular Filt Rate 60; Glucose 245 mg/dL (65-110); Sodium 137 mmol/L (137-145)
[2024-10-02 09:37] LABS: Anisocytosis 1+; Hypochromasia 2+; Platelet Estimate Adequate (Adequate); Schistocytes None Seen; Target Cells 1+
[2024-10-02 11:19] LABS: Glucose Point of Care 243 mg/dl (65-105)
[2024-10-02] MEDS: IRON SUCROSE COMPLEX 100 MG in SODIUM CHLORIDE 0.9% IV 50 ML 220 MG IVPB (11:29)
[2024-10-02] MEDS: FUROSEMIDE INJ 40 MG/4 ML VIAL IV PUSH (15:34)
[2024-10-02 16:11] LABS: Glucose Point of Care 169 mg/dl (65-105)
[2024-10-02 20:46] LABS: Glucose Point of Care 142 mg/dl (65-105)
[2024-10-02] MEDS: ROSUVASTATIN 20 MG TABLET PO (21:22)
[2024-10-02] MEDS: INSULIN GLARGINE (*BKC) 100 UNITS/ML 70 UNITS SUB-Q (21:23)
[2024-10-02] MEDS: MICONAZOLE NITRATE 2% CREAM 30 GM TUBE 1 APPLIC TOPICAL (21:23)
--- NOTE | 2024-10-02 21:46 | PC.NURSE ---
This patient, Charly Presley Jr., was transferred to [[id number] ] on 10/02/24 at 2147. Personal belongings sent with patient. Report given to [Vika rubio ]. Appropriate documentation sent with patient.
[2024-10-03 06:00] VITALS: BP 113/54; PULSE 70; RESP 18; TEMP 36.5; O2SAT 96
[2024-10-03] MEDS: FLUTICASONE/SALMETEROL 230-21 MCG INHALER 1 PUFF 2 PUFF INHALATION ×2 (06:01→20:52)
[2024-10-03 07:19] LABS: Basophils Absolute Auto 0.1 K/mm3 (0.0-0.1); Basophils Percent Auto 0.9 % (0.2-1.2); Eosinophils Absolute Auto 0.4 K/mm3 (0-0.3); Eosinophils Percent Auto 4.7 % (0-4.4); Hematocrit 26.8 % (42.0-52.0); Hemoglobin 7.7 g/dL (14.0-18.0); Immature Granulocyte Absolute 0.03 K/mm3 (0.00-0.031); Immature Granulocyte Percent A 0.4 % (0-0.5); Lymphocytes Absolute Auto 1.56 K/mm3 (0.9-3.2); Lymphocytes Percent Auto 21.2 % (18.3-44.2); Mean Corpuscular HGB Conc 28.7 g/dl (32-36); Mean Corpuscular Hemoglobin 22.1 pg (26-34); Mean Platelet Volume 10.4 fl (7.4-10.4); Monocytes Absolute Auto 0.9 K/mm3 (0.1-0.6); Monocytes Percent Auto 11.9 % (2.6-8.5); Neutrophils Absolute Auto 4.5 K/mm3 (1.3-6.7); Neutrophils Percent Auto 60.9 % (45.5-73.1); Platelet Count Result 252 k/mm3 (150-375); Red Blood Count 3.48 M/mm3 (4.6-6.20); Red Cell Distribution Width 17.6 % (11.5-14.5); White Blood Count 7.4 K/mm3 (4.5-10.0)
[2024-10-03 07:29] LABS: Anion Gap 5 mmol/L (4-12); Blood Urea Nitrogen 18 mg/dL (9-20); Calcium 8.6 mg/dL (8.4-10.2); Carbon Dioxide 29 mmol/L (22-30); Chloride 102 mmol/L (98-107); Estimated CRCL calculation 68 ml/min; Estimated Glomerular Filt Rate 60; Glucose 145 mg/dL (65-110); Potassium 3.8 mmol/L (3.4-5.0); Sodium 136 mmol/L (137-145)
[2024-10-03 07:51] LABS: Anisocytosis 1+; Hypochromasia 2+; Platelet Estimate Adequate (Adequate); Schistocytes None Seen; Target Cells 1+
[2024-10-03] MEDS: cefTRIAXone 2 GM/NS 100 ML 2 GM/100 ML BAG IVPB (08:39)
[2024-10-03 08:40] LABS: Glucose Point of Care 157 mg/dl (65-105)
--- NOTE | 2024-10-03 08:40 | P.PNIM_ITS ---
Progress Note: A&P Assessment and Plan (1) Shortness of breath: Code(s): R06.02 - Shortness of breath Status: Acute (2) COPD exacerbation: Code(s): J44.1 - Chronic obstructive pulmonary disease with (acute) exacerbation Status: Acute (3) Acute on chronic heart failure: Code(s): I50.9 - Heart failure, unspecified Status: Acute (4) Elevated troponin: Code(s): R79.89 - Other specified abnormal findings of blood chemistry Status: Acute (5) Uncontrolled type 2 diabetes mellitus: Status: Acute (6) CAD (coronary artery disease): Code(s): I25.10 - Atherosclerotic heart disease of [place] coronary artery without angina pectoris Status: Acute (7) KIRILL on CPAP: Code(s): G47.33 - Obstructive sleep apnea (adult) (pediatric) Status: Acute Plan COPD exacerbation Patient has history of COPD, patient is to put dependence Patient's productive cough and progressive pain shortness of breath X-ray shows pulmonary edema and possible superimposed pneumonia Patient leukocytosis Start azithromycin ceftriaxone IV Continue home medication Breo Ellipta 1 puff daily Start DuoNeb scheduled albuterol nebulizer p.r.n. Start methylprednisolone 40 mg q.6 hours IV Start O2 therapy keep pulse ox above 94 Patient still has cough, with scant phlegm, dyspnea is improving Continue current treatment Acute on chronic heart failure Patient has elevated BNP, central pulmonary edema on x-ray [employer] Lasix 40 mg daily p.o. to 40 mg daily IV push Pending echocardiogram Follow-up input output CAD Patient has elevated troponin, denies chest pain Possible demand ischemia due to COPD and CHF Patient is on Xarelto 20 mg daily p.o., Crestor 20 mg daily p.o. Follow-up echocardiogram Telemetry monitoring EKG p.r.n. Paroxysmal AFib Currently patient has a paced rhythm, Hold Xarelto, suspecting GI bleeding Chronic anemia Hemoglobin 7.7 upon arrival. Baseline hemoglobin 12.3 May 27, 2024 Hemoglobin is below the baseline Follow-up stool guaiac, iron panel low ferritin level 14, reticulocyte 16.5, reticulocyte hemoglobin low 15.5 Patient is on Protonix 40 mg IV Patient has black stools intermittently Possible GI bleeding Patient is on blood thinner Consult GI for evaluation treatment s/w ferrous sulfate p.o. 325 mg daily, Venofer 100 mg daily IV Appreciate GI consultation, GI will see patient of patient for follow-up Essential hypertension Continue metoprolol 100 mg b.i.d. p.o. Uncontrolled type 2 diabetes continue glargine 70 units q.h.s. Start prandial aspart 15 units before each meal Start insulin sliding scale a.c. and q.h.s. Subjective Date/time seen: 10/03/24 08:40 Interval history: I saw examined the patient today. Patient has general weakness, feeding worse today. Patient still has cough with scant phlegm.. Patient denies nausea vomiting last dose today. Patient is afebrile. Hemoglobin stable Exam Narrative: GENERAL: Pleasant, in no acute distress. Well-nourished. - EYES: EOMI. Anicteric. - HENT: Moist mucous membranes. - LUNGS: Distant breath sound bilateral ly, crackles bilateral bases - CARDIOVASCULAR: Regular rate and rhyth m. No murmur. No JVD. - ABDOMEN: Soft, non-tender and non-dist ended. No palpable masses. - EXTREMITIES: No edema. Peripheral puls es 2+. Non-tender. - NEUROLOGIC: No focal neurological defi cits. CN II-XII grossly intact. - PSYCHIATRIC: Awake, Alert and oriented x 3. Appropriate mood and affect. - SKIN: No rashes or lesions. Warm. - LYMPH: No cervical lymphadenopathy. Objective Data Vital Signs Vital Signs: Vital Signs - 24 hr 10/02/24 09:07 10/02/24 10:00 10/02/24 11:19 Temperature 98.2 F Pulse Rate 70 70 70 Respiratory Rate 20 Blood Pressure 121/55 L Pulse Oximetry 98 Oxygen Delivery 10/02/24 12:00 10/02/24 14:00 10/02/24 16:00 Temperature Pulse Rate 70 70 70 Respiratory Rate Blood Pressure Pulse Oximetry Oxygen Delivery 10/02/24 16:12 10/02/24 18:00 10/02/24 20:00 Temperature 98 F Pulse Rate 70 70 71 Respiratory Rate 18 18 Blood Pressure 126/49 L Pulse Oximetry 99 100 Oxygen Delivery Room Air 10/02/24 20:00 10/02/24 20:18 10/02/24 21:21 Temperature 97.6 F Pulse Rate 71 70 70 Respiratory Rate 18 Blood Pressure 132/59 L Pulse Oximetry 98 Oxygen Delivery 10/02/24 21:28 10/02/24 23:40 10/03/24 06:00 Temperature 97.5 F L 97.7 F Pulse Rate 71 69 70 Respiratory Rate 20 18 Blood Pressure 127/55 L 113/54 L Pulse Oximetry 100 100 96 Oxygen Delivery Room Air Intake/Output Intake/Output: Intake & Output 09/30/24 10/01/24 10/02/24 10/03/24 23:59 23:59 23:59 23:59 Intake Total 1740 4355 500 Balance 1740 4355 500 Meds/Results Medications: Active Medications Generic Name Dose Route Start Last Admin Trade Name Freq PRN Reason Stop Dose Admin Acetaminophen 650 mg 10/01/24 02:46 Acetaminophen 325 Mg Tablet PO Q4H PRN Mild Pain (1-3) or Fever Dextrose 12.5 gm 10/01/24 08:36 Dextrose 50% 25 Gm/50 Ml Syringe IV PUSH PRN PRN Hypoglycemia Protocol Escitalopram Oxalate 10 mg 10/01/24 09:00 10/02/24 09:07 Escitalopram Oxalate 10 Mg Tablet PO 10 mg DAILY DANIEL Administration Fenofibrate 160 mg 10/01/24 09:00 10/02/24 09:09 Fenofibrate 160 Mg Tablet PO 160 mg DAILY DANIEL Administration Ferrous Sulfate 325 mg 10/02/24 09:00 10/02/24 09:07 Ferrous Sulfate [address] PO 325 mg DAILY DANIEL Administration Furosemide 40 mg 10/02/24 15:15 10/02/24 15:34 Furosemide Inj 40 Mg/4 Ml Vial IV PUSH 40 mg DAILY DAINEL Administration Glucagon 1 mg 10/01/24 08:36 Glucagon For Inj 1 Mg Vial IM PRN PRN Hypoglycemia Protocol Glucose 15 gm 10/01/24 08:36 Glucose Oral Gel 15 Gm Of Glucse In 37.5 Gm Tube PO PRN PRN Hypoglycemia Protocol Azithromycin 500 mg in 250 mls @ 250 mls/hr 10/01/24 09:00 10/02/24 10:08 Zithromax IVPB Infused Q24H DANIEL Infusion Ceftriaxone Sodium 2 gm in 100 mls @ 200 mls/hr 10/01/24 09:00 10/02/24 09:38 Rocephin 2 Gm/Ns 100 Ml IVPB Infused Q24H DANIEL Infusion Dextrose 1,000 mls @ 100 mls/hr 10/01/24 08:36 Dextrose 5% 1,000 Ml IVPB PRN PRN Hypoglycemia Protocol Iron Sucrose 100 mg/ Sodium 55 mls @ 220 mls/hr 10/02/24 09:00 10/02/24 11:29 Chloride IVPB Infused DAILY DANIEL Infusion Insulin Aspart 15 units 10/01/24 12:00 10/02/24 17:33 Insulin Aspart (*Bkc) 100 Units/Ml SUB-Q 15 units TIDWM DANIEL Administration Insulin Glargine 70 units 10/01/24 21:00 10/02/24 21:23 Insulin Glargine (*Bkc) 100 Units/Ml SUB-Q 70 units HS DANIEL Administration Metformin HCl 1,000 mg 10/01/24 08:50 10/02/24 17:33 Metformin Hcl 500 Mg Tablet PO 1,000 mg BIDWM DANIEL Administration Metoprolol Tartrate 100 mg 10/01/24 09:00 10/02/24 21:21 Metoprolol Tartrate 50 Mg Tab PO 100 mg Q12HR DANIEL Administration Miconazole Nitrate 1 applic 10/01/24 21:00 10/02/24 21:23 Miconazole Nitrate 2% Cream 30 Gm Tube TOPICAL 1 applic Q12HR DANIEL Administration Pantoprazole Sodium 40 mg 10/01/24 09:00 10/02/24 09:09 Pantoprazole Sodium Iv 40 Mg Vial IV PUSH Not Given QAM [facility] Pantoprazole Sodium 40 mg 10/01/24 09:00 10/02/24 21:21 Pantoprazole 40 Mg Tablet PO 40 mg Q12HR DANIEL Administration Rivaroxaban 20 mg 10/01/24 18:00 10/02/24 17:33 Rivaroxaban 20 Mg Tablet PO Not Given QPM [facility] Rosuvastatin Calcium 20 mg 10/01/24 21:00 10/02/24 21:22 Rosuvastatin 20 Mg Tablet PO 20 mg HS DANIEL Administration Fluticasone/Salmeterol 2 puff 10/01/24 08:00 10/03/24 06:01 Fluticasone/Salmeterol 230-21 Mcg Inhaler 1 Puff INHALATION 2 puff Q12HRT DANIEL Administration Trazodone HCl 50 mg 10/01/24 04:43 10/01/24 05:30 Trazodone Hcl 50 Mg Tablet PO 50 mg HS PRN Administration Insomnia Radiology Results: ITS Impressions Chest X-Ray 10/01/24 05:58 Impression: Mild central pulmonary edema with possible minimal pleural effusions. Pacemaker device. Labs Labs: Laboratory Results - last 24 hr 10/02/24 10/02/24 10/02/24 08:51 11:16 16:08 WBC 8.5 RBC 3.69 L Hgb 8.3 L Hct 28.3 L MCV 76.7 L MCH 22.5 L MCHC 29.3 L RDW 17.6 H Plt Count 260 MPV 10.3 Immature Gran % (Auto) 0.4 Neut % (Auto) 69.0 Lymph % (Auto) 16.2 L Kerr % (Auto) 9.9 H Eos % (Auto) 3.4 Baso % (Auto) 1.1 Lymph # (Auto) 1.38 Kerr # (Auto) 0.8 H Eos # (Auto) 0.3 Baso # (Auto) 0.1 Abs Immat Gran (auto) 0.03 Absolute Neuts (auto) 5.9 Absolute Nucleated RBC 0.000 Nucleated RBC % 0.0 Platelet Estimate Adequate Hypochromasia 2+ Anisocytosis 1+ Target Cells 1+ Schistocytes None seen Sodium 137 Potassium 4.0 Chloride 103 Carbon Dioxide 28 Anion Gap 6 BUN 23 H Creatinine 1.20 Estim Creat Clear Calc 68 Estimated GFR 60 Glucose 245 H POC Capillary Glucose 243 H 169 H Calcium 8.7 10/02/24 10/03/24 20:42 06:50 WBC 7.4 RBC 3.48 L Hgb 7.7 L Hct 26.8 L MCV 77.0 L MCH 22.1 L MCHC 28.7 L RDW 17.6 H Plt Count 252 MPV 10.4 Immature Gran % (Auto) 0.4 Neut % (Auto) 60.9 Lymph % (Auto) 21.2 Kerr % (Auto) 11.9 H Eos % (Auto) 4.7 H Baso % (Auto) 0.9 Lymph # (Auto) 1.56 Kerr # (Auto) 0.9 H Eos # (Auto) 0.4 H Baso # (Auto) 0.1 Abs Immat Gran (auto) 0.03 Absolute Neuts (auto) 4.5 Absolute Nucleated RBC 0.000 Nucleated RBC % 0.0 Platelet Estimate Adequate Hypochromasia 2+ Anisocytosis 1+ Target Cells 1+ Schistocytes None seen Sodium 136 L Potassium 3.8 Chloride 102 Carbon Dioxide 29 Anion Gap 5 BUN 18 Creatinine 1.20 Estim Creat Clear Calc 68 Estimated GFR 60 Glucose 145 H POC Capillary Glucose 142 H Calcium 8.6
--- NOTE | 2024-10-03 08:42 | ECHO_ITS ---
Patient Info Name: Charly Presley Age: 69 years : 1955 Gender: Male Ht: 73 in Wt: 261 lbs BSA: 2.51 m2 HR: 70 bpm BP: 113 / 54 mmHg Technical Quality: Fair Exam Date: 10/03/2024 9:48 AM Exam Location: Echo Lab Patient Status: Inpatient Admit Date: 10/01/2024 Staff Ordering Physician: Latesha Gillette MD [employer] Operator: Amanda Vasques RDCS Attending Provider: Andry Nicole MD Exam Type: CA echo doppler color flow Study Info Indications I50.9 - Heart failure, unspecified Complete two-dimensional, color flow and Doppler transthoracic echocardiogram is performed. Summary 1. Complete two-dimensional, color flow and Doppler transthoracic echocardiogram is performed. 2. Technically difficult study. Patient refuse contrast definity. 3. The left ventricle is normal in size and systolic function. Left ventricular hollis is mildly thickened. The left ventricular ejection fraction is visually estimated to be 55-60%. 4. The right ventricle is normal in size and systolic function. 5. Linear artifact in right ventricle suggestive of catheter(s), pacemaker lead(s), or ICD lead(s). Left Ventricle The left ventricle is normal in size and systolic function. Left ventricular hollis is mildly thickened. The left ventricular ejection fraction is visually estimated to be 55-60%. Right Ventricle The right ventricle is normal in size and systolic function. Linear artifact in right ventricle suggestive of catheter(s), pacemaker lead(s), or ICD lead(s). Left Atria The left atrium is mildly dilated. Right Atria The right atrium is normal size. Atrial Septum The atrial septum appears visually intact. Aortic Valve The aortic valve is trileaflet and opens well. There is no aortic regurgitation. Pulmonic Valve The pulmonic valve is not well visualized. There is no color Doppler evidence of pulmonic valve regurgitation. Mitral Valve The mitral valve leaflets are sclerotic. There is posterior annular calcification. There is mild mitral regurgitation. Tricuspid Valve The tricuspid valve is normal. There is trace tricuspid regurgitation. Pericardium/Pleural There is no pericardial effusion in the available views. Inferior Vena Cava Normal inferior vena cava with >50% collapse upon inspiration consistent with normal right atrial pressure, 3 mmHg. Normal inferior vena cava with >50% collapse upon inspiration consistent with normal right atrial pressure, 3 mmHg. Aorta The aortic root at the level of the sinus of Valsalva measures 3.3 cm in diameter. Left Ventricular Outflow Tract Name Value Normal LVOT 2D LVOT Diameter 2.1 cm LVOT Doppler LVOT Peak Velocity 84 cm/s LVOT Peak Gradient 3 mmHg LVOT Mean Gradient 1 mmHg LVOT VTI 18 cm LVOT VTI/AV VTI Ratio 0.7 LVOT Stroke Volume 62 ml LVOT CO 4.0 l/min LVOT CI 1.6 l/min/m2 Pulmonic Valve Name Value Normal PV Doppler PV Peak Velocity 100 cm/s PV Peak Gradient 4 mmHg Mitral Valve Name Value Normal MV Doppler MV Decel [place] 846 cm/s2 MV PHT 52 ms MV Area (PHT) 4.3 cm2 4.0-5.0 MV Diastolic Function MV E Peak Velocity 150 cm/s MV A Peak Velocity 75 cm/s MV E/A 2.0 MV Decel Time 178 ms Tricuspid Valve Name Value Normal TV Regurgitation Doppler TR Peak Velocity 272 cm/s TR Peak Gradient 26 mmHg Estimated PAP/RSVP RA Pressure 3 mmHg <=5 PA Systolic Pressure 32 mmHg <36 RV Systolic Pressure 32 mmHg <36 TV Annular TDI TV Lateral Liliana s' Velocity 7.5 cm/s 9.5-18.7 Aorta Name Value Normal Ascending Aorta Ao Root Diameter (MM) 3.3 cm Ao Root Diam Index (MM) 1.3 cm/m2 Aortic Valve Name Value Normal AV Doppler AV Peak Velocity 156 cm/s AV Peak Gradient 10 mmHg AV Mean Gradient 4 mmHg AV VTI 26 cm AV Area (Cont Eq VTI) 2.4 cm2 >=3.0 AV Area (Cont Eq Marvin) 1.9 cm2 AV V1/V2 Ratio 0.54 AV Regurgitation 2D LVOT Area 3.5 cm2 AV Regurgitation Doppler AR Decel Time 437 ms AR Decel [place] 337 cm/s2 AR PHT 127 ms Ventricles Name Value Normal LV Dimensions 2D/MM IVS Diastolic Thickness (2D) 1.1 cm 0.6-1.0 IVS Diastole Thickness (MM) 1.4 cm 0.6-1.0 LVID Diastole (2D) 5.0 cm 4.2-5.8 LVID Diastole (MM) 5.9 cm 4.2-5.8 LVIW Diastolic Thickness (2D) 1.1 cm 0.6-1.0 LVIW Diastolic Thickness (MM) 1.3 cm 0.6-1.0 LVID Systole (2D) 2.9 cm 2.5-4.0 LVID Systole (MM) 4.3 cm 2.5-4.0 LVOT Diameter 2.1 cm LV Mass (2D Cubed) 209.80 g 88.00-224.00 LV Mass Index (2D Cubed) 84 g/m2 49-115 Relative Wall Thickness (2D) 0.45 LV Mass (MM Cubed) 366.06 g 88.00-224.00 LV Mass Index (MM Cubed) 146 g/m2 49-115 Relative Wall Thickness (MM) 0.46 LV Fractional Shortening/Ejection Fraction 2D/MM LV Fractional Shortening (2D) 42 % 25-43 LV Fractional Shortening (MM) 27 % 25-43 LV EF (MM Teicholz) 52 % 52-72 LV EF (2D Teicholz) 73 % 52-72 LV Diastolic Volume (4C MOD) 122 ml LV EF (4C MOD) 34 % LV Diastolic Length (4C) 9.4 cm LV Systolic Length (4C) 8.8 cm LV Stroke Volume (4C MOD) 42 ml Atria Name Value Normal LA Dimensions LA Dimension (MM) 5.1 cm 3.0-4.1 LA Volume (4C A-L) 88 ml LA Volume (BP A-L) 89 ml RA Dimensions RA Area (4C) 17.5 cm2 <=18.0 Report Signatures
[2024-10-03] MEDS: metFORMIN HCL 500 MG TABLET 1000 MG PO ×2 (08:44→17:53)
[2024-10-03] MEDS: ESCITALOPRAM OXALATE 10 MG TABLET PO (08:44)
[2024-10-03 08:45] VITALS: PULSE 70
[2024-10-03] MEDS: FENOFIBRATE 160 MG TABLET PO (08:45)
[2024-10-03] MEDS: METOPROLOL TARTRATE 50 MG TAB 100 MG PO ×2 (08:45→20:38)
[2024-10-03] MEDS: MICONAZOLE NITRATE 2% CREAM 30 GM TUBE 1 APPLIC TOPICAL ×2 (08:45→20:39)
[2024-10-03] MEDS: FUROSEMIDE INJ 40 MG/4 ML VIAL IV PUSH (08:45)
[2024-10-03] MEDS: FERROUS SULFATE 325 MG TABLET DR PO (08:45)
[2024-10-03] MEDS: PANTOPRAZOLE SODIUM IV 40 MG VIAL IV PUSH (08:46)
[2024-10-03] MEDS: AZITHROMYCIN 500 MG/NS 250 ML 500 MG/250 ML BAG 250 MG IVPB (09:46)
[2024-10-03] MEDS: IRON SUCROSE COMPLEX 100 MG in SODIUM CHLORIDE 0.9% IV 50 ML IVPB (11:35)
[2024-10-03 11:58] LABS: Glucose Point of Care 320 mg/dl (65-105)
[2024-10-03] MEDS: INSULIN ASPART (*BKC) 100 UNITS/ML 15 UNITS SUB-Q ×2 (12:00→17:56)
[2024-10-03 14:00] VITALS: BP 119/53; PULSE 68; RESP 20; TEMP 36.2; O2SAT 97
[2024-10-03 17:09] LABS: Glucose Point of Care 195 mg/dl (65-105)
[2024-10-03 20:00] LABS: Glucose Point of Care 292 mg/dl (65-105)
[2024-10-03 20:38] VITALS: PULSE 70
[2024-10-03] MEDS: PANTOPRAZOLE 40 MG TABLET PO (20:38)
[2024-10-03] MEDS: ROSUVASTATIN 20 MG TABLET PO (20:38)
[2024-10-03] MEDS: traZODone HCL 50 MG TABLET PO (20:38)
[2024-10-03] MEDS: INSULIN GLARGINE (*BKC) 100 UNITS/ML 70 UNITS SUB-Q (20:39)
[2024-10-03 20:54] VITALS: PULSE 69; O2SAT 95
[2024-10-03 21:14] VITALS: BP 136/58; PULSE 70; RESP 16; TEMP 36.2; O2SAT 99
[2024-10-04 05:22] VITALS: BP 109/50; PULSE 70; RESP 14; TEMP 36.7; O2SAT 97
[2024-10-04 07:36] LABS: Basophils Absolute Auto 0.1 K/mm3 (0.0-0.1); Basophils Percent Auto 0.9 % (0.2-1.2); Eosinophils Absolute Auto 0.4 K/mm3 (0-0.3); Eosinophils Percent Auto 6.2 % (0-4.4); Hematocrit 27.2 % (42.0-52.0); Hemoglobin 7.9 g/dL (14.0-18.0); Immature Granulocyte Absolute 0.03 K/mm3 (0.00-0.031); Immature Granulocyte Percent A 0.5 % (0-0.5); Lymphocytes Absolute Auto 1.54 K/mm3 (0.9-3.2); Mean Corpuscular Hemoglobin 22.6 pg (26-34); Mean Corpuscular Volume 77.9 fl (80-100); Mean Platelet Volume 10.3 fl (7.4-10.4); Monocytes Absolute Auto 0.7 K/mm3 (0.1-0.6); Monocytes Percent Auto 10.9 % (2.6-8.5); Neutrophils Absolute Auto 3.7 K/mm3 (1.3-6.7); Neutrophils Percent Auto 57.5 % (45.5-73.1); Platelet Count Result 237 k/mm3 (150-375); Red Blood Count 3.49 M/mm3 (4.6-6.20); White Blood Count 6.4 K/mm3 (4.5-10.0)
[2024-10-04 07:43] LABS: Anion Gap 3 mmol/L (4-12); Blood Urea Nitrogen 16 mg/dL (9-20); Carbon Dioxide 29 mmol/L (22-30); Chloride 106 mmol/L (98-107); Estimated CRCL calculation 68 ml/min; Estimated Glomerular Filt Rate 60; Glucose 95 mg/dL (65-110); Potassium 3.7 mmol/L (3.4-5.0); Sodium 138 mmol/L (137-145)
[2024-10-04] MEDS: FLUTICASONE/SALMETEROL 230-21 MCG INHALER 1 PUFF 2 PUFF INHALATION ×2 (08:05→20:54)
[2024-10-04 08:07] VITALS: O2SAT 95
[2024-10-04 09:01] LABS: Hypochromasia 1+; Platelet Estimate Adequate (Adequate)
[2024-10-04 09:02] LABS: Anisocytosis 1+; Schistocytes None Seen
[2024-10-04] MEDS: FUROSEMIDE INJ 40 MG/4 ML VIAL IV PUSH (10:35)
[2024-10-04] MEDS: cefTRIAXone 2 GM/NS 100 ML 2 GM/100 ML BAG IVPB (10:35)
[2024-10-04] MEDS: PANTOPRAZOLE 40 MG TABLET PO ×2 (10:36→20:26)
[2024-10-04] MEDS: FERROUS SULFATE 325 MG TABLET DR PO (10:36)
[2024-10-04] MEDS: FENOFIBRATE 160 MG TABLET PO (10:37)
[2024-10-04] MEDS: metFORMIN HCL 500 MG TABLET 1000 MG PO ×2 (10:37→18:04)
[2024-10-04] MEDS: ESCITALOPRAM OXALATE 10 MG TABLET PO (10:37)
[2024-10-04] MEDS: METOPROLOL TARTRATE 50 MG TAB 100 MG PO ×2 (10:37→20:25)
--- NOTE | 2024-10-04 10:53 | PM.IMPN ---
Progress Note: A&P Assessment and Plan (1) Shortness of breath: Code(s): R06.02 - Shortness of breath Status: Acute (2) COPD exacerbation: Code(s): J44.1 - Chronic obstructive pulmonary disease with (acute) exacerbation Status: Acute (3) Acute on chronic heart failure: Code(s): I50.9 - Heart failure, unspecified Status: Acute (4) Elevated troponin: Code(s): R79.89 - Other specified abnormal findings of blood chemistry Status: Acute (5) Uncontrolled type 2 diabetes mellitus: Status: Acute (6) CAD (coronary artery disease): Code(s): I25.10 - Atherosclerotic heart disease of [place] coronary artery without angina pectoris Status: Acute (7) KIRILL on CPAP: Code(s): G47.33 - Obstructive sleep apnea (adult) (pediatric) Status: Acute Plan COPD exacerbation Patient has history of COPD, patient is to put dependence Patient's productive cough and progressive pain shortness of breath X-ray shows pulmonary edema and possible superimposed pneumonia Patient leukocytosis Ordered Augmentin and continue azithromycin Status post azithromycin ceftriaxone IV Continue home medication Breo Ellipta 1 puff daily Start DuoNeb scheduled albuterol nebulizer p.r.n. Start O2 therapy keep pulse ox above 94 Patient still has cough, with scant phlegm, dyspnea is improving Continue current treatment Acute on chronic heart failure Patient has elevated BNP, central pulmonary edema on x-ray Lasix 40 mg daily p.o. to 40 mg daily IV push Echocardiogram: The left ventricular ejection fraction is visually estimated to be 55-60%. Follow-up input output CAD Patient has elevated troponin, denies chest pain Possible demand ischemia due to COPD and CHF Hold Xarelto 20 mg daily p.o., Crestor 20 mg daily p.o. Reviewed Echocardiogram Telemetry monitoring EKG p.r.n. Paroxysmal AFib Currently patient has a paced rhythm, Hold Xarelto, suspecting GI bleeding Chronic anemia Hemoglobin 7.7 upon arrival. Baseline hemoglobin 12.3 May 27, 2024 Hemoglobin is below the baseline Follow-up stool guaiac, iron panel low ferritin level 14, reticulocyte 16.5, reticulocyte hemoglobin low 15.5 Patient is on Protonix 40 mg IV Patient has black stools intermittently Possible GI bleeding Patient is on blood thinner Consult GI for evaluation treatment s/w ferrous sulfate p.o. 325 mg daily, Venofer 100 mg daily IV Appreciate GI consultation, GI will see patient of patient for follow-up Essential hypertension Continue metoprolol 100 mg b.i.d. p.o. Uncontrolled type 2 diabetes continue glargine 70 units q.h.s. Start prandial aspart 15 units before each meal Start insulin sliding scale a.c. and q.h.s. Subjective Date/time seen: 10/04/24 10:53 Interval history: Patient started on Augmentin and continue azithromycin. Even though patient did not receive Xarelto it was active in his medication list. Holding Xarelto for a month. Will monitor H&H Exam Narrative: GENERAL: Pleasant, in no acute distress. Well-nourished. - EYES: EOMI. Anicteric. - HENT: Moist mucous membranes. - LUNGS: Distant breath sound bilaterally, crackles bilateral bases - CARDIOVASCULAR: Regular rate and rhythm. No murmur. No JVD. - ABDOMEN: Soft, non-tender and non-distended. No palpable masses. - EXTREMITIES: No edema. Peripheral pulses 2+. Non-tender. - NEUROLOGIC: No focal neurological deficits. CN II-XII grossly intact. - PSYCHIATRIC: Awake, Alert and oriented x 3. Appropriate mood and affect. - SKIN: No rashes or lesions. Warm. - LYMPH: No cervical lymphadenopathy. Objective Data Vital Signs Vital Signs: Vital Signs - 24 hr 10/03/24 14:00 10/03/24 20:00 10/03/24 20:38 Temperature 97.1 F L Pulse Rate 68 70 Respiratory Rate 20 Blood Pressure 119/53 L Pulse Oximetry 97 Oxygen Delivery Room Air 10/03/24 20:54 10/03/24 21:14 10/04/24 05:22 Temperature 97.2 F L 98.1 F Pulse Rate 69 70 70 Respiratory Rate 16 14 Blood Pressure 136/58 L 109/50 L Pulse Oximetry 95 99 97 Oxygen Delivery Room Air 10/04/24 08:07 Temperature Pulse Rate Respiratory Rate Blood Pressure Pulse Oximetry 95 Oxygen Delivery Room Air Intake/Output Intake/Output: Intake & Output 10/01/24 10/02/24 10/03/24 10/04/24 23:59 23:59 23:59 23:59 Intake Total 1740 4355 1743 1060 Balance 1740 4355 1743 1060 Meds/Results Medications: Active Medications Generic Name Dose Route Start Last Admin Trade Name Poppy PRN Reason Stop Dose Admin Acetaminophen 650 mg 10/01/24 02:46 Acetaminophen 325 Mg Tablet PO Q4H PRN Mild Pain (1-3) or Fever Dextrose 12.5 gm 10/01/24 08:36 Dextrose 50% 25 Gm/50 Ml Syringe IV PUSH PRN PRN Hypoglycemia Protocol Escitalopram Oxalate 10 mg 10/01/24 09:00 10/04/24 10:37 Escitalopram Oxalate 10 Mg Tablet PO 10 mg DAILY DANIEL Administration Fenofibrate 160 mg 10/01/24 09:00 10/04/24 10:37 Fenofibrate 160 Mg Tablet PO 160 mg DAILY DANIEL Administration Ferrous Sulfate 325 mg 10/02/24 09:00 10/04/24 10:36 Ferrous Sulfate [address] PO 325 mg DAILY DANIEL Administration Furosemide 40 mg 10/02/24 15:15 10/04/24 10:35 Furosemide Inj 40 Mg/4 Ml Vial IV PUSH 40 mg DAILY DANIEL Administration Glucagon 1 mg 10/01/24 08:36 Glucagon For Inj 1 Mg Vial IM PRN PRN Hypoglycemia Protocol Glucose 15 gm 10/01/24 08:36 Glucose Oral Gel 15 Gm Of Glucse In 37.5 Gm Tube PO PRN PRN Hypoglycemia Protocol Azithromycin 500 mg in 250 mls @ 250 mls/hr 10/01/24 09:00 10/03/24 10:46 Zithromax IVPB Infused Q24H DANIEL Infusion Ceftriaxone Sodium 2 gm in 100 mls @ 200 mls/hr 10/01/24 09:00 10/04/24 10:35 Rocephin 2 Gm/Ns 100 Ml IVPB 200 mls/hr Q24H DANIEL Administration Dextrose 1,000 mls @ 100 mls/hr 10/01/24 08:36 Dextrose 5% 1,000 Ml IVPB PRN PRN Hypoglycemia Protocol Iron Sucrose 100 mg/ Sodium 55 mls @ 220 mls/hr 10/02/24 09:00 10/03/24 12:08 Chloride IVPB Infused DAILY DANIEL Infusion Insulin Aspart 15 units 10/01/24 12:00 10/03/24 17:56 Insulin Aspart (*Bkc) 100 Units/Ml SUB-Q 15 units TIDWM DANIEL Administration Insulin Glargine 70 units 10/01/24 21:00 10/03/24 20:39 Insulin Glargine (*Bkc) 100 Units/Ml SUB-Q 70 units HS DANIEL Administration Metformin HCl 1,000 mg 10/01/24 08:50 10/04/24 10:37 Metformin Hcl 500 Mg Tablet PO 1,000 mg BIDWM DANIEL Administration Metoprolol Tartrate 100 mg 10/01/24 09:00 10/04/24 10:37 Metoprolol Tartrate 50 Mg Tab PO 100 mg Q12HR DANIEL Administration Miconazole Nitrate 1 applic 10/01/24 21:00 10/03/24 20:39 Miconazole Nitrate 2% Cream 30 Gm Tube TOPICAL 1 applic Q12HR DANIEL Administration Pantoprazole Sodium 40 mg 10/01/24 09:00 10/03/24 08:46 Pantoprazole Sodium Iv 40 Mg Vial IV PUSH 40 mg QAM DANIEL Administration Pantoprazole Sodium 40 mg 10/01/24 09:00 10/04/24 10:36 Pantoprazole 40 Mg Tablet PO 40 mg Q12HR DANIEL Administration Perflutren Lipid Microsphere 0 ml 10/03/24 08:41 Perflutren Lipid Microspheres 1.5 Ml Vial Diluted To 10 Ml Total Volume IV PUSH 10/06/24 08:42 ONCE PRN adequate visualization Protocol Rivaroxaban 20 mg 10/01/24 18:00 10/03/24 18:01 Rivaroxaban 20 Mg Tablet PO Not Given QPM [facility] Rosuvastatin Calcium 20 mg 10/01/24 21:00 10/03/24 20:38 Rosuvastatin 20 Mg Tablet PO 20 mg HS DANIEL Administration Fluticasone/Salmeterol 2 puff 10/01/24 08:00 10/04/24 08:05 Fluticasone/Salmeterol 230-21 Mcg Inhaler 1 Puff INHALATION 2 puff Q12HRT DANIEL Administration Trazodone HCl 50 mg 10/01/24 04:43 10/03/24 20:38 Trazodone Hcl 50 Mg Tablet PO 50 mg HS PRN Administration Insomnia Radiology Results: ITS Impressions Chest X-Ray 10/01/24 05:58 Impression: Mild central pulmonary edema with possible minimal pleural effusions. Pacemaker device. Labs Labs: Laboratory Results - last 24 hr 10/03/24 10/03/24 10/03/24 11:55 17:06 19:41 WBC RBC Hgb Hct MCV MCH MCHC RDW Plt Count MPV Immature Gran % (Auto) Neut % (Auto) Lymph % (Auto) Bradley % (Auto) Eos % (Auto) Baso % (Auto) Lymph # (Auto) Bradley # (Auto) Eos # (Auto) Baso # (Auto) Abs Immat Gran (auto) Absolute Neuts (auto) Absolute Nucleated RBC Nucleated RBC % Platelet Estimate Hypochromasia Anisocytosis Schistocytes Sodium Potassium Chloride Carbon Dioxide Anion Gap BUN Creatinine Estim Creat Clear Calc Estimated GFR Glucose POC Capillary Glucose 320 H 195 H 292 H Calcium 10/04/24 07:04 WBC 6.4 RBC 3.49 L Hgb 7.9 L Hct 27.2 L MCV 77.9 L MCH 22.6 L MCHC 29.0 L RDW 18.0 H Plt Count 237 MPV 10.3 Immature Gran % (Auto) 0.5 Neut % (Auto) 57.5 Lymph % (Auto) 24.0 Bradley % (Auto) 10.9 H Eos % (Auto) 6.2 H Baso % (Auto) 0.9 Lymph # (Auto) 1.54 Bradley # (Auto) 0.7 H Eos # (Auto) 0.4 H Baso # (Auto) 0.1 Abs Immat Gran (auto) 0.03 Absolute Neuts (auto) 3.7 Absolute Nucleated RBC 0.000 Nucleated RBC % 0.0 Platelet Estimate Adequate Hypochromasia 1+ Anisocytosis 1+ Schistocytes None seen Sodium 138 Potassium 3.7 Chloride 106 Carbon Dioxide 29 Anion Gap 3 L BUN 16 Creatinine 1.20 Estim Creat Clear Calc 68 Estimated GFR 60 Glucose 95 POC Capillary Glucose Calcium 9.0 Hospitalist MIPS Advance Care Plan I have confirmed that the patient's Advanced Care Plan is present, code status is documented, or surrogate decision maker is listed in patient medical record.: Yes Medication Reconciliation I have utilized all available resources to obtain, update and review the patients current medications (includes all prescriptions, OTC, herbals, cannabis, and nutritional supplements).: Yes
[2024-10-04 11:20] LABS: Glucose Point of Care 148 mg/dl (65-105)
[2024-10-04 11:29] LABS: Glucose Point of Care 156 mg/dl (65-105)
[2024-10-04] MEDS: IRON SUCROSE COMPLEX 100 MG in SODIUM CHLORIDE 0.9% IV 50 ML 220 MG IVPB (12:02)
[2024-10-04] MEDS: AZITHROMYCIN 500 MG/NS 250 ML 500 MG/250 ML BAG 250 MG IVPB (12:21)
[2024-10-04] MEDS: INSULIN ASPART (*BKC) 100 UNITS/ML 15 UNITS SUB-Q ×2 (12:22→18:05)
[2024-10-04] MEDS: MICONAZOLE NITRATE 2% CREAM 30 GM TUBE 1 APPLIC TOPICAL ×2 (12:23→20:25)
[2024-10-04 14:00] VITALS: BP 111/49; PULSE 70; RESP 14; TEMP 36.5; O2SAT 97
[2024-10-04 16:27] LABS: Glucose Point of Care 132 mg/dl (65-105)
[2024-10-04 20:25] VITALS: PULSE 69
[2024-10-04] MEDS: traZODone HCL 50 MG TABLET PO (20:26)
[2024-10-04] MEDS: ROSUVASTATIN 20 MG TABLET PO (20:26)
[2024-10-04] MEDS: INSULIN GLARGINE (*BKC) 100 UNITS/ML 70 UNITS SUB-Q (20:26)
[2024-10-04 20:39] LABS: Glucose Point of Care 198 mg/dl (65-105)
[2024-10-04 20:56] VITALS: PULSE 75; RESP 18; O2SAT 95
[2024-10-04 20:59] VITALS: BP 138/63; PULSE 69; RESP 20; TEMP 36.7; O2SAT 99
[2024-10-05 05:43] VITALS: BP 119/56; PULSE 71; RESP 20; TEMP 36.3; O2SAT 98
[2024-10-05 06:26] LABS: Hematocrit 28.9 % (42.0-52.0); Hemoglobin 8.3 g/dL (14.0-18.0); Mean Corpuscular HGB Conc 28.7 g/dl (32-36); Mean Corpuscular Hemoglobin 22.7 pg (26-34); Mean Corpuscular Volume 79.2 fl (80-100); Mean Platelet Volume 10.2 fl (7.4-10.4); Platelet Count Result 228 k/mm3 (150-375); Red Blood Count 3.65 M/mm3 (4.6-6.20); Red Cell Distribution Width 18.9 % (11.5-14.5); White Blood Count 6.8 K/mm3 (4.5-10.0)
[2024-10-05 06:48] LABS: Alanine Aminotransferase 10 U/L (6-50); Albumin Level 3.6 g/dL (3.5-5.1); Alkaline Phosphatase 42 U/L (38-126); Anion Gap 6 mmol/L (4-12); Aspartate Amino Transferase 17 U/L (17-59); Bilirubin,Total 0.3 mg/dL (0.2-1.3); Blood Urea Nitrogen 14 mg/dL (9-20); Calcium 8.9 mg/dL (8.4-10.2); Carbon Dioxide 29 mmol/L (22-30); Chloride 105 mmol/L (98-107); Estimated CRCL calculation 73 ml/min; Estimated Glomerular Filt Rate > 60; Glucose 136 mg/dL (65-110); Potassium 3.9 mmol/L (3.4-5.0); Sodium 140 mmol/L (137-145)
[2024-10-05] MEDS: FLUTICASONE/SALMETEROL 230-21 MCG INHALER 1 PUFF 2 PUFF INHALATION ×2 (07:13→20:04)
[2024-10-05 07:15] VITALS: O2SAT 98
[2024-10-05 08:02] LABS: Glucose Point of Care 121 mg/dl (65-105)
[2024-10-05] MEDS: INSULIN ASPART (*BKC) 100 UNITS/ML 15 UNITS SUB-Q ×3 (09:33→17:17)
[2024-10-05] MEDS: MICONAZOLE NITRATE 2% CREAM 30 GM TUBE 1 APPLIC TOPICAL ×2 (09:35→20:41)
[2024-10-05] MEDS: PANTOPRAZOLE 40 MG TABLET PO ×2 (09:35→20:40)
[2024-10-05] MEDS: ESCITALOPRAM OXALATE 10 MG TABLET PO (09:36)
[2024-10-05] MEDS: metFORMIN HCL 500 MG TABLET 1000 MG PO ×2 (09:36→17:16)
[2024-10-05] MEDS: AMOXICILLIN/CLAVULANATE K 875-125 MG TAB 1 TABLET PO ×2 (09:40→20:40)
[2024-10-05] MEDS: METOPROLOL TARTRATE 50 MG TAB 100 MG PO ×2 (09:40→20:40)
[2024-10-05] MEDS: FENOFIBRATE 160 MG TABLET PO (09:41)
[2024-10-05] MEDS: FUROSEMIDE 40 MG TABLET PO (09:41)
[2024-10-05] MEDS: FERROUS SULFATE 325 MG TABLET DR PO (09:41)
[2024-10-05] MEDS: IRON SUCROSE COMPLEX 100 MG in SODIUM CHLORIDE 0.9% IV 50 ML 220 MG IVPB (09:48)
[2024-10-05 11:31] LABS: Glucose Point of Care 180 mg/dl (65-105)
[2024-10-05] MEDS: AZITHROMYCIN 250 MG TABLET 500 MG PO (12:29)
[2024-10-05 14:00] VITALS: BP 125/63; PULSE 70; RESP 16; TEMP 36.3; O2SAT 99
[2024-10-05 14:38] LABS: IFOB Positive Control Positive; Immunochemical Fecal Occult Bl Negative (N)
--- NOTE | 2024-10-05 15:04 | PM.IMPN ---
Progress Note: A&P Assessment and Plan (1) Shortness of breath: Code(s): R06.02 - Shortness of breath Status: Acute Assessment and Plan: The patient is a chronic smoker, started at the age of 10, and smokes about 1.5 ppd. patient denies using oxygen at home. The patient uses Breo Ellipta once a day. The patient had a remote history of CABG about 20 years ago. The patient reports he was never hospitalized because of his shortness of breath, and this is the 1st time he was admitted due to shortness of breath. The patient had a sleep study done that was 30 years ago, and he was using some CPAP until a year ago. An echocardiogram performed on 10/03 shows an ejection fraction of 55-60%. Of note, the patient was recently admitted to [place] [address] last time about 1.5 months ago with GIB and melena, had EGD, and was noted to have an ulcer, then was told not to use blood thinner anymore. The patient requested to see a associate art director. Explained to him his shortness of breath can be due to anemia or underlying COPD. (2) COPD exacerbation: Code(s): J44.1 - Chronic obstructive pulmonary disease with (acute) exacerbation Status: Acute (3) Acute on chronic heart failure: Code(s): I50.9 - Heart failure, unspecified Status: Acute (4) Elevated troponin: Code(s): R79.89 - Other specified abnormal findings of blood chemistry Status: Acute (5) Uncontrolled type 2 diabetes mellitus: Status: Acute (6) CAD (coronary artery disease): Code(s): I25.10 - Atherosclerotic heart disease of [place] coronary artery without angina pectoris Status: Acute (7) KIRILL on CPAP: Code(s): G47.33 - Obstructive sleep apnea (adult) (pediatric) Status: Acute Plan COPD exacerbation Patient has history of COPD Patient's productive cough and progressive shortness of breath X-ray shows pulmonary edema and possible superimposed pneumonia Ordered Augmentin and continue azithromycin Status post azithromycin ceftriaxone IV Continue home medication Breo Ellipta 1 puff daily Start DuoNeb scheduled albuterol nebulizer p.r.n. Start O2 therapy keep pulse ox above 94 Patient still has cough, with scant phlegm, dyspnea is improving Consulted pulmonology and appreciate recommendation Acute on chronic heart failure Patient has elevated BNP, central pulmonary edema on x-ray Lasix 40 mg daily p.o. Echocardiogram: The left ventricular ejection fraction is visually estimated to be 55-60%. Follow-up input output CAD Patient has elevated troponin, denies chest pain Possible demand ischemia due to COPD and CHF Hold Xarelto 20 mg daily p.o., Crestor 20 mg daily p.o. Reviewed Echocardiogram Telemetry monitoring EKG p.r.n. Paroxysmal AFib Currently patient has a paced rhythm, Hold Xarelto, suspecting GI bleeding Chronic anemia Hemoglobin 7.7 upon arrival. Baseline hemoglobin 12.3 May 27, 2024 Hemoglobin is below the baseline Follow-up stool guaiac, iron panel low ferritin level 14, reticulocyte 16.5, reticulocyte hemoglobin low 15.5 Patient is on Protonix 40 mg IV Patient has black stools intermittently Possible GI bleeding Hold AC s/w ferrous sulfate p.o. 325 mg daily, Venofer 100 mg daily IV GA recommend outpatient colonoscopy. Essential hypertension Continue metoprolol 100 mg b.i.d. p.o. Uncontrolled type 2 diabetes continue glargine 70 units q.h.s. Start prandial aspart 15 units before each meal Start insulin sliding scale a.c. and q.h.s. Subjective Date/time seen: 10/05/24 15:04 Interval history: The patient is a chronic smoker, started at the age of 10, and smokes about 1.5 ppd. patient denies using oxygen at home. The patient uses Breo Ellipta once a day. The patient had a remote history of CABG about 20 years ago. The patient reports he was never hospitalized because of his shortness of breath, and this is the 1st time he was admitted due to shortness of breath. The patient had a sleep study done that was 30 years ago, and he was using some CPAP until a year ago. An echocardiogram performed on 10/03 shows an ejection fraction of 55-60%. Of note, the patient was recently admitted to [place] [address] last time about 1.5 months ago with GIB and melena, had EGD, and was noted to have an ulcer, then was told not to use blood thinner anymore. The patient requested to see a associate art director. Explained to him his shortness of breath can be due to anemia or underlying COPD. Exam Narrative: GENERAL: Pleasant, in no acute distress. Well-nourished. - EYES: EOMI. Anicteric. - HENT: Moist mucous membranes. - LUNGS: Distant breath sound bilaterally, crackles bilateral bases - CARDIOVASCULAR: Regular rate and rhythm. No murmur. No JVD. - ABDOMEN: Soft, non-tender and non-distended. No palpable masses. - EXTREMITIES: No edema. Peripheral pulses 2+. Non-tender. - NEUROLOGIC: No focal neurological deficits. CN II-XII grossly intact. - PSYCHIATRIC: Awake, Alert and oriented x 3. Appropriate mood and affect. - SKIN: No rashes or lesions. Warm. - LYMPH: No cervical lymphadenopathy. Objective Data Vital Signs Vital Signs: Vital Signs - 24 hr 10/04/24 20:00 10/04/24 20:25 10/04/24 20:56 Temperature Pulse Rate 69 Respiratory Rate Blood Pressure Pulse Oximetry 95 Oxygen Delivery Room Air Room Air 10/04/24 20:56 10/04/24 20:59 10/05/24 05:43 Temperature 98.1 F 97.4 F L Pulse Rate 75 69 71 Respiratory Rate 18 20 20 Blood Pressure 138/63 119/56 L Pulse Oximetry 99 98 Oxygen Delivery 10/05/24 07:15 Temperature Pulse Rate Respiratory Rate Blood Pressure Pulse Oximetry 98 Oxygen Delivery Room Air Intake/Output Intake/Output: Intake & Output 10/02/24 10/03/24 10/04/24 10/05/24 23:59 23:59 23:59 23:59 Intake Total 4355 1743 3115 2460 Balance 4355 1743 3115 2460 Meds/Results Medications: Active Medications Generic Name Dose Route Start Last Admin Trade Name Freq PRN Reason Stop Dose Admin Acetaminophen 650 mg 10/01/24 02:46 Acetaminophen 325 Mg Tablet PO Q4H PRN Mild Pain (1-3) or Fever Amoxicillin/Clavulanate Potassium 1 tablet 10/05/24 09:00 10/05/24 09:40 Amoxicillin/Clavulanate K 875-125 Mg Tab PO 10/07/24 21:01 1 tablet Q12HR DANIEL Administration Dextrose 12.5 gm 10/01/24 08:36 Dextrose 50% 25 Gm/50 Ml Syringe IV PUSH PRN PRN Hypoglycemia Protocol Escitalopram Oxalate 10 mg 10/01/24 09:00 10/05/24 09:36 Escitalopram Oxalate 10 Mg Tablet PO 10 mg DAILY DANIEL Administration Fenofibrate 160 mg 10/01/24 09:00 10/05/24 09:41 Fenofibrate 160 Mg Tablet PO 160 mg DAILY DANIEL Administration Ferrous Sulfate 325 mg 10/02/24 09:00 10/05/24 09:41 Ferrous Sulfate [address] PO 325 mg DAILY DANIEL Administration Furosemide 40 mg 10/05/24 09:00 10/05/24 09:41 Furosemide 40 Mg Tablet PO 40 mg DAILY DANIEL Administration Glucagon 1 mg 10/01/24 08:36 Glucagon For Inj 1 Mg Vial IM PRN PRN Hypoglycemia Protocol Glucose 15 gm 10/01/24 08:36 Glucose Oral Gel 15 Gm Of Glucse In 37.5 Gm Tube PO PRN PRN Hypoglycemia Protocol Dextrose 1,000 mls @ 100 mls/hr 10/01/24 08:36 Dextrose 5% 1,000 Ml IVPB PRN PRN Hypoglycemia Protocol Iron Sucrose 100 mg/ Sodium 55 mls @ 220 mls/hr 10/02/24 09:00 10/05/24 10:03 Chloride IVPB Infused DAILY DANIEL Infusion Insulin Aspart 15 units 10/01/24 12:00 10/05/24 12:30 Insulin Aspart (*Bkc) 100 Units/Ml SUB-Q 15 units TIDWM DANIEL Administration Insulin Glargine 70 units 10/01/24 21:00 10/04/24 20:26 Insulin Glargine (*Bkc) 100 Units/Ml SUB-Q 70 units HS DANIEL Administration Metformin HCl 1,000 mg 10/01/24 08:50 10/05/24 09:36 Metformin Hcl 500 Mg Tablet PO 1,000 mg BIDWM DANIEL Administration Metoprolol Tartrate 100 mg 10/01/24 09:00 10/05/24 09:40 Metoprolol Tartrate 50 Mg Tab PO 100 mg Q12HR DANIEL Administration Miconazole Nitrate 1 applic 10/01/24 21:00 10/05/24 09:35 Miconazole Nitrate 2% Cream 30 Gm Tube TOPICAL 1 applic Q12HR DANIEL Administration Pantoprazole Sodium 40 mg 10/01/24 09:00 10/05/24 09:35 Pantoprazole 40 Mg Tablet PO 40 mg Q12HR DANIEL Administration Perflutren Lipid Microsphere 0 ml 10/03/24 08:41 Perflutren Lipid Microspheres 1.5 Ml Vial Diluted To 10 Ml Total Volume IV PUSH 10/06/24 08:42 ONCE PRN adequate visualization Protocol Rivaroxaban 20 mg 10/01/24 18:00 10/03/24 18:01 Rivaroxaban 20 Mg Tablet PO Not Given QPM DANIEL Rosuvastatin Calcium 20 mg 10/01/24 21:00 10/04/24 20:26 Rosuvastatin 20 Mg Tablet PO 20 mg HS DANIEL Administration Fluticasone/Salmeterol 2 puff 10/01/24 08:00 10/05/24 07:13 Fluticasone/Salmeterol 230-21 Mcg Inhaler 1 Puff INHALATION 2 puff Q12HRT DANIEL Administration Trazodone HCl 50 mg 10/01/24 04:43 10/04/24 20:26 Trazodone Hcl 50 Mg Tablet PO 50 mg HS PRN Administration Insomnia Radiology Results: ITS Impressions Chest X-Ray 10/05/24 06:16 IMPRESSION: 1. Mild pulmonary edema. Labs Labs: Laboratory Results - last 24 hr 10/04/24 10/04/24 10/05/24 16:22 20:26 06:16 WBC 6.8 RBC 3.65 L Hgb 8.3 L Hct 28.9 L MCV 79.2 L MCH 22.7 L MCHC 28.7 L RDW 18.9 H Plt Count 228 MPV 10.2 Sodium 140 Potassium 3.9 Chloride 105 Carbon Dioxide 29 Anion Gap 6 BUN 14 Creatinine 1.10 Estim Creat Clear Calc 73 Estimated GFR > 60 Glucose 136 H POC Capillary Glucose 132 H 198 H Calcium 8.9 Total Bilirubin 0.3 AST 17 ALT 10 Alkaline Phosphatase 42 Total Protein 7.0 Albumin 3.6 Stl Occult Blood (IFOB) 10/05/24 10/05/24 10/05/24 07:53 11:23 14:06 WBC RBC Hgb Hct MCV MCH MCHC RDW Plt Count MPV Sodium Potassium Chloride Carbon Dioxide Anion Gap BUN Creatinine Estim Creat Clear Calc Estimated GFR Glucose POC Capillary Glucose 121 H 180 H Calcium Total Bilirubin AST ALT Alkaline Phosphatase Total Protein Albumin Stl Occult Blood (IFOB) Negative Hospitalist [facility] Advance Care Plan I have confirmed that the patient's Advanced Care Plan is present, code status is documented, or surrogate decision maker is listed in patient medical record.: Yes Medication Reconciliation I have utilized all available resources to obtain, update and review the patients current medications (includes all prescriptions, OTC, herbals, cannabis, and nutritional supplements).: Yes
[2024-10-05 16:53] LABS: Glucose Point of Care 123 mg/dl (65-105)
[2024-10-05 20:09] VITALS: PULSE 70; RESP 18; O2SAT 99
[2024-10-05 20:40] VITALS: PULSE 69
[2024-10-05] MEDS: traZODone HCL 50 MG TABLET PO (20:40)
[2024-10-05] MEDS: INSULIN GLARGINE (*BKC) 100 UNITS/ML 70 UNITS SUB-Q (20:41)
[2024-10-05] MEDS: ROSUVASTATIN 20 MG TABLET PO (20:41)
[2024-10-05 20:42] LABS: Glucose Point of Care 197 mg/dl (65-105)
[2024-10-05 21:15] VITALS: BP 140/73; PULSE 69; RESP 20; TEMP 36.1; O2SAT 98
[2024-10-06 06:00] VITALS: BP 106/48; PULSE 69; RESP 20; TEMP 36.4; O2SAT 94
[2024-10-06 06:33] LABS: Hematocrit 28.6 % (42.0-52.0); Hemoglobin 8.3 g/dL (14.0-18.0); Mean Corpuscular Hemoglobin 22.9 pg (26-34); Mean Platelet Volume 10.5 fl (7.4-10.4); Platelet Count Result 235 k/mm3 (150-375); Red Blood Count 3.62 M/mm3 (4.6-6.20); Red Cell Distribution Width 19.8 % (11.5-14.5); White Blood Count 7.3 K/mm3 (4.5-10.0)
[2024-10-06 06:46] LABS: Alanine Aminotransferase 10 U/L (6-50); Albumin Level 3.7 g/dL (3.5-5.1); Alkaline Phosphatase 45 U/L (38-126); Anion Gap 3 mmol/L (4-12); Aspartate Amino Transferase 18 U/L (17-59); Bilirubin,Total 0.3 mg/dL (0.2-1.3); Blood Urea Nitrogen 11 mg/dL (9-20); Calcium 8.8 mg/dL (8.4-10.2); Carbon Dioxide 28 mmol/L (22-30); Chloride 106 mmol/L (98-107); Estimated CRCL calculation 73 ml/min; Estimated Glomerular Filt Rate > 60; Glucose 72 mg/dL (65-110); Potassium 3.8 mmol/L (3.4-5.0); Sodium 137 mmol/L (137-145)
[2024-10-06 07:35] VITALS: PULSE 70; RESP 18; O2SAT 96
[2024-10-06] MEDS: FLUTICASONE/SALMETEROL 230-21 MCG INHALER 1 PUFF 2 PUFF INHALATION (07:44)
[2024-10-06 07:55] LABS: NT Pro B Type Natriuretic Pept 2040 pg/mL (19.9-100)
[2024-10-06 08:14] LABS: Glucose Point of Care 61 mg/dl (65-105)
[2024-10-06] MEDS: DEXTROSE 50% 25 GM/50 ML SYRINGE IV PUSH (08:19)
[2024-10-06 08:44] LABS: Base Excess ABG 1.3 mEq/l (+/-2.0); Fractional Inspired Oxygen 21 %; HCO3 ABG 26.8 mEq/l (22.0-26.0); Modified Allen's Test Pass; Oxygen Content ABG 12.6 %vol (16.0-22.0); Oxygen Saturation ABG 94.7 % (95.0-100.0); Oxyhemoglobin 93.4 % THb (90.0-100.0); PCO2 ABG 46.4 mmHg (35.0-45.0); PO2 ABG 75.2 mmHg (80.0-100.0); PO2 FiO2 Ratio Arterial Blood 3.58 %; Site Drawn RIGHT RADIAL; Total Hemoglobin 9.5 g/dL (12.0-18.0); pH ABG 7.379 (7.350-7.450)
[2024-10-06 08:45] LABS: Device ROOM AIR
[2024-10-06 08:47] LABS: Glucose Point of Care 87 mg/dl (65-105)
--- NOTE | 2024-10-06 09:55 | PM.CNPUL ---
Assessment and Plan Assessment and plan (1) COPD (chronic obstructive pulmonary disease): Code(s): J44.9 - Chronic obstructive pulmonary disease, unspecified Status: Acute Assessment and Plan: Regarding his COPD. He had PFTs at [facility] approximately 25 years ago and was told that he had COPD and has been maintained on inhaler since then. Patient tells me he smokes from age 10 to current at 1 and half packs per day for total of 89 pack years. Patient was exposed to secondhand smoke from both of his parents but none since. Patient worked in the [email or web address] for 3 years in his early 20s and was exposed to steel dust and asbestos. Patient is on no home oxygen and measures his home pulse oximetry and it is usually 92-94%. Patient's initial symptoms began 3-4 years ago when he noticed dyspnea on exertion. One year ago the patient could walk 3 blocks and would have to stop for shortness of breath. Currently on a good day he can walk 3 blocks and has to stop for shortness of breath. He produces phlegm 4 to 5 times a day that is described as clear. at baseline patient noticed he had dyspnea on exertion but no rest shortness of breath about 3-4 years ago. I suspect this hospitalization was precipitated by fluid overload with or without a COPD exacerbation. 10/06/24: Today the patient tells me he is breathing 70% back to his normal. Still has some dyspnea on exertion. He denies fever, chills, rigors, chest pains. ABG on room air was 7.38/46/75. Currently the patient is on room air with saturations 100%. Plan: Currently there is no evidence of hypercarbic or hypoxemic respiratory failure. He has no wheezing on exam. Her I will perform a CT angiogram of the chest to assess for pulmonary embolism, focal consolidations or infiltrates consistent with pneumonia and bullous emphysema consistent with COPD. I will check an alpha 1 anti trypsin genotype tomorrow morning. I would like to add an anti muscarinic antagonist and will place the patient on trelegy 100-60 2.5-25 at 1 puff q.day. he has not received steroids this admission per my review and at this time I do not feel a need to start systemic steroids. The patient received 5 days of antibiotics with ceftriaxone and azithromycin is now on Augmentin day 2. today is day 6 antibiotics and I agree with discontinuing the Augmentin on 10/07 for total of 7 days unless we see an indication on the CT scan to continue longer antibiotics. I will perform an overnight oximetry on room air to assess his oxygen at night. Smoking cessation counseling was provided. Discussed with Dr. Levin, will follow with you. (2) Acute on chronic heart failure: Code(s): I50.9 - Heart failure, unspecified Status: Acute Assessment and Plan: Patient is maintained on Lasix at home and has responded to Lasix diuresis with a weight loss from 127 kg to 116.5 kg today. His BNP Is improved [id number] but remains elevated today at 2039. His chest x-ray yesterday showed congestion. He will get a CT angiogram today. echo 10/03 with LVEF 55-60, left ventricular wall is mildly thickened. There is no nothing in the report regarding diastolic dysfunction. Plan: Management of congestive heart failure and fluid overload per hospitalist team. Currently the patient is on Lasix 40 a day, metoprolol 100 q.12. he does have lower extremity edema. Continue diuresis per hospitalist team. History of Present Illness History of Present Illness Consult date: 10/06/24 Chief complaint: Shortness of breath, Symptomatic anemia Narrative: 10/06/2024: This is a new pulmonary consult for COPD and shortness of breath. 69-year-old with a history of coronary artery disease status post CABG approximately 20 years ago, heart failure with preserved ejection fraction, hypertension, hyperlipidemia, atrial fibrillation status post permanent pacemaker, diabetes with amputation left distal foot approximately 6 months ago, peripheral vascular disease with chronic purple discolored lower extremities below the knee for many years, PE with leg blood clots at age 23 and has been maintained on lifelong anticoagulation until 1 and half months ago when he had a bleeding gastric ulcer, COPD diagnosed 25 years ago by PFT, current tobacco use. Regarding his COPD. He had PFTs at [facility] approximately 25 years ago and was told that he had COPD and has been maintained on inhaler since then. Patient tells me he smokes from age 10 to current at 1 and half packs per day for total of 89 pack years. Patient was exposed to secondhand smoke from both of his parents but none since. Patient worked in the [employer] for 3 years in his early 20s and was exposed to steel dust and asbestos. Patient is on no home oxygen and measures his home pulse oximetry and it is usually 92-94%. Patient's initial symptoms began 3-4 years ago when he noticed dyspnea on exertion. One year ago the patient could walk 3 blocks and would have to stop for shortness of breath. Currently on a good day he can walk 3 blocks and has to stop for shortness of breath. He produces phlegm 4 to 5 times a day that is described as clear. at baseline patient noticed he had dyspnea on exertion but no rest shortness of breath about 3-4 years ago. Patient presented to the emergency department on 10/01/2024 with 14 days worsening Dyspnea on exertion, intermittent wheezing with no change in his cough or phlegm production. He had no chest pain. He had no change in his orthopnea, he sleeps in a recliner, no change in his nocturia or PND. In the emergency department his vitals were 151/54, heart rate 69, room air saturations 98% he had no wheezing. Bibasilar crackles. White blood cell count 10.4 with eosinophils 2.3 equal 236 per micro L. creatinine 1.20, BNP 2760 and a chest x-ray that showed congestion. Patient was treated for fluid overload, COPD exacerbation and possible pneumonia with IV Lasix, DuoNebs, ceftriaxone and azithromycin and although the chart says [facility] do not see this on his Mar. Patient had an echocardiogram on 10/03 with LVEF 55-60, normal RV size and function, normal right atrium, RVSP 32. Chest x-ray on 10/05 showed congestion with resolution of the small bilateral pleural effusions that were seen on 10/01/2024. His weight has decreased from 127.3 kg to 116.5 kg. No output has been recorded. 10/06/24: Today the patient tells me he is breathing 70% back to his normal. Still has some dyspnea on exertion. He denies fever, chills, rigors, chest pains. DATA: 10/03/2024: Summary 1. Complete two-dimensional, color flow and Doppler transthoracic echocardiogram is performed. 2. Technically difficult study. Patient refuse contrast definity. 3. The left ventricle is normal in size and systolic function. Left ventricular hollis is mildly thickened. The left ventricular ejection fraction is visually estimated to be 55-60%. 4. The right ventricle is normal in size and systolic function. 5. Linear artifact in right ventricle suggestive of catheter(s), pacemaker lead(s), or ICD lead(s). Right Ventricle The right ventricle is normal in size and systolic function. Linear artifact in right ventricle suggestive of catheter(s), pacemaker lead(s), or ICD lead(s). Left Atria The left atrium is mildly dilated. Right Atria The right atrium is normal size. Atrial Septum The atrial septum appears visually intact. RVSP 32 Review of Systems Constitutional: Constitutional: Reports no additional constitutional complaints Eyes: Eyes: Reports no additional eye complaints ENT: Reports system reviewed and no additional complaints, except as documented Cardiovascular: Cardiovascular: Reports no additional cardiovascular complaints Respiratory: Respiratory: Reports no additional respiratory complaints Gastrointestinal: Gastrointestinal: Reports no additional gastrointestinal complaints Musculoskeletal: Musculoskeletal: Reports no additional musculoskeletal complaints Neurologic: Reports system reviewed and no additional complaints, except as documented Psychiatric: Psychiatric: Reports no additional psychiatric complaints Endocrine: Endocrine: Reports no additional endocrine complaints Hematologic/Lymphatic: Hematologic/Lymphatic: Reports no additional hematologic/lymphatic complaints Allergic/Immunologic: Allergic/Immunologic: Reports no additional allergic/immunologic complaints [facility] Past Medical History Medical History (Updated 10/01/24 @ 15:52 by Ammon Rojas MD) Acute and chronic respiratory failure Gastric ulcer Acute on chronic anemia Wound dehiscence, external operation Peripheral vascular disease Hypertension Dyslipidemia Atrial fibrillation Pulmonary emboli Tobacco abuse COPD (chronic obstructive pulmonary disease) Pacemaker CAD (coronary artery disease) Surgical History Surgical History Hx of CABG Family History Family History Mother Cancer Father Cancer Social History Social History Smoking packs per day: 2 Smoking cigarettes per day: 40.0 Years smoked: 60 Smoking pack-years: 120.00 Smoking status: Current every day smoker Second hand tobacco smoke exposure: No Alcohol intake: never Substance use: never Substance use type: does not use Do You Feel Safe in your Home?: Yes Lack of Transportation: No Lack of Food: Never True Current Housing: I Have Housing Concerned About Future Housing: No Difficulty Paying Gas/Electric Bills: No Difficulty Paying for Meds: No Currently Unemployed: No Education: High School Diploma/GED Difficulty w/ Childcare or Family Care: No Spiritual care concerns: No Meds Home Medications and Allergies Home Medications ?Medication ?Instructions ?Recorded ?Confirmed ?Type escitalopram oxalate 10 mg tablet 10 mg PO DAILY 09/22/23 10/01/24 History fenofibrate 160 mg tablet 160 mg PO DAILY 09/22/23 10/01/24 History furosemide 40 mg tablet 40 mg PO DAILY 09/22/23 10/01/24 History insulin aspart U-100 100 unit/mL 20 unit subcut TIDWM 09/22/23 10/01/24 History subcutaneous solution (Novolog U-100 Insulin aspart) insulin glargine 100 unit/mL (3 70 unit subcut HS 09/22/23 10/01/24 History mL) subcutaneous pen (Basaglar KwikPen U-100 Insulin) metformin 1,000 mg tablet 1,000 mg PO BIDWM 09/22/23 10/01/24 History metoprolol tartrate 100 mg tablet 100 mg PO BID 09/22/23 10/01/24 History rivaroxaban 20 mg tablet (Xarelto) 20 mg PO DAILY 09/22/23 10/01/24 History rosuvastatin 20 mg tablet 20 mg PO HS 09/22/23 10/01/24 History fluticasone furoate 200 1 inh inhalation DAILY 03/22/24 10/01/24 History mcg-vilanterol 25 mcg/dose inhalation powder (Breo Ellipta) doxycycline monohydrate 100 mg 100 mg PO BID #30 caps 04/02/24 10/01/24 Rx capsule fluticasone propionate 50 1 spray intranasal Q12H 10/01/24 10/01/24 History mcg/actuation nasal spray,suspension glimepiride 2 mg tablet 2 mg PO BID 10/01/24 10/01/24 History pantoprazole 40 mg tablet,delayed 40 mg PO Q12H 10/01/24 10/01/24 History release Allergies Allergy/AdvReac Type Severity Reaction Status Date / Time No Known Allergies Allergy Verified 10/01/24 03:26 Vital Signs Vital Signs - 24 hr 10/05/24 14:00 10/05/24 20:00 10/05/24 20:09 Temperature 36.3 C L Pulse Rate 70 70 Respiratory Rate 16 18 Blood Pressure 125/63 Pulse Oximetry 99 Oxygen Delivery Room Air 10/05/24 20:09 10/05/24 20:40 10/05/24 21:15 Temperature 36.1 C L Pulse Rate 69 69 Respiratory Rate 20 Blood Pressure 140/73 Pulse Oximetry 99 98 Oxygen Delivery Room Air 10/06/24 06:00 10/06/24 07:35 10/06/24 07:35 Temperature 36.4 C Pulse Rate 69 70 70 Respiratory Rate 20 18 18 Blood Pressure 106/48 L Pulse Oximetry 94 96 Oxygen Delivery Room Air Exam Const: General: cooperative, healthy appearing and comfortable Orientation/consciousness: oriented to person, oriented to place and oriented to time HENMT: Head: normal to inspection Ears: hearing grossly normal bilaterally Eyes: General: appearance normal, both eyes and all related structures Neck: Neck: normal visual inspection Chest: Chest palpation & inspection: normal inspection of the chest Resp: Effort & Inspection: normal respiratory effort and able to speak in complete sentences Auscultation: no crackles, no rales, no rhonchi, no wheezes and lung sounds not diminished Cardio: Jugular venous distension: no JVD GI: Inspection: normal to inspection GI Palp: No abdominal tenderness Skin: General skin exam: normal color Neuro: General: oriented to person, oriented to place and oriented to time Extrem: General: normal to inspection Psych: Appearance: grossly normal Results Laboratory Findings 10/06/24 05:59 10/06/24 05:59 ABG, PT/INR, D-dimer: ABG ABG pH 7.379 (7.350-7.450) 10/06/24 08:37 ABG pCO2 46.4 mmHg (35.0-45.0) H 10/06/24 08:37 ABG pO2 75.2 mmHg (80.0-100.0) L 10/06/24 08:37 ABG O2 Saturation 94.7 % (95.0-100.0) L 10/06/24 08:37 Abnormal lab findings: Abnormal Labs 10/01/24 10/01/24 10/01/24 00:08 02:06 04:32 WBC 10.4 H RBC 3.36 L Hgb 7.7 L D Hct 26.2 L MCV 78.0 L MCH 22.9 L MCHC 29.4 L RDW 17.8 H MPV 10.9 H Immature Gran % (Auto) 0.8 H Neut % (Auto) 75.1 H Lymph % (Auto) 12.5 L Sebastian % (Auto) Eos % (Auto) Sebastian # (Auto) 0.9 H Eos # (Auto) Abs Immat Gran (auto) 0.08 H Absolute Neuts (auto) 7.8 H Immature Retic Fraction 16.5 H Retic Hgb Content 15.5 L ABG pCO2 ABG pO2 ABG HCO3 ABG O2 Saturation ABG O2 Content Total Hemoglobin Sodium 134 L Anion Gap BUN 27 H Glucose 437 H POC Capillary Glucose Hemoglobin A1c Iron 30 L % Saturation 7 L AST 16 L Troponin I 0.044 H* NT-Pro-B Natriuret Pep 2760 H Crossmatch See Detail 10/01/24 10/01/24 10/01/24 05:35 09:49 16:46 WBC 10.7 H RBC 3.61 L Hgb 8.2 L Hct 27.5 L MCV 76.2 L MCH 22.7 L MCHC 29.8 L RDW 17.2 H MPV Immature Gran % (Auto) 0.6 H Neut % (Auto) 73.4 H Lymph % (Auto) 13.5 L Sebastian % (Auto) 9.4 H Eos % (Auto) Sebastian # (Auto) 1.0 H Eos # (Auto) Abs Immat Gran (auto) 0.06 H Absolute Neuts (auto) 7.8 H Immature Retic Fraction Retic Hgb Content ABG pCO2 ABG pO2 ABG HCO3 ABG O2 Saturation ABG O2 Content Total Hemoglobin Sodium Anion Gap BUN 27 H Glucose 375 H POC Capillary Glucose 303 H Hemoglobin A1c 11.8 H Iron 19 L % Saturation 4 L AST 16 L Troponin I 0.046 H* 0.043 H* NT-Pro-B Natriuret Pep Crossmatch 10/01/24 10/02/24 10/02/24 20:13 08:34 08:51 WBC RBC 3.69 L Hgb 8.3 L Hct 28.3 L MCV 76.7 L MCH 22.5 L MCHC 29.3 L RDW 17.6 H MPV Immature Gran % (Auto) Neut % (Auto) Lymph % (Auto) 16.2 L Sebastian % (Auto) 9.9 H Eos % (Auto) Sebastian # (Auto) 0.8 H Eos # (Auto) Abs Immat Gran (auto) Absolute Neuts (auto) Immature Retic Fraction Retic Hgb Content ABG pCO2 ABG pO2 ABG HCO3 ABG O2 Saturation ABG O2 Content Total Hemoglobin Sodium Anion Gap BUN 23 H Glucose 245 H POC Capillary Glucose 321 H 208 H Hemoglobin A1c Iron % Saturation AST Troponin I NT-Pro-B Natriuret Pep Crossmatch 10/02/24 10/02/24 10/02/24 11:16 16:08 20:42 WBC RBC Hgb Hct MCV MCH MCHC RDW MPV Immature Gran % (Auto) Neut % (Auto) Lymph % (Auto) Sebastian % (Auto) Eos % (Auto) Sebastian # (Auto) Eos # (Auto) Abs Immat Gran (auto) Absolute Neuts (auto) Immature Retic Fraction Retic Hgb Content ABG pCO2 ABG pO2 ABG HCO3 ABG O2 Saturation ABG O2 Content Total Hemoglobin Sodium Anion Gap BUN Glucose POC Capillary Glucose 243 H 169 H 142 H Hemoglobin A1c Iron % Saturation AST Troponin I NT-Pro-B Natriuret Pep Crossmatch 10/03/24 10/03/24 10/03/24 06:50 08:37 11:55 WBC RBC 3.48 L Hgb 7.7 L Hct 26.8 L MCV 77.0 L MCH 22.1 L MCHC 28.7 L RDW 17.6 H MPV Immature Gran % (Auto) Neut % (Auto) Lymph % (Auto) Sebastian % (Auto) 11.9 H Eos % (Auto) 4.7 H Sebastian # (Auto) 0.9 H Eos # (Auto) 0.4 H Abs Immat Gran (auto) Absolute Neuts (auto) Immature Retic Fraction Retic Hgb Content ABG pCO2 ABG pO2 ABG HCO3 ABG O2 Saturation ABG O2 Content Total Hemoglobin Sodium 136 L Anion Gap BUN Glucose 145 H POC Capillary Glucose 157 H 320 H Hemoglobin A1c Iron % Saturation AST Troponin I NT-Pro-B Natriuret Pep Crossmatch 10/03/24 10/03/24 10/04/24 17:06 19:41 07:04 WBC RBC 3.49 L Hgb 7.9 L Hct 27.2 L MCV 77.9 L MCH 22.6 L MCHC 29.0 L RDW 18.0 H MPV Immature Gran % (Auto) Neut % (Auto) Lymph % (Auto) Sebastian % (Auto) 10.9 H Eos % (Auto) 6.2 H Sebastian # (Auto) 0.7 H Eos # (Auto) 0.4 H Abs Immat Gran (auto) Absolute Neuts (auto) Immature Retic Fraction Retic Hgb Content ABG pCO2 ABG pO2 ABG HCO3 ABG O2 Saturation ABG O2 Content Total Hemoglobin Sodium Anion Gap 3 L BUN Glucose POC Capillary Glucose 195 H 292 H Hemoglobin A1c Iron % Saturation AST Troponin I NT-Pro-B Natriuret Pep Crossmatch 10/04/24 10/04/24 10/04/24 10:34 11:22 16:22 WBC RBC Hgb Hct MCV MCH MCHC RDW MPV Immature Gran % (Auto) Neut % (Auto) Lymph % (Auto) Sebastian % (Auto) Eos % (Auto) Sebastian # (Auto) Eos # (Auto) Abs Immat Gran (auto) Absolute Neuts (auto) Immature Retic Fraction Retic Hgb Content ABG pCO2 ABG pO2 ABG HCO3 ABG O2 Saturation ABG O2 Content Total Hemoglobin Sodium Anion Gap BUN Glucose POC Capillary Glucose 148 H 156 H 132 H Hemoglobin A1c Iron % Saturation AST Troponin I NT-Pro-B Natriuret Pep Crossmatch 10/04/24 10/05/24 10/05/24 20:26 06:16 07:53 WBC RBC 3.65 L Hgb 8.3 L Hct 28.9 L MCV 79.2 L MCH 22.7 L MCHC 28.7 L RDW 18.9 H MPV Immature Gran % (Auto) Neut % (Auto) Lymph % (Auto) Sebastian % (Auto) Eos % (Auto) Sebastian # (Auto) Eos # (Auto) Abs Immat Gran (auto) Absolute Neuts (auto) Immature Retic Fraction Retic Hgb Content ABG pCO2 ABG pO2 ABG HCO3 ABG O2 Saturation ABG O2 Content Total Hemoglobin Sodium Anion Gap BUN Glucose 136 H POC Capillary Glucose 198 H 121 H Hemoglobin A1c Iron % Saturation AST Troponin I NT-Pro-B Natriuret Pep Crossmatch 10/05/24 10/05/24 10/05/24 11:23 16:50 20:21 WBC RBC Hgb Hct MCV MCH MCHC RDW MPV Immature Gran % (Auto) Neut % (Auto) Lymph % (Auto) Sebastian % (Auto) Eos % (Auto) Sebastian # (Auto) Eos # (Auto) Abs Immat Gran (auto) Absolute Neuts (auto) Immature Retic Fraction Retic Hgb Content ABG pCO2 ABG pO2 ABG HCO3 ABG O2 Saturation ABG O2 Content Total Hemoglobin Sodium Anion Gap BUN Glucose POC Capillary Glucose 180 H 123 H 197 H Hemoglobin A1c Iron % Saturation AST Troponin I NT-Pro-B Natriuret Pep Crossmatch 10/06/24 10/06/24 10/06/24 05:57 05:59 08:10 WBC RBC 3.62 L Hgb 8.3 L Hct 28.6 L MCV 79.0 L MCH 22.9 L MCHC 29.0 L RDW 19.8 H MPV 10.5 H Immature Gran % (Auto) Neut % (Auto) Lymph % (Auto) Sebastian % (Auto) Eos % (Auto) Sebastian # (Auto) Eos # (Auto) Abs Immat Gran (auto) Absolute Neuts (auto) Immature Retic Fraction Retic Hgb Content ABG pCO2 ABG pO2 ABG HCO3 ABG O2 Saturation ABG O2 Content Total Hemoglobin Sodium Anion Gap 3 L BUN Glucose POC Capillary Glucose 61 L Hemoglobin A1c Iron % Saturation AST Troponin I NT-Pro-B Natriuret Pep 2040 H Crossmatch 10/06/24 08:37 WBC RBC Hgb Hct MCV MCH MCHC RDW MPV Immature Gran % (Auto) Neut % (Auto) Lymph % (Auto) Sebastian % (Auto) Eos % (Auto) Sebastian # (Auto) Eos # (Auto) Abs Immat Gran (auto) Absolute Neuts (auto) Immature Retic Fraction Retic Hgb Content ABG pCO2 46.4 H ABG pO2 75.2 L ABG HCO3 26.8 H ABG O2 Saturation 94.7 L ABG O2 Content 12.6 L Total Hemoglobin 9.5 L Sodium Anion Gap BUN Glucose POC Capillary Glucose Hemoglobin A1c Iron % Saturation AST Troponin I NT-Pro-B Natriuret Pep Crossmatch Diagnostic Findings Additional studies: ITS Impressions Chest X-Ray 10/01/24 05:58 Impression: Mild central pulmonary edema with possible minimal pleural effusions. Pacemaker device. Chest X-Ray 10/05/24 06:16 IMPRESSION: 1. Mild pulmonary edema.
[2024-10-06] MEDS: FERROUS SULFATE 325 MG TABLET DR PO (10:50)
[2024-10-06] MEDS: FUROSEMIDE 40 MG TABLET PO (10:50)
[2024-10-06] MEDS: PANTOPRAZOLE 40 MG TABLET PO ×2 (10:50→20:43)
[2024-10-06] MEDS: IRON SUCROSE COMPLEX 100 MG in SODIUM CHLORIDE 0.9% IV 50 ML 220 MG IVPB (10:51)
[2024-10-06] MEDS: FENOFIBRATE 160 MG TABLET PO (10:51)
[2024-10-06] MEDS: ESCITALOPRAM OXALATE 10 MG TABLET PO (10:51)
[2024-10-06] MEDS: AMOXICILLIN/CLAVULANATE K 875-125 MG TAB 1 TABLET PO ×2 (10:51→20:43)
[2024-10-06] MEDS: METOPROLOL TARTRATE 50 MG TAB 100 MG PO ×2 (10:51→20:46)
[2024-10-06] MEDS: MICONAZOLE NITRATE 2% CREAM 30 GM TUBE 1 APPLIC TOPICAL ×2 (10:52→20:44)
[2024-10-06 11:37] LABS: Glucose Point of Care 199 mg/dl (65-105)
[2024-10-06] MEDS: INSULIN ASPART (*BKC) 100 UNITS/ML 15 UNITS SUB-Q ×2 (13:01→17:07)
--- NOTE | 2024-10-06 14:45 | PM.IMPN ---
Progress Note: A&P Assessment and Plan (1) Shortness of breath: Code(s): R06.02 - Shortness of breath Status: Acute (2) COPD exacerbation: Code(s): J44.1 - Chronic obstructive pulmonary disease with (acute) exacerbation Status: Acute (3) Acute on chronic heart failure: Code(s): I50.9 - Heart failure, unspecified Status: Acute (4) Elevated troponin: Code(s): R79.89 - Other specified abnormal findings of blood chemistry Status: Acute (5) Uncontrolled type 2 diabetes mellitus: Status: Acute (6) CAD (coronary artery disease): Code(s): I25.10 - Atherosclerotic heart disease of [place] coronary artery without angina pectoris Status: Acute (7) KIRILL on CPAP: Code(s): G47.33 - Obstructive sleep apnea (adult) (pediatric) Status: Acute Plan COPD exacerbation Patient has history of COPD Patient's productive cough and progressive shortness of breath X-ray shows pulmonary edema and possible superimposed pneumonia Ordered Augmentin and continue azithromycin Status post azithromycin ceftriaxone IV D/C home medication Breo Ellipta 1 puff daily Started Trelegy Ellipta Start DuoNeb scheduled albuterol nebulizer p.r.n. Start O2 therapy keep pulse ox above 94 Patient still has cough, with scant phlegm, dyspnea is improving Consulted pulmonology and appreciate recommendation DVT US LE shows The venous thrombosis of the left popliteal and peroneal veins Started Heparin CTA pending Acute on chronic heart failure Patient has elevated BNP, central pulmonary edema on x-ray Lasix 40 mg daily p.o. 10/06 given one dose of lasix 40 mg IV Echocardiogram: The left ventricular ejection fraction is visually estimated to be 55-60%. Follow-up input output CAD Patient has elevated troponin, denies chest pain Possible demand ischemia due to COPD and CHF Hold Xarelto 20 mg daily p.o., Crestor 20 mg daily p.o. Reviewed Echocardiogram Telemetry monitoring EKG p.r.n. Paroxysmal AFib Currently patient has a paced rhythm, Hold Xarelto, suspecting GI bleeding Chronic anemia Hemoglobin 7.7 upon arrival. Baseline hemoglobin 12.3 May 27, 2024 Hemoglobin is below the baseline Follow-up stool guaiac, iron panel low ferritin level 14, reticulocyte 16.5, reticulocyte hemoglobin low 15.5 Patient is on Protonix 40 mg IV Patient has black stools intermittently Possible GI bleeding Hold AC s/w ferrous sulfate p.o. 325 mg daily, Venofer 100 mg daily IV GA recommend outpatient colonoscopy. Essential hypertension Continue metoprolol 100 mg b.i.d. p.o. Uncontrolled type 2 diabetes Discontinue glargine 70 units q.h.s. due to morning hypoglycemia Started Glargine 55 U qhs Start prandial aspart 15 units before each meal Start insulin sliding scale a.c. and q.h.s. Subjective Date/time seen: 10/06/24 14:45 Interval history: Patient reports feeling better compared to when he was admitted. His SOB possible multifactorial due to anemia vs COPD exacerbation vs CHF vs PE. Discussed with . Pending CTA to rule out PE. LE US shows DVT. Discontinued glargine 70 units q.h.s. due to morning hypoglycemia and started Glargine 55 U qhs. Given one dose of lasix 40 mg IV.Pulmonology dc'ed breo ellipta and started trelegy 100-60 2.5-25 at 1 puff q.day. I discussed with the patient about his DVT finding. The patient is not able to verify whether he had a clot in his leg in a vein or artery but confirms he has a stent in his left leg. Explained that we can start Heparin, and in the event of bleeding, we can stop the Heparin. I believe his ulcer would have healed, but I also spoke with , who also believes there is a high chance his ulcer would have healed if he took PPI 2 times a day. For now, the patient doesn't need a repeat upper endoscopy. CTA is still pending because multiple patients waiting in the ED came from [facility]. We explained the plan to the patient, who agreed with it. Exam Narrative: GENERAL: Pleasant, in no acute distress. Well-nourished. - EYES: EOMI. Anicteric. - HENT: Moist mucous membranes. - LUNGS: Distant breath sound bilaterally, crackles bilateral bases - CARDIOVASCULAR: Regular rate and rhythm. No murmur. No JVD. - ABDOMEN: Soft, non-tender and non-distended. No palpable masses. - EXTREMITIES: No edema. Peripheral pulses 2+. Non-tender. - NEUROLOGIC: No focal neurological deficits. CN II-XII grossly intact. - PSYCHIATRIC: Awake, Alert and oriented x 3. Appropriate mood and affect. - SKIN: No rashes or lesions. Warm. - LYMPH: No cervical lymphadenopathy. Objective Data Vital Signs Vital Signs: Vital Signs - 24 hr 10/05/24 20:00 10/05/24 20:09 10/05/24 20:09 Temperature Pulse Rate 70 Respiratory Rate 18 Blood Pressure Pulse Oximetry 99 Oxygen Delivery Room Air Room Air 10/05/24 20:40 10/05/24 21:15 10/06/24 06:00 Temperature 97 F L 97.6 F Pulse Rate 69 69 69 Respiratory Rate 20 20 Blood Pressure 140/73 106/48 L Pulse Oximetry 98 94 Oxygen Delivery 10/06/24 07:35 10/06/24 07:35 Temperature Pulse Rate 70 70 Respiratory Rate 18 18 Blood Pressure Pulse Oximetry 96 Oxygen Delivery Room Air Intake/Output Intake/Output: Intake & Output 10/03/24 10/04/24 10/05/24 10/06/24 23:59 23:59 23:59 23:59 Intake Total 1743 3465 2940 1315 Balance 1743 3465 2940 1315 Meds/Results Medications: Active Medications Generic Name Dose Route Start Last Admin Trade Name Freq PRN Reason Stop Dose Admin Acetaminophen 650 mg 10/01/24 02:46 Acetaminophen 325 Mg Tablet PO Q4H PRN Mild Pain (1-3) or Fever Amoxicillin/Clavulanate Potassium 1 tablet 10/05/24 09:00 10/06/24 10:51 Amoxicillin/Clavulanate K 875-125 Mg Tab PO 10/07/24 21:01 1 tablet Q12HR DANIEL Administration Dextrose 12.5 gm 10/01/24 08:36 10/06/24 08:19 Dextrose 50% 25 Gm/50 Ml Syringe IV PUSH 12.5 gm PRN PRN Administration Hypoglycemia Protocol Escitalopram Oxalate 10 mg 10/01/24 09:00 10/06/24 10:51 Escitalopram Oxalate 10 Mg Tablet PO 10 mg DAILY DANIEL Administration Fenofibrate 160 mg 10/01/24 09:00 10/06/24 10:51 Fenofibrate 160 Mg Tablet PO 160 mg DAILY DANIEL Administration Ferrous Sulfate 325 mg 10/02/24 09:00 10/06/24 10:50 Ferrous Sulfate [address] PO 325 mg DAILY DANIEL Administration Fluticasone/Umeclidinium/Vilanterol 1 puff 10/06/24 10:10 Fluticasone/Umeclidin/Vilanter 100-62.5-25 Mcg Ellipta INHALATION DAILYRT DANIEL Furosemide 40 mg 10/05/24 09:00 10/06/24 10:50 Furosemide 40 Mg Tablet PO 40 mg DAILY DANIEL Administration Glucagon 1 mg 10/01/24 08:36 Glucagon For Inj 1 Mg Vial IM PRN PRN Hypoglycemia Protocol Glucose 15 gm 10/01/24 08:36 Glucose Oral Gel 15 Gm Of Glucse In 37.5 Gm Tube PO PRN PRN Hypoglycemia Protocol Dextrose 1,000 mls @ 100 mls/hr 10/01/24 08:36 Dextrose 5% 1,000 Ml IVPB PRN PRN Hypoglycemia Protocol Iron Sucrose 100 mg/ Sodium 55 mls @ 220 mls/hr 10/02/24 09:00 10/06/24 11:06 Chloride IVPB Infused DAILY DANIEL Infusion Insulin Aspart 15 units 10/01/24 12:00 10/06/24 13:01 Insulin Aspart (*Bkc) 100 Units/Ml SUB-Q 15 units TIDWM DANIEL Administration Insulin Glargine 70 units 10/01/24 21:00 10/05/24 20:41 Insulin Glargine (*Bkc) 100 Units/Ml SUB-Q 70 units HS DANIEL Administration Metformin HCl 1,000 mg 10/01/24 08:50 10/06/24 08:20 Metformin Hcl 500 Mg Tablet PO Not Given BIDWM DANIEL Metoprolol Tartrate 100 mg 10/01/24 09:00 10/06/24 10:51 Metoprolol Tartrate 50 Mg Tab PO 100 mg Q12HR DANIEL Administration Miconazole Nitrate 1 applic 10/01/24 21:00 10/06/24 10:52 Miconazole Nitrate 2% Cream 30 Gm Tube TOPICAL 1 applic Q12HR DANIEL Administration Pantoprazole Sodium 40 mg 10/01/24 09:00 10/06/24 10:50 Pantoprazole 40 Mg Tablet PO 40 mg Q12HR DANIEL Administration Rivaroxaban 20 mg 10/01/24 18:00 10/03/24 18:01 Rivaroxaban 20 Mg Tablet PO Not Given QPM DANIEL Rosuvastatin Calcium 20 mg 10/01/24 21:00 10/05/24 20:41 Rosuvastatin 20 Mg Tablet PO 20 mg HS DANIEL Administration Trazodone HCl 50 mg 10/01/24 04:43 10/05/24 20:40 Trazodone Hcl 50 Mg Tablet PO 50 mg HS PRN Administration Insomnia Radiology Results: ITS Impressions Chest X-Ray 10/05/24 06:16 IMPRESSION: 1. Mild pulmonary edema. Labs Labs: Laboratory Results - last 24 hr 10/05/24 10/05/24 10/06/24 16:50 20:21 05:57 WBC RBC Hgb Hct MCV MCH MCHC RDW Plt Count MPV Puncture Site ABG pH ABG pCO2 ABG pO2 ABG PO2/FiO2 Ratio ABG HCO3 ABG O2 Saturation ABG O2 Content ABG Base Excess A-a Gradient Oxyhemoglobin Total Hemoglobin O2 Delivery Device O2 Liters/Min FiO2 Sodium Potassium Chloride Carbon Dioxide Anion Gap BUN Creatinine Estim Creat Clear Calc Estimated GFR Glucose POC Capillary Glucose 123 H 197 H Calcium Total Bilirubin AST ALT Alkaline Phosphatase NT-Pro-B Natriuret Pep 2040 H Total Protein Albumin 10/06/24 10/06/24 10/06/24 05:59 08:10 08:37 WBC 7.3 RBC 3.62 L Hgb 8.3 L Hct 28.6 L MCV 79.0 L MCH 22.9 L MCHC 29.0 L RDW 19.8 H Plt Count 235 MPV 10.5 H Puncture Site Right radial ABG pH 7.379 ABG pCO2 46.4 H ABG pO2 75.2 L ABG PO2/FiO2 Ratio 3.58 ABG HCO3 26.8 H ABG O2 Saturation 94.7 L ABG O2 Content 12.6 L ABG Base Excess 1.3 A-a Gradient 19.0 Oxyhemoglobin 93.4 Total Hemoglobin 9.5 L O2 Delivery Device Room air O2 Liters/Min Not Reportable FiO2 21 Sodium 137 Potassium 3.8 Chloride 106 Carbon Dioxide 28 Anion Gap 3 L BUN 11 Creatinine 1.10 Estim Creat Clear Calc 73 Estimated GFR > 60 Glucose 72 POC Capillary Glucose 61 L Calcium 8.8 Total Bilirubin 0.3 AST 18 ALT 10 Alkaline Phosphatase 45 NT-Pro-B Natriuret Pep Total Protein 7.0 Albumin 3.7 10/06/24 10/06/24 08:44 11:27 WBC RBC Hgb Hct MCV MCH MCHC RDW Plt Count MPV Puncture Site ABG pH ABG pCO2 ABG pO2 ABG PO2/FiO2 Ratio ABG HCO3 ABG O2 Saturation ABG O2 Content ABG Base Excess A-a Gradient Oxyhemoglobin Total Hemoglobin O2 Delivery Device O2 Liters/Min FiO2 Sodium Potassium Chloride Carbon Dioxide Anion Gap BUN Creatinine Estim Creat Clear Calc Estimated GFR Glucose POC Capillary Glucose 87 199 H Calcium Total Bilirubin AST ALT Alkaline Phosphatase NT-Pro-B Natriuret Pep Total Protein Albumin Hospitalist MIPS Advance Care Plan I have confirmed that the patient's Advanced Care Plan is present, code status is documented, or surrogate decision maker is listed in patient medical record.: Yes Medication Reconciliation I have utilized all available resources to obtain, update and review the patients current medications (includes all prescriptions, OTC, herbals, cannabis, and nutritional supplements).: Yes
[2024-10-06 15:23] VITALS: BP 121/65; PULSE 70; RESP 18; TEMP 36.3; O2SAT 100
[2024-10-06 16:36] LABS: Basophils Absolute Auto 0.1 K/mm3 (0.0-0.1); Basophils Percent Auto 0.9 % (0.2-1.2); Eosinophils Absolute Auto 0.5 K/mm3 (0-0.3); Eosinophils Percent Auto 5.6 % (0-4.4); Hematocrit 30.2 % (42.0-52.0); Hemoglobin 8.8 g/dL (14.0-18.0); Immature Granulocyte Absolute 0.04 K/mm3 (0.00-0.031); Immature Granulocyte Percent A 0.5 % (0-0.5); Lymphocytes Absolute Auto 1.31 K/mm3 (0.9-3.2); Mean Corpuscular HGB Conc 29.1 g/dl (32-36); Mean Corpuscular Hemoglobin 23.2 pg (26-34); Mean Corpuscular Volume 79.5 fl (80-100); Mean Platelet Volume 10.5 fl (7.4-10.4); Monocytes Absolute Auto 0.7 K/mm3 (0.1-0.6); Monocytes Percent Auto 8.4 % (2.6-8.5); Neutrophils Absolute Auto 5.6 K/mm3 (1.3-6.7); Neutrophils Percent Auto 68.6 % (45.5-73.1); Platelet Count Result 237 k/mm3 (150-375); Red Cell Distribution Width 20.3 % (11.5-14.5); White Blood Count 8.2 K/mm3 (4.5-10.0)
[2024-10-06 16:47] LABS: INR 1.1; Prothrombin Time 14.2 Seconds (11.1-14.7)
[2024-10-06 16:48] LABS: Partial Thromboplastin Time 28.2 Seconds (22.3-36.8)
[2024-10-06 16:52] LABS: Anisocytosis 1+; Hypochromasia 1+; Ovalocytes 1+; Platelet Estimate Adequate (Adequate); Schistocytes None Seen
[2024-10-06 16:53] LABS: Glucose Point of Care 240 mg/dl (65-105)
[2024-10-06] MEDS: HEPARIN SODIUM 5,000 UNITS/ML VIAL 7500 UNITS IV PUSH ×2 (17:08→23:40)
[2024-10-06] MEDS: FUROSEMIDE INJ 40 MG/4 ML VIAL IV PUSH (17:10)
[2024-10-06] MEDS: HEPARIN SOD/D5W 100 UNITS/ML 25,000 UNITS/250 ML BAG 15 UNITS IV CONT (17:10)
[2024-10-06] MEDS: traZODone HCL 50 MG TABLET PO (20:43)
[2024-10-06] MEDS: ROSUVASTATIN 20 MG TABLET PO (20:43)
[2024-10-06 20:46] VITALS: PULSE 80
[2024-10-06] MEDS: INSULIN GLARGINE (*BKC) 100 UNITS/ML 55 UNITS SUB-Q (21:55)
[2024-10-06 22:38] VITALS: BP 141/80; PULSE 70; RESP 16; TEMP 36.7; O2SAT 95
[2024-10-06 23:05] VITALS: O2SAT 95
[2024-10-06] MEDS: HEPARIN SOD/D5W 100 UNITS/ML 25,000 UNITS/250 ML BAG 19 UNITS IV CONT (23:38)
[2024-10-07 01:57] LABS: Glucose Point of Care 314 mg/dl (65-105)
[2024-10-07 05:12] LABS: Basophils Absolute Auto 0.1 K/mm3 (0.0-0.1); Basophils Percent Auto 1.1 % (0.2-1.2); Eosinophils Absolute Auto 0.4 K/mm3 (0-0.3); Hematocrit 28.5 % (42.0-52.0); Hemoglobin 8.4 g/dL (14.0-18.0); Immature Granulocyte Absolute 0.04 K/mm3 (0.00-0.031); Immature Granulocyte Percent A 0.5 % (0-0.5); Lymphocytes Absolute Auto 2.24 K/mm3 (0.9-3.2); Lymphocytes Percent Auto 26.3 % (18.3-44.2); Mean Corpuscular HGB Conc 29.5 g/dl (32-36); Mean Corpuscular Hemoglobin 23.3 pg (26-34); Mean Corpuscular Volume 78.9 fl (80-100); Mean Platelet Volume 10.3 fl (7.4-10.4); Monocytes Absolute Auto 0.8 K/mm3 (0.1-0.6); Monocytes Percent Auto 9.7 % (2.6-8.5); Neutrophils Absolute Auto 4.9 K/mm3 (1.3-6.7); Neutrophils Percent Auto 57.4 % (45.5-73.1); Platelet Count Result 238 k/mm3 (150-375); Red Blood Count 3.61 M/mm3 (4.6-6.20); Red Cell Distribution Width 20.6 % (11.5-14.5); White Blood Count 8.5 K/mm3 (4.5-10.0)
[2024-10-07 05:23] LABS: Alanine Aminotransferase 11 U/L (6-50); Albumin Level 3.7 g/dL (3.5-5.1); Alkaline Phosphatase 45 U/L (38-126); Anion Gap 4 mmol/L (4-12); Aspartate Amino Transferase 22 U/L (17-59); Bilirubin,Total 0.4 mg/dL (0.2-1.3); Blood Urea Nitrogen 11 mg/dL (9-20); Calcium 8.7 mg/dL (8.4-10.2); Carbon Dioxide 29 mmol/L (22-30); Chloride 102 mmol/L (98-107); Estimated CRCL calculation 67 ml/min; Estimated Glomerular Filt Rate 60; Glucose 201 mg/dL (65-110); Potassium 3.9 mmol/L (3.4-5.0); Sodium 135 mmol/L (137-145)
[2024-10-07 05:25] LABS: Partial Thromboplastin Time 66.3 Seconds (22.3-36.8)
[2024-10-07] MEDS: HEPARIN SODIUM 5,000 UNITS/ML VIAL 4000 UNITS IV PUSH (05:41)
[2024-10-07 05:43] LABS: Anisocytosis 1+; Hypochromasia 1+; Ovalocytes 1+; Platelet Estimate Adequate (Adequate); Schistocytes None Seen
[2024-10-07] MEDS: HEPARIN SOD/D5W 100 UNITS/ML 25,000 UNITS/250 ML BAG 21 UNITS IV CONT ×2 (05:57→08:39)
[2024-10-07 06:00] VITALS: BP 135/92; PULSE 69; RESP 18; TEMP 36.9; O2SAT 96
[2024-10-07 07:55] VITALS: O2SAT 96
[2024-10-07] MEDS: FLUTICASONE/UMECLIDIN/VILANTER 100-62.5-25 MCG ELLIPTA 1 PUFF INHALATION (07:55)
[2024-10-07] MEDS: FUROSEMIDE 40 MG TABLET PO (08:39)
[2024-10-07] MEDS: AMOXICILLIN/CLAVULANATE K 875-125 MG TAB 1 TABLET PO ×2 (08:39→20:28)
[2024-10-07] MEDS: PANTOPRAZOLE 40 MG TABLET PO ×2 (08:39→20:28)
[2024-10-07] MEDS: metFORMIN HCL 500 MG TABLET 1000 MG PO ×2 (08:40→17:24)
[2024-10-07] MEDS: ESCITALOPRAM OXALATE 10 MG TABLET PO (08:40)
[2024-10-07] MEDS: FERROUS SULFATE 325 MG TABLET DR PO (08:40)
[2024-10-07] MEDS: INSULIN ASPART (*BKC) 100 UNITS/ML 15 UNITS SUB-Q ×3 (08:40→17:24)
[2024-10-07] MEDS: IRON SUCROSE COMPLEX 100 MG in SODIUM CHLORIDE 0.9% IV 50 ML 220 MG IVPB (08:40)
[2024-10-07] MEDS: FENOFIBRATE 160 MG TABLET PO (08:40)
[2024-10-07] MEDS: METOPROLOL TARTRATE 50 MG TAB 100 MG PO ×2 (08:40→20:27)
[2024-10-07] MEDS: MICONAZOLE NITRATE 2% CREAM 30 GM TUBE 1 APPLIC TOPICAL ×2 (08:41→20:28)
[2024-10-07 08:47] LABS: Glucose Point of Care 175 mg/dl (65-105)
[2024-10-07 11:52] LABS: Glucose Point of Care 120 mg/dl (65-105)
--- NOTE | 2024-10-07 12:03 | PC.NURSE ---
Heparin drip stopped at 12:00 on 10/07/[address] Azul.
[2024-10-07 12:09] LABS: Hematocrit 29.7 % (42.0-52.0); Hemoglobin 8.5 g/dL (14.0-18.0)
[2024-10-07 13:48] VITALS: BP 117/59; PULSE 68; RESP 18; TEMP 36.8; O2SAT 95
--- NOTE | 2024-10-07 15:08 | P.PNIM_ITS ---
Progress Note: A&P Assessment and Plan (1) Shortness of breath: Code(s): R06.02 - Shortness of breath Status: Acute (2) COPD exacerbation: Code(s): J44.1 - Chronic obstructive pulmonary disease with (acute) exacerbation Status: Acute (3) Acute on chronic heart failure: Code(s): I50.9 - Heart failure, unspecified Status: Acute (4) Elevated troponin: Code(s): R79.89 - Other specified abnormal findings of blood chemistry Status: Acute (5) Uncontrolled type 2 diabetes mellitus: Status: Acute (6) CAD (coronary artery disease): Code(s): I25.10 - Atherosclerotic heart disease of [place] coronary artery without angina pectoris Status: Acute (7) KIRILL on CPAP: Code(s): G47.33 - Obstructive sleep apnea (adult) (pediatric) Status: Acute Plan COPD exacerbation Patient has history of COPD Patient's productive cough and progressive shortness of breath X-ray shows pulmonary edema and possible superimposed pneumonia Ordered Augmentin Status post iv azithromycin and ceftriaxone D/C home medication Breo Ellipta 1 puff daily Started Trelegy Ellipta Start DuoNeb scheduled albuterol nebulizer p.r.n. pulmology recommendations on board DVT US LE shows The venous thrombosis of the left popliteal and peroneal veins pt transitioned to OAC Acute on chronic heart failure Patient has elevated BNP, central pulmonary edema on x-ray Lasix 40 mg daily p.o transitioned oral lasix now 10/06 given one dose of lasix 40 mg IV Echocardiogram: The left ventricular ejection fraction is visually estimated to be 55-60%. CAD Patient has elevated troponin, denies chest pain Possible demand ischemia due to COPD and CHF restart Xarelto 20 mg daily p.o., Crestor 20 mg daily p.o. echo shows The left ventricle is normal in size and systolic function. Left ventricular [place]oll[place] is mildly thickened. The left ventricular ejection fraction is visually estimated to be 55-60%. 4. The right ventricle is normal in size and systolic function. 5. Linear artifact in right ventricle suggestive of catheter(s), pacemaker lead(s), or ICD lead(s). Paroxysmal AFib Currently patient has a paced rhythm, restart OAC Chronic anemia Hemoglobin 7.7 upon arrival. Baseline hemoglobin 12.3 May 27, 2024 Hemoglobin is below the baseline now with iv Protonix, iv Venofer Xarelto restarted in hospital was on hold for 3 days for possible gi bleed continue to watch hb levels s/w ferrous sulfate p.o. 325 mg daily, Venofer 100 mg daily IV GA recommend outpatient colonoscopy. DC in 1-2 days time home with gi follow up Essential hypertension Continue metoprolol 100 mg b.i.d. p.o. bp is stable Uncontrolled type 2 diabetes Started Glargine 55 U qhs Start prandial aspart 15 units before each meal Start insulin sliding scale a.c. and q.h.s. LDVT heparin drip stopped xarelto restarted Subjective Date/time seen: 10/07/24 15:08 Interval history: Pt admitted for sob, copd excerbation, chf excerbation, cad, pad pt is severely anemic receiving venofer to help hopeful dc when hb is over 10 pulmonology rounding with recommendations for copd excerbation pt found to have a left popliteal and peroneal veins dvt started on xarelto heparin drip stopped today Review of Systems Review of Systems: Pt is still mildly sob and tired Exam Narrative: GENERAL: Pleasant, in no acute distress. Well-nourished. - EYES: EOMI. Anicteric. - HENT: Moist mucous membranes. - LUNGS: Distant breath sound bilateral ly, crackles bilateral bases - CARDIOVASCULAR: Regular rate and rhyth m. No murmur. No JVD. - ABDOMEN: Soft, non-tender and non-dist ended. No palpable masses. - EXTREMITIES: No edema. Peripheral puls es 2+. Non-tender. - NEUROLOGIC: No focal neurological defi cits. CN II-XII grossly intact. - PSYCHIATRIC: Awake, Alert and oriented x 3. Appropriate mood and affect. - SKIN: No rashes or lesions. Warm. - LYMPH: No cervical lymphadenopathy. Objective Data Vital Signs Vital Signs: Vital Signs - 24 hr 10/06/24 15:23 10/06/24 20:46 10/06/24 22:38 Temperature 36.3 C L 36.7 C Pulse Rate 70 80 70 Respiratory Rate 18 16 Blood Pressure 121/65 141/80 H Pulse Oximetry 100 95 Oxygen Delivery Fraction of Inspired Oxygen 10/06/24 23:05 10/07/24 06:00 10/07/24 07:55 Temperature 36.9 C Pulse Rate 69 Respiratory Rate 18 Blood Pressure 135/92 H Pulse Oximetry 95 96 96 Oxygen Delivery Room Air Room Air Fraction of Inspired Oxygen 10/07/24 08:00 10/07/24 13:48 Temperature 36.8 C Pulse Rate 68 Respiratory Rate 18 Blood Pressure 117/59 L Pulse Oximetry 95 Oxygen Delivery Room Air Fraction of Inspired Oxygen Intake/Output Intake/Output: Intake & Output 10/04/24 10/05/24 10/06/24 10/07/24 23:59 23:59 23:59 23:59 Intake Total 3465 2940 2402 947.4 Output Total 1600 1225 Balance 3465 2940 802 -277.6 Meds/Results Medications: Active Medications Generic Name Dose Route Start Last Admin Trade Name Freq PRN Reason Stop Dose Admin Acetaminophen 650 mg 10/01/24 02:46 Acetaminophen 325 Mg Tablet PO Q4H PRN Mild Pain (1-3) or Fever Amoxicillin/Clavulanate Potassium 1 tablet 10/05/24 09:00 10/07/24 08:39 Amoxicillin/Clavulanate K 875-125 Mg Tab PO 10/07/24 21:01 1 tablet Q12HR DANIEL Administration Dextrose 12.5 gm 10/01/24 08:36 10/06/24 08:19 Dextrose 50% 25 Gm/50 Ml Syringe IV PUSH 12.5 gm PRN PRN Administration Hypoglycemia Protocol Escitalopram Oxalate 10 mg 10/01/24 09:00 10/07/24 08:40 Escitalopram Oxalate 10 Mg Tablet PO 10 mg DAILY DANIEL Administration Fenofibrate 160 mg 10/01/24 09:00 10/07/24 08:40 Fenofibrate 160 Mg Tablet PO 160 mg DAILY DANIEL Administration Ferrous Sulfate 325 mg 10/02/24 09:00 10/07/24 08:40 Ferrous Sulfate [address] PO 325 mg DAILY DANIEL Administration Fluticasone/Umeclidinium/Vilanterol 1 puff 10/06/24 10:10 10/07/24 07:55 Fluticasone/Umeclidin/Vilanter 100-62.5-25 Mcg Ellipta INHALATION 1 puff DAILYRT DANIEL Administration Furosemide 40 mg 10/05/24 09:00 10/07/24 08:39 Furosemide 40 Mg Tablet PO 40 mg DAILY DANIEL Administration Glucagon 1 mg 10/01/24 08:36 Glucagon For Inj 1 Mg Vial IM PRN PRN Hypoglycemia Protocol Glucose 15 gm 10/01/24 08:36 Glucose Oral Gel 15 Gm Of Glucse In 37.5 Gm Tube PO PRN PRN Hypoglycemia Protocol Dextrose 1,000 mls @ 100 mls/hr 10/01/24 08:36 Dextrose 5% 1,000 Ml IVPB PRN PRN Hypoglycemia Protocol Iron Sucrose 100 mg/ Sodium 55 mls @ 220 mls/hr 10/02/24 09:00 10/07/24 08:55 Chloride IVPB Infused DAILY DANIEL Infusion Insulin Aspart 15 units 10/01/24 12:00 10/07/24 12:18 Insulin Aspart (*Bkc) 100 Units/Ml SUB-Q 15 units TIDWM DANIEL Administration Insulin Glargine 55 units 10/06/24 21:00 10/06/24 21:55 Insulin Glargine (*Bkc) 100 Units/Ml SUB-Q 55 units HS DANIEL Administration Metformin HCl 1,000 mg 10/01/24 08:50 10/07/24 08:40 Metformin Hcl 500 Mg Tablet PO 1,000 mg BIDWM DANIEL Administration Metoprolol Tartrate 100 mg 10/01/24 09:00 10/07/24 08:40 Metoprolol Tartrate 50 Mg Tab PO 100 mg Q12HR DANIEL Administration Miconazole Nitrate 1 applic 10/01/24 21:00 10/07/24 08:41 Miconazole Nitrate 2% Cream 30 Gm Tube TOPICAL 1 applic Q12HR DANIEL Administration Pantoprazole Sodium 40 mg 10/01/24 09:00 10/07/24 08:39 Pantoprazole 40 Mg Tablet PO 40 mg Q12HR DANIEL Administration Rivaroxaban 20 mg 10/01/24 18:00 10/03/24 18:01 Rivaroxaban 20 Mg Tablet PO Not Given QPM DANIEL Rosuvastatin Calcium 20 mg 10/01/24 21:00 10/06/24 20:43 Rosuvastatin 20 Mg Tablet PO 20 mg HS DANIEL Administration Trazodone HCl 50 mg 10/01/24 04:43 10/06/24 20:43 Trazodone Hcl 50 Mg Tablet PO 50 mg HS PRN Administration Insomnia Radiology Results: ITS Impressions Chest X-Ray 10/05/24 06:16 IMPRESSION: 1. Mild pulmonary edema. Venous Doppler Study 10/06/24 14:54 IMPRESSION: The venous thrombosis of the left popliteal and peroneal veins Chest CTA 10/06/24 21:08 IMPRESSION: No evidence of pulmonary embolism Labs Labs: Laboratory Results - last 24 hr 10/06/24 10/06/24 10/06/24 16:23 16:37 21:53 WBC 8.2 RBC 3.80 L Hgb 8.8 L Hct 30.2 L MCV 79.5 L MCH 23.2 L MCHC 29.1 L RDW 20.3 H Plt Count 237 MPV 10.5 H Immature Gran % (Auto) 0.5 Neut % (Auto) 68.6 Lymph % (Auto) 16.0 L [place] % (Auto) 8.4 Eos % (Auto) 5.6 H Baso % (Auto) 0.9 Lymph # (Auto) 1.31 [place] # (Auto) 0.7 H Eos # (Auto) 0.5 H Baso # (Auto) 0.1 Abs Immat Gran (auto) 0.04 H Absolute Neuts (auto) 5.6 Absolute Nucleated RBC 0.000 Nucleated RBC % 0.0 Platelet Estimate Adequate Hypochromasia 1+ Anisocytosis 1+ Ovalocytes 1+ Schistocytes None seen PT 14.2 INR 1.1 APTT 28.2 Sodium Potassium Chloride Carbon Dioxide Anion Gap BUN Creatinine Estim Creat Clear Calc Estimated GFR Glucose POC Capillary Glucose 240 H 314 H Calcium Total Bilirubin AST ALT Alkaline Phosphatase Total Protein Albumin 10/06/24 10/07/24 10/07/24 22:58 05:06 08:38 WBC 8.5 RBC 3.61 L Hgb 8.4 L Hct 28.5 L MCV 78.9 L MCH 23.3 L MCHC 29.5 L RDW 20.6 H Plt Count 238 MPV 10.3 Immature Gran % (Auto) 0.5 Neut % (Auto) 57.4 Lymph % (Auto) 26.3 [place] % (Auto) 9.7 H Eos % (Auto) 5.0 H Baso % (Auto) 1.1 Lymph # (Auto) 2.24 [place] # (Auto) 0.8 H Eos # (Auto) 0.4 H Baso # (Auto) 0.1 Abs Immat Gran (auto) 0.04 H Absolute Neuts (auto) 4.9 Absolute Nucleated RBC 0.000 Nucleated RBC % 0.0 Platelet Estimate Adequate Hypochromasia 1+ Anisocytosis 1+ Ovalocytes 1+ Schistocytes None seen PT INR APTT 43.0 H 66.3 H Sodium 135 L Potassium 3.9 Chloride 102 Carbon Dioxide 29 Anion Gap 4 BUN 11 Creatinine 1.20 Estim Creat Clear Calc 67 Estimated GFR 60 Glucose 201 H POC Capillary Glucose 175 H Calcium 8.7 Total Bilirubin 0.4 AST 22 ALT 11 Alkaline Phosphatase 45 Total Protein 7.0 Albumin 3.7 10/07/24 10/07/24 11:41 12:02 WBC RBC Hgb 8.5 L Hct 29.7 L MCV MCH MCHC RDW Plt Count MPV Immature Gran % (Auto) Neut % (Auto) Lymph % (Auto) [place] % (Auto) Eos % (Auto) Baso % (Auto) Lymph # (Auto) [place] # (Auto) Eos # (Auto) Baso # (Auto) Abs Immat Gran (auto) Absolute Neuts (auto) Absolute Nucleated RBC Nucleated RBC % Platelet Estimate Hypochromasia Anisocytosis Ovalocytes Schistocytes PT INR APTT Sodium Potassium Chloride Carbon Dioxide Anion Gap BUN Creatinine Estim Creat Clear Calc Estimated GFR Glucose POC Capillary Glucose 120 H Calcium Total Bilirubin AST ALT Alkaline Phosphatase Total Protein Albumin
[2024-10-07 17:11] LABS: Glucose Point of Care 117 mg/dl (65-105)
[2024-10-07] MEDS: RIVAROXABAN 20 MG TABLET PO (17:24)
[2024-10-07 20:27] VITALS: PULSE 70
[2024-10-07] MEDS: ROSUVASTATIN 20 MG TABLET PO (20:27)
[2024-10-07 22:00] VITALS: BP 127/67; PULSE 70; RESP 16; TEMP 36.6; O2SAT 95
[2024-10-07] MEDS: traZODone HCL 50 MG TABLET PO ×2 (22:07→22:08)
[2024-10-07] MEDS: INSULIN GLARGINE (*BKC) 100 UNITS/ML 55 UNITS SUB-Q (22:08)
[2024-10-07 23:04] LABS: Glucose Point of Care 121 mg/dl (65-105)
[2024-10-08 06:00] VITALS: BP 112/57; PULSE 70; RESP 20; TEMP 36.5; O2SAT 98
[2024-10-08 06:44] LABS: Hematocrit 29.5 % (42.0-52.0); Hemoglobin 8.5 g/dL (14.0-18.0); Mean Corpuscular HGB Conc 28.8 g/dl (32-36); Mean Corpuscular Volume 79.9 fl (80-100); Mean Platelet Volume 10.4 fl (7.4-10.4); Platelet Count Result 238 k/mm3 (150-375); Red Blood Count 3.69 M/mm3 (4.6-6.20); Red Cell Distribution Width 21.5 % (11.5-14.5)
[2024-10-08 06:58] LABS: Anion Gap 3 mmol/L (4-12); Blood Urea Nitrogen 12 mg/dL (9-20); Calcium 8.9 mg/dL (8.4-10.2); Carbon Dioxide 30 mmol/L (22-30); Chloride 104 mmol/L (98-107); Estimated CRCL calculation 62 ml/min; Estimated Glomerular Filt Rate > 60; Glucose 114 mg/dL (65-110); Sodium 137 mmol/L (137-145)
[2024-10-08 07:20] VITALS: PULSE 87; RESP 18; O2SAT 97
[2024-10-08] MEDS: FLUTICASONE/UMECLIDIN/VILANTER 100-62.5-25 MCG ELLIPTA 1 PUFF INHALATION (07:20)
[2024-10-08 08:01] LABS: Glucose Point of Care 109 mg/dl (65-105)
[2024-10-08] MEDS: IRON SUCROSE COMPLEX 400 MG in SODIUM CHLORIDE 0.9% IV 250 ML 108 MG IVPB (09:29)
[2024-10-08 09:31] VITALS: PULSE 69
[2024-10-08] MEDS: metFORMIN HCL 500 MG TABLET 1000 MG PO (09:31)
[2024-10-08] MEDS: ESCITALOPRAM OXALATE 10 MG TABLET PO (09:31)
[2024-10-08] MEDS: METOPROLOL TARTRATE 50 MG TAB 100 MG PO (09:31)
[2024-10-08] MEDS: FERROUS SULFATE 325 MG TABLET DR PO (09:32)
[2024-10-08] MEDS: FENOFIBRATE 160 MG TABLET PO (09:32)
[2024-10-08] MEDS: PANTOPRAZOLE 40 MG TABLET PO (09:32)
[2024-10-08] MEDS: FUROSEMIDE 40 MG TABLET PO (09:32)
[2024-10-08] MEDS: MICONAZOLE NITRATE 2% CREAM 30 GM TUBE 1 APPLIC TOPICAL (09:32)
[2024-10-08 11:28] LABS: Glucose Point of Care 252 mg/dl (65-105)
[2024-10-08] MEDS: INSULIN ASPART (*BKC) 100 UNITS/ML 15 UNITS SUB-Q (12:02)
--- NOTE | 2024-10-08 12:39 | PM.DS ---
DS: Admitting Diagnosis Discharge Date 10/08/24 Admitting Diagnosis Shortness of breath DS: Discharge Diagnosis Discharge Diagnosis (1) COPD exacerbation: Code(s): J44.1 - Chronic obstructive pulmonary disease with (acute) exacerbation Status: Acute (2) Anemia: Code(s): D64.9 - Anemia, unspecified Status: Acute (3) Acute on chronic heart failure: Code(s): I50.9 - Heart failure, unspecified Status: Acute DS: Summary Hospital Course Hospital Course: 69 years old gentleman with history of COPD, type 2 diabetes insulin, diastolic heart failure, hyperlipidemia, atrial fibrillation on Xarelto, status post pacemaker, CAD present ED with a chief complaint of shortness breath patient has been having progressive shortness of breath in past weeks, worse with minimal exertion. Patient has been having progressive weakness over a month. Patient has needs admitted black stools, patient denies abdomen pain, nausea vomiting diarrhea. Patient has been having worsening productive cough with yellow sputum in past 3 days. Patient smokes cigarettes half pack a day. With patient denies fever, chills, headache, focal weakness ataxia, nausea vomiting diarrhea dysuria patient had worsening shortness breath yesterday, therefore patient came to ED for evaluation treatment. Patient was afebrile, blood pressure stable. Pulse ox about 91 to 96 in the ED. lab showed leukocytosis of 10,700, uncontrolled diabetes glucose 375, BUN creatinine ratio 27/1.2 on the baseline. Elevated troponin 0.044 and 2nd troponin 0.046. I read the EKG, EKG showed ventricular paced rhythm. X-ray showed central pulmonary edema. BNP 2760 Patient received 1 unit of pRBC and iron replacement for iron deficiency. GI was consulted adn they reference prior EGD that showed gastric ulcer and recommended continuing PPI and will follow up outpatient for colonoscopy. Xarelto was discontinued initially however patient ended up with DVT and was started on heparin infusion and then transitioned back to Xarelto. hb is stable. Patient will follow up with GI for colonoscopy, and f/u with PCP in 3-5 days Continue other home meds. COPD exacerbation Patient has history of COPD Patient's productive cough and progressive shortness of breath X-ray shows pulmonary edema and possible superimposed pneumonia Ordered Augmentin and continue azithromycin Status post azithromycin ceftriaxone IV D/C home medication Breo Ellipta 1 puff daily Started Trelegy Ellipta Start DuoNeb scheduled albuterol nebulizer p.r.n. Start O2 therapy keep pulse ox above 94 Patient still has cough, with scant phlegm, dyspnea is improving Consulted pulmonology and appreciate recommendation DVT US LE shows The venous thrombosis of the left popliteal and peroneal veins Started Heparin CTA pending Acute on chronic heart failure Patient has elevated BNP, central pulmonary edema on x-ray Lasix 40 mg daily p.o. 10/06 given one dose of lasix 40 mg IV Echocardiogram: The left ventricular ejection fraction is visually estimated to be 55-60%. Follow-up input output CAD Patient has elevated troponin, denies chest pain Possible demand ischemia due to COPD and CHF Hold Xarelto 20 mg daily p.o., Crestor 20 mg daily p.o. Reviewed Echocardiogram Telemetry monitoring EKG p.r.n. Paroxysmal AFib Currently patient has a paced rhythm, Hold Xarelto, suspecting GI bleeding Chronic anemia Hemoglobin 7.7 upon arrival. Baseline hemoglobin 12.3 May 27, 2024 Hemoglobin is below the baseline Follow-up stool guaiac, iron panel low ferritin level 14, reticulocyte 16.5, reticulocyte hemoglobin low 15.5 Patient is on Protonix 40 mg IV Patient has black stools intermittently Possible GI bleeding Hold AC s/w ferrous sulfate p.o. 325 mg daily, completed 1000mg of IV iron. GI recommend outpatient colonoscopy. Essential hypertension Continue metoprolol 100 mg b.i.d. p.o. Uncontrolled type 2 diabetes Discontinue glargine 70 units q.h.s. due to morning hypoglycemia Started Glargine 55 U qhs Start prandial aspart 15 units before each meal Start insulin sliding scale a.c. and q.h.s. Time Spent with Patient Time attestation: Total time spent providing and/or coordinating discharge services: DS: Data Data Completed and Pending Labs on day of discharge: Labs from last 24 hours 10/08/24 10/08/24 10/08/24 11:23 07:41 05:48 WBC 7.0 RBC 3.69 L Hgb 8.5 L Hct 29.5 L MCV 79.9 L MCH 23.0 L MCHC 28.8 L RDW 21.5 H Plt Count 238 MPV 10.4 Sodium 137 Potassium 4.0 Chloride 104 Carbon Dioxide 30 Anion Gap 3 L BUN 12 Creatinine 1.10 Estim Creat Clear Calc 62 Estimated GFR > 60 Glucose 114 H POC Capillary Glucose 252 H 109 H Calcium 8.9 10/07/24 10/07/24 20:01 17:08 WBC RBC Hgb Hct MCV MCH MCHC RDW Plt Count MPV Sodium Potassium Chloride Carbon Dioxide Anion Gap BUN Creatinine Estim Creat Clear Calc Estimated GFR Glucose POC Capillary Glucose 121 H 117 H Calcium Discharge Plan Discharge Attending physician on discharge: Shannen Herron Consulting providers: Ammon Rojas; Ascencion Herrera Discharging Clinician: Shannen Herron Anticipated Discharge Date/Time: 10/08/24 12:32 Patient Disposition: Home, Self-Care Activity: as tolerated Diet: as tolerated Patient Instructions: Antibiotic Form Patient Language: Spanish Stand Alone Forms: General Discharge Information Follow-up/Referrals: Edu,Shira Warren APN [Primary Care Provider] - (Follow-up PCP in 3-5 days.) Ammon Rojas MD [Physician] - (Follow-up with GI as instructed.) Discharge Medications: Continued furosemide 40 mg tablet 40 mg PO DAILY metoprolol tartrate 100 mg tablet 100 mg PO BID insulin aspart U-100 [Novolog U-100 Insulin aspart] 100 unit/mL solution 20 unit subcut TIDWM metformin 1,000 mg tablet 1,000 mg PO BIDWM escitalopram oxalate 10 mg tablet 10 mg PO DAILY rosuvastatin 20 mg tablet 20 mg PO HS fenofibrate 160 mg tablet 160 mg PO DAILY insulin glargine [Basaglar KwikPen U-100 Insulin] 100 unit/mL (3 mL) insulin pen 70 unit SUBCUT HS Xarelto 20 mg tablet 20 mg PO DAILY fluticasone furoate-vilanterol [Breo Ellipta] 200-25 mcg/dose blister with device 1 inh INHALATION DAILY glimepiride 2 mg tablet 2 mg PO BID pantoprazole 40 mg tablet,delayed release (DR/EC) 40 mg PO Q12H fluticasone propionate 50 mcg/actuation spray,suspension 1 spray INTRANASAL Q12H doxycycline monohydrate 100 mg capsule 100 mg PO BID Qty: 30 0RF Date of admission: 10/03/24 16:07 Primary Care Provider: EduShira Admitting Provider: Andry Nicole V. Attending physician on admission: Andry Nicole V. Condition: Stable
[2024-10-08 14:00] VITALS: BP 113/66; PULSE 70; RESP 16; TEMP 36.4; O2SAT 99
== END 2024-10-08 15:24 | disposition home or self-care (01) | DRG 190 ==
LOC: ANHED 10-01 02:58 → ANHIMU 10-01 03:13 → ANH3MEDSUR 10-02 21:45
PROVIDERS: Family Medicine; General Practice; Hospitalist; Internal Medicine Pulmonary Disease; Admitting Provider Internal Medicine; Emergency Provider Emergency Medicine; PCP Nurse Practitioner Family; Visit Provider Internal Medicine
DX: J44.1 Chronic obstructive pulmonary disease with (acute) exacerbation (principal); I50.33 Acute on chronic diastolic (congestive) heart failure; J18.9 Pneumonia, unspecified organism; I24.89 Other forms of acute ischemic heart disease; I82.432 Acute embolism and thrombosis of left popliteal vein; I82.452 Acute embolism and thrombosis of left peroneal vein; J44.0 Chronic obstructive pulmonary disease with (acute) lower respiratory infection; I11.0 Hypertensive heart disease with heart failure; D64.9 Anemia, unspecified; E78.5 Hyperlipidemia, unspecified; I48.0 Paroxysmal atrial fibrillation; I25.10 Atherosclerotic heart disease of native coronary artery without angina pectoris; I73.9 Peripheral vascular disease, unspecified; G47.33 Obstructive sleep apnea (adult) (pediatric); E11.9 Type 2 diabetes mellitus without complications; F17.210 Nicotine dependence, cigarettes, uncomplicated; Z79.01 Long term (current) use of anticoagulants; Z79.84 Long term (current) use of oral hypoglycemic drugs; Z79.4 Long term (current) use of insulin; Z86.711 Personal history of pulmonary embolism; Z95.1 Presence of aortocoronary bypass graft; Z95.0 Presence of cardiac pacemaker
CPT/HCPCS: 36415; 36430; 36600; 71045; 71046; 71275; 80048; 80053; 82104; 82274; 82607; 82728; 82746; 82805; 82948; 83036; 83540; 83550; 83880; 84443; 84466; 84484; 85014; 85018; 85025; 85027; 85046; 85610; 85730; 86850; 86900; 86901; 86923; 93005; 93306; 93970; 94640; 94762; 96361; 96365; 96366; 96374; 96375; 96376; 99285; A9270; G0378; J0456; J0696; J1200; J1644; J1756; J1815; J1940; J2470; J7050; P9016; Q9967

== ENCOUNTER 2024-10-28 14:31 | Inpatient (IN) | payer MEDICARE, SELFPAY ==
--- NOTE | ~2024-10-28 | CT_ITS ---
EXAMINATION: CTA chest PE protocol DATE: 10/28/2024 21:09 CHIEF CONCIERGE INDICATION: Shortness of breath with a history of COPD. Pulmonary embolus suspected clinically TECHNIQUE: Computed tomographic angiography (CTA) of the chest was performed with 100 mL Omnipaque-35 0 intravenous contrast. The dose-length product was 848.17 mGy-cm. Maximum intensity projection 3D-re constructions of the aorta and other arteries were constructed by the technologist on a separate work station. COMPARISON: 10/06/2024 FINDINGS: No filling defects within the main or proximal pulmonary arteries. The main pulmonary artery is not enlarged. The thoracic aorta is nonaneurysmal and without dissection. The heart is enlarged, without pericardial effusion. Redemonstration of a right-sided pleural effusion, partially loculated with adjacent compressive atel ectasis. The loculated portion is best seen on axial series, image 137. The pleural effusion extends into the fissure, also unchanged. Rounded atelectasis is present within the left lower lobe. Within the upper abdomen: Multiple calcifications within the pancreas, consistent with chronic pancreatitis. IMPRESSION: Partially loculated right-sided pleural effusion. Rounded atelectasis within the left lung base. No pulmonary embolus No aortic dissection. Reviewed, dictated and finalized at location A. F CONCIERGE
--- NOTE | ~2024-10-28 | US_ITS ---
EXAMINATION: US venous doppler [facility] DATE: 10/28/2024 17:49 INDICATION: Pain and swelling TECHNIQUE: Grayscale ultrasound images without and with compression and Doppler ultrasound images of the bilateral lower extremity veins were obtained. COMPARISON: None. FINDINGS: The visualized portions of right common femoral vein, profunda (deep) femoral vein, femoral vein, pop liteal vein, peroneal veins, posterior tibial veins, and greater saphenous vein outflow are patent. The visualized portions of left common femoral vein, profunda femoral vein, femoral vein and greater saphenous vein outflow are patent. Redemonstration of thrombus within the left popliteal and gastrocnemius veins, unchanged from 024. IMPRESSION: Redemonstration of patient's known deep venous thrombosis within the left popliteal and gastrocnemius veins, as detailed above. No additional deep venous thrombosis is appreciated. Reviewed, dictated and finalized at location A. AND DECK REMOVER IMPRESSION: Redemonstration of patient's known deep venous thrombosis within the left popli teal and gastrocnemius veins, as detailed above. No additional deep venous thrombosis is appreciated.
--- NOTE | ~2024-10-28 | XR_ITS ---
CHEST RADIOGRAPH, PA AND LATERAL CLINICAL HISTORY: sob . COMPARISON: 10/05/2024 TECHNIQUE: PA and lateral views of the chest. FINDINGS Sternal wires and mediastinal clips are identified, the wires are midline and intact. The left mid lung is partially obscured due to pacemaker generator. Wires project over the right atrium and right ventricle. The remainder of the cardiomediastinal silhouette is otherwise unremarkable. Redemonstration of blunting of the right costophrenic sulcus, suggesting a small right-sided pleural effusion. The remainder of the lungs are clear. IMPRESSION: Small right-sided pleural effusion without focal infiltrate. Reviewed, dictated and finalized at location A. UM EVAPORATION OPERATOR
[2024-10-28 15:00] VITALS: BP 130/73; PULSE 70; RESP 20; TEMP 36.5; O2SAT 99
--- NOTE | 2024-10-28 16:47 | ECG_ITS ---
Test Date: 2024-10-28 17:10:46 Measurements Intervals [place] Rate: 69 P: 0 ID: 0 QRS: -65 QRSD: 214 T: 120 QT: 504 QTc: 543 Interpretive Statements ELECTRONIC VENTRICULAR PACEMAKER ABNORMAL RHYTHM ECG Compared to ECG 10/01/2024 00:02:32 No significant changes Electronically Signed On 10-28-2024 21:43:49 [employer] by Ayan Wilkerson M.D.
--- NOTE | 2024-10-28 16:51 | ED_ITS ---
HPI - SOB/Dyspnea General Chief Complaint: Shortness of Breath/Dyspnea <RUTH Benson Last Filed: 10/28/24 17:01> Stated Complaint: [id number] hx COPD <RUTH Benson Last Filed: 10/28/24 17:01> Time Seen by Provider: 10/28/24 16:51 <RUTH Benson Last Filed: 10/28/24 17:01> Focused HPI: Patient is a 69-year-old male, with PMH of DM, HTN, CHF, COPD, who presents the ED via EMS with report of shortness of breath. Patient reports having increased shortness breath over the last 3 days. States it has been progressively worsening. Worse with any type of exertion. Has been using his inhalers at home without improvement. Has had mild cough and congestion over the last few days , as well as pain and swelling in his bilateral lower legs. Denies fevers or chest pain. States he was seen in the ED for similar symptoms 1 month ago and was admitted to the hospital at that time for congestive heart failure and anemia. He states he received a blood transfusion due to an acute drop in his hemoglobin. He was also taken off of his Xarelto. Not currently on any anticoagulation. Denies any rectal bleeding or melena. GENERAL: Chronically ill, obese with BMI of 37.7, and in no acute distress. HEAD: Normocephalic, atraumatic. CHEST: Clear to auscultation. ?No respiratory distress. No significant focal lung sounds or wheezing. HEART: Regular rate and rhythm.? MSK: Venous stasis changes to BLE. Diffuse swelling and tenderness throughout tello lower legs. Sensation intact. Partial amputation of R foot. NEURO: ?Alert and oriented x3. Patient screened in triage and initial orders placed.? ?Additional care and disposition to be based upon?diagnostic testing and treatment. <RUTH Benson Last Filed: 10/28/24 17:01> Source: patient and old records reviewed <RUTH Benson Last Filed: 10/28/24 17:01> Mode of arrival: EMS <RUTH Benson Last Filed: 10/28/24 17:01> Limitations: no limitations <Tia Gann PA-C - Last Filed: 10/28/24 17:01> History of Present Illness HPI Narrative: Agree with the above note. Also reporting orthopnea and increased lower extremity edema over the past week. States he has been taking his Lasix as directed without improvement. He is urinating. Denies abdominal distension, fever. Is reporting a productive cough for which is increased from baseline. States he smokes 1 pack per day, has been smoking since he was 10 years old. During patient's last admission hi xeralto was discontinued due to a GI bleed which was presumed to be secondary to an ulcer. Per discharge summary, the patient was then found have a DVT during admission and was then started on heparin infusion and transition back to his are also after his hemoglobin was stable. Patient states since his admission he has not been taking his Xarelto because he was told to take it. Patient has pacemaker in place. <Leslye Honeycutt PA-C - Last Filed: 10/28/24 23:11> Related Data Home Medications: Home Medications ?Medication ?Instructions ?Recorded ?Confirmed ?Last Taken ?Type escitalopram oxalate 10 mg tablet 10 mg PO DAILY 09/22/23 10/28/24 11/15/23 09:35 History fenofibrate 160 mg tablet 160 mg PO DAILY 09/22/23 10/28/24 11/15/23 09:35 History furosemide 40 mg tablet 40 mg PO DAILY 09/22/23 10/28/24 11/15/23 09:30 History insulin aspart U-100 100 unit/mL 20 unit subcut TIDWM 09/22/23 10/28/24 09/21/23 History subcutaneous solution (Novolog U-100 Insulin aspart) insulin glargine 100 unit/mL (3 70 unit subcut HS 09/22/23 10/28/24 09/21/23 History mL) subcutaneous pen (Basaglar KwikPen U-100 Insulin) metformin 1,000 mg tablet 1,000 mg PO BIDWM 09/22/23 10/28/24 09/21/23 History metoprolol tartrate 100 mg tablet 100 mg PO BID 09/22/23 10/28/24 11/15/23 09:30 History rivaroxaban 20 mg tablet (Xarelto) 20 mg PO DAILY 09/22/23 10/28/24 09/21/23 History rosuvastatin 20 mg tablet 20 mg PO HS 09/22/23 10/28/24 11/14/23 20:00 History fluticasone furoate 200 1 inh inhalation DAILY 03/22/24 10/28/24 Unknown History mcg-vilanterol 25 mcg/dose inhalation powder (Breo Ellipta) fluticasone propionate 50 1 spray intranasal Q12H 10/01/24 10/28/24 Unknown History mcg/actuation nasal spray,suspension glimepiride 2 mg tablet 2 mg PO BID 10/01/24 10/28/24 Unknown History pantoprazole 40 mg tablet,delayed 40 mg PO Q12H 10/01/24 10/28/24 Unknown History release <Tia Gann PA-C - Last Filed: 10/28/24 17:01> Allergies/Adverse Reactions: Allergies Allergy/AdvReac Type Severity Reaction Status Date / Time No Known Allergies Allergy Verified 10/01/24 03:26 <Tia Gann PA-C - Last Filed: 10/28/24 17:01> Review of Systems 2 Review of Systems: All systems reviewed & are unremarkable except as noted in HPI and below <Leslye Honeycutt PA-C - Last Filed: 10/28/24 23:11> [facility] Past Medical History Medical History: Medical History Acute and chronic respiratory failure Gastric ulcer Acute on chronic anemia Wound dehiscence, external operation Peripheral vascular disease Hypertension Dyslipidemia Atrial fibrillation Pulmonary emboli Tobacco abuse COPD (chronic obstructive pulmonary disease) Pacemaker CAD (coronary artery disease) <Tia Gann PA-C - Last Filed: 10/28/24 17:01> Surgical History Surgical History: Surgical History Hx of CABG <Tia Gann PA-C - Last Filed: 10/28/24 17:01> Family History Family History: Family History Mother Cancer Father Cancer <Tia Gann PA-C - Last Filed: 10/28/24 17:01> Social History Social History: Social History Smoking packs per day: 2 Smoking cigarettes per day: 40.0 Years smoked: 60 Smoking pack-years: 120.00 Smoking status: Current every day smoker Second hand tobacco smoke exposure: No Alcohol intake: never Substance use: never Substance use type: does not use Do You Feel Safe in your Home?: Yes Lack of Transportation: No Lack of Food: Never True Current Housing: I Have Housing Concerned About Future Housing: No Difficulty Paying Gas/Electric Bills: No Difficulty Paying for Meds: No Currently Unemployed: No Education: High School Diploma/GED Difficulty w/ Childcare or Family Care: No Spiritual care concerns: No <Tia Gann PA-C - Last Filed: 10/28/24 17:01> Exam 2 Narrative: GENERAL: Chronically ill appearing, well-nourished, and in no acute distress. HEAD: Normocephalic, atraumatic. EYES: PERRLA and EOMI. ENT: Nares clear, no rhinorrhea or epistaxis. Mucous membranes moist. NECK: Supple. CHEST: Wheezing and rhonchi throughout all lung johnson, no crackles. Patient satting 97% on room air and speaking in full sentences. Coughing on exam HEART: Regular rate and rhythm. No murmur heard. Normal peripheral pulses. ABDOMEN: Soft, nontender, nondistended, normal active bowel sounds. EXTREMITIES: 3+ edema to BLE with venous stasis changes extending to the proximal tibia SKIN: Warm, dry, no rash. NEURO: No focal deficits. Alert and oriented x3 <Leslye Honeycutt PA-C - Last Filed: 10/28/24 23:11> Course CORPORATE FINANCIAL ANALYST/PA Physician Supervision For this patient encounter, I reviewed the CORPORATE FINANCIAL ANALYST or PA documentation, treatment plan, and medical decision making and had [id number] time with this patient. I performed all aspects of the MDM as documented. <Braydon Uriarte MD - Last Filed: 10/28/24 23:34> Vital Signs Vital signs: Vital Signs Temperature 97.7 F 10/28/24 15:00 Pulse Rate 70 10/28/24 15:00 Respiratory Rate 20 10/28/24 15:00 Blood Pressure 130/73 10/28/24 15:00 Pulse Oximetry 99 10/28/24 15:00 Oxygen Delivery Room Air 10/28/24 15:00 Temperature 97.7 F 10/28/24 15:00 Pulse Rate 70 10/28/24 22:20 Respiratory Rate 24 H 10/28/24 22:20 Blood Pressure 148/76 H 10/28/24 20:56 Pulse Oximetry 97 10/28/24 20:56 Oxygen Delivery Room Air 10/28/24 20:59 <Tia Gann PA-C - Last Filed: 10/28/24 17:01> Vital Signs Temperature 97.7 F 10/28/24 15:00 Pulse Rate 70 10/28/24 15:00 Respiratory Rate 20 10/28/24 15:00 Blood Pressure 130/73 10/28/24 15:00 Pulse Oximetry 99 10/28/24 15:00 Oxygen Delivery Room Air 10/28/24 15:00 Temperature 97.7 F 10/28/24 15:00 Pulse Rate 70 10/28/24 22:20 Respiratory Rate 24 H 10/28/24 22:20 Blood Pressure 148/76 H 10/28/24 20:56 Pulse Oximetry 97 10/28/24 20:56 Oxygen Delivery Room Air 10/28/24 20:59 <RUTH Bassett Last Filed: 10/28/24 23:11> Vital Signs Temperature 97.7 F 10/28/24 15:00 Pulse Rate 70 10/28/24 15:00 Respiratory Rate 20 10/28/24 15:00 Blood Pressure 130/73 10/28/24 15:00 Pulse Oximetry 99 10/28/24 15:00 Oxygen Delivery Room Air 10/28/24 15:00 Temperature 97.7 F 10/28/24 15:00 Pulse Rate 70 10/28/24 22:20 Respiratory Rate 24 H 10/28/24 22:20 Blood Pressure 148/76 H 10/28/24 20:56 Pulse Oximetry 97 10/28/24 20:56 Oxygen Delivery Room Air 10/28/24 20:59 <Braydon Uriarte MD - Last Filed: 10/28/24 23:34> MDM - SOB/Dyspnea MDM Narrative Medical decision making narrative: MSE by ABBY in triage. <Tia Gann PA-C - Last Filed: 10/28/24 17:01> MSE by ABBY in triage. 69-year-old male history of DM, hypertension, CHF, COPD, currently smoking 1 pack per day presents to the emergency department for increasing shortness of breath, exertional dyspnea, orthopnea for 3-4 days. Triage vitals stable. Patient is afebrile and nontoxic appearing, chronically ill-appearing. Satting 99% on room air, coughing on exam. Lung sounds with diffuse rhonchi and wheezing. He also has 3+ lower extremity edema bilateral lower extremities which is increased from baseline per patient. Triage workup was remarkable for leukocytosis of 11.7, improving hemoglobin of 9.9 from most recent admission. Chemistries largely unremarkable. Magnesium mildly low 1.5 which is been intravenously repleted. BNP acutely elevated to 4610. Patient was given IV 40 mg Lasix. Vital signs are negative. D-dimer was found to be elevated. Bilateral lower extremity Dopplers revealed redemonstration of patient's known DVT within the left popliteal and gastrocnemius veins, no additional DVT appreciated. CTA chest PE shows partially loculated right-sided pleural effusion, no PE, no aortic dissection. EKG shows electronic ventricular pacemaker. Troponin within normal limits. Viral swabs negative. Patient updated on workup. Presentation is consistent with COPD exacerbation was CHF overlap. He was given DuoNebs and 125 mg of Solu-Medrol. Plan to admit to the hospitalist for diuresis and further management. Discussed with Dr. Nicole who advises consult to general surgery due to concerns for possible need for IVC filter given previously reported melena while on xeralto. Discussed this with Dr. Palacios who feels patient is not a candidate for an IVC filter unless the patient is started on anticoagulants and has findings concerned for GI bleed again. Pt has no sx of GI bleed now. He was given a dose of lovenox in the ED for DVT. Dr. Nicole updated. Agrees to admission. Patient started on antibiotics for COPD, antibiotics were broadened to cefepime, azithromycin and vancomycin given recent hospitalization. <Leslye Honeycutt PA-C - Last Filed: 10/28/24 23:11> Lab Data Result diagrams: 10/28/24 17:09 10/28/24 17:09 <Tia Gann PA-C - Last Filed: 10/28/24 17:01> Labs: Lab Results 10/28/24 10/28/24 Range/Units 17:09 21:31 WBC 11.7 H (4.5-10.0) K/mm3 RBC 4.25 L (4.6-6.20) M/mm3 Hgb 9.9 L (14.0-18.0) g/dL Hct 33.4 L (42.0-52.0) % MCV 78.6 L (80-100) fl MCH 23.3 L (26-34) pg MCHC 29.6 L (32-36) g/dl RDW 22.0 H (11.5-14.5) % Plt Count 332 (150-375) k/mm3 MPV 10.1 (7.4-10.4) fl Immature Gran % (Auto) 0.4 (0-0.5) % Neut % (Auto) 71.9 (45.5-73.1) % Lymph % (Auto) 12.5 L (18.3-44.2) % [place] % (Auto) 8.8 H (2.6-8.5) % Eos % (Auto) 5.4 H (0-4.4) % Baso % (Auto) 1.0 (0.2-1.2) % Lymph # (Auto) 1.47 (0.9-3.2) K/mm3 [place] # (Auto) 1.0 H (0.1-0.6) K/mm3 Eos # (Auto) 0.6 H (0-0.3) K/mm3 Baso # (Auto) 0.1 (0.0-0.1) K/mm3 Abs Immat Gran (auto) 0.05 H (0.00-0.031) K/mm3 Absolute Neuts (auto) 8.4 H (1.3-6.7) K/mm3 Absolute Nucleated RBC 0.000 (0.0-0.012) K/mm3 Nucleated RBC % 0.0 (0.0-0.2) % Platelet Estimate Adequate (Adequate) Hypochromasia 1+ Anisocytosis 3+ Schistocytes None seen PT 15.0 H (11.1-14.7) Seconds INR 1.1 APTT 26.7 (22.3-36.8) Seconds D-Dimer 2.02 H (<0.48) ug/mL Sodium 134 L (137-145) mmol/L Potassium 4.0 (3.4-5.0) mmol/L Chloride 99 (98-107) mmol/L Carbon Dioxide 25 (22-30) mmol/L Anion Gap 10 (4-12) mmol/L BUN 22 H D (9-20) mg/dL Creatinine 0.94 (0.7-1.3) mg/dL Estim Creat Clear Calc 89 ml/min Estimated GFR > 60 (59 - ) Glucose 268 H (65-110) mg/dL Calcium 9.0 (8.4-10.2) mg/dL Magnesium 1.5 L (1.6-2.3) mg/dL Total Bilirubin 0.5 (0.2-1.3) mg/dL AST 17 (17-59) U/L ALT 11 (6-50) U/L Alkaline Phosphatase 43 (38-126) U/L Troponin I 0.013 (0.000-0.034) ng/mL NT-Pro-B Natriuret Pep 4610 H (19.9-100) pg/mL Total Protein 7.0 (6.3-8.2) g/dL Albumin 4.0 (3.5-5.1) g/dL Influenza A (RT-PCR) Negative (Negative) Influenza B (RT-PCR) Negative (Negative) RSV (RT-PCR) Negative (Negative) SARS-CoV-2 RNA (RT-PCR) Negative (Negative) <Tia Gann PA-C - Last Filed: 10/28/24 17:01> Lab Results 10/28/24 10/28/24 Range/Units 17:09 21:31 WBC 11.7 H (4.5-10.0) K/mm3 RBC 4.25 L (4.6-6.20) M/mm3 Hgb 9.9 L (14.0-18.0) g/dL Hct 33.4 L (42.0-52.0) % MCV 78.6 L (80-100) fl MCH 23.3 L (26-34) pg MCHC 29.6 L (32-36) g/dl RDW 22.0 H (11.5-14.5) % Plt Count 332 (150-375) k/mm3 MPV 10.1 (7.4-10.4) fl Immature Gran % (Auto) 0.4 (0-0.5) % Neut % (Auto) 71.9 (45.5-73.1) % Lymph % (Auto) 12.5 L (18.3-44.2) % [place] % (Auto) 8.8 H (2.6-8.5) % Eos % (Auto) 5.4 H (0-4.4) % Baso % (Auto) 1.0 (0.2-1.2) % Lymph # (Auto) 1.47 (0.9-3.2) K/mm3 [place] # (Auto) 1.0 H (0.1-0.6) K/mm3 Eos # (Auto) 0.6 H (0-0.3) K/mm3 Baso # (Auto) 0.1 (0.0-0.1) K/mm3 Abs Immat Gran (auto) 0.05 H (0.00-0.031) K/mm3 Absolute Neuts (auto) 8.4 H (1.3-6.7) K/mm3 Absolute Nucleated RBC 0.000 (0.0-0.012) K/mm3 Nucleated RBC % 0.0 (0.0-0.2) % Platelet Estimate Adequate (Adequate) Hypochromasia 1+ Anisocytosis 3+ Schistocytes None seen PT 15.0 H (11.1-14.7) Seconds INR 1.1 APTT 26.7 (22.3-36.8) Seconds D-Dimer 2.02 H (<0.48) ug/mL Sodium 134 L (137-145) mmol/L Potassium 4.0 (3.4-5.0) mmol/L Chloride 99 (98-107) mmol/L Carbon Dioxide 25 (22-30) mmol/L Anion Gap 10 (4-12) mmol/L BUN 22 H D (9-20) mg/dL Creatinine 0.94 (0.7-1.3) mg/dL Estim Creat Clear Calc 89 ml/min Estimated GFR > 60 (59 - ) Glucose 268 H (65-110) mg/dL Calcium 9.0 (8.4-10.2) mg/dL Magnesium 1.5 L (1.6-2.3) mg/dL Total Bilirubin 0.5 (0.2-1.3) mg/dL AST 17 (17-59) U/L ALT 11 (6-50) U/L Alkaline Phosphatase 43 (38-126) U/L Troponin I 0.013 (0.000-0.034) ng/mL NT-Pro-B Natriuret Pep 4610 H (19.9-100) pg/mL Total Protein 7.0 (6.3-8.2) g/dL Albumin 4.0 (3.5-5.1) g/dL Influenza A (RT-PCR) Negative (Negative) Influenza B (RT-PCR) Negative (Negative) RSV (RT-PCR) Negative (Negative) SARS-CoV-2 RNA (RT-PCR) Negative (Negative) <Leslye Honeycutt PA-C - Last Filed: 10/28/24 23:11> Lab Results 10/28/24 10/28/24 Range/Units 17:09 21:31 WBC 11.7 H (4.5-10.0) K/mm3 RBC 4.25 L (4.6-6.20) M/mm3 Hgb 9.9 L (14.0-18.0) g/dL Hct 33.4 L (42.0-52.0) % MCV 78.6 L (80-100) fl MCH 23.3 L (26-34) pg MCHC 29.6 L (32-36) g/dl RDW 22.0 H (11.5-14.5) % Plt Count 332 (150-375) k/mm3 MPV 10.1 (7.4-10.4) fl Immature Gran % (Auto) 0.4 (0-0.5) % Neut % (Auto) 71.9 (45.5-73.1) % Lymph % (Auto) 12.5 L (18.3-44.2) % [place] % (Auto) 8.8 H (2.6-8.5) % Eos % (Auto) 5.4 H (0-4.4) % Baso % (Auto) 1.0 (0.2-1.2) % Lymph # (Auto) 1.47 (0.9-3.2) K/mm3 [place] # (Auto) 1.0 H (0.1-0.6) K/mm3 Eos # (Auto) 0.6 H (0-0.3) K/mm3 Baso # (Auto) 0.1 (0.0-0.1) K/mm3 Abs Immat Gran (auto) 0.05 H (0.00-0.031) K/mm3 Absolute Neuts (auto) 8.4 H (1.3-6.7) K/mm3 Absolute Nucleated RBC 0.000 (0.0-0.012) K/mm3 Nucleated RBC % 0.0 (0.0-0.2) % Platelet Estimate Adequate (Adequate) Hypochromasia 1+ Anisocytosis 3+ Schistocytes None seen PT 15.0 H (11.1-14.7) Seconds INR 1.1 APTT 26.7 (22.3-36.8) Seconds D-Dimer 2.02 H (<0.48) ug/mL Sodium 134 L (137-145) mmol/L Potassium 4.0 (3.4-5.0) mmol/L Chloride 99 (98-107) mmol/L Carbon Dioxide 25 (22-30) mmol/L Anion Gap 10 (4-12) mmol/L BUN 22 H D (9-20) mg/dL Creatinine 0.94 (0.7-1.3) mg/dL Estim Creat Clear Calc 89 ml/min Estimated GFR > 60 (59 - ) Glucose 268 H (65-110) mg/dL Calcium 9.0 (8.4-10.2) mg/dL Magnesium 1.5 L (1.6-2.3) mg/dL Total Bilirubin 0.5 (0.2-1.3) mg/dL AST 17 (17-59) U/L ALT 11 (6-50) U/L Alkaline Phosphatase 43 (38-126) U/L Troponin I 0.013 (0.000-0.034) ng/mL NT-Pro-B Natriuret Pep 4610 H (19.9-100) pg/mL Total Protein 7.0 (6.3-8.2) g/dL Albumin 4.0 (3.5-5.1) g/dL Influenza A (RT-PCR) Negative (Negative) Influenza B (RT-PCR) Negative (Negative) RSV (RT-PCR) Negative (Negative) SARS-CoV-2 RNA (RT-PCR) Negative (Negative) <Braydon Uriarte MD - Last Filed: 10/28/24 23:34> ABG Data ABG results: 10/28/24 21:30 VBG pH 7.424 H* VBG pCO2 42.9 VBG pO2 50.7 H VBG HCO3 27.5 O2 Delivery Device Nasal cannula O2 Liters/Min 7.0 FiO2 48 <Tia Gann PA-C - Last Filed: 10/28/24 17:01> 10/28/24 21:30 VBG pH 7.424 H* VBG pCO2 42.9 VBG pO2 50.7 H VBG HCO3 27.5 O2 Delivery Device Nasal cannula O2 Liters/Min 7.0 FiO2 48 <Leslye Honeycutt PA-C - Last Filed: 10/28/24 23:11> 10/28/24 21:30 VBG pH 7.424 H* VBG pCO2 42.9 VBG pO2 50.7 H VBG HCO3 27.5 O2 Delivery Device Nasal cannula O2 Liters/Min 7.0 FiO2 48 <Braydon Uriarte MD - Last Filed: 10/28/24 23:34> Discharge Plan Discharge Clinical Impression: Acute exacerbation of chronic obstructive pulmonary disease CHF (congestive heart failure) Qualifiers: Heart failure type: diastolic Heart failure chronicity: acute on chronic Q ualified Code(s): I50.33 - Acute on chronic diastolic (congestive) heart failure DVT (deep venous thrombosis) Qualifiers: DVT location: lower extremity Affected thrombotic vein of extremity: popliteal Chronicity: unspecified Laterality: left Qualified Code(s): I82.432 - Acute embolism and thrombosis of left popliteal vein <RUTH Benson Last Filed: 10/28/24 17:01> Patient Disposition: Still a Patient <RUTH Benson Last Filed: 10/28/24 17:01> Condition: Stable <Tia Gann PA-C - Last Filed: 10/28/24 17:01>
[2024-10-28 17:24] LABS: Basophils Absolute Auto 0.1 K/mm3 (0.0-0.1); Eosinophils Absolute Auto 0.6 K/mm3 (0-0.3); Eosinophils Percent Auto 5.4 % (0-4.4); Hematocrit 33.4 % (42.0-52.0); Hemoglobin 9.9 g/dL (14.0-18.0); Immature Granulocyte Absolute 0.05 K/mm3 (0.00-0.031); Immature Granulocyte Percent A 0.4 % (0-0.5); Lymphocytes Absolute Auto 1.47 K/mm3 (0.9-3.2); Lymphocytes Percent Auto 12.5 % (18.3-44.2); Mean Corpuscular HGB Conc 29.6 g/dl (32-36); Mean Corpuscular Hemoglobin 23.3 pg (26-34); Mean Corpuscular Volume 78.6 fl (80-100); Mean Platelet Volume 10.1 fl (7.4-10.4); Monocytes Percent Auto 8.8 % (2.6-8.5); Neutrophils Absolute Auto 8.4 K/mm3 (1.3-6.7); Neutrophils Percent Auto 71.9 % (45.5-73.1); Platelet Count Result 332 k/mm3 (150-375); Red Blood Count 4.25 M/mm3 (4.6-6.20); White Blood Count 11.7 K/mm3 (4.5-10.0)
[2024-10-28 17:39] LABS: Alanine Aminotransferase 11 U/L (6-50); Alkaline Phosphatase 43 U/L (38-126); Anion Gap 10 mmol/L (4-12); Aspartate Amino Transferase 17 U/L (17-59); Bilirubin,Total 0.5 mg/dL (0.2-1.3); Blood Urea Nitrogen 22 mg/dL (9-20); Carbon Dioxide 25 mmol/L (22-30); Chloride 99 mmol/L (98-107); Estimated CRCL calculation 89 ml/min; Estimated Glomerular Filt Rate > 60; Glucose 268 mg/dL (65-110); Magnesium 1.5 mg/dL (1.6-2.3); Sodium 134 mmol/L (137-145)
[2024-10-28 17:51] LABS: NT Pro B Type Natriuretic Pept 4610 pg/mL (19.9-100); Troponin I 0.013 ng/mL (0.000-0.034)
[2024-10-28 17:56] LABS: Hypochromasia 1+; Platelet Estimate Adequate (Adequate); Schistocytes None Seen
[2024-10-28 17:57] LABS: Anisocytosis 3+
[2024-10-28 18:01] LABS: Influenza A QL RT-PCR Negative (Negative); Influenza B QL RT-PCR Negative (Negative); RSV RNA, RT-PCR Negative (Negative); SARS-CoV-2 RNA PCR Negative (Negative)
[2024-10-28 18:22] LABS: D Dimer 2.02 ug/mL (<0.48)
[2024-10-28] MEDS: MAGNESIUM SULF 2 GM/WATER 50ML 2 GM/50 ML BAG IVPB (20:51)
[2024-10-28 20:56] VITALS: BP 148/76; PULSE 70; RESP 22; O2SAT 97
[2024-10-28] MEDS: IPRATROPIUM 0.5 MG/ALBUTEROL SULFATE 2.5 MG AMPUL.NEB 3 ML INHALATION ×3 (21:18→22:20)
[2024-10-28 21:20] VITALS: PULSE 76; RESP 16
[2024-10-28] MEDS: FUROSEMIDE INJ 40 MG/4 ML VIAL IV PUSH (21:23)
[2024-10-28] MEDS: methylPREDNISolone SOD SUCC 125 MG VIAL IV PUSH (21:23)
[2024-10-28 21:34] LABS: Fractional Inspired Oxygen 48 %; HCO3 VBG 27.5 mEq/l (24.0-30.0); PCO2 VBG 42.9 mmHg (42.0-48.0); PO2 VBG 50.7 mmHg (35.0-45.0)
[2024-10-28 21:36] LABS: Device NASAL CANNULA; pH VBG 7.424 (7.300-7.400)
[2024-10-28 21:55] LABS: INR 1.1; Partial Thromboplastin Time 26.7 Seconds (22.3-36.8)
[2024-10-28 22:20] VITALS: PULSE 70; RESP 24
[2024-10-28] MEDS: AZITHROMYCIN 500 MG/NS 250 ML 500 MG/250 ML BAG 250 MG IVPB (22:55)
[2024-10-28 23:43] VITALS: BP 140/104; PULSE 70; RESP 18; O2SAT 97
[2024-10-29] VITALS (19 sets, daily range): BP systolic 129–153; BP diastolic 45–67; PULSE 69–88; RESP 18–22; TEMP 36.4–36.8; O2SAT 94–97; BMI 35.4
--- NOTE | 2024-10-29 00:05 | ADMGEN ---
This patient, Charly Presley Jr., was admitted to IMU Room 211-01. Patient/family oriented to hospital policies and general routines including ID bracelet, bed and alarms, visiting hours, pain management, procedures, bathroom and other care routines, personal items, smoking policy, room service/diet, and visiting hours. Information on how to activate the Rapid Response Team has been discussed. Patient/Family are encouraged to report perceived risks to care and to ask questions if they do not understand what they are told or what they should do.
--- NOTE | 2024-10-29 00:33 | PCRCNOTE ---
PA canceled ABG and did VBG instead, because PT refused to let RT draw.
[2024-10-29] MEDS: VANCOMYCIN 1,250 MG/NS 250 ML 1,250 MG/250 ML BAG 166.67 MG IVPB ×2 (00:38)
--- NOTE | 2024-10-29 00:54 | PM.IMHP ---
H&P: HPI History of Present Illness Date/Time: 10/29/24 00:54 Chief Complaint: Shortness of breath Narrative: This is a 69-year-old male with past medical history significant for COPD/emphysema, tobacco dependence, deep vein thrombosis, type diabetes mellitus insulin-dependent, atrial fibrillation, pacemaker in place, coronary artery disease status post coronary artery bypass graft, peripheral vascular disease, chronic foot wound. Patient recently discharged from [facility] after he was admitted for COPD exacerbation, heart failure, and DVT. Patient returns today due to shortness of breath, cough productive of yellow sputum, generalized weakness. This has been ongoing for 4-5 days. Preliminary workup was significant for DVT, right-sided pleural effusion, elevated BNP had over 4600, patient tested negative for influenza type A influenza type B COVID and RSV. Patient has been admitted for further evaluation management and treatment. CHEST RADIOGRAPH, PA AND LATERAL CLINICAL HISTORY: sob . COMPARISON: 10/05/2024 TECHNIQUE: PA and lateral views of the chest. FINDINGS Sternal wires and mediastinal clips are identified, the wires are midline and intact. The left mid lung is partially obscured due to pacemaker generator. Wires project over the right atrium and right ventricle. The remainder of the cardiomediastinal silhouette is otherwise unremarkable. Redemonstration of blunting of the right costophrenic sulcus, suggesting a small right-sided pleural effusion. The remainder of the lungs are clear. IMPRESSION: Small right-sided pleural effusion without focal infiltrate. EXAMINATION: US venous doppler LE DATE: 10/28/2024 17:49 INDICATION: Pain and swelling TECHNIQUE: Grayscale ultrasound images without and with compression and Doppler ultrasound images of the bilateral lower extremity veins were obtained. COMPARISON: None. FINDINGS: The visualized portions of right common femoral vein, profunda (deep) femoral vein, femoral vein, popliteal vein, peroneal veins, posterior tibial veins, and greater saphenous vein outflow are patent. The visualized portions of left common femoral vein, profunda femoral vein, femoral vein and greater saphenous vein outflow are patent. Redemonstration of thrombus within the left popliteal and gastrocnemius veins, unchanged from 10/06/2024. IMPRESSION: Redemonstration of patient's known deep venous thrombosis within the left popliteal and gastrocnemius veins, as detailed above. No additional deep venous thrombosis is appreciated. EXAMINATION: CTA chest PE protocol DATE: 10/28/2024 21:09 NERVE SPECIALIST INDICATION: Shortness of breath with a history of COPD. Pulmonary embolus suspected clinically TECHNIQUE: Computed tomographic angiography (CTA) of the chest was performed with 100 mL Omnipaque-350 intravenous contrast. The dose-length product was 848.17 mGy-cm. Maximum intensity projection 3D-reconstructions of the aorta and other arteries were constructed by the technologist on a separate workstation. COMPARISON: 10/06/2024 FINDINGS: No filling defects within the main or proximal pulmonary arteries. The main pulmonary artery is not enlarged. The thoracic aorta is nonaneurysmal and without dissection. The heart is enlarged, without pericardial effusion. Redemonstration of a right-sided pleural effusion, partially loculated with adjacent compressive atelectasis. The loculated portion is best seen on axial series, image 137. The pleural effusion extends into the fissure, also unchanged. Rounded atelectasis is present within the left lower lobe. Within the upper abdomen: Multiple calcifications within the pancreas, consistent with chronic pancreatitis. IMPRESSION: Partially loculated right-sided pleural effusion. Rounded atelectasis within the left lung base. No pulmonary embolus No aortic dissection. Review of Systems Review of Systems: Shortness of breath, leg swelling, cough productive, wheezing, generalized malaise, weakness x5 days [facility] Past Medical History Medical History (Updated 10/29/24 @ 01:54 by Andry Nicole MD) Acute and chronic respiratory failure Gastric ulcer Acute on chronic anemia Wound dehiscence, external operation Peripheral vascular disease Hypertension Dyslipidemia Atrial fibrillation Pulmonary emboli Tobacco abuse COPD (chronic obstructive pulmonary disease) Pacemaker CAD (coronary artery disease) Surgical History Surgical History Hx of CABG Family History Family History Mother Cancer Father Cancer Social History Social History Smoking packs per day: 1 Smoking cigarettes per day: 20.0 Years smoked: 60 Smoking pack-years: 60.00 Smoking status: Current every day smoker Second hand tobacco smoke exposure: No Alcohol intake: never Substance use: never Substance use type: does not use Do You Feel Safe in your Home?: Yes Lack of Transportation: No Lack of Food: Never True Current Housing: I Have Housing Concerned About Future Housing: No Difficulty Paying Gas/Electric Bills: No Difficulty Paying for Meds: No Currently Unemployed: No Education: High School Diploma/GED Difficulty w/ Childcare or Family Care: No Spiritual care concerns: No Meds Home Medications and Allergies Home Medications ?Medication ?Instructions ?Recorded ?Confirmed ?Type escitalopram oxalate 10 mg tablet 10 mg PO DAILY 09/22/23 10/28/24 History fenofibrate 160 mg tablet 160 mg PO DAILY 09/22/23 10/28/24 History furosemide 40 mg tablet 40 mg PO DAILY 09/22/23 10/28/24 History insulin aspart U-100 100 unit/mL 20 unit subcut TIDWM 09/22/23 10/28/24 History subcutaneous solution (Novolog U-100 Insulin aspart) insulin glargine 100 unit/mL (3 70 unit subcut HS 09/22/23 10/28/24 History mL) subcutaneous pen (Basaglar KwikPen U-100 Insulin) metformin 1,000 mg tablet 1,000 mg PO BIDWM 09/22/23 10/28/24 History metoprolol tartrate 100 mg tablet 100 mg PO BID 09/22/23 10/28/24 History rivaroxaban 20 mg tablet (Xarelto) 20 mg PO DAILY 09/22/23 10/28/24 History rosuvastatin 20 mg tablet 20 mg PO HS 09/22/23 10/28/24 History fluticasone furoate 200 1 inh inhalation DAILY 03/22/24 10/28/24 History mcg-vilanterol 25 mcg/dose inhalation powder (Breo Ellipta) fluticasone propionate 50 1 spray intranasal Q12H 10/01/24 10/28/24 History mcg/actuation nasal spray,suspension glimepiride 2 mg tablet 2 mg PO BID 10/01/24 10/28/24 History pantoprazole 40 mg tablet,delayed 40 mg PO Q12H 10/01/24 10/28/24 History release Allergies Allergy/AdvReac Type Severity Reaction Status Date / Time No Known Allergies Allergy Verified 10/01/24 03:26 Vital Signs Vital Signs - 24 hr 10/28/24 15:00 10/28/24 20:56 10/28/24 20:59 Temperature 97.7 F Pulse Rate 70 70 Respiratory Rate 20 22 H Blood Pressure 130/73 148/76 H Pulse Oximetry 99 97 Oxygen Delivery Room Air Room Air Room Air 10/28/24 21:20 10/28/24 22:20 10/28/24 23:43 Temperature Pulse Rate 76 70 70 Respiratory Rate 16 24 H 18 Blood Pressure 140/104 H Pulse Oximetry 97 Oxygen Delivery 10/29/24 00:05 10/29/24 00:15 Temperature 98.2 F Pulse Rate 71 70 Respiratory Rate 22 H 18 Blood Pressure 139/62 Pulse Oximetry 94 97 Oxygen Delivery Room Air Exam Narrative: Patient is laying in a stretcher Const: General: cooperative, comfortable, no acute distress, well developed, alert, awake, ill appearing, tired appearing and overweight Nutritional Appearance: average body habitus Orientation/consciousness: patient oriented x3 HENMT: Head: normal to inspection, normocephalic and atraumatic Ears: hearing grossly normal bilaterally Face/Nose/Sinus: normal facial exam Face and sinus: normal facial exam Eyes: General: appearance normal, both eyes and all related structures Pupils: Equal, round and reactive pupils present EOM: EOMs intact bilaterally Neck: Neck: full ROM, no lymphadenopathy and no JVD Thyroid: thyroid normal Lymphatic: no lymphadenopathy noted Resp: Effort & Inspection: normal respiratory effort and able to speak in complete sentences Auscultation: crackles, wheezes and diminished lung sounds Cardio: Jugular venous distension: no JVD Rate: regular rate Rhythm: regular rhythm Heart sounds: S1 normal heart sound present and S2 normal heart sound present GI: Inspection: obesity and no visible herniation GI Palp: Yes Soft to palpation and Yes No hepatosplenomegaly present : General: Yes deferred Skin: Rashes: no rashes Wounds: wounds noted (Chronic foot ) Neuro: General: patient oriented x3 and CN's II-XI intact bilaterally Cranial nerves: Yes CN's II-XII intact bilaterally and Yes Equal, round and reactive pupils present Cognition (Neuro): normal cognition Speech: normal speech Gait exam (Neuro): Unable to assess gait Motor exam (neuro): 5/5 motor strength present throughout Extrem: General: edema bilateral H&P: Results Labs Labs: Short CBC 10/28/24 Range/Units 17:09 WBC 11.7 H (4.5-10.0) K/mm3 Hgb 9.9 L (14.0-18.0) g/dL Hct 33.4 L (42.0-52.0) % Plt Count 332 (150-375) k/mm3 BMP 10/28/24 17:09 Sodium 134 L Potassium 4.0 Chloride 99 Carbon Dioxide 25 BUN 22 H D Creatinine 0.94 Glucose 268 H Calcium 9.0 Cardiac Enzymes 10/28/24 Range/Units 17:09 Troponin I 0.013 (0.000-0.034) ng/mL Liver Function 10/28/24 Range/Units 17:09 Total Bilirubin 0.5 (0.2-1.3) mg/dL AST 17 (17-59) U/L ALT 11 (6-50) U/L Alkaline Phosphatase 43 (38-126) U/L Albumin 4.0 (3.5-5.1) g/dL Assessment and Plan Assessment and plan (1) Acute on chronic heart failure: Code(s): I50.9 - Heart failure, unspecified Status: Acute Assessment and Plan: Admit to IMU [facility] as needed Daily intake and output 2 g of sodium diet Cardiology consult (2) CAD (coronary artery disease): Code(s): I25.10 - Atherosclerotic heart disease of [place] coronary artery without angina pectoris Status: Acute Assessment and Plan: Chest pain-free (3) Peripheral vascular disease: Code(s): I73.9 - Peripheral vascular disease, unspecified Status: Chronic Assessment and Plan: Stable (4) DVT (deep venous thrombosis): Qualifiers: Affected thrombotic vein of extremity: popliteal Chronicity: unspecified DVT location: lower extremity Laterality: left Qualified Code(s): I82.432 - Acute embolism and thrombosis of left popliteal vein Code(s): I82.409 - Acute embolism and thrombosis of unspecified deep veins of unspecified lower extremity Status: Acute Assessment and Plan: Resume Xarelto (5) Chronic ulcer of left foot with necrosis of muscle: Code(s): L97.523 - Non-pressure chronic ulcer of other part of left foot with necrosis of muscle Status: Chronic Assessment and Plan: Local care (6) Acute and chronic respiratory failure: Code(s): J96.20 - Acute and chronic respiratory failure, unspecified whether with hypoxia or hypercapnia Status: Acute Assessment and Plan: Patient saturating 95% on room air (7) Acute exacerbation of chronic obstructive pulmonary disease: Code(s): J44.1 - Chronic obstructive pulmonary disease with (acute) exacerbation Status: Acute Assessment and Plan: Breathing treatments Systemic steroids Change in sputum quality Started on antibiotics Cultures in progress (8) KIRILL on CPAP: Code(s): G47.33 - Obstructive sleep apnea (adult) (pediatric) Status: Acute Assessment and Plan: CPAP at nighttime (9) Tobacco abuse: Code(s): Z72.0 - Tobacco use Status: Acute Assessment and Plan: Nicotine patch as needed (10) Atrial fibrillation: Code(s): I48.91 - Unspecified atrial fibrillation Status: Acute Assessment and Plan: Rate controlled anticoagulated (11) Pacemaker: Code(s): Z95.0 - Presence of cardiac pacemaker Status: Acute Assessment and Plan: Continue to monitor (12) Pleural effusion: Code(s): J90 - Pleural effusion, not elsewhere classified Status: Acute Assessment and Plan: Diuresing Patient started on nosocomial pneumonia antibiotics as per stewardship Hospitalist MIPS Advance Care Plan I have confirmed that the patient's Advanced Care Plan is present, code status is documented, or surrogate decision maker is listed in patient medical record.: Yes Medication Reconciliation I have utilized all available resources to obtain, update and review the patients current medications (includes all prescriptions, OTC, herbals, cannabis, and nutritional supplements).: Yes
[2024-10-29] MEDS: CEFEPIME 2 GM/NS 50 ML 2 GM/50 ML BAG IVPB ×3 (04:05→21:55)
[2024-10-29 05:25] LABS: Estimated CRCL calculation 86 ml/min; Estimated Glomerular Filt Rate > 60
[2024-10-29] MEDS: methylPREDNISolone SOD SUCC 125 MG VIAL 60 MG IV PUSH ×2 (07:15→13:11)
[2024-10-29 07:55] LABS: Glucose Point of Care 460 mg/dl (65-105)
[2024-10-29] MEDS: INSULIN ASPART (*BKC) 100 UNITS/ML 20 UNITS SUB-Q ×4 (07:57→21:04)
[2024-10-29] MEDS: METOPROLOL TARTRATE 50 MG TAB 100 MG PO ×2 (08:01→20:12)
[2024-10-29] MEDS: RIVAROXABAN 20 MG TABLET PO (08:01)
[2024-10-29] MEDS: ESCITALOPRAM OXALATE 10 MG TABLET PO (08:01)
[2024-10-29] MEDS: PANTOPRAZOLE 40 MG TABLET PO ×2 (08:02→20:13)
[2024-10-29] MEDS: FUROSEMIDE INJ 40 MG/4 ML VIAL IV PUSH ×2 (08:03→20:15)
[2024-10-29] MEDS: IPRATROPIUM 0.5 MG/ALBUTEROL SULFATE 2.5 MG AMPUL.NEB 3 ML INHALATION ×3 (08:55→19:46)
[2024-10-29] MEDS: FLUTICASONE/SALMETEROL 230-21 MCG INHALER 1 PUFF 2 PUFF INHALATION ×2 (08:56→19:46)
--- NOTE | 2024-10-29 09:50 | PM.IMPN ---
Progress Note: A&P Assessment and Plan (1) Acute on chronic heart failure: Code(s): I50.9 - Heart failure, unspecified Status: Acute (2) CAD (coronary artery disease): Code(s): I25.10 - Atherosclerotic heart disease of [place] coronary artery without angina pectoris Status: Acute (3) Peripheral vascular disease: Code(s): I73.9 - Peripheral vascular disease, unspecified Status: Chronic (4) DVT (deep venous thrombosis): Qualifiers: Affected thrombotic vein of extremity: popliteal Chronicity: unspecified DVT location: lower extremity Laterality: left Qualified Code(s): I82.432 - Acute embolism and thrombosis of left popliteal vein Code(s): I82.409 - Acute embolism and thrombosis of unspecified deep veins of unspecified lower extremity Status: Acute (5) Chronic ulcer of left foot with necrosis of muscle: Code(s): L97.523 - Non-pressure chronic ulcer of other part of left foot with necrosis of muscle Status: Chronic (6) Acute and chronic respiratory failure: Code(s): J96.20 - Acute and chronic respiratory failure, unspecified whether with hypoxia or hypercapnia Status: Acute (7) Acute exacerbation of chronic obstructive pulmonary disease: Code(s): J44.1 - Chronic obstructive pulmonary disease with (acute) exacerbation Status: Acute (8) KIRILL on CPAP: Code(s): G47.33 - Obstructive sleep apnea (adult) (pediatric) Status: Acute (9) Tobacco abuse: Code(s): Z72.0 - Tobacco use Status: Acute Assessment and Plan: Nicotine patch as needed (10) Atrial fibrillation: Code(s): I48.91 - Unspecified atrial fibrillation Status: Acute (11) Pacemaker: Code(s): Z95.0 - Presence of cardiac pacemaker Status: Acute (12) Pleural effusion: Code(s): J90 - Pleural effusion, not elsewhere classified Status: Acute Plan This is 69 yo male who presents with shortness of breath, cough productive of yellow sputum, generalised weakness. ongoing for past 4-5 days and progressively worsening. Worse with exertion. He has been using his inhalers at home without improvement. Also reports pain and swelling in bilateral lower extremities. No fever chest pain. He was admitted a month ago for similar symptoms. Was diagnosed with congestive heart failure and anemia. Received blood transfusion during that admission. No rectal bleeding on melena. He reports worsening lower extremity edema out past week. His Xarelto was discontinued due to GI bleed in the last admission however was restarted back once she had a DVT found during that admission. He however has not been taking his Xarelto. Leukocytosis of 11.7 hemoglobin of 9.9. Chem panel unremarkable. Magnesium slow. BNP elevated at 4610. Does influenza, rsv, covid negative. cxr with small right sided pleural effusion without focal infiltrate. venous duplex redemonstrated his known dvt within the left popliteal and gastrocnemius veins. CTA performed showed partially loculated right pleural effusion with adjacent compressive atelectasis. round atelectasis within the left lung base with no PE or aortic dissection. The similar to the appearance in previous CTA done recently EKG with electronic ventricular pacemaker Troponin with normal and BNP elevated. Suspected CHF versus COPD exacerbation Acute on chronic CHF exacerbation diastolic: Received a dose of Lasix in the ER. And remains on IV diuresis COPD exacerbation: duoneb. systemic steroid. antibiotics. As ordered Loculated pleural effusion right: On vancomycin cefepime and azithromycin. CT appearance similar to previous recent CT KIRILL on CPAP tobacco abuse atrial fibrillation: rate controlled. anticoagulated S/p Pacemaker. Type 2 diabetes on insulin Hypertension Hyperlipidemia Coronary artery disease History of peptic ulcer disease and gastric ulcer noted on EGD Chronic anemia Peripheral vascular disease chronic ulcer of left foot continue wound care. DVT prophylaxis on Xarelto Code status code Subjective Date/time seen: 10/29/24 09:50 Interval history: chart reivewed. Continues to complain of shortness of breath. Particularly with exertion. Review of Systems Review of Systems: All systems reviewed & are unremarkable except as noted in HPI and below Exam Narrative: GENERAL: Chronically ill appearing, well-nourished, and in no acute distress. HEAD: Normocephalic, atraumatic. EYES: PERRLA and EOMI. ENT: Nares clear, no rhinorrhea or epistaxis. Mucous membranes moist. NECK: Supple. CHEST: Diminished breath sounds bilaterally prolonged expiration mild rhonchi bilaterally HEART: Regular rate and rhythm. No murmur heard. Normal peripheral pulses. ABDOMEN: Soft, nontender, nondistended, normal active bowel sounds. EXTREMITIES: 3+ edema to BLE with venous stasis changes extending to the proximal tibia SKIN: Warm, dry, no rash. NEURO: No focal deficits. Alert and oriented x3 Objective Data Vital Signs Vital Signs: Vital Signs - 24 hr 10/28/24 15:00 10/28/24 20:56 10/28/24 20:59 Temperature 97.7 F Pulse Rate 70 70 Respiratory Rate 20 22 H Blood Pressure 130/73 148/76 H Pulse Oximetry 99 97 Oxygen Delivery Room Air Room Air Room Air 10/28/24 21:20 10/28/24 22:20 10/28/24 23:43 Temperature Pulse Rate 76 70 70 Respiratory Rate 16 24 H 18 Blood Pressure 140/104 H Pulse Oximetry 97 Oxygen Delivery 10/29/24 00:05 10/29/24 00:15 10/29/24 04:00 Temperature 98.2 F 97.9 F Pulse Rate 71 70 71 Respiratory Rate 22 H 18 18 Blood Pressure 139/62 148/67 H Pulse Oximetry 94 97 94 Oxygen Delivery Room Air 10/29/24 04:00 10/29/24 04:00 10/29/24 06:00 Temperature Pulse Rate 71 70 69 Respiratory Rate 18 Blood Pressure Pulse Oximetry 94 Oxygen Delivery Room Air 10/29/24 07:30 10/29/24 08:01 10/29/24 08:58 Temperature 98.1 F Pulse Rate 70 70 88 Respiratory Rate 20 22 H Blood Pressure 139/58 L Pulse Oximetry 95 Oxygen Delivery 10/29/24 08:58 10/29/24 09:08 Temperature Pulse Rate 72 Respiratory Rate 22 H Blood Pressure Pulse Oximetry 94 Oxygen Delivery Room Air Intake/Output Intake/Output: Intake & Output 10/26/24 10/27/24 10/28/24 10/29/24 23:59 23:59 23:59 23:59 Intake Total 350 670 Output Total 1250 640 Balance -900 30 Meds/Results Medications: Active Medications Generic Name Dose Route Start Last Admin Trade Name Freq PRN Reason Stop Dose Admin Albuterol/Ipratropium 3 ml 10/29/24 02:00 10/29/24 08:55 Ipratropium 0.5 Mg/Albuterol Sulfate 2.5 Mg Ampul.Neb 3 Ml INHALATION 3 ml Q6HRT DANIEL Administration Escitalopram Oxalate 10 mg 10/29/24 09:00 10/29/24 08:01 Escitalopram Oxalate 10 Mg Tablet PO 10 mg DAILY DANIEL Administration Fluticasone Propionate 1 spray 10/29/24 09:00 Fluticasone Propionate 0.05% Na Spr 16 Gm Btl (*Bkc) NASAL Q12HR DANIEL Furosemide 40 mg 10/29/24 09:00 10/29/24 08:03 Furosemide Inj 40 Mg/4 Ml Vial IV PUSH 40 mg Q12HR DANIEL Administration Azithromycin 500 mg in 250 mls @ 250 mls/hr 10/29/24 21:00 Zithromax IVPB Q24H DANIEL Cefepime HCl 2 gm in 50 mls @ 100 mls/hr 10/29/24 06:00 10/29/24 04:35 Maxipime 2 Gm/Ns 50 Ml IVPB Infused Q8HR DANIEL Infusion Vancomycin HCl 1,500 mg in 500 mls @ 250 mls/hr 10/29/24 13:00 Vancomycin 1,500 Mg/Ns 500 Ml IVPB Q12H DANIEL Insulin Aspart 20 units 10/29/24 08:00 10/29/24 07:57 Insulin Aspart (*Bkc) 100 Units/Ml SUB-Q 20 units TIDWM DANIEL Administration Insulin Glargine 70 units 10/29/24 21:00 Insulin Glargine (*Bkc) 100 Units/Ml SUB-Q HS [facility] Methylprednisolone Sodium Succinate 60 mg 10/29/24 06:00 10/29/24 07:15 Methylprednisolone Sod Succ 125 Mg Vial IV PUSH 60 mg Q6HR DANIEL Administration Metoprolol Tartrate 100 mg 10/29/24 09:00 10/29/24 08:01 Metoprolol Tartrate 50 Mg Tab PO 100 mg Q12HR DANIEL Administration Pantoprazole Sodium 40 mg 10/29/24 09:00 10/29/24 08:02 Pantoprazole 40 Mg Tablet PO 40 mg Q12HR DANIEL Administration Rivaroxaban 20 mg 10/29/24 09:00 10/29/24 08:01 Rivaroxaban 20 Mg Tablet PO 20 mg DAILY DANIEL Administration Rosuvastatin Calcium 20 mg 10/29/24 21:00 Rosuvastatin 20 Mg Tablet PO HS DANIEL Fluticasone/Salmeterol 2 puff 10/29/24 08:00 10/29/24 08:56 Fluticasone/Salmeterol 230-21 Mcg Inhaler 1 Puff INHALATION 2 puff Q12HRT DANIEL Administration Radiology Results: ITS Impressions Chest X-Ray 10/28/24 17:49 IMPRESSION: Small right-sided pleural effusion without focal infiltrate. Venous Doppler Study 10/28/24 18:16 IMPRESSION: Redemonstration of patient's known deep venous thrombosis within the left popliteal and gastrocnemius veins, as detailed above. No additional deep venous thrombosis is appreciated. Chest CTA 10/28/24 21:09 IMPRESSION: Partially loculated right-sided pleural effusion. Rounded atelectasis within the left lung base. No pulmonary embolus No aortic dissection. Labs Labs: Laboratory Results - last 24 hr 10/28/24 10/28/24 10/28/24 17:09 21:30 21:31 WBC 11.7 H RBC 4.25 L Hgb 9.9 L Hct 33.4 L MCV 78.6 L MCH 23.3 L MCHC 29.6 L RDW 22.0 H Plt Count 332 MPV 10.1 Immature Gran % (Auto) 0.4 Neut % (Auto) 71.9 Lymph % (Auto) 12.5 L [place] % (Auto) 8.8 H Eos % (Auto) 5.4 H Baso % (Auto) 1.0 Lymph # (Auto) 1.47 [place] # (Auto) 1.0 H Eos # (Auto) 0.6 H Baso # (Auto) 0.1 Abs Immat Gran (auto) 0.05 H Absolute Neuts (auto) 8.4 H Absolute Nucleated RBC 0.000 Nucleated RBC % 0.0 Platelet Estimate Adequate Hypochromasia 1+ Anisocytosis 3+ Schistocytes None seen PT 15.0 H INR 1.1 APTT 26.7 D-Dimer 2.02 H VBG pH 7.424 H* VBG pCO2 42.9 VBG pO2 50.7 H VBG HCO3 27.5 O2 Delivery Device Nasal cannula O2 Liters/Min 7.0 FiO2 48 Sodium 134 L Potassium 4.0 Chloride 99 Carbon Dioxide 25 Anion Gap 10 BUN 22 H D Creatinine 0.94 Estim Creat Clear Calc 89 Estimated GFR > 60 Glucose 268 H POC Capillary Glucose Calcium 9.0 Magnesium 1.5 L Total Bilirubin 0.5 AST 17 ALT 11 Alkaline Phosphatase 43 Troponin I 0.013 NT-Pro-B Natriuret Pep 4610 H Total Protein 7.0 Albumin 4.0 Influenza A (RT-PCR) Negative Influenza B (RT-PCR) Negative RSV (RT-PCR) Negative SARS-CoV-2 RNA (RT-PCR) Negative 10/29/24 10/29/24 04:48 07:33 WBC RBC Hgb Hct MCV MCH MCHC RDW Plt Count MPV Immature Gran % (Auto) Neut % (Auto) Lymph % (Auto) [place] % (Auto) Eos % (Auto) Baso % (Auto) Lymph # (Auto) [place] # (Auto) Eos # (Auto) Baso # (Auto) Abs Immat Gran (auto) Absolute Neuts (auto) Absolute Nucleated RBC Nucleated RBC % Platelet Estimate Hypochromasia Anisocytosis Schistocytes PT INR APTT D-Dimer VBG pH VBG pCO2 VBG pO2 VBG HCO3 O2 Delivery Device O2 Liters/Min FiO2 Sodium Potassium Chloride Carbon Dioxide Anion Gap BUN Creatinine 0.95 Estim Creat Clear Calc 86 Estimated GFR > 60 Glucose POC Capillary Glucose 460 H Calcium Magnesium Total Bilirubin AST ALT Alkaline Phosphatase Troponin I NT-Pro-B Natriuret Pep Total Protein Albumin Influenza A (RT-PCR) Influenza B (RT-PCR) RSV (RT-PCR) SARS-CoV-2 RNA (RT-PCR)
[2024-10-29 12:08] LABS: Glucose Point of Care 436 mg/dl (65-105)
[2024-10-29] MEDS: MAGNESIUM SULF 2 GM/WATER 50ML 2 GM/50 ML BAG IVPB (12:24)
[2024-10-29] MEDS: VANCOMYCIN 1,500 MG/NS 500 ML 1,500 MG/500 ML BAG 250 MG IVPB (14:36)
--- NOTE | 2024-10-29 16:22 | PC.NURSE ---
Pt transferred to room 300 via wheelchair
[2024-10-29] MEDS: methylPREDNISolone SOD SUCC 40 MG VIAL IV PUSH (18:23)
[2024-10-29 18:34] LABS: Glucose Point of Care 497 mg/dl (65-105)
[2024-10-29] MEDS: ROSUVASTATIN 20 MG TABLET PO (20:13)
[2024-10-29] MEDS: FLUTICASONE PROPIONATE 0.05% NA SPR 16 GM BTL (*BKC) 1 SPRAY NASAL (20:15)
[2024-10-29] MEDS: AZITHROMYCIN 500 MG/NS 250 ML 500 MG/250 ML BAG 250 MG IVPB (20:20)
[2024-10-29] MEDS: INSULIN GLARGINE (*BKC) 100 UNITS/ML 70 UNITS SUB-Q (21:01)
[2024-10-29 22:13] LABS: Glucose Point of Care 495 mg/dl (65-105)
[2024-10-30] VITALS (19 sets, daily range): BP systolic 145–157; BP diastolic 61–72; PULSE 69–72; RESP 16–22; TEMP 35.7–36.5; O2SAT 94–97
[2024-10-30 00:29] LABS: Glucose Point of Care 341 mg/dl (65-105)
--- NOTE | 2024-10-30 00:31 | PC.NURSE ---
I called and left a message with AYLEEN Rudolph about repeat glucose of 341. Previous glucose was 495 and Pt. was given Lantus 70 units along with Novolog 20 units at bedtime.
[2024-10-30] MEDS: VANCOMYCIN 1,500 MG/NS 500 ML 1,500 MG/500 ML BAG 250 MG IVPB (01:09)
[2024-10-30] MEDS: IPRATROPIUM 0.5 MG/ALBUTEROL SULFATE 2.5 MG AMPUL.NEB 3 ML INHALATION ×4 (01:39→21:30)
[2024-10-30] MEDS: methylPREDNISolone SOD SUCC 40 MG VIAL IV PUSH ×2 (05:00→18:05)
[2024-10-30] MEDS: CEFEPIME 2 GM/NS 50 ML 2 GM/50 ML BAG IVPB ×3 (05:00→23:17)
[2024-10-30 06:37] LABS: Basophils Percent Auto 0.2 % (0.2-1.2); Eosinophils Percent Auto 0.2 % (0-4.4); Hematocrit 32.4 % (42.0-52.0); Hemoglobin 9.8 g/dL (14.0-18.0); Immature Granulocyte Percent A 0.8 % (0-0.5); Lymphocytes Absolute Auto 0.64 K/mm3 (0.9-3.2); Lymphocytes Percent Auto 5.3 % (18.3-44.2); Mean Corpuscular HGB Conc 30.2 g/dl (32-36); Mean Corpuscular Hemoglobin 23.6 pg (26-34); Mean Corpuscular Volume 78.1 fl (80-100); Mean Platelet Volume 10.4 fl (7.4-10.4); Monocytes Absolute Auto 0.8 K/mm3 (0.1-0.6); Monocytes Percent Auto 6.2 % (2.6-8.5); Neutrophils Absolute Auto 10.5 K/mm3 (1.3-6.7); Neutrophils Percent Auto 87.3 % (45.5-73.1); Platelet Count Result 314 k/mm3 (150-375); Red Blood Count 4.15 M/mm3 (4.6-6.20); Red Cell Distribution Width 22.5 % (11.5-14.5)
[2024-10-30 06:49] LABS: Alanine Aminotransferase 10 U/L (6-50); Albumin Level 3.7 g/dL (3.5-5.1); Alkaline Phosphatase 39 U/L (38-126); Anion Gap 9 mmol/L (4-12); Aspartate Amino Transferase 14 U/L (17-59); Bilirubin,Total 0.6 mg/dL (0.2-1.3); Blood Urea Nitrogen 32 mg/dL (9-20); Calcium 8.3 mg/dL (8.4-10.2); Carbon Dioxide 28 mmol/L (22-30); Chloride 99 mmol/L (98-107); Estimated CRCL calculation 71 ml/min; Estimated Glomerular Filt Rate > 60; Glucose 320 mg/dL (65-110); Magnesium 2.3 mg/dL (1.6-2.3); Potassium 4.1 mmol/L (3.4-5.0); Sodium 136 mmol/L (137-145)
[2024-10-30 07:05] LABS: Hypochromasia 1+; Platelet Estimate Adequate (Adequate)
[2024-10-30 07:07] LABS: Anisocytosis 2+; Ovalocytes 1+; Schistocytes None Seen
[2024-10-30] MEDS: ESCITALOPRAM OXALATE 10 MG TABLET PO (08:04)
[2024-10-30] MEDS: FUROSEMIDE INJ 40 MG/4 ML VIAL IV PUSH ×2 (08:05→20:34)
[2024-10-30] MEDS: PANTOPRAZOLE 40 MG TABLET PO ×2 (08:05→20:35)
[2024-10-30] MEDS: RIVAROXABAN 20 MG TABLET PO (08:05)
[2024-10-30] MEDS: FLUTICASONE/SALMETEROL 230-21 MCG INHALER 1 PUFF 2 PUFF INHALATION ×2 (08:05→21:30)
[2024-10-30] MEDS: METOPROLOL TARTRATE 50 MG TAB 100 MG PO ×2 (08:05→20:35)
[2024-10-30] MEDS: INSULIN ASPART (*BKC) 100 UNITS/ML 20 UNITS SUB-Q ×3 (08:06→18:05)
[2024-10-30] MEDS: INSULIN ASPART (*BKC) 100 UNITS/ML SUB-Q ×4 (08:07→20:43)
[2024-10-30 08:11] LABS: Glucose Point of Care 333 mg/dl (65-105)
[2024-10-30] MEDS: FLUTICASONE PROPIONATE 0.05% NA SPR 16 GM BTL (*BKC) 1 SPRAY NASAL ×2 (08:12→20:34)
--- NOTE | 2024-10-30 10:47 | P.PNIM_ITS ---
Progress Note: A&P Assessment and Plan (1) Acute on chronic heart failure: Code(s): I50.9 - Heart failure, unspecified Status: Acute Assessment and Plan: * Lasix 40 mg IVP BID. * BNP 4610. (2) CAD (coronary artery disease): Code(s): I25.10 - Atherosclerotic heart disease of [place] coronary artery without angina pectoris Status: Acute Assessment and Plan: * Rosuvastatin 20 mg PO HS (3) DVT (deep venous thrombosis): Qualifiers: Affected thrombotic vein of extremity: popliteal Chronicity: unspecified DVT location: lower extremity Laterality: left Qualified Code(s): I82.432 - Acute embolism and thrombosis of left popliteal vein Code(s): I82.409 - Acute embolism and thrombosis of unspecified deep veins of unspecified lower extremity Status: Acute Assessment and Plan: * He reports worsening lower extremity edema out past week. His Xarelto was discontinued due to GI bleed in the last admission however was restarted back once she had a DVT found during that admission. He however has not been taking his Xarelto. * venous duplex redemonstrated his known dvt within the left popliteal and gastrocnemius veins. * Xarelto 20 mg PO daily. (4) Acute and chronic respiratory failure: Code(s): J96.20 - Acute and chronic respiratory failure, unspecified whether with hypoxia or hypercapnia Status: Acute Assessment and Plan: * Covid, Flu, RSV negative. (5) Pleural effusion: Code(s): J90 - Pleural effusion, not elsewhere classified Status: Acute Assessment and Plan: * cxr with small right sided pleural effusion without focal infiltrate. * CTA performed showed partially loculated right pleural effusion with adjacent compressive atelectasis. round atelectasis within the left lung base with no PE or aortic dissection. * Pulmonary consult * Azithromycin, Vancomycin, and Cefepime. (6) Acute exacerbation of chronic obstructive pulmonary disease: Code(s): J44.1 - Chronic obstructive pulmonary disease with (acute) exacerbation Status: Acute Assessment and Plan: * duoneb, steroid, antibiotics. (7) KIRILL on CPAP: Code(s): G47.33 - Obstructive sleep apnea (adult) (pediatric) Status: Acute Assessment and Plan: * CPAP (8) Atrial fibrillation: Code(s): I48.91 - Unspecified atrial fibrillation Status: Acute Assessment and Plan: * Xarelto * Metoprolol 100 mg PO q 12. (9) Peripheral vascular disease: Code(s): I73.9 - Peripheral vascular disease, unspecified Status: Chronic Assessment and Plan: * Rosuvastatin 20 mg PO HS (10) Pacemaker: Code(s): Z95.0 - Presence of cardiac pacemaker Status: Acute Assessment and Plan: * EKG with electronic ventricular pacemaker (11) Tobacco abuse: Code(s): Z72.0 - Tobacco use Status: Acute Assessment and Plan: * Nicotine patch as needed (12) Venous stasis dermatitis of both lower extremities: Code(s): I87.2 - Venous insufficiency (chronic) (peripheral) Status: Acute Assessment and Plan: * Eucerin cream. * Monitor for wounds. Subjective Date/time seen: 10/30/24 10:47 Interval history: Patient sitting up in bed. Patient denies chest pain, palpitations, headache, dizziness, nausea, or vomiting. Patient asking for more ice, patient is on a 1500 ml fluid restriction. Review of Systems Review of Systems: All systems reviewed & are unremarkable except as noted in HPI and below Exam Const: General: comfortable and no acute distress Resp: Auscultation: diminished lung sounds Cardio: Rate: regular rate Rhythm: regular rhythm GI: GI Palp: Yes Soft to palpation Auscultation: normal bowel sounds Neuro: Speech: normal speech Extrem: General: pedal edema (1+. Venous stasis bilateral legs. ) bilaterally Objective Data Vital Signs Vital Signs: Vital Signs - 24 hr 10/29/24 12:00 10/29/24 13:33 10/29/24 13:42 Temperature Pulse Rate 70 69 70 Respiratory Rate 20 20 Blood Pressure Pulse Oximetry Oxygen Delivery Oxygen Flow Rate 10/29/24 14:00 10/29/24 16:00 10/29/24 16:00 Temperature 97.5 F L Pulse Rate 75 78 70 Respiratory Rate 22 H Blood Pressure 129/45 L Pulse Oximetry 96 Oxygen Delivery Oxygen Flow Rate 10/29/24 19:50 10/29/24 19:50 10/29/24 20:00 Temperature Pulse Rate 69 Respiratory Rate 20 Blood Pressure Pulse Oximetry 96 94 Oxygen Delivery Nasal Cannula Nasal Cannula Oxygen Flow Rate 2 1 10/29/24 20:00 10/29/24 20:00 10/29/24 20:00 Temperature Pulse Rate 70 70 Respiratory Rate 20 Blood Pressure Pulse Oximetry 94 Oxygen Delivery Nasal Cannula Oxygen Flow Rate 1 10/29/24 20:12 10/29/24 20:25 10/30/24 00:00 Temperature 98.1 F Pulse Rate 70 70 72 Respiratory Rate 18 Blood Pressure 153/67 H Pulse Oximetry 97 Oxygen Delivery Oxygen Flow Rate 10/30/24 00:50 10/30/24 01:40 10/30/24 01:48 Temperature 97.3 F L Pulse Rate 70 69 69 Respiratory Rate 16 20 20 Blood Pressure 150/62 H Pulse Oximetry 94 Oxygen Delivery Oxygen Flow Rate 10/30/24 04:00 10/30/24 04:55 10/30/24 08:00 Temperature 96.5 F L 96.3 F L Pulse Rate 70 70 70 Respiratory Rate 18 20 Blood Pressure 157/72 H 145/69 H Pulse Oximetry 97 97 Oxygen Delivery Oxygen Flow Rate 10/30/24 08:00 10/30/24 08:00 10/30/24 08:05 Temperature Pulse Rate 69 70 Respiratory Rate Blood Pressure Pulse Oximetry 96 Oxygen Delivery Nasal Cannula Oxygen Flow Rate 1 10/30/24 08:05 10/30/24 08:05 10/30/24 08:12 Temperature Pulse Rate 71 69 Respiratory Rate 20 20 Blood Pressure Pulse Oximetry 96 Oxygen Delivery Nasal Cannula Oxygen Flow Rate 1 Intake/Output Intake/Output: Intake & Output 10/27/24 10/28/24 10/29/24 10/30/24 23:59 23:59 23:59 23:59 Intake Total 350 2390 1400 Output Total 1250 2240 1875 Balance -900 150 -475 Meds/Results Medications: Active Medications Generic Name Dose Route Start Last Admin Trade Name Freq PRN Reason Stop Dose Admin Albuterol/Ipratropium 3 ml 10/29/24 02:00 10/30/24 08:05 Ipratropium 0.5 Mg/Albuterol Sulfate 2.5 Mg Ampul.Neb 3 Ml INHALATION 3 ml Q6HRT DANIEL Administration Dextrose 12.5 gm 10/29/24 17:23 Dextrose 50% 25 Gm/50 Ml Syringe IV PUSH PRN PRN Hypoglycemia Protocol Escitalopram Oxalate 10 mg 10/29/24 09:00 10/30/24 08:04 Escitalopram Oxalate 10 Mg Tablet PO 10 mg DAILY DANIEL Administration Fluticasone Propionate 1 spray 10/29/24 09:00 10/30/24 08:12 Fluticasone Propionate 0.05% Na Spr 16 Gm Btl (*Bkc) NASAL 1 spray Q12HR DANIEL Administration Furosemide 40 mg 10/29/24 09:00 10/30/24 08:05 Furosemide Inj 40 Mg/4 Ml Vial IV PUSH 40 mg Q12HR DANIEL Administration Glucagon 1 mg 10/29/24 17:23 Glucagon For Inj 1 Mg Vial IM PRN PRN Hypoglycemia Protocol Glucose 15 gm 10/29/24 17:23 Glucose Oral Gel 15 Gm Of Glucse In 37.5 Gm Tube PO PRN PRN Hypoglycemia Protocol Azithromycin 500 mg in 250 mls @ 250 mls/hr 10/29/24 21:00 10/29/24 20:21 Zithromax IVPB Infused Q24H DANIEL Infusion Cefepime HCl 2 gm in 50 mls @ 100 mls/hr 10/29/24 06:00 10/30/24 05:00 Maxipime 2 Gm/Ns 50 Ml IVPB 100 mls/hr Q8HR DANIEL Administration Vancomycin HCl 1,500 mg in 500 mls @ 250 mls/hr 10/29/24 13:00 10/30/24 03:09 Vancomycin 1,500 Mg/Ns 500 Ml IVPB Infused Q12H DANIEL Infusion Dextrose 1,000 mls @ 100 mls/hr 10/29/24 17:23 Dextrose 5% 1,000 Ml IVPB PRN PRN Hypoglycemia Protocol Insulin Aspart 20 units 10/29/24 08:00 10/30/24 08:06 Insulin Aspart (*Bkc) 100 Units/Ml SUB-Q 20 units TIDWM DANIEL Administration Insulin Aspart 2 - 5 units 10/30/24 08:00 10/30/24 08:07 Insulin Aspart (*Bkc) 100 Units/Ml SUB-Q 4 units TIDWM DANIEL Administration Protocol Insulin Aspart 1 - 2 units 10/29/24 21:00 10/29/24 21:01 Insulin Aspart (*Bkc) 100 Units/Ml SUB-Q Not Given HS DANIEL Protocol Insulin Glargine 70 units 10/29/24 21:00 10/29/24 21:01 Insulin Glargine (*Bkc) 100 Units/Ml SUB-Q 70 units HS DANIEL Administration Methylprednisolone Sodium Succinate 40 mg 10/29/24 18:00 10/30/24 05:00 Methylprednisolone Sod Succ 40 Mg Vial IV PUSH 40 mg Q12H DANIEL Administration Metoprolol Tartrate 100 mg 10/29/24 09:00 10/30/24 08:05 Metoprolol Tartrate 50 Mg Tab PO 100 mg Q12HR DANIEL Administration Pantoprazole Sodium 40 mg 10/29/24 09:00 10/30/24 08:05 Pantoprazole 40 Mg Tablet PO 40 mg Q12HR DANIEL Administration Rivaroxaban 20 mg 10/29/24 09:00 10/30/24 08:05 Rivaroxaban 20 Mg Tablet PO 20 mg DAILY DANIEL Administration Rosuvastatin Calcium 20 mg 10/29/24 21:00 10/29/24 20:13 Rosuvastatin 20 Mg Tablet PO 20 mg HS DANIEL Administration Fluticasone/Salmeterol 2 puff 10/29/24 08:00 10/30/24 08:05 Fluticasone/Salmeterol 230-21 Mcg Inhaler 1 Puff INHALATION 2 puff Q12HRT DANIEL Administration Radiology Results: ITS Impressions Chest X-Ray 10/28/24 17:49 IMPRESSION: Small right-sided pleural effusion without focal infiltrate. Venous Doppler Study 10/28/24 18:16 IMPRESSION: Redemonstration of patient's known deep venous thrombosis within the left popliteal and gastrocnemius veins, as detailed above. No additional deep venous thrombosis is appreciated. Chest CTA 10/28/24 21:09 IMPRESSION: Partially loculated right-sided pleural effusion. Rounded atelectasis within the left lung base. No pulmonary embolus No aortic dissection. Labs Labs: Laboratory Results - last 24 hr 10/29/24 10/29/24 10/29/24 11:41 18:29 20:24 WBC RBC Hgb Hct MCV MCH MCHC RDW Plt Count MPV Immature Gran % (Auto) Neut % (Auto) Lymph % (Auto) [place] % (Auto) Eos % (Auto) Baso % (Auto) Lymph # (Auto) [place] # (Auto) Eos # (Auto) Baso # (Auto) Abs Immat Gran (auto) Absolute Neuts (auto) Absolute Nucleated RBC Nucleated RBC % Platelet Estimate Hypochromasia Anisocytosis Ovalocytes Schistocytes Sodium Potassium Chloride Carbon Dioxide Anion Gap BUN Creatinine Estim Creat Clear Calc Estimated GFR Glucose POC Capillary Glucose 436 H 497 H 495 H Calcium Magnesium Total Bilirubin AST ALT Alkaline Phosphatase Total Protein Albumin 10/30/24 10/30/24 10/30/24 00:26 05:56 08:09 WBC 12.0 H RBC 4.15 L Hgb 9.8 L Hct 32.4 L MCV 78.1 L MCH 23.6 L MCHC 30.2 L RDW 22.5 H Plt Count 314 MPV 10.4 Immature Gran % (Auto) 0.8 H Neut % (Auto) 87.3 H Lymph % (Auto) 5.3 L [place] % (Auto) 6.2 Eos % (Auto) 0.2 Baso % (Auto) 0.2 Lymph # (Auto) 0.64 L [place] # (Auto) 0.8 H Eos # (Auto) 0.0 Baso # (Auto) 0.0 Abs Immat Gran (auto) 0.10 H Absolute Neuts (auto) 10.5 H Absolute Nucleated RBC 0.000 Nucleated RBC % 0.0 Platelet Estimate Adequate Hypochromasia 1+ Anisocytosis 2+ Ovalocytes 1+ Schistocytes None seen Sodium 136 L Potassium 4.1 Chloride 99 Carbon Dioxide 28 Anion Gap 9 BUN 32 H D Creatinine 1.13 Estim Creat Clear Calc 71 Estimated GFR > 60 Glucose 320 H POC Capillary Glucose 341 H 333 H Calcium 8.3 L Magnesium 2.3 Total Bilirubin 0.6 AST 14 L ALT 10 Alkaline Phosphatase 39 Total Protein 7.0 Albumin 3.7 Quality VTE Prophylaxis VTE prophylaxis: pharmacologic ordered
[2024-10-30 11:52] LABS: Glucose Point of Care 328 mg/dl (65-105)
[2024-10-30 12:54] LABS: Vancomycin Trough 12.7 ug/mL (10.0-20.0)
[2024-10-30] MEDS: VANCOMYCIN 2,000 MG/NS 500 ML 2,000 MG/500 ML BAG 250 MG IVPB (15:51)
--- NOTE | 2024-10-30 16:27 | PC.NURSE ---
lost IV access. unable to give iv abx on time. this rn called and informed pharmacy. this nurse started abx when we had iv access
[2024-10-30 16:54] LABS: Glucose Point of Care 221 mg/dl (65-105)
[2024-10-30] MEDS: ROSUVASTATIN 20 MG TABLET PO (20:34)
[2024-10-30] MEDS: INSULIN GLARGINE (*BKC) 100 UNITS/ML 70 UNITS SUB-Q (20:42)
[2024-10-30] MEDS: AZITHROMYCIN 500 MG/NS 250 ML 500 MG/250 ML BAG 250 MG IVPB (20:46)
[2024-10-30 21:18] LABS: Glucose Point of Care 240 mg/dl (65-105)
[2024-10-31] VITALS (13 sets, daily range): BP systolic 107–164; BP diastolic 50–77; PULSE 63–80; RESP 16–20; TEMP 35.7–36.4; O2SAT 93–97
[2024-10-31] MEDS: IPRATROPIUM 0.5 MG/ALBUTEROL SULFATE 2.5 MG AMPUL.NEB 3 ML INHALATION ×3 (03:00→14:10)
[2024-10-31] MEDS: VANCOMYCIN 2,000 MG/NS 500 ML 2,000 MG/500 ML BAG 250 MG IVPB (03:05)
[2024-10-31] MEDS: methylPREDNISolone SOD SUCC 40 MG VIAL IV PUSH (06:02)
[2024-10-31 06:17] LABS: Basophils Percent Auto 0.1 % (0.2-1.2); Eosinophils Percent Auto 0.1 % (0-4.4); Hematocrit 33.6 % (42.0-52.0); Hemoglobin 9.8 g/dL (14.0-18.0); Immature Granulocyte Percent A 0.8 % (0-0.5); Lymphocytes Absolute Auto 0.76 K/mm3 (0.9-3.2); Lymphocytes Percent Auto 6.4 % (18.3-44.2); Mean Corpuscular HGB Conc 29.2 g/dl (32-36); Mean Corpuscular Hemoglobin 22.9 pg (26-34); Mean Corpuscular Volume 78.5 fl (80-100); Mean Platelet Volume 10.4 fl (7.4-10.4); Monocytes Absolute Auto 0.9 K/mm3 (0.1-0.6); Monocytes Percent Auto 7.7 % (2.6-8.5); Neutrophils Absolute Auto 10.1 K/mm3 (1.3-6.7); Neutrophils Percent Auto 84.9 % (45.5-73.1); Platelet Count Result 290 k/mm3 (150-375); Red Blood Count 4.28 M/mm3 (4.6-6.20); Red Cell Distribution Width 22.5 % (11.5-14.5); White Blood Count 11.9 K/mm3 (4.5-10.0)
[2024-10-31 06:26] LABS: Alanine Aminotransferase 11 U/L (6-50); Albumin Level 3.8 g/dL (3.5-5.1); Alkaline Phosphatase 39 U/L (38-126); Anion Gap 7 mmol/L (4-12); Aspartate Amino Transferase 15 U/L (17-59); Bilirubin,Total 0.6 mg/dL (0.2-1.3); Blood Urea Nitrogen 31 mg/dL (9-20); Calcium 8.7 mg/dL (8.4-10.2); Carbon Dioxide 30 mmol/L (22-30); Chloride 100 mmol/L (98-107); Estimated CRCL calculation 81 ml/min; Estimated Glomerular Filt Rate > 60; Glucose 201 mg/dL (65-110); Sodium 137 mmol/L (137-145)
[2024-10-31 07:38] LABS: Hypochromasia 2+; Platelet Estimate Adequate (Adequate); Polychromasia 1+
[2024-10-31 07:39] LABS: Anisocytosis 2+; Ovalocytes 1+; Schistocytes None Seen
[2024-10-31 08:26] LABS: Glucose Point of Care 210 mg/dl (65-105)
[2024-10-31] MEDS: FLUTICASONE/SALMETEROL 230-21 MCG INHALER 1 PUFF 2 PUFF INHALATION (08:50)
[2024-10-31] MEDS: EUCERIN CREAM 120 GM JAR 1 APPLIC TOPICAL (09:29)
[2024-10-31] MEDS: CEFEPIME 2 GM/NS 50 ML 2 GM/50 ML BAG IVPB (09:30)
[2024-10-31] MEDS: METOPROLOL TARTRATE 50 MG TAB 100 MG PO (09:30)
[2024-10-31] MEDS: PANTOPRAZOLE 40 MG TABLET PO (09:30)
[2024-10-31] MEDS: FUROSEMIDE INJ 40 MG/4 ML VIAL IV PUSH (09:30)
[2024-10-31] MEDS: ESCITALOPRAM OXALATE 10 MG TABLET PO (09:30)
[2024-10-31] MEDS: INSULIN ASPART (*BKC) 100 UNITS/ML 20 UNITS SUB-Q ×2 (09:31→12:48)
[2024-10-31] MEDS: INSULIN ASPART (*BKC) 100 UNITS/ML SUB-Q ×2 (09:32→12:48)
[2024-10-31] MEDS: RIVAROXABAN 20 MG TABLET PO (09:34)
[2024-10-31] MEDS: FLUTICASONE PROPIONATE 0.05% NA SPR 16 GM BTL (*BKC) 1 SPRAY NASAL (09:35)
--- NOTE | 2024-10-31 11:24 | PM.IMPN ---
Subjective Date/time seen: 10/31/24 11:24 Review of Systems Review of Systems: All systems reviewed & are unremarkable except as noted in HPI and below Objective Data Vital Signs Vital Signs: Vital Signs - 24 hr 10/30/24 12:00 10/30/24 12:00 10/30/24 13:37 Temperature 97.1 F L Pulse Rate 70 71 Respiratory Rate 22 H Blood Pressure 154/64 H Pulse Oximetry 94 94 Oxygen Delivery Room Air 10/30/24 13:37 10/30/24 13:49 10/30/24 16:00 Temperature 97.7 F Pulse Rate 70 70 70 Respiratory Rate 20 20 18 Blood Pressure 148/62 H Pulse Oximetry 95 Oxygen Delivery 10/30/24 16:00 10/30/24 19:52 10/30/24 20:00 Temperature 97.2 F L Pulse Rate 70 70 Respiratory Rate 18 Blood Pressure 153/61 H Pulse Oximetry 95 Oxygen Delivery Room Air 10/30/24 20:00 10/30/24 20:35 10/30/24 21:30 Temperature Pulse Rate 70 70 69 Respiratory Rate 20 Blood Pressure Pulse Oximetry Oxygen Delivery 10/30/24 21:51 10/30/24 22:07 10/31/24 00:00 Temperature Pulse Rate 70 70 Respiratory Rate 20 Blood Pressure Pulse Oximetry 97 Oxygen Delivery Room Air 10/31/24 00:00 10/31/24 03:00 10/31/24 03:10 Temperature 97.2 F L Pulse Rate 80 70 72 Respiratory Rate 17 20 20 Blood Pressure 107/50 L Pulse Oximetry 93 Oxygen Delivery 10/31/24 04:00 10/31/24 04:00 10/31/24 08:00 Temperature 97.5 F L 96.3 F L Pulse Rate 69 70 72 Respiratory Rate 16 20 Blood Pressure 157/72 H 164/77 H Pulse Oximetry 97 97 Oxygen Delivery 10/31/24 08:02 10/31/24 08:51 10/31/24 08:51 Temperature Pulse Rate 70 69 69 Respiratory Rate 20 20 Blood Pressure Pulse Oximetry 97 Oxygen Delivery Room Air 10/31/24 09:00 10/31/24 09:30 10/31/24 09:30 Temperature Pulse Rate 63 63 Respiratory Rate 20 Blood Pressure Pulse Oximetry Oxygen Delivery Room Air Intake/Output Intake/Output: Intake & Output 10/28/24 10/29/24 10/30/2425 23:59 23:59 23:59 23:59 Intake Total 350 2390 2780 910 Output Total 6504 3191 3076 2307 Balance -900 198 -544 -0151 Meds/Results Medications: Active Medications Generic Name Dose Route Start Last Admin Trade Name Freq PRN Reason Stop Dose Admin Albuterol/Ipratropium 3 ml 10/29/24 02:00 10/31/24 08:50 Ipratropium 0.5 Mg/Albuterol Sulfate 2.5 Mg Ampul.Neb 3 Ml INHALATION 3 ml Q6HRT DANIEL Administration Dextrose 12.5 gm 10/29/24 17:23 Dextrose 50% 25 Gm/50 Ml Syringe IV PUSH PRN PRN Hypoglycemia Protocol Escitalopram Oxalate 10 mg 10/29/24 09:00 10/31/24 09:30 Escitalopram Oxalate 10 Mg Tablet PO 10 mg DAILY DANIEL Administration Fluticasone Propionate 1 spray 10/29/24 09:00 10/31/24 09:35 Fluticasone Propionate 0.05% Na Spr 16 Gm Btl (*Bkc) NASAL 1 spray Q12HR DANIEL Administration Furosemide 40 mg 10/29/24 09:00 10/31/24 09:30 Furosemide Inj 40 Mg/4 Ml Vial IV PUSH 40 mg Q12HR DANIEL Administration Glucagon 1 mg 10/29/24 17:23 Glucagon For Inj 1 Mg Vial IM PRN PRN Hypoglycemia Protocol Glucose 15 gm 10/29/24 17:23 Glucose Oral Gel 15 Gm Of Glucse In 37.5 Gm Tube PO PRN PRN Hypoglycemia Protocol Azithromycin 500 mg in 250 mls @ 250 mls/hr 10/29/24 21:00 10/30/24 21:46 Zithromax IVPB Infused Q24H DANIEL Infusion Dextrose 1,000 mls @ 100 mls/hr 10/29/24 17:23 Dextrose 5% 1,000 Ml IVPB PRN PRN Hypoglycemia Protocol Vancomycin HCl 2,000 mg in 500 mls @ 250 mls/hr 10/31/24 04:00 10/31/24 05:05 Vancomycin 2,000 Mg/Ns 500 Ml IVPB Infused Q12H DANIEL Infusion Cefepime HCl 2 gm in 50 mls @ 100 mls/hr 10/31/24 00:00 10/31/24 10:13 Maxipime 2 Gm/Ns 50 Ml IVPB Infused Q8H DANIEL Infusion Insulin Aspart 20 units 10/29/24 08:00 10/31/24 09:31 Insulin Aspart (*Bkc) 100 Units/Ml SUB-Q 20 units TIDWM DANIEL Administration Insulin Aspart 2 - 5 units 10/30/24 08:00 10/31/24 09:32 Insulin Aspart (*Bkc) 100 Units/Ml SUB-Q 2 units TIDWM DANIEL Administration Protocol Insulin Aspart 1 - 2 units 10/29/24 21:00 10/30/24 20:43 Insulin Aspart (*Bkc) 100 Units/Ml SUB-Q 1 units HS DANIEL Administration Protocol Insulin Glargine 70 units 10/29/24 21:00 10/30/24 20:42 Insulin Glargine (*Bkc) 100 Units/Ml SUB-Q 70 units HS DANIEL Administration Methylprednisolone Sodium Succinate 40 mg 10/29/24 18:00 10/31/24 06:02 Methylprednisolone Sod Succ 40 Mg Vial IV PUSH 40 mg Q12H DANIEL Administration Metoprolol Tartrate 100 mg 10/29/24 09:00 10/31/24 09:30 Metoprolol Tartrate 50 Mg Tab PO 100 mg Q12HR DANIEL Administration Multi-Ingred Cream/Lotion/Oil/Oint 1 applic 10/31/24 09:00 10/31/24 09:29 Eucerin Cream 120 Gm Jar TOPICAL 1 applic DAILY [facility] Administration Pantoprazole Sodium 40 mg 10/29/24 09:00 10/31/24 09:30 Pantoprazole 40 Mg Tablet PO 40 mg Q12HR DANIEL Administration Rivaroxaban 20 mg 10/29/24 09:00 10/31/24 09:34 Rivaroxaban 20 Mg Tablet PO 20 mg DAILY [facility] Administration Rosuvastatin Calcium 20 mg 10/29/24 21:00 10/30/24 20:34 Rosuvastatin 20 Mg Tablet PO 20 mg HS [facility] Administration Fluticasone/Salmeterol 2 puff 10/29/24 08:00 10/31/24 08:50 Fluticasone/Salmeterol 230-21 Mcg Inhaler 1 Puff INHALATION 2 puff Q12HRT DANIEL Administration Radiology Results: ITS Impressions Chest X-Ray 10/28/24 17:49 IMPRESSION: Small right-sided pleural effusion without focal infiltrate. Venous Doppler Study 10/28/24 18:16 IMPRESSION: Redemonstration of patient's known deep venous thrombosis within the left popliteal and gastrocnemius veins, as detailed above. No additional deep venous thrombosis is appreciated. Chest CTA 10/28/24 21:09 IMPRESSION: Partially loculated right-sided pleural effusion. Rounded atelectasis within the left lung base. No pulmonary embolus No aortic dissection. Labs Labs: Laboratory Results - last 24 hr 10/30/24 10/30/24 10/30/24 11:43 12:07 16:50 WBC RBC Hgb Hct MCV MCH MCHC RDW Plt Count MPV Immature Gran % (Auto) Neut % (Auto) Lymph % (Auto) [place] % (Auto) Eos % (Auto) Baso % (Auto) Lymph # (Auto) [place] # (Auto) Eos # (Auto) Baso # (Auto) Abs Immat Gran (auto) Absolute Neuts (auto) Absolute Nucleated RBC Nucleated RBC % Platelet Estimate Polychromasia Hypochromasia Anisocytosis Ovalocytes Schistocytes Sodium Potassium Chloride Carbon Dioxide Anion Gap BUN Creatinine Estim Creat Clear Calc Estimated GFR Glucose POC Capillary Glucose 328 H 221 H Calcium Total Bilirubin AST ALT Alkaline Phosphatase Total Protein Albumin Vancomycin Trough 12.7 10/30/24 10/31/24 10/31/24 20:06 05:17 08:23 WBC 11.9 H RBC 4.28 L Hgb 9.8 L Hct 33.6 L MCV 78.5 L MCH 22.9 L MCHC 29.2 L RDW 22.5 H Plt Count 290 MPV 10.4 Immature Gran % (Auto) 0.8 H Neut % (Auto) 84.9 H Lymph % (Auto) 6.4 L [place] % (Auto) 7.7 Eos % (Auto) 0.1 Baso % (Auto) 0.1 L Lymph # (Auto) 0.76 L [place] # (Auto) 0.9 H Eos # (Auto) 0.0 Baso # (Auto) 0.0 Abs Immat Gran (auto) 0.10 H Absolute Neuts (auto) 10.1 H Absolute Nucleated RBC 0.000 Nucleated RBC % 0.0 Platelet Estimate Adequate Polychromasia 1+ Hypochromasia 2+ Anisocytosis 2+ Ovalocytes 1+ Schistocytes None seen Sodium 137 Potassium 4.0 Chloride 100 Carbon Dioxide 30 Anion Gap 7 BUN 31 H Creatinine 1.01 Estim Creat Clear Calc 81 Estimated GFR > 60 Glucose 201 H POC Capillary Glucose 240 H 210 H Calcium 8.7 Total Bilirubin 0.6 AST 15 L ALT 11 Alkaline Phosphatase 39 Total Protein 7.0 Albumin 3.8 Vancomycin Trough
[2024-10-31 11:26] LABS: Glucose Point of Care 314 mg/dl (65-105)
--- NOTE | 2024-10-31 12:14 | PM.CNPUL ---
Assessment and Plan Assessment and plan (1) COPD (chronic obstructive pulmonary disease): Code(s): J44.9 - Chronic obstructive pulmonary disease, unspecified Status: Acute Assessment and Plan: He has a hx of COPD diagnosed decades ago, has 89 pack year hx of smoking. He was smoking prior to this admission, 1 ppd, down from his normal 1.5 - 2 ppd. He is on Breo at home, was not able to afford for the last month, even with insurance. He shoyuld go home on Trelegy 100; one puff a day. He tells me that he cannot afford the co-pay. He is using albuterol frequently when he is short of breath. (2) Tobacco abuse: Code(s): Z72.0 - Tobacco use Status: Acute Assessment and Plan: He has no interest in stopping smoking. He was in the hospital in September, when he left went back to smoking a pack per day. He tells me that the year he had his bypass surgery he quit smoking for a year but he has no interest now. (3) Shortness of breath: Code(s): R06.02 - Shortness of breath Status: Acute Assessment and Plan: He is now should more short of breath with less exertion. He is on room air with a saturation 97%. He did require oxygen as high as 2 L on day 1, weaned off. He is less short of breath with exertion compared to when he was admitted. n (4) Pleural effusion: Code(s): J90 - Pleural effusion, not elsewhere classified Status: Acute Assessment and Plan: He has a small loculated right pleural effusion which is very similar from October 28, 2024 compared to October 06, 2024. He does not have a physical exam, fever or other indicators that he has an infection in this space. This is small, may be too small to even perform a thoracentesis. He also has rounded atelectasis in the left base. Pulmonary hygiene including EzPAP valve, bronchodilator therapy, deep breathing exercises and daily coughing as well as tobacco cessation would help clear some secretions and potentially reduce atelectasis. (5) Popliteal artery thrombosis, left: Code(s): I74.3 - Embolism and thrombosis of arteries of the lower extremities Status: Acute Assessment and Plan: 10/28/2024 : MICHAEL Dopplers: IMPRESSION: Re- demonstration of patient's known deep venous thrombosis within the left popliteal and gastrocnemius veins, as detailed above. No additional deep venous thrombosis is appreciated. Plan plan: He is stable from a pulmonary standpoint to be discharged home today October the He says that he wants to follow up with us in the pulmonary office, I gave him the phone number, he can call for an appointment in 3-4 weeks [phone]. Most important recommendation is to quit smoking, he has no plans to quit. He is not able to afford his COPD controller medication Trelegy 100, 1 puff a day. He plans to continue uses albuterol p.r.n. shortness of breath. His dyspnea is a combination of under treated COPD, congestive heart failure, ongoing smoking and untreated treated sleep apnea. He said he is interested in being evaluated for a sleep apnea. His Jasper Sleepiness Scale score today is 10, borderline elevated. He sleeps 5 hours at night and takes a 1 hour nap most days of the week. I recommend pulmonary hygiene using an Acapella valve her other PAP valve, deep breathing, airway clearance techniques. He does not have a device here in the hospital but we can discuss this when he comes for his office visit. I told patient if he continues to smoke he may end up in the hospital again in a short period of time, he was here less than a month ago for similar presentation. He said he wants to go home, mainly to check on his dog, Paulo. History of Present Illness History of Present Illness Consult date: 10/31/24 Requesting physician: Brea Tyson APRN Chief complaint: pleural effusion Narrative: Oct 31 2024, 12:05 pm, Room 300 NEW: Charly Presley is 69 years old, has COPD, DM since age 22, CHF, smokes now 1 ppd. He was admitted with increasing shortness of breath, nasal drainage with cough, initially cough was productive of his post nasal drainage clear secretions, then he dried out, had a non productive cough. HE came in with a WBC 11, 12, today 11.9 with increased neutrophils. no GI symptoms, no fever or chills, no sore throat. He was admitted with partially loculated right pleural effusion which was present on his 10/06/24; He was treated for heart failure with fluid retention. was diuresed, improved, went home, went back to smoking now a pack per day. He had a CTA 10/28/24 : Weight was 129 kg when he was admitted on October 28, now 117 kg on October 31. BUN was 22 on admission creatinine 0.94, now BUN is 31 creatinine is 1.01. He has had significant diuresis, does not need supplemental oxygen. His lung exam shows clear lung johnson with hyperinflation. He says that he feels much better compared to admission. I do not think that he had COPD exacerbation. 10/28/24 LE Dopplers = Re- demonstration of patient's known deep venous thrombosis within the left popliteal and gastrocnemius veins, as detailed above. No additional deep venous thrombosis. Tobacco: started age 10 to current at 1 and half packs per day for total of 89 pack years. Patient was exposed to secondhand smoke from both of his parents but none since. 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 He spent most of his career working at [employer], retired 15 years ago. No enlistment. COPD: Measures his home pulse oximetry and it is usually 92-94%. Patient's initial symptoms began 3-4 years ago when he noticed dyspnea on exertion. One year ago the patient could walk 3 blocks and would have to stop for shortness of breath. Currently on a good day he can walk 3 blocks and has to stop for shortness of breath. He produces phlegm 4 to 5 times a day that is described as clear. At baseline patient noticed he had dyspnea on exertion but no rest shortness of breath about 3-4 years ago. He was seen by Dr Herrera when he was admitted Oct 06, 2024. ; 69-year-old with a history of coronary artery disease status post CABG approximately 20 years ago, heart failure with preserved ejection fraction, hypertension, hyperlipidemia, atrial fibrillation status post permanent pacemaker, diabetes with amputation left distal foot approximately 6 months ago, peripheral vascular disease with chronic purple discolored lower extremities below the knee for many years, PE with leg blood clots at age 23 and has been maintained on lifelong anticoagulation until 1 and half months ago when he had a bleeding gastric ulcer, COPD diagnosed 25 years ago by PFT, current tobacco use. Regarding his COPD. He had PFTs at [facility] approximately 25 years ago and was told that he had COPD and has been maintained on inhaler since then. Patient tells me he smokes from age 10 to current at 1 and half packs per day for total of 89 pack years. Patient was exposed to secondhand smoke from both of his parents but none since. 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 Patient is on no home oxygen and measures his home pulse oximetry and it is usually 92-94%. Patient's initial symptoms began 3-4 years ago when he noticed dyspnea on exertion. One year ago the patient could walk 3 blocks and would have to stop for shortness of breath. Currently on a good day he can walk 3 blocks and has to stop for shortness of breath. He produces phlegm 4 to 5 times a day that is described as clear. at baseline patient noticed he had dyspnea on exertion but no rest shortness of breath about 3-4 years ago. Patient presented to the emergency department on 10/01/2024 with 14 days worsening Dyspnea on exertion, intermittent wheezing with no change in his cough or phlegm production. He had no chest pain. He had no change in his orthopnea, he sleeps in a recliner, no change in his nocturia or PND. In the emergency department his vitals were 151/54, heart rate 69, room air saturations 98% he had no wheezing. Bibasilar crackles. White blood cell count 10.4 with eosinophils 2.3 equal 236 per micro L. creatinine 1.20, BNP 2760 and a chest x-ray that showed congestion. Patient was treated for fluid overload, COPD exacerbation and possible pneumonia with IV Lasix, DuoNebs, ceftriaxone and azithromycin and although the chart says Solu-Medrol do not see this on his Mar. Patient had an echocardiogram on 10/03 with LVEF 55-60, normal RV size and function, normal right atrium, RVSP 32. Chest x-ray on 10/05 showed congestion with resolution of the small bilateral pleural effusions that were seen on 10/01/2024. His weight has decreased from 127.3 kg to 116.5 kg. No output has been recorded. 10/06/24: Today the patient tells me he is breathing 70% back to his normal. Still has some dysp DATA * 10/28/24 : LE Dopplers: 10/28/2024 : LE Dopplers: IMPRESSION: Re- demonstration of patient's known deep venous thrombosis within the left popliteal and gastrocnemius veins, as detailed above. No additional deep venous thr * 10/28/2024: CTA : 10/06/2024 FINDINGS: No filling defects within the main or proximal pulmonary arteries. The main pulmonary artery is not enlarged. The thoracic aorta is nonaneurysmal and without dissection. The heart is enlarged, without pericardial effusion. Redemonstration of a right-sided pleural effusion, partially loculated with adjacent compressive atelectasis. The loculated portion is best seen on axial series, image 137. The pleural effusion extends into the fissure, also unchanged. Rounded atelectasis is present within the left lower lobe. Within the upper abdomen: Multiple calcifications within the pancreas, consistent with chronic pancreatitis. IMPRESSION: Partially loculated right-sided pleural effusion. Rounded atelectasis within the left lung base. No pulmonary embolus Review of Systems Review of Systems: He had several bowel movements right after admission, has not had any BM for 2 days. He is not having chest pain. He sleeps in a recliner at about a 45 degree or higher angle. He has been in the recliner for over a year for sleep. His legs frequently swell. Currently they are not very swollen. All systems reviewed & are unremarkable except as noted in HPI and below PMFSH Past Medical History Medical History (Updated 10/31/24 @ 14:06 by Lora Simmons MD) Popliteal artery thrombosis, left Acute and chronic respiratory failure Gastric ulcer Acute on chronic anemia Wound dehiscence, external operation Peripheral vascular disease Hypertension Dyslipidemia Atrial fibrillation Pulmonary emboli Tobacco abuse COPD (chronic obstructive pulmonary disease) Pacemaker CAD (coronary artery disease) Surgical History Surgical History Hx of CABG Family History Family History Mother Cancer Father Cancer Social History Social History Smoking packs per day: 1 Smoking cigarettes per day: 20.0 Years smoked: 60 Smoking pack-years: 60.00 Smoking status: Current every day smoker Second hand tobacco smoke exposure: No Alcohol intake: never Substance use: never Substance use type: does not use Do You Feel Safe in your Home?: Yes Lack of Transportation: No Lack of Food: Never True Current Housing: I Have Housing Concerned About Future Housing: No Difficulty Paying Gas/Electric Bills: No Difficulty Paying for Meds: No Currently Unemployed: No Education: High School Diploma/GED Difficulty w/ Childcare or Family Care: No Spiritual care concerns: No Meds Home Medications and Allergies Home Medications ?Medication ?Instructions ?Recorded ?Confirmed ?Type escitalopram oxalate 10 mg tablet 10 mg PO DAILY 09/22/23 10/28/24 History fenofibrate 160 mg tablet 160 mg PO DAILY 09/22/23 10/28/24 History furosemide 40 mg tablet 40 mg PO DAILY 09/22/23 10/28/24 History insulin aspart U-100 100 unit/mL 20 unit subcut TIDWM 09/22/23 10/28/24 History subcutaneous solution (Novolog U-100 Insulin aspart) insulin glargine 100 unit/mL (3 70 unit subcut HS 09/22/23 10/28/24 History mL) subcutaneous pen (Basaglar KwikPen U-100 Insulin) metformin 1,000 mg tablet 1,000 mg PO BIDWM 09/22/23 10/28/24 History metoprolol tartrate 100 mg tablet 100 mg PO BID 09/22/23 10/28/24 History rivaroxaban 20 mg tablet (Xarelto) 20 mg PO DAILY 09/22/23 10/28/24 History rosuvastatin 20 mg tablet 20 mg PO HS 09/22/23 10/28/24 History fluticasone furoate 200 1 inh inhalation DAILY 03/22/24 10/28/24 History mcg-vilanterol 25 mcg/dose inhalation powder (Breo Ellipta) fluticasone propionate 50 1 spray intranasal Q12H 10/01/24 10/28/24 History mcg/actuation nasal spray,suspension glimepiride 2 mg tablet 2 mg PO BID 10/01/24 10/28/24 History pantoprazole 40 mg tablet,delayed 40 mg PO Q12H 10/01/24 10/28/24 History release Allergies Allergy/AdvReac Type Severity Reaction Status Date / Time No Known Allergies Allergy Verified 10/01/24 03:26 Vital Signs Vital Signs - 24 hr 10/30/24 13:37 10/30/24 13:37 10/30/24 13:49 Temperature Pulse Rate 70 70 Respiratory Rate 20 20 Blood Pressure Pulse Oximetry 94 Oxygen Delivery Room Air 10/30/24 16:00 10/30/24 16:00 10/30/24 19:52 Temperature 36.5 C 36.2 C L Pulse Rate 70 70 70 Respiratory Rate 18 18 Blood Pressure 148/62 H 153/61 H Pulse Oximetry 95 95 Oxygen Delivery 10/30/24 20:00 10/30/24 20:00 10/30/24 20:35 Temperature Pulse Rate 70 70 Respiratory Rate Blood Pressure Pulse Oximetry Oxygen Delivery Room Air 10/30/24 21:30 10/30/24 21:51 10/30/24 22:07 Temperature Pulse Rate 69 70 Respiratory Rate 20 20 Blood Pressure Pulse Oximetry 97 Oxygen Delivery Room Air 10/31/24 00:00 10/31/24 00:00 10/31/24 03:00 Temperature 36.2 C L Pulse Rate 70 80 70 Respiratory Rate 17 20 Blood Pressure 107/50 L Pulse Oximetry 93 Oxygen Delivery 10/31/24 03:10 10/31/24 04:00 10/31/24 04:00 Temperature 36.4 C L Pulse Rate 72 69 70 Respiratory Rate 20 16 Blood Pressure 157/72 H Pulse Oximetry 97 Oxygen Delivery 10/31/24 08:00 10/31/24 08:02 10/31/24 08:51 Temperature 35.7 C L Pulse Rate 72 70 69 Respiratory Rate 20 20 Blood Pressure 164/77 H Pulse Oximetry 97 97 Oxygen Delivery Room Air 10/31/24 08:51 10/31/24 09:00 10/31/24 09:30 Temperature Pulse Rate 69 63 63 Respiratory Rate 20 20 Blood Pressure Pulse Oximetry Oxygen Delivery 10/31/24 09:30 10/31/24 11:55 Temperature 36.1 C L Pulse Rate 76 Respiratory Rate 20 Blood Pressure 158/73 H Pulse Oximetry 97 Oxygen Delivery Room Air Exam Narrative: GEN: Alert, oriented, not in distress. He is on room air, saturation is 97% at rest. HEENT: pupils are equal, EOMI, symmetrical face; oral membranes dry, Mallampati II airway, has most of his natural teeth. Some are not in good repair. NECK: Trachea is midline CHEST: Equal air entry, symmetric excursion, clear decreased breath sounds, no wheezing, no crackles BacK : lipoma the size of a plum in midline back thoracic area CV: Regular S1S2 no m/g/r ABD : (+) bowel sounds Extremities : no clubbing, no cyanosis ; he has dark discolored hyperpigmented skin on both lower legs, no pitting edema PSYCH: normal thought and speech, gait is not tested. Results Laboratory Findings 10/31/24 05:17 10/31/24 05:17 ABG, PT/INR, D-dimer: PT/INR, D-dimer PT 15.0 Seconds (11.1-14.7) H 10/28/24 21:31 INR 1.1 10/28/24 21:31 D-Dimer 2.02 ug/mL (<0.48) H 10/28/24 17:09 Abnormal lab findings: Abnormal Labs 10/28/24 10/28/24 10/28/24 17:09 21:30 21:31 WBC 11.7 H RBC 4.25 L Hgb 9.9 L Hct 33.4 L MCV 78.6 L MCH 23.3 L MCHC 29.6 L RDW 22.0 H Immature Gran % (Auto) Neut % (Auto) Lymph % (Auto) 12.5 L [place] % (Auto) 8.8 H Eos % (Auto) 5.4 H Baso % (Auto) Lymph # (Auto) [place] # (Auto) 1.0 H Eos # (Auto) 0.6 H Abs Immat Gran (auto) 0.05 H Absolute Neuts (auto) 8.4 H PT 15.0 H D-Dimer 2.02 H VBG pH 7.424 H* VBG pO2 50.7 H Sodium 134 L BUN 22 H D Glucose 268 H POC Capillary Glucose Calcium Magnesium 1.5 L AST NT-Pro-B Natriuret Pep 4610 H 10/29/24 10/29/24 10/29/24 07:33 11:41 18:29 WBC RBC Hgb Hct MCV MCH MCHC RDW Immature Gran % (Auto) Neut % (Auto) Lymph % (Auto) [place] % (Auto) Eos % (Auto) Baso % (Auto) Lymph # (Auto) [place] # (Auto) Eos # (Auto) Abs Immat Gran (auto) Absolute Neuts (auto) PT D-Dimer VBG pH VBG pO2 Sodium BUN Glucose POC Capillary Glucose 460 H 436 H 497 H Calcium Magnesium AST NT-Pro-B Natriuret Pep 10/29/24 10/30/24 10/30/24 20:24 00:26 05:56 WBC 12.0 H RBC 4.15 L Hgb 9.8 L Hct 32.4 L MCV 78.1 L MCH 23.6 L MCHC 30.2 L RDW 22.5 H Immature Gran % (Auto) 0.8 H Neut % (Auto) 87.3 H Lymph % (Auto) 5.3 L [place] % (Auto) Eos % (Auto) Baso % (Auto) Lymph # (Auto) 0.64 L [place] # (Auto) 0.8 H Eos # (Auto) Abs Immat Gran (auto) 0.10 H Absolute Neuts (auto) 10.5 H PT D-Dimer VBG pH VBG pO2 Sodium 136 L BUN 32 H D Glucose 320 H POC Capillary Glucose 495 H 341 H Calcium 8.3 L Magnesium AST 14 L NT-Pro-B Natriuret Pep 10/30/24 10/30/24 10/30/24 08:09 11:43 16:50 WBC RBC Hgb Hct MCV MCH MCHC RDW Immature Gran % (Auto) Neut % (Auto) Lymph % (Auto) [place] % (Auto) Eos % (Auto) Baso % (Auto) Lymph # (Auto) [place] # (Auto) Eos # (Auto) Abs Immat Gran (auto) Absolute Neuts (auto) PT D-Dimer VBG pH VBG pO2 Sodium BUN Glucose POC Capillary Glucose 333 H 328 H 221 H Calcium Magnesium AST NT-Pro-B Natriuret Pep 10/30/24 10/31/24 10/31/24 20:06 05:17 08:23 WBC 11.9 H RBC 4.28 L Hgb 9.8 L Hct 33.6 L MCV 78.5 L MCH 22.9 L MCHC 29.2 L RDW 22.5 H Immature Gran % (Auto) 0.8 H Neut % (Auto) 84.9 H Lymph % (Auto) 6.4 L [place] % (Auto) Eos % (Auto) Baso % (Auto) 0.1 L Lymph # (Auto) 0.76 L [place] # (Auto) 0.9 H Eos # (Auto) Abs Immat Gran (auto) 0.10 H Absolute Neuts (auto) 10.1 H PT D-Dimer VBG pH VBG pO2 Sodium BUN 31 H Glucose 201 H POC Capillary Glucose 240 H 210 H Calcium Magnesium AST 15 L NT-Pro-B Natriuret Pep 10/31/24 11:24 WBC RBC Hgb Hct MCV MCH MCHC RDW Immature Gran % (Auto) Neut % (Auto) Lymph % (Auto) [place] % (Auto) Eos % (Auto) Baso % (Auto) Lymph # (Auto) [place] # (Auto) Eos # (Auto) Abs Immat Gran (auto) Absolute Neuts (auto) PT D-Dimer VBG pH VBG pO2 Sodium BUN Glucose POC Capillary Glucose 314 H Calcium Magnesium AST NT-Pro-B Natriuret Pep
--- NOTE | 2024-10-31 15:46 | P.DS_ITS ---
DS: Admitting Diagnosis Discharge Date 10/31/24 Admitting Diagnosis Shortness of breath DS: Discharge Diagnosis Discharge Diagnosis (1) Acute on chronic heart failure: Code(s): I50.9 - Heart failure, unspecified Status: Acute (2) COPD (chronic obstructive pulmonary disease): Code(s): J44.9 - Chronic obstructive pulmonary disease, unspecified Status: Acute (3) CAD (coronary artery disease): Code(s): I25.10 - Atherosclerotic heart disease of [place] coronary artery without angina pectoris Status: Acute (4) DVT (deep venous thrombosis): Qualifiers: Affected thrombotic vein of extremity: popliteal Chronicity: unspecified DVT location: lower extremity Laterality: left Qualified Code(s): I82.432 - Acute embolism and thrombosis of left popliteal vein Code(s): I82.409 - Acute embolism and thrombosis of unspecified deep veins of unspecified lower extremity Status: Acute (5) Acute and chronic respiratory failure: Code(s): J96.20 - Acute and chronic respiratory failure, unspecified whether with hypoxia or hypercapnia Status: Acute (6) Pleural effusion: Code(s): J90 - Pleural effusion, not elsewhere classified Status: Acute (7) Atrial fibrillation: Code(s): I48.91 - Unspecified atrial fibrillation Status: Acute (8) Peripheral vascular disease: Code(s): I73.9 - Peripheral vascular disease, unspecified Status: Chronic (9) Venous stasis dermatitis of both lower extremities: Code(s): I87.2 - Venous insufficiency (chronic) (peripheral) Status: Acute (10) KIRILL on CPAP: Code(s): G47.33 - Obstructive sleep apnea (adult) (pediatric) Status: Acute (11) Tobacco abuse: Code(s): Z72.0 - Tobacco use Status: Acute DS: Summary Hospital Course Hospital Course: * This is 69 yo male who presents with shortness of breath, cough productive of yellow sputum, generalised weakness. ongoing for past 4-5 days and progressi vely worsening. Worse with exertion. He has been using his inhalers at home without improvement. Also reports pain and swelling in bilateral lower extremities. No fever chest pain. He was admitted a month ago for similar symptoms. Was diagnosed with congestive heart failure and anemia. Received blood transfusion during that admission. No rectal bleeding on melena. * He reports worsening lower extremity edema out past week. His Xarelto was discontinued due to GI bleed in the last admission however was restarted back once she had a DVT found during that admission. He however has not been taking his Xarelto. * Leukocytosis of 11.7 hemoglobin of 9.9. Chem panel unremarkable. Magnesium 1.5. BNP elevated at 4610. Troponin 0.013. * influenza, rsv, covid negative. * cxr with small right sided pleural effusion without focal infiltrate. venous duplex redemonstrated his known dvt within the left popliteal and gastrocnemius veins. * CTA performed showed partially loculated right pleural effusion with adjacent compressive atelectasis. round atelectasis within the left lung base with no PE or aortic dissection. The similar to the appearance in previous CTA done recently * EKG with electronic ventricular pacemaker * Patient responded with to IV diuresis and transitioned oral lasix. 10 lb weight loss. * Pulmonary consulted for partially loculated right pleural effusion. Patient okay for discharge and to follow up with pulmonary in 3-4 weeks. Received Vanc, Cefepime, and Azithromycin. * Blood cultures no growth. Status at Discharge Functional status at discharge: independent ambulation Overall status at discharge: patient is progressing back to baseline Time Spent with Patient Time attestation: Total time spent providing and/or coordinating discharge services: Time spent: Greater than 30 minutes Exam Const: General: comfortable and no acute distress Resp: Auscultation: diminished lung sounds Cardio: Rate: regular rate Rhythm: regular rhythm GI: GI Palp: Yes Soft to palpation Auscultation: normal bowel sounds Skin: Other: dark discolored hyperpigmented skin on both lower legs, dry and flaky Neuro: General: gait normal Extrem: General: no pedal edema Other: he has dark discolored hyperpigmented skin on both lower legs, no pitting edema Psych: Mental Status: mental status grossly normal Affect: normal affect DS: Data Data Completed and Pending Labs on day of discharge: Labs from last 24 hours 10/31/24 10/31/24 10/31/24 11:24 08:23 05:17 WBC 11.9 H RBC 4.28 L Hgb 9.8 L Hct 33.6 L MCV 78.5 L MCH 22.9 L MCHC 29.2 L RDW 22.5 H Plt Count 290 MPV 10.4 Immature Gran % (Auto) 0.8 H Neut % (Auto) 84.9 H Lymph % (Auto) 6.4 L Smith % (Auto) 7.7 Eos % (Auto) 0.1 Baso % (Auto) 0.1 L Lymph # (Auto) 0.76 L Smith # (Auto) 0.9 H Eos # (Auto) 0.0 Baso # (Auto) 0.0 Abs Immat Gran (auto) 0.10 H Absolute Neuts (auto) 10.1 H Absolute Nucleated RBC 0.000 Nucleated RBC % 0.0 Platelet Estimate Adequate Polychromasia 1+ Hypochromasia 2+ Anisocytosis 2+ Ovalocytes 1+ Schistocytes None seen Sodium 137 Potassium 4.0 Chloride 100 Carbon Dioxide 30 Anion Gap 7 BUN 31 H Creatinine 1.01 Estim Creat Clear Calc 81 Estimated GFR > 60 Glucose 201 H POC Capillary Glucose 314 H 210 H Calcium 8.7 Total Bilirubin 0.6 AST 15 L ALT 11 Alkaline Phosphatase 39 Total Protein 7.0 Albumin 3.8 10/30/24 10/30/24 20:06 16:50 WBC RBC Hgb Hct MCV MCH MCHC RDW Plt Count MPV Immature Gran % (Auto) Neut % (Auto) Lymph % (Auto) Smith % (Auto) Eos % (Auto) Baso % (Auto) Lymph # (Auto) Smith # (Auto) Eos # (Auto) Baso # (Auto) Abs Immat Gran (auto) Absolute Neuts (auto) Absolute Nucleated RBC Nucleated RBC % Platelet Estimate Polychromasia Hypochromasia Anisocytosis Ovalocytes Schistocytes Sodium Potassium Chloride Carbon Dioxide Anion Gap BUN Creatinine Estim Creat Clear Calc Estimated GFR Glucose POC Capillary Glucose 240 H 221 H Calcium Total Bilirubin AST ALT Alkaline Phosphatase Total Protein Albumin Preliminary micro results at discharge 10/28/24 23:47 Blood Culture - Preliminary Blood Discharge Plan Discharge Attending physician on discharge: Rolan Levin Consulting providers: Lora Simmons Discharging Clinician: Brea Tyson Anticipated Discharge Date/Time: 10/31/24 15:45 Patient Disposition: Home, Self-Care Activity: may shower Diet: heart healthy, diabetic and low sodium Discharge Instructions: * Trouble breathing with activity that worsens to trouble breathing at rest. * Shortness of breath while lying flat * Severe shortness of breath and coughing at night that usually wakes you. * Feeling lightheaded when you stand up * Purple color around your mouth and nails * Confusion or anxiety * Chest pain at night * Periods of no breathing, then breathing fast Lack of energy (often worsened by physical activity), or trouble sleeping * Swelling in your ankles, legs, or abdomen * Heartbeat that is fast or not regular * Weigh yourself daily and record. If you gain 3 pounds in one day or 1 pound a day for 3 days notify provider. * Walk for exercise. * Monitor blood sugars and follow a diabetic diet. Thank you for entrusting [facility] with your healthcare! Patient Instructions: Antibiotic Form, Rivaroxaban (By mouth), Heart Failure (GEN), Heart Healthy Diet (DC), Low-Sodium Diet (DC) Patient Language: [place] Stand Alone Forms: General Discharge Information Follow-up/Referrals: Sorensen,Shira Warren APN [Primary Care Provider] - 1 Week Lora Simmons MD [Physician] - 3 Weeks Discharge Medications: New prednisone 20 mg tablet 40 mg PO DAILY Qty: 10 0RF azithromycin 500 mg tablet 500 mg PO HS 2 Days Qty: 2 0RF Rx Instructions: Take one tablet tonight 10/31/24 and one tablet at bedtime on 11/01/24. Continued furosemide 40 mg tablet 40 mg PO DAILY metoprolol tartrate 100 mg tablet 100 mg PO BID insulin aspart U-100 [Novolog U-100 Insulin aspart] 100 unit/mL solution 20 unit subcut TIDWM metformin 1,000 mg tablet 1,000 mg PO BIDWM escitalopram oxalate 10 mg tablet 10 mg PO DAILY rosuvastatin 20 mg tablet 20 mg PO HS fenofibrate 160 mg tablet 160 mg PO DAILY insulin glargine [Basaglar KwikPen U-100 Insulin] 100 unit/mL (3 mL) insulin pen 70 unit SUBCUT HS Xarelto 20 mg tablet 20 mg PO DAILY fluticasone furoate-vilanterol [Breo Ellipta] 200-25 mcg/dose blister with device 1 inh INHALATION DAILY glimepiride 2 mg tablet 2 mg PO BID pantoprazole 40 mg tablet,delayed release (DR/EC) 40 mg PO Q12H fluticasone propionate 50 mcg/actuation spray,suspension 1 spray INTRANASAL Q12H Date of admission: 10/30/24 10:42 Primary Care Provider: Darrin*Shira Admitting Provider: Andry Nicole V. Attending physician on admission: Andry Nicole V. Condition: Stable Hospitalist MIPS Heart Failure (Exclusion) Patient has history of Heart Transplant or Left Ventricular Assistive Device?: No IF YES, STOP HERE Heart Failure (Qualifier) Patient has current or prior documentation of LVEF less than or equal to 40%, or mod/servere depressed LVSF?: No IF NO, STOP HERE
== END 2024-10-31 16:21 | disposition home or self-care (01) | DRG 291 ==
LOC: ANHED 22:09 → ANH3MEDSUR 22:24 → ANHIMU 23:30 → ANH3MEDSUR 10-29 16:31
PROVIDERS: Internal Medicine; Physician Assistant; Admitting Provider Internal Medicine; Emergency Provider Physician Assistant; PCP Nurse Practitioner Family; Visit Provider Nurse Practitioner Family
DX: I11.0 Hypertensive heart disease with heart failure (principal); I50.33 Acute on chronic diastolic (congestive) heart failure; I82.432 Acute embolism and thrombosis of left popliteal vein; J44.1 Chronic obstructive pulmonary disease with (acute) exacerbation; J98.11 Atelectasis; I82.462 Acute embolism and thrombosis of left calf muscular vein; E11.9 Type 2 diabetes mellitus without complications; E66.9 Obesity, unspecified; I25.10 Atherosclerotic heart disease of native coronary artery without angina pectoris; E78.5 Hyperlipidemia, unspecified; G47.33 Obstructive sleep apnea (adult) (pediatric); D64.9 Anemia, unspecified; I87.2 Venous insufficiency (chronic) (peripheral); I48.91 Unspecified atrial fibrillation; F17.210 Nicotine dependence, cigarettes, uncomplicated; Z68.34 Body mass index [BMI] 34.0-34.9, adult; Z95.0 Presence of cardiac pacemaker; Z79.01 Long term (current) use of anticoagulants; Z79.84 Long term (current) use of oral hypoglycemic drugs; Z79.4 Long term (current) use of insulin; Z87.11 Personal history of peptic ulcer disease; Z95.1 Presence of aortocoronary bypass graft; Z86.711 Personal history of pulmonary embolism
CPT/HCPCS: 36415; 36600; 71046; 71275; 80053; 80202; 82565; 82803; 82948; 83735; 83880; 84484; 85025; 85380; 85610; 85730; 87040; 87637; 93005; 93970; 94640; 96365; 96366; 96367; 96372; 96375; 96376; 99285; A9270; G0378; J0456; J0692; J0696; J1650; J1815; J1940; J2919; J3370; J3475; Q9967